=== PATIENT | female | born 1975 ===

== ENCOUNTER 2017-03-08 21:40 | Inpatient (IN) | payer MEDICARE, OTHER ==
[2017-03-08] MEDS ORDERED: PANTOPRAZOLE 40 MG/10 ML VIAL IVP STA (22:05)
[2017-03-08] MEDS ORDERED: SODIUM CHLORIDE 0.9% 500 ML IV STA (22:05)
[2017-03-08] MEDS ORDERED: RX INFO: IV CONTRAST WAS GIVEN 1 EACH MISC MISCELLANE PRN (22:05)
--- NOTE | 2017-03-08 22:14 | ED ---
GI Bleed HPI - General Chief complaint: Syncope Stated complaint: abn labs,syncope Time Seen by Provider: 03/08/17 21:51 Source: patient Mode of arrival: wheelchair Limitations: no limitations - History of Present Illness Initial comments: This patient is a 41-year-old woman who presents to the emergency department after she passed out. The patient does give history of having a coagulopathy requiring that she take Coumadin. She states this is managed through the clinic. She does note that about 4 days ago she started having dark or black appearing stools. Over the past 1-2 days she has been having diffuse abdominal cramping and she states profuse diarrhea that is dark. She also has been having vomiting over the past day, but denies seeing coffee-ground material there. She began feeling very weak today. She did pass out. The patient states that she usually goes to [facility] but she felt she would not be able to make it there so she presents here to be evaluated. She is feeling weak and dizzy, complains of orthostatic symptoms. She denies chest pain or diaphoresis. MD complaint: melena Onset/Timin -: days(s) Quality: cramping Consistency: colicky Improves with: none Worsens with: none Context: blood thinners Associated Symptoms: abdominal pain, vomiting, syncope - Related Data Home Medications Medication Instructions Recorded Confirmed Cholecalciferol (Vitamin D3) 5,000 unit PO DAILY 09/03/15 03/08/17 [Vitamin D3] Citalopram Hydrobromide 20 mg PO DAILY 09/03/15 03/08/17 [Citalopram HBr] LORazepam [Lorazepam] 1 mg PO BID PRN 09/03/15 03/08/17 Hydrocodone/Acetaminophen [Pope 1 tab PO Q8H PRN 03/08/17 03/08/17 5-325] Warfarin [Coumadin] 10 - 12.5 mg PO DIRECTED 03/08/17 03/08/17 Allergies Allergy/AdvReac Type Severity Reaction Status Date / Time bupropion HCl AdvReac Vomiting Verified 03/08/17 22:14 [From Wellbutrin] doxycycline AdvReac Vomiting Verified 03/08/17 22:14 Review of Systems ROS Statement: Those systems with pertinent positive or pertinent negative responses have been documented in the HPI. ROS Other: All systems not noted in ROS Statement are negative. Constitutional: Reports: weakness Eyes: Denies: vision change Respiratory: Denies: cough, dyspnea, hemoptysis Cardiovascular: Reports: syncope. Denies: chest pain, palpitations, orthopnea, edema Gastrointestinal: Reports: abdominal pain, nausea, vomiting, diarrhea, melena. Denies: constipation, hematemesis, hematochezia Genitourinary: Denies: dysuria, hematuria Musculoskeletal: Denies: back pain Skin: Denies: rash Neurological: Reports: weakness. Denies: headache, numbness Hematological/Lymphatic: Reports: other (Coumadin use) Past Medical History Past Medical History: Blood Disorder, CVA/TIA, Deep Vein Thrombosis (DVT), Fibromyalgia, GERD/Reflux, Pneumonia Additional Past Medical History / Comment(s): BLOOD CLOTTING DISORDER, UTI, ALLERGIES, TIA,MIGRAINES, LUZ MARIA RHEUMATOID ARTHRITIS/OSTEOPOROSIS, DAY BEFORE THANKSGIVING FELL OFF LADDER BROKE RT DISTAL RADIUS/STATED ALSO HAD CONCUSSION.. History of Any Multi-Drug Resistant Organisms: None Reported Past Surgical History: Adenoidectomy, Section, Hysterectomy, Tonsillectomy Additional Past Surgical History / Comment(s): SEVERAL SETS OF EUSTACIAN TUBES, TOTAL HYSTERECTOMY D/T ENLARGING CYSTS EVEN WHEN ON LUPRON, HYDROCEPHALUS/4TH DEGREE BRAIN BLEED, SPINA BIFIDA CORRECTIVE SX, WISDOM TEETH EXTRACTED,HAS A TULIP FIELD FILTER INSERTED FOR BLOOD CLOTS, MOLE REMOVED(BENIGN), FELECIA TIB/FIB( CONTORSION) SX. 09.03.15 ORIF RT DISTAL RADIUS. Past Anesthesia/Blood Transfusion Reactions: No Reported Reaction Past Psychological History: Anxiety, Depression Smoking Status: Never smoker Past Alcohol Use History: None Reported Past Drug Use History: None Reported - Past Family History Father Family Medical History: Myocardial Infarction (ND) Additional Family Medical History / Comment(s): BLOOD CLOTS Mother Family Medical History: Deep Vein Thrombosis (DVT) Additional Family Medical History / Comment(s): FROM BLOOD CLOT AT AGE 42. FAMILY HX OF CANCER ON MOMS SIDE. General Exam Limitations: no limitations General appearance: alert, in distress Head exam: Present: atraumatic, normocephalic Eye exam: Present: normal appearance, other (Conjunctival pallor). Absent: scleral icterus, conjunctival injection ENT exam: Present: mucous membranes dry, other (Mucosal pallor) Neck exam: Present: normal inspection, full ROM. Absent: meningismus Respiratory exam: Present: normal lung sounds bilaterally. Absent: respiratory distress, wheezes, rales, rhonchi, stridor Cardiovascular Exam: Present: normal rhythm, tachycardia, normal heart sounds. Absent: systolic murmur, diastolic murmur, rubs, gallop GI/Abdominal exam: Present: soft, tenderness (There is mild diffuse tenderness) , diminished bowel sounds. Absent: distended, guarding, rebound, rigid, mass, pulsatile mass, hernia Extremities exam: Present: normal inspection. Absent: pedal edema, calf tenderness Neurological exam: Present: alert Skin exam: Present: warm, dry, intact, pallor. Absent: rash Course Vital Signs 03/08/17 03/08/17 03/08/17 21:56 22:09 22:25 Temperature 97.8 F Pulse Rate 116 H Pulse Rate [ 119 H 112 H Advertising Coordinator ] Respiratory 28 H 22 Rate Blood Pressure 85/50 Blood Pressure 86/52 [Left Arm] O2 Sat by Pulse 100 100 Oximetry 03/08/17 03/08/17 03/08/17 23:03 23:12 23:15 Temperature 98.6 F 98.6 F 97.8 F Pulse Rate 108 H 109 H 98 Pulse Rate [ Advertising Coordinator ] Respiratory 16 20 20 Rate Blood Pressure 130/81 130/81 116/56 Blood Pressure [Left Arm] O2 Sat by Pulse 100 Oximetry 03/08/17 03/09/17 03/09/17 23:25 00:03 00:32 Temperature 97.8 F 98.0 F 98.2 F Pulse Rate 111 H 106 H Pulse Rate [ 96 Advertising Coordinator ] Respiratory 20 20 16 Rate Blood Pressure 118/57 118/57 Blood Pressure 96/52 [Left Arm] O2 Sat by Pulse 100 100 Oximetry 03/09/17 03/09/17 03/09/17 00:47 00:59 01:00 Temperature Pulse Rate 91 Pulse Rate [ 104 H Advertising Coordinator ] Respiratory 20 22 18 Rate Blood Pressure Blood Pressure 117/63 [Left Arm] O2 Sat by Pulse 100 100 Oximetry Medical Decision Making - Medical Decision Making This patient is a 41-year-old woman presenting with abdominal pain, get GI bleeding, anemia, elevated INR on Coumadin. Patient receiving packed red cells , order placed for FFP, vitamin K. I discussed the initial results with the patient and requested to no if she wants to go back to [facility] where she states she does receive some her care or stay here and the patient currently wants to be admitted here. I have discussed her case with her physician Dr. Dowling. Patient be admitted to the ICU. Discussed her case with Dr. Moscoso who is covering tonight. Treatment recommendations are incorporated. I have paged surgery on-call to let them know about the case. - Lab Data Result diagrams: 03/09/17 09:25 03/09/17 09:25 Lab Results 03/08/17 03/08/17 03/08/17 Range/Units 22:00 22:00 22:00 WBC 12.4 H (3.8-10.6) k/uL RBC 1.59 L (3.80-5.40) m/uL Hgb 4.8 L* (11.4-16.0) gm/dL Hct 14.0 L* (34.0-46.0) % MCV 88.0 (80.0-100.0) fL MCH 30.4 (25.0-35.0) pg MCHC 34.6 (31.0-37.0) g/dL RDW 15.5 (11.5-15.5) % Plt Count 351 (150-450) k/uL Neutrophils % 78 % Lymphocytes % 17 % Monocytes % 2 % Eosinophils % 0 % Basophils % 0 % Neutrophils # 9.7 H (1.3-7.7) k/uL Lymphocytes # 2.1 (1.0-4.8) k/uL Monocytes # 0.3 (0-1.0) k/uL Eosinophils # 0.0 (0-0.7) k/uL Basophils # 0.1 (0-0.2) k/uL PT (9.0-12.0) sec INR (<1.1) APTT (22.0-30.0) sec Sodium 139 (137-145) mmol/L Potassium 4.1 (3.5-5.1) mmol/L Chloride 105 (98-107) mmol/L Carbon Dioxide 20 L (22-30) mmol/L Anion Gap 14 mmol/L BUN 40 H (7-17) mg/dL Creatinine 0.90 (0.52-1.04) mg/dL Est GFR (MDRD) Af Amer >60 (>60 ml/min/1.73 sqM) Est GFR (MDRD) Non-Af >60 (>60 ml/min/1.73 sqM) Glucose 205 H (74-99) mg/dL Plasma Lactic Acid Daniel (0.7-2.0) mmol/L Calcium 8.7 (8.4-10.2) mg/dL Total Bilirubin 0.4 (0.2-1.3) mg/dL AST 20 (14-36) U/L ALT 14 (9-52) U/L Alkaline Phosphatase 52 (38-126) U/L Total Creatine Kinase 34 (30-135) U/L CK-MB (CK-2) 0.3 (0.0-2.4) ng/mL CK-MB (CK-2) Rel Index 0.9 Troponin I 0.037 H* (0.000-0.034) ng/mL Total Protein 5.5 L (6.3-8.2) g/dL Albumin 3.4 L (3.5-5.0) g/dL Blood Type Blood Type Recheck Antibody Screen Crossmatch Transfuse Plasma Spec Expiration Date 03/08/17 03/08/17 03/08/17 Range/Units 22:00 22:00 22:00 WBC (3.8-10.6) k/uL RBC (3.80-5.40) m/uL Hgb (11.4-16.0) gm/dL Hct (34.0-46.0) % MCV (80.0-100.0) fL MCH (25.0-35.0) pg MCHC (31.0-37.0) g/dL RDW (11.5-15.5) % Plt Count (150-450) k/uL Neutrophils % % Lymphocytes % % Monocytes % % Eosinophils % % Basophils % % Neutrophils # (1.3-7.7) k/uL Lymphocytes # (1.0-4.8) k/uL Monocytes # (0-1.0) k/uL Eosinophils # (0-0.7) k/uL Basophils # (0-0.2) k/uL PT >130.0 H (9.0-12.0) sec INR >10.0 H* (<1.1) APTT 45.9 H (22.0-30.0) sec Sodium (137-145) mmol/L Potassium (3.5-5.1) mmol/L Chloride (98-107) mmol/L Carbon Dioxide (22-30) mmol/L Anion Gap mmol/L BUN (7-17) mg/dL Creatinine (0.52-1.04) mg/dL Est GFR (MDRD) Af Amer (>60 ml/min/1.73 sqM) Est GFR (MDRD) Non-Af (>60 ml/min/1.73 sqM) Glucose (74-99) mg/dL Plasma Lactic Acid Daniel 5.7 H* (0.7-2.0) mmol/L Calcium (8.4-10.2) mg/dL Total Bilirubin (0.2-1.3) mg/dL AST (14-36) U/L ALT (9-52) U/L Alkaline Phosphatase (38-126) U/L Total Creatine Kinase (30-135) U/L CK-MB (CK-2) (0.0-2.4) ng/mL CK-MB (CK-2) Rel Index Troponin I (0.000-0.034) ng/mL Total Protein (6.3-8.2) g/dL Albumin (3.5-5.0) g/dL Blood Type O Positive Blood Type Recheck No Antibody Screen NEGATIVE Crossmatch See Detail Transfuse Plasma Spec Expiration Date 03/11/2017 - 229903/09/17 Range/Units 00:05 WBC (3.8-10.6) k/uL RBC (3.80-5.40) m/uL Hgb (11.4-16.0) gm/dL Hct (34.0-46.0) % MCV (80.0-100.0) fL MCH (25.0-35.0) pg MCHC (31.0-37.0) g/dL RDW (11.5-15.5) % Plt Count (150-450) k/uL Neutrophils % % Lymphocytes % % Monocytes % % Eosinophils % % Basophils % % Neutrophils # (1.3-7.7) k/uL Lymphocytes # (1.0-4.8) k/uL Monocytes # (0-1.0) k/uL Eosinophils # (0-0.7) k/uL Basophils # (0-0.2) k/uL PT (9.0-12.0) sec INR (<1.1) APTT (22.0-30.0) sec Sodium (137-145) mmol/L Potassium (3.5-5.1) mmol/L Chloride (98-107) mmol/L Carbon Dioxide (22-30) mmol/L Anion Gap mmol/L BUN (7-17) mg/dL Creatinine (0.52-1.04) mg/dL Est GFR (MDRD) Af Amer (>60 ml/min/1.73 sqM) Est GFR (MDRD) Non-Af (>60 ml/min/1.73 sqM) Glucose (74-99) mg/dL Plasma Lactic Acid Daniel (0.7-2.0) mmol/L Calcium (8.4-10.2) mg/dL Total Bilirubin (0.2-1.3) mg/dL AST (14-36) U/L ALT (9-52) U/L Alkaline Phosphatase (38-126) U/L Total Creatine Kinase (30-135) U/L CK-MB (CK-2) (0.0-2.4) ng/mL CK-MB (CK-2) Rel Index Troponin I (0.000-0.034) ng/mL Total Protein (6.3-8.2) g/dL Albumin (3.5-5.0) g/dL Blood Type Blood Type Recheck Antibody Screen Crossmatch Transfuse Plasma 03/09/2017 Spec Expiration Date - EKG Data -: EKG Interpreted by Wy EKG shows normal: sinus rhythm, axis (Normal), intervals (Normal), QRS complexes (Normal), ST-T waves (Normal) Rate: tachycardia (Rate approximately 118 bpm) Critical Care Time Critical Care Time: Yes (35 minutes) Disposition Clinical Impression: Vasovagal syncope, GI bleeding, Coumadin toxicity, Anemia, Hypotension, Tachycardia Disposition: ADMITTED IP TO THIS [facility] Condition: Critical
[2017-03-08 22:21] LABS: Basophils # (A) 0.1 k/uL (0-0.2); Basophils % (A) 0 %; CH 29.3; CHCM 33.5; Eosinophils % (A) 0 %; HDW 3.25; Luc # (Auto) 0.25; Luc % (Auto) 2; Lymphocytes # (A) 2.1 k/uL (1.0-4.8); Lymphocytes % (A) 17 %; MCH 30.4 pg (25.0-35.0); MCHC 34.6 g/dL (31.0-37.0); Mean Platelet Volume 8.6; Monocytes # (A) 0.3 k/uL (0-1.0); Monocytes % (A) 2 %; Neutrophils # (A) 9.7 k/uL (1.3-7.7); Neutrophils % (A) 78 %; RBC 1.59 m/uL (3.80-5.40); RDW 15.5 % (11.5-15.5); WBC 12.4 k/uL (3.8-10.6); WBC (Perox) 12.47
[2017-03-08 22:25] LABS: Chloride 105 mmol/L (98-107); Glucose 205 mg/dL (74-99); Total Protein 5.5 g/dL (6.3-8.2)
[2017-03-08 22:26] LABS: ALT 14 U/L (9-52); AST 20 U/L (14-36); Alkaline Phosphatase 52 U/L (38-126); Anion Gap 14 mmol/L; Blood Urea Nitrogen 40 mg/dL (7-17); Calcium 8.7 mg/dL (8.4-10.2); Carbon Dioxide 20 mmol/L (22-30); Non-African American GFR(MDRD) >60 (>60 ml/min/1.73 sqM); Potassium 4.1 mmol/L (3.5-5.1); Sodium 139 mmol/L (137-145); Total Bilirubin 0.4 mg/dL (0.2-1.3)
[2017-03-08 22:29] LABS: HGB 4.8 gm/dL (11.4-16.0)
[2017-03-08 22:36] LABS: Partial Thromboplastin Time 45.9 sec (22.0-30.0)
[2017-03-08] MEDS ORDERED: ONDANSETRON 4 MG/2 ML VIAL IVP STA (22:46)
[2017-03-08 22:47] LABS: Creatine Kinase MB 0.3 ng/mL (0.0-2.4)
[2017-03-08 22:53] LABS: Troponin I 0.037 ng/mL (0.000-0.034)
[2017-03-08 23:34] LABS: Prothrombin Time >130.0 sec (9.0-12.0)
[2017-03-08 23:37] LABS: INR >10.0 (<1.1)
--- NOTE | 2017-03-08 23:39 | CT ---
EXAM: CT Abdomen and Pelvis With Intravenous Contrast CLINICAL HISTORY: Reason: pain TECHNIQUE: Axial computed tomography images of the abdomen and pelvis with intravenous contrast. Coronal and sagittal reformats were obtained. CTDI is 12.70 MGy and DLP is 593 mGy-cm. This CT exam was performed using one or more of the following dose reduction techniques: automated exposure control, adjustment of the mA and/or kV according to patient size, and/or use of iterative reconstruction technique. COMPARISON: No relevant prior studies available. FINDINGS: Lower thorax: No acute findings. ABDOMEN: Liver: Hepatic steatosis. Gallbladder and bile ducts: Unremarkable. No calcified stones. No ductal dilation. Pancreas: Unremarkable. No mass. No ductal dilation. Spleen: Unremarkable. No splenomegaly. Adrenals: Unremarkable. No mass. Kidneys and ureters: Unremarkable. No solid mass. No hydronephrosis. Stomach and bowel: Apparent wall thickening of the transverse colon is likely secondary to underdistention. No evidence of bowel obstruction. Appendix: No findings to suggest acute appendicitis. PELVIS: Bladder: Unremarkable. Reproductive: Uterus is surgically absent. ABDOMEN and PELVIS: Intraperitoneal space: Unremarkable. No free air. No significant fluid collection. Bones/joints: No acute fracture. Vasculature: IVC filter is present with 4 metallic prongs extending beyond the caval wall, 2 of which project over the third portion of the duodenum. Lymph nodes: Unremarkable. No enlarged lymph nodes. IMPRESSION: 1. IVC filter is present with 4 metallic prongs extending beyond the caval wall, 2 of which overlie the duodenum. Recommend interventional radiology consultation. 2. Apparent wall thickening of the transverse colon is likely secondary to underdistention. Colitis is less likely.
[2017-03-08] MEDS ORDERED: PHYTONADIONE 2 MG in SODIUM CHLORIDE 0.9% 50 ML IVPB STA (23:49)
[2017-03-09] MEDS: SODIUM CHLORIDE 0.9% 1,000 ML IV STA ×2 (00:07→06:42)
[2017-03-09] MEDS ORDERED: ACETAMINOPHEN TAB 325 MG TAB PO PRN (00:15)
[2017-03-09] MEDS ORDERED: NALOXONE 0.4 MG/ML 1 ML VIAL IV PRN (00:15)
[2017-03-09] MEDS ORDERED: SODIUM CHLORIDE 0.9% 1,000 ML IV SCH (00:15)
[2017-03-09] MEDS ORDERED: LORazepam 1 MG TAB PO PRN (00:20)
[2017-03-09] MEDS ORDERED: HYDROcodone/APAP 5-325MG 1 EACH TAB PO PRN (00:20)
[2017-03-09 01:04] LABS: Glucose,Whole Blood 126 mg/dL (75-99)
[2017-03-09] MEDS ORDERED: SODIUM CHLORIDE 0.9% 2,000 ML IV ONE (01:58)
[2017-03-09] MEDS ORDERED: PHYTONADIONE IVPB STA (02:01)
[2017-03-09] MEDS ORDERED: SODIUM CHLORIDE 0.9% IVPB STA (02:01)
[2017-03-09] MEDS ORDERED: HYDROmorphone 1 MG/ML 1 ML SYRINGE IVP PRN (03:23)
--- NOTE | 2017-03-09 05:41 | US ---
EXAM: US Duplex Bilateral Lower Extremity Veins CLINICAL HISTORY: Reason: left leg pain; h/x of clots TECHNIQUE: Real-time ultrasound scan of the veins of the bilateral lower extremities with color Doppler flow, spectral waveform analysis and compression. COMPARISON: Left lower extremity duplex venous ultrasound 11/29/2014 FINDINGS: Right deep veins: Right lower extremity: Normal venous flow, augmentation and compressibility of the right common femoral vein, femoral vein and popliteal veins. Left deep veins: Left lower extremity: Mural echodensity along the wall of the left common femoral vein and proximal popliteal vein demonstrating normal venous flow and near complete compressibility suggesting chronic venous thrombosis. Normal venous flow, augmentation and compressibility in the left femoral vein. IMPRESSION: Right lower extremity: No evidence of deep venous thrombosis. Left lower extremity: Chronic appearing nonoccluding venous thrombus involving the left common femoral and popliteal veins. Critical Value Communications 03/09/17 06:11 Verify Receipt Verified receipt with Kailee in ICU on 03/09 06:10 (-04:00)
[2017-03-09 06:26] VITALS: BMI 28.0
[2017-03-09] MEDS ORDERED: PANTOPRAZOLE 40 MG/10 ML VIAL IV SCH (09:00)
[2017-03-09] MEDS ORDERED: CHOLECALCIFEROL 1,000 UNIT TAB PO SCH (09:00)
[2017-03-09] MEDS ORDERED: CITALOPRAM HYDROBROMIDE 20 MG TAB PO SCH (09:00)
--- NOTE | 2017-03-09 09:12 | P.CNPUL ---
History of Present Illness Consult date: 03/09/17 Chief complaint: Acute GI bleeding History of present illness: This is a 41-year-old female patient who is coming into the emergency department because of upper GI bleeding. The patient has been having frequent episodes of melanotic stool over the past 4 days and she progressively became weaker and dizzy and she passed out at home. By the time she arrived to the burst department and initially hemoglobin was at 4.8. The patient was toxic on Coumadin and INR of above 10. No hematochezia. She had few bouts of hematemesis in the emergency department and none since then. Initially the time of the admission, the patient was hypotensive and tachycardic. Her initial systolic blood pressure was in the mid 80s and she was tachycardic with a heart rate of 120. She was given 500 bolus in the emergency department. She was given an additional 2 L here in the intensive care unit. Following that there is a station was initiated. Since she rested ICU the patient has received a total of 3 units of packed RBCs, 2 units of fresh frozen plasma, 10 mg of vitamin K. Her hemodynamics improved and currently she is non- tachycardic and her blood pressure has also normalized and she is producing adequate amount of urine output. We have not with this any further episodes of bleeding here in the intensive care unit. She has some mild diffuse abdominal tenderness. A CAT scan of the abdomen and pelvis was completed and the patient was found to have an IVC filter with for metallic prongs extending beyond the caval wall and 2 of which overlie the duodenum. Based on this, an immediate vascular surgery and general surgery consultation was laced. I had a discussion about this case in the market consultant with Dr. Rosalba Cox. Interval history, the patient denies having any previous episodes of GI bleeding. She has a hypercoagulable state and she can't recall that she is positive for factor V Leyden. She has been worked up extensively locally here in [place] and in other hospitals including [facility], [facility] and the [facility]. The ultimate consensus was to put this patient on long-term medical condition with warfarin. She has a home INR monitor and her latest INR recorded from last week was 1.1 and based on that she was contacted by her physician and she was asked to increase her Coumadin dose. Subsequent follow- up was not done until her hospital admission which she came in with Coumadin toxicity. No evidence of hematoma, epistaxis or soft tissue bleed. The patient is complaining also of some pain in her left lower extremity and for that reason a Doppler of the leg was done and it showed a chronic nonoccluding venous thrombus involving the left , femoral and popliteal vein. The right lower extremity was free of any DVT. As mentioned, the patient has had multiple episodes of DVT is maintaining the left lower extremity. Review of Systems All systems: negative Constitutional: Denies chills, Denies fever Eyes: denies blurred vision, denies pain Ears, nose, mouth and throat: Denies headache, Denies sore throat Cardiovascular: Denies chest pain, Denies shortness of breath Respiratory: Denies cough Gastrointestinal: Reports melena, Denies abdominal pain, Denies diarrhea, Denies nausea, Denies vomiting Genitourinary: Denies dysuria, Denies hematuria Musculoskeletal: Denies myalgias Integumentary: Denies pruritus, Denies rash Neurological: Denies numbness, Denies weakness Psychiatric: Denies anxiety, Denies depression Endocrine: Denies fatigue, Denies weight change Past Medical History Past Medical History: Blood Disorder, CVA/TIA, Deep Vein Thrombosis (DVT), Fibromyalgia, GERD/Reflux, GI Bleed Additional Past Medical History / Comment(s): Hypercoagulable state 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, 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, history of IVC filter placement, given rheumatoid arthritis, osteoporosis, fibromyalgia , TIA, migraines, spina bifida, previous history of urine tract infections History of Any Multi-Drug Resistant Organisms: None Reported Past Surgical History: Adenoidectomy, Section, Hysterectomy, Tonsillectomy Additional Past Surgical History / Comment(s): IVC filter placement and apparently this was placed more than 8 years ago and she was contacted by the event coordinator marketing and sales that the filter itself was already called, ORIF of the right distal radius, bilateral/fib surgery, hydrocephalus with spina bifida requiring neurosurgical intervention, hysterectomy, ear surgery involving the eustachian tubes, adenoidectomy, tonsillectomy Past Anesthesia/Blood Transfusion Reactions: No Reported Reaction Past Psychological History: Anxiety, Depression Additional Psychological History / Comment(s): PT LIVES WITH HER DAUGHTER WHO HAS CEREBAL PALSEY Smoking Status: Never smoker Past Alcohol Use History: Rare Past Drug Use History: None Reported - Past Family History Father Family Medical History: Myocardial Infarction ([place]) Additional Family Medical History / Comment(s): Several family members including her mother has recurrent clotting disorder/DVTs and her mother of a young age due to blood clots. Mother Family Medical History: Deep Vein Thrombosis (DVT) Additional Family Medical History / Comment(s): FROM BLOOD CLOT AT AGE 42. FAMILY HX OF CANCER ON MOMS SIDE. Medications and Allergies Home Medications Medication Instructions Recorded Confirmed Type Cholecalciferol (Vitamin D3) 5,000 unit PO DAILY 09/03/15 03/08/17 History [Vitamin D3] Citalopram Hydrobromide 20 mg PO DAILY 09/03/15 03/08/17 History [Citalopram HBr] LORazepam [Lorazepam] 1 mg PO BID PRN 09/03/15 03/08/17 History Hydrocodone/Acetaminophen [[place] 1 tab PO Q8H PRN 03/08/17 03/08/17 History 5-325] Warfarin [Coumadin] 10 - 12.5 mg PO DIRECTED 03/08/17 03/08/17 History Allergies Allergy/AdvReac Type Severity Reaction Status Date / Time bupropion HCl AdvReac Vomiting Verified 03/08/17 22:14 [From Wellbutrin] doxycycline AdvReac Vomiting Verified 03/08/17 22:14 Physical Exam Vitals: Vital Signs Temp Pulse Pulse Resp BP BP Pulse Ox 03/09/17 08:00 98.3 F 95 16 102/62 100 03/09/17 07:00 86 14 98/52 100 03/09/17 06:50 95 16 96/52 100 03/09/17 06:46 98.1 F 92 15 96/52 100 03/09/17 06:40 92 15 96/52 100 03/09/17 06:30 91 13 96/52 100 03/09/17 06:20 94 18 96/52 100 03/09/17 06:16 98.1 F 96 15 96/52 100 03/09/17 06:10 95 15 101/52 100 03/09/17 06:06 98.2 F 98 16 101/52 100 03/09/17 06:00 96 15 101/52 100 03/09/17 05:56 98.2 F 100 16 101/52 100 03/09/17 05:50 97 12 94/55 100 03/09/17 05:40 99 16 94/55 100 03/09/17 05:30 97 13 104/60 100 03/09/17 05:20 100 15 104/60 100 03/09/17 05:18 98.2 F 100 15 104/60 100 03/09/17 05:10 94 16 91/50 100 03/09/17 05:00 95 14 91/50 100 03/09/17 04:50 101 H 18 101/60 100 03/09/17 04:48 98.2 F 94 14 95/65 100 03/09/17 04:40 94 14 101/60 100 03/09/17 04:38 98.1 F 92 14 101/60 03/09/17 04:30 97 14 106/67 100 03/09/17 04:20 96 13 106/67 100 03/09/17 04:10 96 19 112/65 100 03/09/17 04:00 108 H 17 112/65 100 03/09/17 03:50 93 16 116/62 100 03/09/17 03:44 98.3 F 91 15 116/62 100 03/09/17 03:40 90 15 116/62 100 03/09/17 03:30 93 18 123/65 100 03/09/17 03:20 87 15 123/65 100 03/09/17 03:10 90 15 126/58 100 03/09/17 03:02 98.0 F 91 16 126/58 100 03/09/17 03:00 98.0 F 88 14 126/58 100 03/09/17 02:50 90 16 138/86 100 03/09/17 02:40 109 H 26 H 138/86 100 03/09/17 02:32 98.0 F 93 14 126/58 03/09/17 02:30 90 15 130/72 100 03/09/17 02:22 98.6 F 90 15 130/72 100 03/09/17 02:20 88 13 130/72 100 03/09/17 02:12 98.6 F 90 16 130/72 100 03/09/17 02:10 92 14 130/72 100 03/09/17 02:00 92 13 122/75 100 03/09/17 01:50 93 20 122/75 100 03/09/17 01:40 107 H 19 122/75 100 03/09/17 01:30 93 14 121/63 100 03/09/17 01:20 94 17 121/63 100 03/09/17 01:10 90 18 121/63 100 03/09/17 01:00 91 18 100 03/09/17 00:59 22 100 03/09/17 00:47 104 H 20 117/63 03/09/17 00:32 98.2 F 96 16 96/52 100 03/09/17 00:03 98.0 F 106 H 20 118/57 100 03/08/17 23:25 97.8 F 111 H 20 118/57 03/08/17 23:15 97.8 F 98 20 116/56 03/08/17 23:12 98.6 F 109 H 20 130/81 03/08/17 23:03 98.6 F 108 H 16 130/81 100 03/08/17 22:25 112 H 22 86/52 100 03/08/17 22:09 119 H 03/08/17 21:56 97.8 F 116 H 28 H 85/50 100 Intake and Output 03/08/17 03/09/17 03/09/17 22:59 06:59 14:59 Intake Total 3196 75 Output Total 350 Balance 2846 75 Intake: IV 2300 75 Sodium Chloride 0.9% 1, 300 75 000 ml @ 75 mls/hr IV . [id number] [facility] Rx#:[id number] Sodium Chloride 0.9% 2, 2000 000 ml @ 999 mls/hr IV . Q2H1M ONE Rx#:[id number] Blood Product 896 Ffp 24 Cpd Unit 298 [id number] Ffp 24 Cpd Unit 288 [id number] Rc As-1 Unit 0 [id number] Rc Irr As1 Unit 310 [id number] Output: Urine 350 Other: Voiding Method Bedpan # Voids 0 Weight 63.503 kg 63 kg Head exam was generally normal. There was no scleral icterus or corneal arcus. Mucous membranes were moist.Neck was supple and without jugular venous distension, thyromegaly, or carotid bruits. Carotids were easily palpable bilaterally. There was no adenopathy.Lungs were clear to auscultation and percussion, and with normal diaphragmatic excursion. No wheezes or rales were noted. Cardiac exam revealed the PMI to be normally situated and sized. The rhythm was regular and no extrasystoles were noted during several minutes of auscultation. The first and second heart sounds were normal and physiologic splitting of the second heart sound was noted. There were no murmurs, rubs, clicks, or gallops. Abdomen shows some mild direct tenderness. No rebound tensile guarding. Extremities show some swelling left lower extremities compared to right. No calf tenderness. No open wounds or sores or ulcers. Neurologically the patient is intact and awake. Results - Laboratory Findings CBC and BMP: 03/08/17 22:00 03/08/17 22:00 PT/INR, D-dimer PT >130.0 sec (9.0-12.0) H 03/08/17 22:00 INR >10.0 (<1.1) H* 03/08/17 22:00 Abnormal lab findings: Abnormal Labs 03/08/17 03/08/17 03/08/17 22:00 22:00 22:00 WBC 12.4 H RBC 1.59 L Hgb 4.8 L* Hct 14.0 L* Neutrophils # 9.7 H PT INR APTT Carbon Dioxide 20 L BUN 40 H Glucose 205 H POC Glucose (mg/dL) Plasma Lactic Acid Daniel Troponin I 0.037 H* Total Protein 5.5 L Albumin 3.4 L Crossmatch 03/08/17 03/08/17 03/08/17 22:00 22:00 22:00 WBC RBC Hgb Hct Neutrophils # PT >130.0 H INR >10.0 H* APTT 45.9 H Carbon Dioxide BUN Glucose POC Glucose (mg/dL) Plasma Lactic Acid Daniel 5.7 H* Troponin I Total Protein Albumin Crossmatch See Detail 03/09/17 01:02 WBC RBC Hgb Hct Neutrophils # PT INR APTT Carbon Dioxide BUN Glucose POC Glucose (mg/dL) 126 H Plasma Lactic Acid Daniel Troponin I Total Protein Albumin Crossmatch Assessment and Plan Plan: Assessment 1 upper GI bleed with profound hypotension, hypovolemia, anemia in the setting of Coumadin toxicity and possible IVC filter metabolic problems extending beyond the IVC wall and invading the duodenum. Please refer to the CAT scan of the abdomen findings regarding the potential of IVC filter invasion. 2 hypotension, improved with fluids and RBC resuscitation 3 profound anemia with a hemoglobin of 4.8 status post transfusion 3 units of packed RBC 4 Coumadin toxicity status post treatment with vitamin K and fresh frozen plasma 5 hypercoagulable state with recurrent clotting of the left lower extremity maintained on lifelong and to coagulation with warfarin and the patient has an IVC filter in place that was placed more than 6-8 years ago. 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 Plan The patient has been resuscitated adequately. The coagulopathy was reversed and the follow-up PT/INR is pending for now. The patient was given packed RBC transfusion in follow-up hemoglobin is pending. She is on IV Protonix. She is on IV fluid with normal saline at rate of 75 mL an hour. Discussed the findings with a general surgeon. Discussed the findings with interventional radiology. There is a potential that the filter itself has invaded through the caval wall and it's extending into the duodenum. For that reason, the patient may need to be seen a tertiary care center with consultation placed for GI, general surgery and vascular surgery. I'm going to discuss this with the ICU team at [facility] for their advice. Meanwhile we will hold off all anticoagulants. We'll continue to follow we'll keep the patient in ICU. The plan is to transfer this patient to [facility] for the above-mentioned reason.
[2017-03-09 10:16] LABS: INR 1.3 (<1.1); Prothrombin Time 12.8 sec (9.0-12.0)
[2017-03-09 10:19] LABS: ALT 17 U/L (9-52); AST 18 U/L (14-36); Alkaline Phosphatase 44 U/L (38-126); Anion Gap 5 mmol/L; Blood Urea Nitrogen 24 mg/dL (7-17); Calcium 7.5 mg/dL (8.4-10.2); Carbon Dioxide 25 mmol/L (22-30); Chloride 113 mmol/L (98-107); Glucose 84 mg/dL (74-99); Magnesium 1.8 mg/dL (1.6-2.3); Non-African American GFR(MDRD) >60 (>60 ml/min/1.73 sqM); Potassium 3.9 mmol/L (3.5-5.1); Sodium 143 mmol/L (137-145); Total Bilirubin 0.9 mg/dL (0.2-1.3); Total Protein 4.8 g/dL (6.3-8.2)
[2017-03-09 10:20] LABS: Basophils % (A) 0 %; CH 29.9; CHCM 33.5; Eosinophils % (A) 0 %; HDW 2.95; Luc # (Auto) 0.13; Luc % (Auto) 2; Lymphocytes # (A) 2.3 k/uL (1.0-4.8); Lymphocytes % (A) 28 %; MCH 31.7 pg (25.0-35.0); MCHC 35.2 g/dL (31.0-37.0); Mean Platelet Volume 7.8; Monocytes # (A) 0.3 k/uL (0-1.0); Monocytes % (A) 4 %; Neutrophils # (A) 5.4 k/uL (1.3-7.7); Neutrophils % (A) 66 %; RBC 1.93 m/uL (3.80-5.40); RDW 14.6 % (11.5-15.5); WBC 8.2 k/uL (3.8-10.6); WBC (Perox) 8.66
[2017-03-09 10:26] LABS: HCT 17.4 % (34.0-46.0); HGB 6.1 gm/dL (11.4-16.0)
--- NOTE | 2017-03-09 10:33 | P.GSCN ---
History of Present Illness Consult date: 03/09/17 Reason for Consult: Surgical eval abdominal pain History of present illness: 41-year-old female presented on the day of admission to the emergency room after the patient stated that she passed out. Patient stated that she just had been not feeling well generalized weakness and decreased endurance over the last 4-5 days. Additionally patient stated that she noted her stools to be black in color with diffuse abdominal cramping. Patient stated that she did vomit on the day of admission but denied coffee-ground material. Patient stated that she had been feeling extremely weak. Patient stated that she passed out. Patient stated that she normally goes to [facility] for healthcare but she was too weak came into [facility] emergency room to be evaluated for the above-mentioned symptoms patient was seen in the emergency room was noted to be tachycardic and hypotensive hemoglobin 4.8 with an INR greater than 10. Patient does report that she has a home monitoring device for monitoring her INR she did state that her INR home monitoring device showed it to be 1.1 did take extra Coumadin Dr. Rey Dowling did review the CAT scan of the abdomen pelvis showing IVC filter with metallic prongs extending beyond the cavity overlying the duodenum who did recommend after reviewing the CAT scan with Dr. 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, history of IVC filter placement, given rheumatoid arthritis, osteoporosis, fibromyalgia , TIA, migraines, spina bifida, previous history of urine tract infections History of Any Multi-Drug Resistant Organisms: None Reported Past Surgical History: Adenoidectomy, Section, Hysterectomy, Tonsillectomy Additional Past Surgical History / Comment(s): IVC filter placement and apparently this was placed more than 8 years ago and she was contacted by the kitchen lead that the filter itself was already called, ORIF of the right distal radius, bilateral/fib surgery, hydrocephalus with spina bifida requiring neurosurgical intervention, hysterectomy, ear surgery involving the eustachian tubes, adenoidectomy, tonsillectomy Past Anesthesia/Blood Transfusion Reactions: No Reported Reaction Past Psychological History: Anxiety, Depression Additional Psychological History / Comment(s): PT LIVES WITH HER DAUGHTER WHO HAS CEREBAL PALSEY Smoking Status: Never smoker Past Alcohol Use History: Rare Past Drug Use History: None Reported - Past Family History Father Family Medical History: Myocardial Infarction ([place]) Additional Family Medical History / Comment(s): Several family members including her mother has recurrent clotting disorder/DVTs and her mother of a young age due to blood clots. Mother Family Medical History: Deep Vein Thrombosis (DVT) Additional Family Medical History / Comment(s): FROM BLOOD CLOT AT AGE 42. FAMILY HX OF CANCER ON MOMS SIDE. Medications and Allergies Home Medications Medication Instructions Recorded Confirmed Type Cholecalciferol (Vitamin D3) 5,000 unit PO DAILY 09/03/15 03/08/17 History [Vitamin D3] Citalopram Hydrobromide 20 mg PO DAILY 09/03/15 03/08/17 History [Citalopram HBr] LORazepam [Lorazepam] 1 mg PO BID PRN 09/03/15 03/08/17 History Hydrocodone/Acetaminophen [[place] 1 tab PO Q8H PRN 03/08/17 03/08/17 History 5-325] Warfarin [Coumadin] 10 - 12.5 mg PO DIRECTED 03/08/17 03/08/17 History Allergies Allergy/AdvReac Type Severity Reaction Status Date / Time bupropion HCl AdvReac Vomiting Verified 03/08/17 22:14 [From Wellbutrin] doxycycline AdvReac Vomiting Verified 03/08/17 22:14 Surgical - Exam Vital Signs Temp Pulse Resp BP Pulse Ox 97.8 F 116 H 28 H 85/50 100 03/08/17 21:56 03/08/17 21:56 03/08/17 21:56 03/08/17 21:56 03/08/17 21:56 GENERAL APPEARANCE: Very pleasant 41-year-old female patient is alert, oriented , in no acute distress sitting up in bed talkative. VITAL SIGNS: Reviewed HEENT: Head is normocephalic and atraumatic. Pupils are equal and reactive. The nares are patent. Oropharynx is clear without lesions. NECK: Supple without lymphadenopathy. Traches midline. HEART: S1, S2. Regular rate and rhythm. Sinus rhythm on the monitor no murmur noted LUNGS: No crackles or wheezes are heard. Adequate air movement bilaterally ABDOMEN: Soft, diffuse tenderness across the abdominal wall nondistended with good bowel sounds. No peritoneal signs. No palpable organomegaly or masses. EXTREMITIES: Slight swelling left lower extremity compared to right. No calf tenderness. . Radial pedal pulses are 2/4 bilaterally. Skin no skin rash noted no open sores NEUROLOGICAL: No focal deficits. Strength and sensation are grossly intact. Results - Labs 03/08/17 22:00 03/08/17 22:00 Abnormal Lab Results - Last 24 Hours (Table) 03/08/17 03/08/17 03/08/17 Range/Units 22:00 22:00 22:00 WBC 12.4 H (3.8-10.6) k/uL RBC 1.59 L (3.80-5.40) m/uL Hgb 4.8 L* (11.4-16.0) gm/dL Hct 14.0 L* (34.0-46.0) % Neutrophils # 9.7 H (1.3-7.7) k/uL PT (9.0-12.0) sec INR (<1.1) APTT (22.0-30.0) sec Carbon Dioxide 20 L (22-30) mmol/L BUN 40 H (7-17) mg/dL Glucose 205 H (74-99) mg/dL POC Glucose (mg/dL) (75-99) mg/dL Plasma Lactic Acid Daniel (0.7-2.0) mmol/L Troponin I 0.037 H* (0.000-0.034) ng/mL Total Protein 5.5 L (6.3-8.2) g/dL Albumin 3.4 L (3.5-5.0) g/dL Crossmatch 03/08/17 03/08/17 03/08/17 Range/Units 22:00 22:00 22:00 WBC (3.8-10.6) k/uL RBC (3.80-5.40) m/uL Hgb (11.4-16.0) gm/dL Hct (34.0-46.0) % Neutrophils # (1.3-7.7) k/uL PT >130.0 H (9.0-12.0) sec INR >10.0 H* (<1.1) APTT 45.9 H (22.0-30.0) sec Carbon Dioxide (22-30) mmol/L BUN (7-17) mg/dL Glucose (74-99) mg/dL POC Glucose (mg/dL) (75-99) mg/dL Plasma Lactic Acid Daniel 5.7 H* (0.7-2.0) mmol/L Troponin I (0.000-0.034) ng/mL Total Protein (6.3-8.2) g/dL Albumin (3.5-5.0) g/dL Crossmatch See Detail 03/09/17 Range/Units 01:02 WBC (3.8-10.6) k/uL RBC (3.80-5.40) m/uL Hgb (11.4-16.0) gm/dL Hct (34.0-46.0) % Neutrophils # (1.3-7.7) k/uL PT (9.0-12.0) sec INR (<1.1) APTT (22.0-30.0) sec Carbon Dioxide (22-30) mmol/L BUN (7-17) mg/dL Glucose (74-99) mg/dL POC Glucose (mg/dL) 126 H (75-99) mg/dL Plasma Lactic Acid Daniel (0.7-2.0) mmol/L Troponin I (0.000-0.034) ng/mL Total Protein (6.3-8.2) g/dL Albumin (3.5-5.0) g/dL Crossmatch Diabetes panel 03/08/17 Range/Units 22:00 Sodium 139 (137-145) mmol/L Potassium 4.1 (3.5-5.1) mmol/L Chloride 105 (98-107) mmol/L Carbon Dioxide 20 L (22-30) mmol/L BUN 40 H (7-17) mg/dL Creatinine 0.90 (0.52-1.04) mg/dL Glucose 205 H (74-99) mg/dL Calcium 8.7 (8.4-10.2) mg/dL AST 20 (14-36) U/L ALT 14 (9-52) U/L Alkaline Phosphatase 52 (38-126) U/L Total Protein 5.5 L (6.3-8.2) g/dL Albumin 3.4 L (3.5-5.0) g/dL Calcium panel 03/08/17 Range/Units 22:00 Calcium 8.7 (8.4-10.2) mg/dL Albumin 3.4 L (3.5-5.0) g/dL Pituitary panel 03/08/17 Range/Units 22:00 Sodium 139 (137-145) mmol/L Potassium 4.1 (3.5-5.1) mmol/L Chloride 105 (98-107) mmol/L Carbon Dioxide 20 L (22-30) mmol/L BUN 40 H (7-17) mg/dL Creatinine 0.90 (0.52-1.04) mg/dL Glucose 205 H (74-99) mg/dL Calcium 8.7 (8.4-10.2) mg/dL Adrenal panel 03/08/17 Range/Units 22:00 Sodium 139 (137-145) mmol/L Potassium 4.1 (3.5-5.1) mmol/L Chloride 105 (98-107) mmol/L Carbon Dioxide 20 L (22-30) mmol/L BUN 40 H (7-17) mg/dL Creatinine 0.90 (0.52-1.04) mg/dL Glucose 205 H (74-99) mg/dL Calcium 8.7 (8.4-10.2) mg/dL Total Bilirubin 0.4 (0.2-1.3) mg/dL AST 20 (14-36) U/L ALT 14 (9-52) U/L Alkaline Phosphatase 52 (38-126) U/L Total Protein 5.5 L (6.3-8.2) g/dL Albumin 3.4 L (3.5-5.0) g/dL Assessment and Plan Plan: Impression Present on admission symptomatic hypotensive hypovolemia tachycardic suspect due to acute blood loss anemia due to a GI bleed black tarry stools Profound anemia hemoglobin 4.8 status post 3 units of packed red blood cells given Present on admission Coumadin toxicity status post treatment vitamin K and fresh frozen plasma Hypercoagulable state with recurrent clotting left lower extremity maintained on lifelong anticoagulation warfarin an IVC filter placed greater than 68 years ago Major depressive disorder Possible IVC filter problems extending beyond the IVC filter wall invading the duodenum per CAT scan abdomen pelvis History of a blood clotting disorder Plan No surgical intervention at this facility agree with transferring patient to a higher level of care to address the IVC filter should per CAT scan of the abdomen pelvis possible IVC filter invading the duodenum Transferred to [facility] ICU management per the mechanical striper The above impression and plan of care have been discussed and directed by signing physician. Heike Bone nurse practitioner acting as scribe for signing physician.
[2017-03-09 11:09] LABS: Partial Thromboplastin Time 20.7 sec (22.0-30.0)
[2017-03-09 11:35] VITALS: BP 104/87; PULSE 88; RESP 18; TEMP 98
== END 2017-03-09 10:37 | disposition short-term general hospital (02) | DRG 378 ==
LOC: EC 21:40 → 6ICU 03-09 00:22
PROVIDERS: ADMIT Family Medicine; ATTEND Family Medicine
PROC: 30233N1 Transfusion of Nonautologous Red Blood Cells into Peripheral Vein, Percutaneous Approach (ICD-10-PCS; 2017-03-08)
PROC: 30233K1 Transfusion of Nonautologous Frozen Plasma into Peripheral Vein, Percutaneous Approach (ICD-10-PCS; principal; 2017-03-09)
DX: K92.2 Gastrointestinal hemorrhage, unspecified (principal); E87.2 Acidosis; I95.9 Hypotension, unspecified; D68.59 Other primary thrombophilia; T82.898A Other specified complication of vascular prosthetic devices, implants and grafts, initial encounter; I82.512 Chronic embolism and thrombosis of left femoral vein; D62 Acute posthemorrhagic anemia; I82.532 Chronic embolism and thrombosis of left popliteal vein; E86.1 Hypovolemia; K92.0 Hematemesis; T45.515A Adverse effect of anticoagulants, initial encounter; R10.9 Unspecified abdominal pain; R19.7 Diarrhea, unspecified; Q05.9 Spina bifida, unspecified; M79.605 Pain in left leg; R55 Syncope and collapse; M08.00 Unspecified juvenile rheumatoid arthritis of unspecified site; R53.1 Weakness; F32.9 Major depressive disorder, single episode, unspecified; M79.7 Fibromyalgia; M81.0 Age-related osteoporosis without current pathological fracture; F41.9 Anxiety disorder, unspecified; R00.0 Tachycardia, unspecified; G43.909 Migraine, unspecified, not intractable, without status migrainosus; K21.9 Gastro-esophageal reflux disease without esophagitis; Z86.79 Personal history of other diseases of the circulatory system; Z80.9 Family history of malignant neoplasm, unspecified; Z79.01 Long term (current) use of anticoagulants; Z86.73 Personal history of transient ischemic attack (TIA), and cerebral infarction without residual deficits; Z82.49 Family history of ischemic heart disease and other diseases of the circulatory system; Z88.1 Allergy status to other antibiotic agents; Z88.8 Allergy status to other drugs, medicaments and biological substances; Z87.01 Personal history of pneumonia (recurrent); Z87.440 Personal history of urinary (tract) infections; Z87.81 Personal history of (healed) traumatic fracture; Z87.19 Personal history of other diseases of the digestive system; Z87.42 Personal history of other diseases of the female genital tract; Z87.820 Personal history of traumatic brain injury; Z86.69 Personal history of other diseases of the nervous system and sense organs; Z79.891 Long term (current) use of opiate analgesic; Z79.899 Other long term (current) drug therapy; Z82.0 Family history of epilepsy and other diseases of the nervous system; Z90.710 Acquired absence of both cervix and uterus; Z91.19 Patient's noncompliance with other medical treatment and regimen
CPT/HCPCS: 36415; 36430; 74177; 80053; 82550; 82553; 83605; 83735; 84100; 84484; 85025; 85610; 85730; 86850; 86900; 86901; 86920; 93005; 93970; 96361; 96365; 96375; 99285

== ENCOUNTER → 2018-05-03 | Outpatient (CLI) | payer MEDICARE, OTHER ==
--- NOTE | 2018-05-04 09:52 | CT ---
EXAMINATION TYPE: CT abdomen pelvis w con DATE OF EXAM: 05/03/2018 COMPARISON: CT abdomen pelvis 03/08/2017 INDICATION: Left groin pain x 1 1/2 yrs. IVC filter placement and 2 unsuccessful attempts to remove a fter it broke. DLP: 674.2 mGycm, Automated exposure control for dose reduction was used. CONTRAST: 100 mL of Isovue 300. Study performed with Oral Contrast TECHNIQUE: Axial images were obtained from above the diaphragm to the pubic rami in the axial plane a t 5 mm thick sections. Reconstructed images are reviewed on the computer in the coronal plane. FINDINGS: Limited CT sections are obtained the lung bases. The lung bases are clear. There is a small hiatal hernia. CT ABDOMEN: Liver: Normal Spleen: Normal Pancreas: Normal Adrenal glands: The adrenal glands are normal. Gallbladder: Normal Kidneys: No masses are evident. No hydronephrosis is present. No cysts are present. Delayed images were obtained through the kidneys, which remain unremarkable. Aorta: Normal Inferior vena cava: Normal. CT PELVIS: Loops of bowel within the abdomen and pelvis are normal. There are loops of bowel which are incom pletely distended or lack oral contrast limiting their evaluation. Appendix: Normal as visualized. Urinary bladder: Normal. Genitourinary structures: Uterus is unremarkable. Adnexal regions are clear. Osseous structures: No suspicious lytic or sclerotic lesions. IMPRESSIONS: 1. Unremarkable CT abdomen and pelvis. 2. Previous inferior vena cava filter is not identified on the current examination
== END | disposition home or self-care (01) ==
LOC: RADCTMAIN 14:51
PROVIDERS: ATTEND Family Medicine
DX: R10.9 Unspecified abdominal pain (principal)
CPT/HCPCS: 74177; Q9967

== ENCOUNTER 2018-06-28 19:09 | Observation (INO) | payer OTHER, MEDICARE ==
--- NOTE | 2018-06-28 20:09 | ED ---
General Adult HPI - General Chief complaint: Recheck/Abnormal Lab/Rx Stated complaint: abn labs Time Seen by Provider: 06/28/18 19:25 Source: patient, RN notes reviewed Mode of arrival: ambulatory Limitations: no limitations - History of Present Illness Initial comments: Is a 43-year-old female presents emergency Department complaining of having a near syncopal episode. Patient states she was at home she felt lightheaded and thought she was given a passout. Patient states she sat down and eventually resolved. Patient states she felt just like this before when she had anemia. Patient states she has multiple clotting disorders sure she is on Xarelto. Patient states she has no other symptoms. Patient denies any chest pain difficult breathing shortness of breath. Patient denies any abdominal pain patient denies nausea vomiting diarrhea. Patient states she does have a history of a bleeding ulcer but she states no one 1 to do anything about it. Patient denies any black or bloody stools. Patient denies any recent fever chills or cough. - Related Data Home Medications Medication Instructions Recorded Confirmed LORazepam [Lorazepam] 1 mg PO BID PRN 09/03/15 06/28/18 Hydrocodone/Acetaminophen [[place] 1 tab PO TID PRN 03/08/17 06/28/18 5-325] Acetaminophen [Tylenol] 1,000 mg PO Q4-6H PRN 06/28/18 06/28/18 Cholecalciferol [Vitamin D3] 1,000 unit PO DAILY 06/28/18 06/28/18 Cyanocobalamin (Vitamin B-12) 1,000 mcg PO DAILY 06/28/18 06/28/18 [Vitamin B-12] Melatonin 2 mg PO HS PRN 06/28/18 06/28/18 Ondansetron [Zofran] 4 mg PO BID PRN 06/28/18 06/28/18 Pantoprazole Sodium 40 mg PO DAILY 06/28/18 06/28/18 Rivaroxaban [Xarelto] 20 mg PO DAILY 06/28/18 06/28/18 Sucralfate [Carafate] 1 gm PO QID 06/28/18 06/28/18 Allergies Allergy/AdvReac Type Severity Reaction Status Date / Time bupropion HCl AdvReac Nausea & Verified 06/28/18 20:29 [From Wellbutrin] Vomiting & Diarrhea doxycycline AdvReac Nausea Verified 06/28/18 20:29 Review of Systems ROS Statement: Those systems with pertinent positive or pertinent negative responses have been documented in the HPI. ROS Other: All systems not noted in ROS Statement are negative. Past Medical History Past Medical History: Blood Disorder, CVA/TIA, Deep Vein Thrombosis (DVT), Fibromyalgia, GERD/Reflux, Pneumonia Additional Past Medical History / Comment(s): BLOOD CLOTTING DISORDER, UTI, ALLERGIES, TIA,MIGRAINES, LUZ MARIA RHEUMATOID ARTHRITIS/OSTEOPOROSIS, DAY BEFORE THANKSGIVING FELL OFF LADDER BROKE RT DISTAL RADIUS/STATED ALSO HAD CONCUSSION.. History of Any Multi-Drug Resistant Organisms: None Reported Past Surgical History: Adenoidectomy, Section, Hysterectomy, Tonsillectomy Additional Past Surgical History / Comment(s): SEVERAL SETS OF EUSTACIAN TUBES, TOTAL HYSTERECTOMY D/T ENLARGING CYSTS EVEN WHEN ON LUPRON, HYDROCEPHALUS/4TH DEGREE BRAIN BLEED, SPINA BIFIDA CORRECTIVE SX, WISDOM TEETH EXTRACTED,HAS A TULIP FIELD FILTER INSERTED FOR BLOOD CLOTS, MOLE REMOVED(BENIGN), FELECIA TIB/FIB( CONTORSION) SX. 09.03.15 ORIF RT DISTAL RADIUS. tulip filter removed. Past Anesthesia/Blood Transfusion Reactions: No Reported Reaction Past Psychological History: Anxiety, Depression Smoking Status: Never smoker Past Alcohol Use History: None Reported Past Drug Use History: None Reported - Past Family History Father Family Medical History: Myocardial Infarction ([place]) Additional Family Medical History / Comment(s): BLOOD CLOTS Mother Family Medical History: Deep Vein Thrombosis (DVT) Additional Family Medical History / Comment(s): FROM BLOOD CLOT AT AGE 42. FAMILY HX OF CANCER ON MOMS SIDE. General Exam - General Exam Comments Initial Comments: GENERAL: Patient is well-developed and well-nourished. Patient is nontoxic and well- hydrated and is in no acute distress. ENT: Neck is soft and supple. No significant lymphadenopathy is noted. Oropharynx is clear. Moist mucous membranes. Neck has full range of motion without eliciting any pain. EYES: The sclera were anicteric and conjunctiva were pink and moist. Extraocular movements were intact and pupils were equal round and reactive to light. Eyelids were unremarkable. PULMONARY: Unlabored respirations. Good breath sounds bilaterally. No audible rales rhonchi or wheezing was noted. CARDIOVASCULAR: There is a regular rate and rhythm without any murmurs gallops or rubs. ABDOMEN: Soft and nontender with normal bowel sounds. No palpable organomegaly was noted. There is no palpable pulsatile mass. SKIN: Skin is clear with no lesions or rashes and otherwise unremarkable. NEUROLOGIC: Patient is alert and oriented x3. Cranial nerves II through XII are grossly intact. Motor and sensory are also intact. Normal speech, volume and content. Symmetrical smile. MUSCULOSKELETAL: Normal extremities with adequate strength and full range of motion. LYMPHATICS: No significant lymphadenopathy is noted PSYCHIATRIC: Normal psychiatric evaluation. Normal interpersonal interactions appears functionally intact in deals appropriately with others. No signs of depression. No signs of anxiety. Limitations: no limitations Course Vital Signs 06/28/18 06/28/18 06/28/18 19:23 20:24 21:25 Temperature 98.3 F Pulse Rate 98 86 71 Respiratory 16 18 16 Rate Blood Pressure 137/93 130/85 112/78 O2 Sat by Pulse 100 99 98 Oximetry Medical Decision Making - Medical Decision Making EKG shows normal sinus rhythm at 83 bpm NM interval is 150 QRS is 90 QT interval 360 QTC is 423. EKG shows no ST segment elevation or depression however there is T-wave inversions in leads V1 and V2 and V3. Chest x-ray showed no acute abnormality. Patient had near-syncopal episode because of all of her risk factors was determined that we will keep the patient in observation. I spoke with intermittent hospitalist and admitted the patient I wrote admitting orders. - Lab Data Result diagrams: 06/28/18 20:20 06/28/18 20:20 Lab Results 06/28/18 06/28/18 06/28/18 Range/Units 20:20 20:20 20:20 WBC 6.6 (3.8-10.6) k/uL RBC 3.93 (3.80-5.40) m/uL Hgb 11.6 (11.4-16.0) gm/dL Hct 34.8 (34.0-46.0) % MCV 88.5 (80.0-100.0) fL MCH 29.4 (25.0-35.0) pg MCHC 33.2 (31.0-37.0) g/dL RDW 13.7 (11.5-15.5) % Plt Count 313 (150-450) k/uL Neutrophils % 65 % Lymphocytes % 28 % Monocytes % 4 % Eosinophils % 1 % Basophils % 1 % Neutrophils # 4.3 (1.3-7.7) k/uL Lymphocytes # 1.9 (1.0-4.8) k/uL Monocytes # 0.3 (0-1.0) k/uL Eosinophils # 0.1 (0-0.7) k/uL Basophils # 0.0 (0-0.2) k/uL PT (9.0-12.0) sec INR (<1.2) APTT (22.0-30.0) sec Sodium 141 (137-145) mmol/L Potassium 4.3 (3.5-5.1) mmol/L Chloride 104 (98-107) mmol/L Carbon Dioxide 25 (22-30) mmol/L Anion Gap 12 mmol/L BUN 21 H (7-17) mg/dL Creatinine 0.81 (0.52-1.04) mg/dL Est GFR (CKD-EPI)AfAm >90 (>60 ml/min/1.73 sqM) Est GFR (CKD-EPI)NonAf >90 (>60 ml/min/1.73 sqM) Glucose 91 (74-99) mg/dL Calcium 10.5 H (8.4-10.2) mg/dL Magnesium 2.0 (1.6-2.3) mg/dL Total Bilirubin 0.4 (0.2-1.3) mg/dL AST 22 (14-36) U/L ALT 30 (9-52) U/L Alkaline Phosphatase 109 (38-126) U/L Total Creatine Kinase 73 (30-135) U/L CK-MB (CK-2) 0.7 (0.0-2.4) ng/mL CK-MB (CK-2) Rel Index 1.0 Troponin I <0.012 (0.000-0.034) ng/mL Total Protein 8.0 (6.3-8.2) g/dL Albumin 4.6 (3.5-5.0) g/dL 06/28/18 Range/Units 20:20 WBC (3.8-10.6) k/uL RBC (3.80-5.40) m/uL Hgb (11.4-16.0) gm/dL Hct (34.0-46.0) % MCV (80.0-100.0) fL MCH (25.0-35.0) pg MCHC (31.0-37.0) g/dL RDW (11.5-15.5) % Plt Count (150-450) k/uL Neutrophils % % Lymphocytes % % Monocytes % % Eosinophils % % Basophils % % Neutrophils # (1.3-7.7) k/uL Lymphocytes # (1.0-4.8) k/uL Monocytes # (0-1.0) k/uL Eosinophils # (0-0.7) k/uL Basophils # (0-0.2) k/uL PT 11.1 (9.0-12.0) sec INR 1.2 H (<1.2) APTT 26.4 (22.0-30.0) sec Sodium (137-145) mmol/L Potassium (3.5-5.1) mmol/L Chloride (98-107) mmol/L Carbon Dioxide (22-30) mmol/L Anion Gap mmol/L BUN (7-17) mg/dL Creatinine (0.52-1.04) mg/dL Est GFR (CKD-EPI)AfAm (>60 ml/min/1.73 sqM) Est GFR (CKD-EPI)NonAf (>60 ml/min/1.73 sqM) Glucose (74-99) mg/dL Calcium (8.4-10.2) mg/dL Magnesium (1.6-2.3) mg/dL Total Bilirubin (0.2-1.3) mg/dL AST (14-36) U/L ALT (9-52) U/L Alkaline Phosphatase (38-126) U/L Total Creatine Kinase (30-135) U/L CK-MB (CK-2) (0.0-2.4) ng/mL CK-MB (CK-2) Rel Index Troponin I (0.000-0.034) ng/mL Total Protein (6.3-8.2) g/dL Albumin (3.5-5.0) g/dL Disposition Clinical Impression: Near syncope Disposition: ADMITTED IP TO THIS HOSP Referrals: Dudley Dowling MD [Primary Care Provider] - 1-2 days Time of Disposition: 22:22
[2018-06-28 20:50] LABS: Basophils % (A) 1 %; Eosinophils # (A) 0.1 k/uL (0-0.7); Eosinophils % (A) 1 %; HCT 34.8 % (34.0-46.0); HGB 11.6 gm/dL (11.4-16.0); Lymphocytes # (A) 1.9 k/uL (1.0-4.8); Lymphocytes % (A) 28 %; MCH 29.4 pg (25.0-35.0); MCHC 33.2 g/dL (31.0-37.0); MCV 88.5 fL (80.0-100.0); Mean Platelet Volume 7.5; Monocytes # (A) 0.3 k/uL (0-1.0); Monocytes % (A) 4 %; Neutrophils # (A) 4.3 k/uL (1.3-7.7); Neutrophils % (A) 65 %; Platelet Count 313 k/uL (150-450); RBC 3.93 m/uL (3.80-5.40); RDW 13.7 % (11.5-15.5); WBC 6.6 k/uL (3.8-10.6)
[2018-06-28 21:02] LABS: INR 1.2 (<1.2); Partial Thromboplastin Time 26.4 sec (22.0-30.0); Prothrombin Time 11.1 sec (9.0-12.0)
--- NOTE | 2018-06-28 21:06 | XR ---
EXAMINATION TYPE: XR chest 2V DATE OF EXAM: 06/28/2018 COMPARISON: 09/21/2011 HISTORY: Chest pain TECHNIQUE: Frontal and lateral views of the chest are obtained. FINDINGS: Heart and mediastinum are normal. Lungs are clear. Diaphragm is normal. Bony thorax is int act. IMPRESSION: Normal chest. No change.
[2018-06-28 21:29] LABS: Creatine Kinase 73 U/L (30-135)
[2018-06-28 21:31] LABS: ALT 30 U/L (9-52); AST 22 U/L (14-36); Albumin 4.6 g/dL (3.5-5.0); Alkaline Phosphatase 109 U/L (38-126); Anion Gap 12 mmol/L; Blood Urea Nitrogen 21 mg/dL (7-17); Calcium 10.5 mg/dL (8.4-10.2); Carbon Dioxide 25 mmol/L (22-30); Chloride 104 mmol/L (98-107); Glucose 91 mg/dL (74-99); Potassium 4.3 mmol/L (3.5-5.1); Sodium 141 mmol/L (137-145); Total Bilirubin 0.4 mg/dL (0.2-1.3)
[2018-06-28 21:41] LABS: Creatine Kinase MB 0.7 ng/mL (0.0-2.4); Troponin I <0.012 ng/mL (0.000-0.034)
[2018-06-28] MEDS ORDERED: SODIUM CHLORIDE 0.9% 1,000 ML IV ONE (22:22)
[2018-06-28] MEDS ORDERED: HYDROcodone/APAP 5-325MG 1 EACH TAB PO STA (22:52)
[2018-06-29] MEDS ORDERED: ONDANSETRON 4 MG/2 ML VIAL IVP STA (02:34)
[2018-06-29 08:56] VITALS: RESP 18; TEMP 97.3
[2018-06-29 09:24] VITALS: BP 107/74; PULSE 77
--- NOTE | 2018-06-29 11:19 | P.CRDCN ---
History of Present Illness History of present illness: Mrs. 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 She denies history of coronary artery disease, hypertension or dyslipidemia and has never follow-up with nursing educator for any reason. We've asked to see her in consultation secondary to a presyncopal event. 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 She would frequently go and sit down and rest until her symptoms subsided and then continue doing housework. The symptoms persisted throughout the day yesterday. She denies chest pain, shortness of breath or palpitations. She also denies nausea, vomiting or diaphoresis. She has felt symptoms like this in the past and it was related to acute blood loss anemia. This alarmed her having these symptoms she came for further evaluation. She denies history of black or bloody stools in the recent past and has had no bleeding in the urine that she can see. EKG reveals sinus mechanism, left atrial enlargement, T wave inversions anteriorly. Chest x-ray negative for an acute cardiopulmonary process. Laboratory data reviewed, hemoglobin 11.6, platelets 313, sodium 141, potassium 4.3, creatinine 0.81, magnesium 2.0, cardiac enzymes negative 3. At the time of my exam: CONSTITUTIONAL: Denies fever. Denies chills. EYES: Denies blurred vision. Denies vision changes. Denies eye pain. EARS, NOSE, MOUTH & THROAT: Denies headache. Denies sore throat. Denies ear pain. CARDIOVASCULAR: Denies chest pain. Denies shortness of breath. Denies orthopnea. Denies PND. Denies palpitations. RESPIRATORY: Denies cough. GASTROINTESTINAL: Denies abdominal pain. Denies diarrhea. Denies constipation. Denies nausea. Denies vomiting. MUSCULOSKELETAL: Denies myalgias. INTEGUMENTARY: Denies pruitis. Denies rash. NEUROLOGIC: Denies numbness. Denies tingling. Denies weakness. PSYCHIATRIC: Denies anxiety. Denies depression. ENDOCRINE: Denies fatigue. Denies weight change. Denies polydipsia. Denies polyurina. GENITOURINARY: Denies burning, hematuria or urgency with micturation. HEMATOLOGIC: Denies history of anemia. Denies bleeding. Blood pressure 105/71 heart rate 87 afebrile maintaining oxygen saturation on room air GENERAL: This is a []-year-old [] in no apparent distress at the time of my examination. HEENT: Head is atraumatic, normocephalic. Pupils are equal, round. Sclerae anicteric. Conjunctivae are clear. Mucous membranes of the mouth are moist. Neck is supple. There is no jugular venous distention. No carotid bruit is heard. LUNGS: Clear to auscultation no wheezes, rales or rhonchi. No chest wall tenderness is noted on palpation or with deep breathing. HEART: Regular rate and rhythm without murmurs, rubs or gallops. S1 and S2 heard. ABDOMEN: Soft, nontender. Bowel sounds are heard. No organomegaly noted. EXTREMITIES: No evidence of peripheral edema and no calf tenderness noted. VASCULAR: Radial and dorsalis pedis pulses palpated, no evidence of clubbing. NEUROLOGIC: Patient is awake, alert and oriented x3. 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 On long-term anticoagulation. PLAN An acute coronary event has been ruled out. Check orthostatic vital signs. Obtain 2-D echocardiogram and Doppler study to assess cardiac structure and function. Ongoing medical management. Follow-up with Dr. Ramos in the office 2-3 weeks. Thank you kindly for this consultation. Nurse Practitioner note has been reviewed, I agree with a documented findings and plan of care. Patient was seen and examined. Past Medical History Past Medical History: Blood Disorder, CVA/TIA, Deep Vein Thrombosis (DVT), Fibromyalgia, GERD/Reflux, Pneumonia Additional Past Medical History / Comment(s): Recently been told she may have a thyroid disorder, spina bifida with corrective surgery, hydrocephalus with neurosurgery as , brain bleed as , bilateral tib/fib contorsion with surgery, multiple clotting factor disorders with extensive work ups at multiple facilities, anemia, multiple DVTs L leg, donna rheumatoid arthritis, osteoporosis, UTI, migraines, allergies History of Any Multi-Drug Resistant Organisms: None Reported Past Surgical History: Adenoidectomy, Section, Hysterectomy, Orthopedic Surgery, Tonsillectomy Additional Past Surgical History / Comment(s): EGD x2, spina bifida corrective surgery, hydrocephalus with neurosurgery, tulip field filter-since partially removed, bilateral tib/fib contorsion surgery, ORIF R distal radiuse with hardware since removed, several sets of eustachian tubes, wisdom teeth extractions. Past Anesthesia/Blood Transfusion Reactions: No Reported Reaction Additional Past Anesthesia/Blood Transfusion Reaction / Comment(s): Patient has received blood in past without reaction. Smoking Status: Never smoker - Past Family History Father Family Medical History: Myocardial Infarction ([place]) Additional Family Medical History / Comment(s): Father's [place] was d/t a blood clot. Mother Family Medical History: Deep Vein Thrombosis (DVT) Additional Family Medical History / Comment(s): FROM BLOOD CLOT AT AGE 42. FAMILY HX OF CANCER ON MOMS SIDE AND BLOOD CLOTTING DISORDERS. Medications and Allergies Home Medications Medication Instructions Recorded Confirmed Type LORazepam [Lorazepam] 1 mg PO BID PRN 09/03/15 06/28/18 History Hydrocodone/Acetaminophen [[place] 1 tab PO TID PRN 03/08/17 06/28/18 History 5-325] Acetaminophen [Tylenol] 1,000 mg PO Q4-6H PRN 06/28/18 06/28/18 History Cholecalciferol [Vitamin D3] 1,000 unit PO DAILY 06/28/18 06/28/18 History Cyanocobalamin (Vitamin B-12) 1,000 mcg PO DAILY 06/28/18 06/28/18 History [Vitamin B-12] Melatonin 2 mg PO HS PRN 06/28/18 06/28/18 History Ondansetron [Zofran] 4 mg PO BID PRN 06/28/18 06/28/18 History Pantoprazole Sodium 40 mg PO DAILY 06/28/18 06/28/18 History Rivaroxaban [Xarelto] 20 mg PO DAILY 06/28/18 06/28/18 History Sucralfate [Carafate] 1 gm PO QID 06/28/18 06/28/18 History Allergies Allergy/AdvReac Type Severity Reaction Status Date / Time bupropion HCl AdvReac Nausea & Verified 06/28/18 20:29 [From Wellbutrin] Vomiting & Diarrhea doxycycline AdvReac Nausea Verified 06/28/18 20:29 Physical Exam Vitals: Vital Signs Temp Pulse Pulse Pulse Pulse Pulse Resp 06/29/18 09:22 86 104 H 77 18 06/29/18 08:00 97.3 F L 87 18 06/29/18 07:28 87 16 06/29/18 07:22 97.8 F 06/29/18 06:00 94 16 06/29/18 05:30 83 14 06/29/18 05:00 84 06/29/18 04:28 16 06/29/18 02:30 77 15 06/29/18 02:25 16 06/29/18 02:00 83 15 06/29/18 01:30 87 19 06/29/18 01:20 87 16 06/29/18 00:44 88 16 06/28/18 22:52 79 16 06/28/18 21:25 71 16 06/28/18 20:24 86 18 06/28/18 19:23 98.3 F 98 16 BP BP BP BP BP Pulse Ox 06/29/18 09:22 111/80 125/82 107/74 100 06/29/18 08:00 105/71 99 06/29/18 07:28 123/69 98 06/29/18 07:22 06/29/18 06:00 115/69 06/29/18 05:30 115/69 06/29/18 05:00 06/29/18 04:28 06/29/18 02:30 105/66 06/29/18 02:25 06/29/18 02:00 105/66 06/29/18 01:30 105/66 98 06/29/18 01:20 105/66 96 06/29/18 00:44 105/66 98 06/28/18 22:52 106/60 98 06/28/18 21:25 112/78 98 06/28/18 20:24 130/85 99 18 19:23 137/93 100 Intake and Output 06/28/1818 06/29/18 22:59 06:59 14:59 Other: Weight 69.4 kg Results 06/28/18 20:20 06/28/18 20:20 Cardiac Enzymes 06/28/18 06/28/18 06/28/18 Range/Units 20:20 20:20 22:40 AST 22 (14-36) U/L CK-MB (CK-2) 0.7 (0.0-2.4) ng/mL Troponin I <0.012 <0.012 (0.000-0.034) ng/mL 06/29/18 Range/Units 04:21 AST (14-36) U/L CK-MB (CK-2) (0.0-2.4) ng/mL Troponin I <0.012 (0.000-0.034) ng/mL Coagulation 06/28/18 Range/Units 20:20 PT 11.1 (9.0-12.0) sec APTT 26.4 (22.0-30.0) sec CBC 06/28/18 Range/Units 20:20 WBC 6.6 (3.8-10.6) k/uL RBC 3.93 (3.80-5.40) m/uL Hgb 11.6 (11.4-16.0) gm/dL Hct 34.8 (34.0-46.0) % Plt Count 313 (150-450) k/uL Comprehensive Metabolic Panel 06/28/18 Range/Units 20:20 Sodium 141 (137-145) mmol/L Potassium 4.3 (3.5-5.1) mmol/L Chloride 104 (98-107) mmol/L Carbon Dioxide 25 (22-30) mmol/L BUN 21 H (7-17) mg/dL Creatinine 0.81 (0.52-1.04) mg/dL Glucose 91 (74-99) mg/dL Calcium 10.5 H (8.4-10.2) mg/dL AST 22 (14-36) U/L ALT 30 (9-52) U/L Alkaline Phosphatase 109 (38-126) U/L Total Protein 8.0 (6.3-8.2) g/dL Albumin 4.6 (3.5-5.0) g/dL Current Medications Generic Name Dose Route Start Last Admin Trade Name Freq PRN Reason Stop Dose Admin Sodium Chloride 1,000 mls @ 75 mls/hr 06/28/18 22:22 06/28/18 22:43 Saline 0.9% IV 06/29/18 11:41 75 mls/hr .[id number] ONE Administration Intake and Output 06/28/18 06/29/18 06/29/18 22:59 06:59 14:59 Other: Weight 69.4 kg 06/28/18 20:20 06/28/18 20:20
--- NOTE | 2018-06-29 12:41 | P.HPIM ---
History of Present Illness 43-year-old female presented the emergency room with complaints of increased fatigue and near-syncope. Patient has history of GI bleed. Also has history of DVTs blood chronic disorder. Review of Systems Constitutional: Reports fatigue Cardiovascular: Reports chest pain Past Medical History Past Medical History: Blood Disorder, CVA/TIA, Deep Vein Thrombosis (DVT), Fibromyalgia, GERD/Reflux, Pneumonia Additional Past Medical History / Comment(s): Recently been told she may have a thyroid disorder, spina bifida with corrective surgery, hydrocephalus with neurosurgery as , brain bleed as infant, bilateral tib/fib contorsion with surgery, multiple clotting factor disorders with extensive work ups at multiple facilities, anemia, multiple DVTs L leg, donna rheumatoid arthritis, osteoporosis, UTI, migraines, allergies History of Any Multi-Drug Resistant Organisms: None Reported Past Surgical History: Adenoidectomy, Section, Hysterectomy, Orthopedic Surgery, Tonsillectomy Additional Past Surgical History / Comment(s): EGD x2, spina bifida corrective surgery, hydrocephalus with neurosurgery, tulip field filter-since partially removed, bilateral tib/fib contorsion surgery, ORIF R distal radiuse with hardware since removed, several sets of eustachian tubes, wisdom teeth extractions. Past Anesthesia/Blood Transfusion Reactions: No Reported Reaction Additional Past Anesthesia/Blood Transfusion Reaction / Comment(s): Patient has received blood in past without reaction. Smoking Status: Never smoker - Past Family History Father Family Medical History: Myocardial Infarction ([place]) Additional Family Medical History / Comment(s): Father's [place] was d/t a blood clot. Mother Family Medical History: Deep Vein Thrombosis (DVT) Additional Family Medical History / Comment(s): FROM BLOOD CLOT AT AGE 42. FAMILY HX OF CANCER ON MOMS SIDE AND BLOOD CLOTTING DISORDERS. Medications and Allergies Home Medications Medication Instructions Recorded Confirmed Type LORazepam [Lorazepam] 1 mg PO BID PRN 09/03/15 06/28/18 History Hydrocodone/Acetaminophen [[place] 1 tab PO TID PRN 03/08/17 06/28/18 History 5-325] Acetaminophen [Tylenol] 1,000 mg PO Q4-6H PRN 06/28/18 06/28/18 History Cholecalciferol [Vitamin D3] 1,000 unit PO DAILY 06/28/18 06/28/18 History Cyanocobalamin (Vitamin B-12) 1,000 mcg PO DAILY 06/28/18 06/28/18 History [Vitamin B-12] Melatonin 2 mg PO HS PRN 06/28/18 06/28/18 History Ondansetron [Zofran] 4 mg PO BID PRN 06/28/18 06/28/18 History Pantoprazole Sodium 40 mg PO DAILY 06/28/18 06/28/18 History Rivaroxaban [Xarelto] 20 mg PO DAILY 06/28/18 06/28/18 History Sucralfate [Carafate] 1 gm PO QID 06/28/18 06/28/18 History Allergies Allergy/AdvReac Type Severity Reaction Status Date / Time bupropion HCl AdvReac Nausea & Verified 06/28/18 20:29 [From Wellbutrin] Vomiting & Diarrhea doxycycline AdvReac Nausea Verified 06/28/18 20:29 Physical Exam Vitals: Vital Signs Temp Pulse Pulse Pulse Pulse Pulse Resp 06/29/18 09:22 86 104 H 77 18 06/29/18 08:00 97.3 F L 87 18 06/29/18 07:28 87 16 06/29/18 07:22 97.8 F 06/29/18 06:00 94 16 06/29/18 05:30 83 14 06/29/18 05:00 84 06/29/18 04:28 16 06/29/18 02:30 77 15 06/29/18 02:25 16 06/29/18 02:00 83 15 06/29/18 01:30 87 19 06/29/18 01:20 87 16 06/29/18 00:44 88 16 06/28/18 22:52 79 16 06/28/18 21:25 71 16 06/28/18 20:24 86 18 06/28/18 19:23 98.3 F 98 16 BP BP BP BP BP Pulse Ox 06/29/18 09:22 111/80 125/82 107/74 100 06/29/18 08:00 105/71 99 06/29/18 07:28 123/69 98 06/29/18 07:22 06/29/18 06:00 115/69 06/29/18 05:30 115/69 06/29/18 05:00 06/29/18 04:28 06/29/18 02:30 105/66 06/29/18 02:25 06/29/18 02:00 105/66 06/29/18 01:30 105/66 98 06/29/18 01:20 105/66 96 06/29/18 00:44 105/66 98 06/28/18 22:52 106/60 98 06/28/18 21:25 112/78 98 06/28/18 20:24 130/85 99 06/28/18 19:23 137/93 100 Intake and Output 06/28/18 06/29/18 06/29/18 22:59 06:59 14:59 Other: Weight 69.4 kg - Constitutional General appearance: obese - EENT Eyes: PERRLA Ears: bilateral: normal - Neck Neck: normal ROM - Respiratory Respiratory: bilateral: CTA - Cardiovascular Rhythm: regular - Gastrointestinal General gastrointestinal: soft Localized gastrointestinal: tender: LUQ - Integumentary Integumentary: normal - Neurologic Neurologic: CNII-XII intact - Musculoskeletal Musculoskeletal: gait normal - Psychiatric Psychiatric: A&O x's 3, appropriate affect, intact judgment & insight Results CBC & Chem 7: 06/28/18 20:20 06/28/18 20:20 Labs: Abnormal Lab Results - Last 24 Hours (Table) 06/28/18 06/28/18 Range/Units 20:20 20:20 INR 1.2 H (<1.2) BUN 21 H (7-17) mg/dL Calcium 10.5 H (8.4-10.2) mg/dL Chest x-ray: report reviewed Thrombosis Risk Factor Assmnt - Choose All That Apply Any of the Below Risk Factors Present?: Yes Each Factor Represents 1 point: Age 41-60 years, Obesity (BMI >25) Other Risk Factors: Yes Each Risk Factor Represents 3 Points: Family history of DVT/PE, History of DVT/ PE Other congenital or acquired thrombophilia - If yes, enter type in comment: Yes Thrombosis Risk Factor Assessment Total Risk Factor Score: 8 Thrombosis Risk Factor Assessment Level: High Risk Assessment and Plan Plan: Assessment Near-syncope fatigue Chest pain troponin negative 3 cardiac event ruled out History of CVA/TIA History of DVTs Fibromyalgia GERD Anxiety/depression Blood clotting disorder Rheumatoid arthritis Plan Had cardiology evaluation and cleared for discharge from them
--- NOTE | 2018-06-29 14:04 | P.DS ---
Providers Date of admission: 06/28/18 22:22 Expected date of discharge: 06/29/18 Attending physician: Dudley Dowling Consults: 06/29/18 08:59 Consult Physician Routine Consulting Provider: Eric Ramos Consult Reason/Comments: chest pain Do you want consulting provider notified?: Already Contacted Primary care physician: Dudley Dowling [facility] Course: 43 year old female presented to ER with complaints of near syncope and fatgue.Concerned with low hemoglobin from past experience.Patient developed chest pain in ER.D dimer was negative HGB 11.6. Evaluated by cardiology and cleared for discharge. assessment near syncope chest pain negative troponin X3 Hx CVA TIA DVT fibromyalgia GERD anxiety/ depression blood clotting disorder RA plan discharge home follow up with DR Babatunde Dowling Plan - Discharge Summary Discharge Rx Participant: No New Discharge Prescriptions: Continue LORazepam [Lorazepam] 1 mg PO BID PRN PRN Reason: Anxiety Hydrocodone/Acetaminophen [Hamler 5-325] 1 tab PO TID PRN PRN Reason: Pain Ondansetron [Zofran] 4 mg PO BID PRN PRN Reason: Nausea And Vomiting Pantoprazole Sodium 40 mg PO DAILY Rivaroxaban [Xarelto] 20 mg PO DAILY Acetaminophen [Tylenol] 1,000 mg PO Q4-6H PRN PRN Reason: Pain Cholecalciferol [Vitamin D3] 1,000 unit PO DAILY Cyanocobalamin (Vitamin B-12) [Vitamin B-12] 1,000 mcg PO DAILY Melatonin 2 mg PO HS PRN PRN Reason: Insomnia Sucralfate [Carafate] 1 gm PO QID Discharge Medication List LORazepam [Lorazepam] 1 mg PO BID PRN 09/03/15 [History] Hydrocodone/Acetaminophen [Hamler 5-325] 1 tab PO TID PRN 03/08/17 [History] Acetaminophen [Tylenol] 1,000 mg PO Q4-6H PRN 06/28/18 [History] Cholecalciferol [Vitamin D3] 1,000 unit PO DAILY 06/28/18 [History] Cyanocobalamin (Vitamin B-12) [Vitamin B-12] 1,000 mcg PO DAILY 06/28/18 [ History] Melatonin 2 mg PO HS PRN 06/28/18 [History] Ondansetron [Zofran] 4 mg PO BID PRN 06/28/18 [History] Pantoprazole Sodium 40 mg PO DAILY 06/28/18 [History] Rivaroxaban [Xarelto] 20 mg PO DAILY 06/28/18 [History] Sucralfate [Carafate] 1 gm PO QID 06/28/18 [History] Follow up Appointment(s)/Referral(s): Dudley Dowling MD [Primary Care Provider] - 1-2 days
--- NOTE | 2018-06-29 17:47 | ECHOF ---
Referral Reason:dizzy MEASUREMENTS -------- HEIGHT: 149.9 cm WEIGHT: 69.4 kg BP: RVIDd: 2.8 cm (< 3.3) IVSd: 1.0 cm (0.6 - 1.1) LVIDd: 3.1 cm (3.9 - 5.3) LVPWd: 1.0 cm (0.6 - 1.1) IVSs: 1.4 cm LVIDs: 1.9 cm LVPWs: 1.4 cm LAESV Index (A-L): 12.83 ml/m Ao Diam: 2.5 cm (2.0 - 3.7) AV Cusp: 1.7 cm (1.5 - 2.6) LA Diam: 1.7 cm (2.7 - 3.8) EPSS: 0.1 cm MV E David: 0.72 m/s MV DecT: 250 ms MV A David: 0.62 m/s MV E/A Ratio: 1.15 RAP: 5.00 mmHg RVSP: 10.88 mmHg MV EF SLOPE: 88.12 mm/s (70 - 150) MV EXCURSION: 1.80 cm (> 18.000) FINDINGS -------- Sinus rhythm. This was a technically good study. The left ventricular size is normal. Left ventricular wall thickness is normal. Overall left vent ricular systolic function is normal with, an EF between 55 - 60 %. The right ventricle is normal in size and function. Normal LA size by volume 22+/-6 ml/m2. The right atrium is normal in size. The aortic valve is trileaflet, and appears structurally normal. No aortic stenosis or regurgitation. Mild mitral annular calcification present. There is trace mitral regurgitation. Trace tricuspid regurgitation present. Right ventricular systolic pressure is normal at < 35 mmHg. There is no evidence of pulmonary hypertension. Trace/mild (physiologic) pulmonic regurgitation. The aortic root size is normal. Normal inferior vena cava with normal inspiratory collapse consistent with estimated right atrial pre ssure of 5 mmHg. There is no pericardial effusion. CONCLUSIONS -------- 1. Sinus rhythm. 2. This was a technically good study. 3. The left ventricular size is normal. 4. Left ventricular wall thickness is normal. 5. Overall left ventricular systolic function is normal with, an EF between 55 - 60 %. 6. Normal LA size by volume 22+/-6 ml/m2. 7. The aortic valve is trileaflet, and appears structurally normal. No aortic stenosis or regurgitati on. 8. Mild mitral annular calcification present. 9. There is trace mitral regurgitation. 10. Trace tricuspid regurgitation present. 11. Right ventricular systolic pressure is normal at < 35 mmHg. 12. There is no evidence of pulmonary hypertension. 13. Trace/mild (physiologic) pulmonic regurgitation. 14. The aortic root size is normal. 15. There is no pericardial effusion. MATE FOURTH: Harley Bearden RDCS
== END 2018-06-29 14:13 | disposition home or self-care (01) ==
LOC: EC 19:09 → 1SOBS 22:22
PROVIDERS: ADMIT Family Medicine; ATTEND Family Medicine
DX: R55 Syncope and collapse (principal); R07.9 Chest pain, unspecified; D64.9 Anemia, unspecified; D68.51 Activated protein C resistance; Q05.9 Spina bifida, unspecified; M79.7 Fibromyalgia; K21.9 Gastro-esophageal reflux disease without esophagitis; M81.0 Age-related osteoporosis without current pathological fracture; G43.909 Migraine, unspecified, not intractable, without status migrainosus; M06.9 Rheumatoid arthritis, unspecified; F41.9 Anxiety disorder, unspecified; E66.9 Obesity, unspecified; Z68.30 Body mass index [BMI] 30.0-30.9, adult; F32.9 Major depressive disorder, single episode, unspecified; Z79.01 Long term (current) use of anticoagulants; Z79.899 Other long term (current) drug therapy; Z88.1 Allergy status to other antibiotic agents; Z88.8 Allergy status to other drugs, medicaments and biological substances; Z90.710 Acquired absence of both cervix and uterus; Z86.718 Personal history of other venous thrombosis and embolism; Z86.73 Personal history of transient ischemic attack (TIA), and cerebral infarction without residual deficits; Z87.01 Personal history of pneumonia (recurrent); Z87.19 Personal history of other diseases of the digestive system; Z87.440 Personal history of urinary (tract) infections; Z82.49 Family history of ischemic heart disease and other diseases of the circulatory system; Z80.9 Family history of malignant neoplasm, unspecified; Z83.2 Family history of diseases of the blood and blood-forming organs and certain disorders involving the immune mechanism
CPT/HCPCS: 96361 ×2; 96374; 99284; 36415; 93005; 93306; 85379; 80053; 82550; 82553; 83735; 84484 ×2; 85025; 85610; 85730; 71046; G0378 ×2; J2405

== ENCOUNTER → 2018-07-11 | Outpatient (CLI) | payer OTHER, MEDICARE ==
--- NOTE | 2018-07-11 10:13 | XR ---
EXAMINATION TYPE: XR lumbar spine 2 or 3V DATE OF EXAM: 07/11/2018 CLINICAL HISTORY: pain TECHNIQUE: Three views of the lumbar spine are submitted. COMPARISON: None. FINDINGS: There are 5 lumbar type vertebral bodies identified. The lumbar spine shows satisfactory alignment w ithout evidence of acute fracture or dislocation. Vertebral body heights are within normal limits. Mild degenerative disc space narrowing at all lumbar levels. The overlying soft tissue appears unrem arkable. IMPRESSION: No acute fracture or dislocation is seen in the lumbar spine. ICD 10 NO FRACTURE, INITIAL EVALUATION
== END ==
LOC: RADXRMAIN 09:45
PROVIDERS: ATTEND Physician Assistant
DX: Q05.4 Unspecified spina bifida with hydrocephalus (principal)
CPT/HCPCS: 72100

== ENCOUNTER → 2018-10-17 | Outpatient (CLI) | payer OTHER, MEDICARE ==
[2018-10-17 13:23] VITALS: BP 118/76; PULSE 81; RESP 18; TEMP 96.8; BMI 30.7
--- NOTE | 2018-10-17 16:39 | BD ---
EXAMINATION TYPE: Axial Bone Density DATE OF EXAM: 10/17/2018 COMPARISON: 06.09.2015 CLINICAL HISTORY: 43 YR OLD FEMALE...ICD10 CODE: M81.0 OSTEOPOROSIS Height: 59 Weight: 151 FRAX RISK QUESTIONS: History of Fracture in Adulthood: YES, BUT PATIENT IS ONLY 43 Secondary Osteoporosis: YES 3. 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 SPINE NOT SCANNED Bone mineral density about the R hip (g/cm2): 0.827 Bone mineral density about the L hip (g/cm2): 0.899 T Score values are as follows: -----R Neck: -1.8 -----L Neck: -1.6 -----R Total: -1.4 -----L Total: -0.9 Bone mineral density has: Increased 5.4% since study of: 06.09.2015 FRAX%s: THERE IS A 7.0% CHANCE FOR A MAJOR OSTEOPOROTIC FX AND A 1.3% FOR HIP.....PROBABILITY OF FX IN 10 YRS TIME Bone mineral density about the L Wrist (g/cm2): 0.606 T Score values are as follows: -----Dist. R+U: -1.5 -----Prox. R+U: -0.3 -----Radius total: -0.8 Bone mineral density FIRST WRIST BONE DENSITY IMPRESSION: Osteopenia (T Score between -2.5 and -1). There is slightly increased risk of fracture and the patient may be considered for treatment. Re-Screen 2-5 years. NOTE: T-SCORE=SD OF THE YOUNG ADULT MEAN.
--- NOTE | 2018-10-17 17:02 | P.HPOB ---
History of Present Illness H&P Date: 10/17/18 Chief Complaint: The patient is here for her routine gynecologic exam and mammogram. This is a 43-year-old with an LMP of 2012. She is status post TLH and BSO done for benign bleeding. The patient is here to establish with this office. She states that it's been about 3 years since her last pelvic exam. She has had hot flashes since her hysterectomy and oophorectomy 6 years ago. They are not very severe, but do not seem to be resolving. She has been experiencing left lower quadrant abdominal pains for 2 years. She believes this may be due to the surgery that was needed to remove a broken inferior vena cava filter 2016. She rates the pain at about 4 out of 10 and describes the pain similar to that of the throbbing of a "fat lip". Review of Systems She states her weight has been fairly stable over the last year. She denies respiratory or cardiac problems. GI: she has had issues with intermittent constipation. Past Medical History Past Medical History: Blood Disorder, CVA/TIA, Deep Vein Thrombosis (DVT), Fibromyalgia, GERD/Reflux, Pneumonia, Thyroid Disorder (Hypothyroid. Medication was discontinued when she had side effects.) Additional Past Medical History / Comment(s): spina bifida with corrective surgery, hydrocephalus with neurosurgery as infant, brain bleed as , bilateral tib/fib contorsion with surgery, multiple clotting factor including factor V Leiden mutation, anemia, multiple DVTs L leg, donna rheumatoid arthritis, osteoporosis, migraines, allergies, PUD. 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 Hysterectomy with BSO was done for abnormal bleeding. History of Any Multi-Drug Resistant Organisms: None Reported Past Surgical History: Adenoidectomy, Section, Hysterectomy (TLH BSO 2012), Orthopedic Surgery, Tonsillectomy Additional Past Surgical History / Comment(s): EGD x2, spina bifida corrective surgery, hydrocephalus with neurosurgery, tulip field filter-since partially removed, bilateral tib/fib contorsion surgery, ORIF R distal radiuse with hardware since removed, several sets of eustachian tubes, wisdom teeth extractions. Past Anesthesia/Blood Transfusion Reactions: No Reported Reaction Additional Past Anesthesia/Blood Transfusion Reaction / Comment(s): Patient has received blood in past without reaction. Past Psychological History: Anxiety, Depression Additional Psychological History / Comment(s): Pt resides with her spouse and their 12 yr old daughter who has cerebral palsey and blood disorder. Pt has a home INR monitor. She is independent. 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 Smoking Status: Never smoker Past Alcohol Use History: Occasional (0-2 per week) Past Drug Use History: None Reported Additional History: She has been since 2016 and this is her 2nd marriage. She does not work outside the home. She cares for her daughter who has cerebral palsy. - Past Family History Father Family Medical History: Myocardial Infarction ([place]) Additional Family Medical History / Comment(s): Father's [place] was d/t a blood clot. Mother Family Medical History: Deep Vein Thrombosis (DVT) Additional Family Medical History / Comment(s): FROM BLOOD CLOT AT AGE 42. FAMILY HX OF CANCER ON MOMS SIDE AND BLOOD CLOTTING DISORDERS. Maternal grandmother and great aunt had breast cancer. Great aunt also had ovarian cancer. Several maternal aunts and uncles as well as a 1st cousin have clotting disorder. Medications and Allergies Home Medications Medication Instructions Recorded Confirmed Type LORazepam [Lorazepam] 1 mg PO BID PRN 09/03/15 10/17/18 History Hydrocodone/Acetaminophen [[place] 1 tab PO TID PRN 03/08/17 10/17/18 History 5-325] Acetaminophen [Tylenol] 1,000 mg PO Q4-6H PRN 06/28/18 10/17/18 History Cholecalciferol [Vitamin D3] 1,000 unit PO DAILY 06/28/18 10/17/18 History Cyanocobalamin (Vitamin B-12) 1,000 mcg PO DAILY 06/28/18 10/17/18 History [Vitamin B-12] Ondansetron [Zofran] 4 mg PO BID PRN 06/28/18 10/17/18 History Pantoprazole Sodium 40 mg PO DAILY 06/28/18 10/17/18 History Rivaroxaban [Xarelto] 20 mg PO DAILY 06/28/18 10/17/18 History Sucralfate [Carafate] 1 gm PO QID 06/28/18 10/17/18 History Magnesium 200 mg PO DAILY 10/17/18 10/17/18 History Multivit with Calcium,Iron,Min PO DAILY 10/17/18 History [Women's Multivitamin] Allergies Allergy/AdvReac Type Severity Reaction Status Date / Time bupropion HCl AdvReac Nausea & Verified 10/17/18 13:05 [From Wellbutrin] Vomiting & Diarrhea doxycycline AdvReac Nausea Verified 10/17/18 13:05 Exam Vital Signs Temp Pulse Resp BP Pulse Ox 10/17/18 13:14 96.8 F L 81 18 118/76 96 Intake and Output 10/17/18 10/17/18 10/17/18 06:59 14:59 22:59 Other: Weight 68.946 kg Height 4'11", weight 152 pounds, BMI 30.7. This is a well-developed well-nourished white female who is alert and oriented times 3 in no acute distress. HEENT: Within normal limits. NECK: Supple without mass or thyromegaly. CHEST AND LUNGS: Clear to auscultation. HEART: Regular rate and rhythm. BREASTS: Are without mass or discharge. AXILLARY EXAM: Negative for adenopathy. BACK: Negative for CVA tenderness. ABDOMEN: Soft, without palpable masses. There is mild left lower quadrant tenderness without rebound tenderness. There are no palpable abdominal masses. The abdomen is nondistended. PELVIC EXAM: External genitalia appears normal. Vagina appears normal. There is no evidence of prolapse. Bimanual examination is negative for mass. There is mild left pelvic tenderness greatest with the abdominal hand during bimanual examination. RECTAL EXAM: Rectovaginal exam is negative for mass or tenderness and is negative for occult blood. EXTREMITIES: Nontender. IMPRESSION: 1. 43-year-old female status post DINORA BSO who is surgically menopausal with persistent vasomotor symptoms. 2. Left lower quadrant abdominal and left pelvic discomfort with tenderness upon examination. At this time I doubt that it is a gynecologic problem being that she has had a DINORA and BSO in the past. Differential diagnosis will include pain from abdominal and pelvic adhesions, pain related to the inferior vena cava filter that was partially removed, and less likely, ovarian remnant mass. 3. Strong family history of breast cancer including her maternal grandmother and multiple great aunts. 4. History of DVT's and history of hereditary clotting disorders including factor 5 Leiden mutation. The patient states she has at least 2 other clotting disorders, but is uncertain of the exact name of the at this time. 5. History of osteoporosis per the patient. PLAN: 1. Pap smears have been discontinued. 2. Self breast awareness was discussed with the patient. 3. Screening mammogram was done today. 4. Osteoporosis prevention/management was discussed. I have stressed the importance of adequate calcium, vitamin D and regular exercise. Recommended amounts of calcium and vitamin D were also discussed. Bone density testing will be done today. We will also try to obtain the report of her prior bone density test done at the [facility] of outpatient facility. 5. She is very concerned about her family history of breast cancer and is interested in BRCA testing. She will be referred to a cancer genetics program. She has requested to be referred to the one at [facility] in [place]. 6. I have recommended a pelvic ultrasound because of the left pelvic and left lower quadrant abdominal pain. The order slip was given to the patient for this. 7. We had a long discussion regarding her vasomotor symptoms and we have discussed various options for this. I have recommended that she avoid all hormonal therapies because of her history of her clotting disorder and family history of breast cancer. We have discussed other options such as Paxil and clonidine as options. She would like to go without medications at this time. A handout on menopause was given to the patient. 8. She will return in one year.
--- NOTE | 2018-10-19 09:57 | MM ---
Reason for exam: screening (asymptomatic). Last mammogram was performed 3 years and 4 months ago. History: Patient is postmenopausal. Family history of breast cancer in maternal grandmother. Physical Findings: A clinical breast exam by your physician is recommended on an annual basis and results should be correlated with mammographic findings. MG 3D Screening Mammo W/Cad Bilateral CC and MLO view(s) were taken. Prior study comparison: June 09, 2015, bilateral MG screening mammo w CAD. December 05, 2013, mammogram, performed at [facility]. The breast tissue is heterogeneously dense. This may lower the sensitivity of mammography. No significant changes when compared with prior studies. ASSESSMENT: Benign, BI-RAD 2 RECOMMENDATION: Routine screening mammogram of both breasts in 1 year.
== END ==
LOC: WWCWWP 12:55
PROVIDERS: ATTEND Obstetrics & Gynecology
DX: Z12.31 Encounter for screening mammogram for malignant neoplasm of breast (principal); M85.80 Other specified disorders of bone density and structure, unspecified site; Z78.0 Asymptomatic menopausal state
CPT/HCPCS: 77063; 77067; 77080

== ENCOUNTER 2018-11-10 10:05 | Emergency (ER) | payer OTHER, MEDICARE ==
[2018-11-10 10:13] VITALS: BP 128/88; PULSE 90; RESP 18; TEMP 98
[2018-11-10 10:59] LABS: Basophils # (A) 0.1 k/uL (0-0.2); Basophils % (A) 1 %; Eosinophils # (A) 0.1 k/uL (0-0.7); Eosinophils % (A) 2 %; HCT 34.3 % (34.0-46.0); HGB 11.2 gm/dL (11.4-16.0); Lymphocytes # (A) 2.6 k/uL (1.0-4.8); Lymphocytes % (A) 43 %; MCH 29.1 pg (25.0-35.0); MCHC 32.6 g/dL (31.0-37.0); MCV 89.2 fL (80.0-100.0); Mean Platelet Volume 7.5; Monocytes # (A) 0.4 k/uL (0-1.0); Monocytes % (A) 6 %; Neutrophils # (A) 2.8 k/uL (1.3-7.7); Neutrophils % (A) 46 %; Platelet Count 262 k/uL (150-450); RBC 3.85 m/uL (3.80-5.40); RDW 13.3 % (11.5-15.5); WBC 6.1 k/uL (3.8-10.6)
[2018-11-10 11:07] LABS: Albumin 3.8 g/dL (3.5-5.0); Potassium 4.3 mmol/L (3.5-5.1); Total Bilirubin 0.4 mg/dL (0.2-1.3); Total Protein 6.5 g/dL (6.3-8.2)
[2018-11-10 11:23] LABS: Partial Thromboplastin Time 25.8 sec (22.0-30.0); Prothrombin Time 10.5 sec (9.0-12.0)
--- NOTE | 2018-11-10 11:43 | US ---
EXAMINATION TYPE: US venous doppler duplex LE LT DATE OF EXAM: 11/10/2018 10:39 AM COMPARISON: US 03/09/2017 CLINICAL HISTORY: Pain. History of left leg DVT per patient, currently taking blood thinners. SIDE PERFORMED: Left TECHNIQUE: The lower extremity deep venous system is examined utilizing real time linear array sonog shayla with graded compression, doppler sonography and color-flow sonography. VESSELS IMAGED: External Iliac Vein (EIV) Common Femoral Vein Deep Femoral Vein Greater Saphenous Vein * Femoral Vein Popliteal Vein Small Saphenous Vein * Proximal Calf Veins (* superficial vessels) Left Leg: Non-occluding chronic thrombus visualized within the proximal portion of the left poplitea l vein. No acute DVT visualized on this exam. IMPRESSION: There is nonoccluding thrombus within the left popliteal vein. This is been noted by prev ious exam and is felt to be chronic. No definite acute DVT identified.
--- NOTE | 2018-11-10 11:47 | CT ---
EXAMINATION TYPE: CT brain wo con DATE OF EXAM: 11/10/2018 COMPARISON: 08/06/2015 INDICATION: severe headache for 1 month without relief. DLP: 940 mGycm, Automated exposure control for dose reduction was used. CONTRAST: None CT of the brain is performed utilizing 3 mm thick sections through the posterior fossa and 3 mm thick sections through the remaining calvarium. Study is performed within 24 hours of arrival to the hosp [facility]. No abnormal hyperdensity is present to suggest an acute intracranial hemorrhage. No mass lesion is evident. There is calcification along the anterior. No acute infarcts are evident. Ventricles and sulci are appropriate for the patient age. Paranasal sinuses and mastoid air cells within the [id number] are clear. IMPRESSIONS: 1. Normal CT Brain
--- NOTE | 2018-11-10 11:59 | XR ---
EXAMINATION TYPE: XR chest 2V DATE OF EXAM: 11/10/2018 COMPARISON: 06/28/2018 INDICATION: Pain, headache TECHNIQUE: Frontal and lateral views of the chest are obtained. FINDINGS: The heart size is normal. The pulmonary vasculature is normal. The lungs are clear. IMPRESSION: 1. No acute pulmonary process.
--- NOTE | 2018-11-10 12:05 | CT ---
EXAMINATION TYPE: CT angio head neck DATE OF EXAM: 11/10/2018 HISTORY: severe headache for 1 month without relief. COMPARISON: CT brain 11/10/2018 CT DLP: 341 mGycm. Automated Exposure Control for Dose Reduction was Utilized. TECHNIQUE: CTA scan of the neck is performed with IV Contrast, patient injected with 65 mL of Isovue 370, axial images are obtained, coronal and sagittal reformatted images are reviewed. Three-D recons tructed images are created on an independent workstation and reviewed. FINDINGS: Lung apices are clear. Aortic arch is patent. Origins of the great vessels appear to be pat ent. Visualized portions of the common carotid arteries are patent Visualized portions of the vertebral arteries are patent Carotid bifurcations are patent bilaterally There is no evidence of aneurysm or vascular malformation. Visualized portions of the intracranial st ructures enhance. IMPRESSION: 1. No significant stenosis or aneurysm. Correlate with MRI as clinically warranted if there is concer n for acute ischemia.
[2018-11-10] MEDS: MORPHINE SULFATE 2 MG/ML SYRINGE IVP STA (12:11)
--- NOTE | 2018-11-10 12:38 | ED ---
Headache HPI - General Chief Complaint: Headache Stated Complaint: Headache Time Seen by Provider: 11/10/18 10:15 Mode of arrival: ambulatory Limitations: no limitations - History of Present Illness Initial Comments: 43-year-old female with past medical history of multiple clotting disorders including factor V, history of DVTs on xarelto, with history of chronic migraines presenting today for cc of headache. Pt states she has had a headache on and off for the past month, she states is behind her eyes. She denies any visual changes. Patient doesn't nausea vomiting, head injury. Patient denies any speech or gait changes. Patient denies any dizziness. Patient states it begins at the base of her neck and goes upwards towards the back of her eyes. Patient is concerned because her clotting disorder that this could be related to a clot when symptoms persisted she presented for evaluation. Patient does admit to neck tension, she states that she has gotten deep tissue massage and has seen a chiropractor for this complaint. Minimal help. Patient states she also has left leg pain, she states it is most likely feel some pain from a previous blood clot but she was like this evaluated today as she has this clotting disorder and has often had no symptoms with blood clot present even with anticoagulation therapy. Remaining review of systems negative, patient denies any recent fever, chills, shortness of breath, neck stiffness, chest pain , back pain, abdominal pain, numbness or tingling/parathesias, dysuria or hematuria, constipation or diarrhea, headaches or visual changes, or any other complaints. - Related Data Home Medications Medication Instructions Recorded Confirmed Cholecalciferol [Vitamin D3] 1,000 unit PO DAILY 06/28/18 11/10/18 Ondansetron [Zofran] 4 mg PO BID PRN 06/28/18 11/10/18 Rivaroxaban [Xarelto] 20 mg PO DAILY 06/28/18 11/10/18 Magnesium 200 mg PO DAILY 10/17/18 11/10/18 Multivit with Calcium,Iron,Min 1 tab PO DAILY 10/17/18 11/10/18 [Women's Multivitamin] Gastramine 2 tab PO AC-TID 11/10/18 11/10/18 HYDROcodone/APAP 10-325MG [[place] 1 tab PO TID PRN 11/10/18 11/10/18 10-325] Ibuprofen [Motrin Ib] 800 mg PO ONCE PRN 11/10/18 11/10/18 Iron 18 mg PO DAILY 11/10/18 11/10/18 clonazePAM 1 mg PO BID 11/10/18 11/10/18 Allergies Allergy/AdvReac Type Severity Reaction Status Date / Time amitriptyline AdvReac Unknown Verified 11/10/18 10:47 bupropion HCl AdvReac Nausea & Verified 11/10/18 10:47 [From Wellbutrin] Vomiting & Diarrhea doxycycline AdvReac Nausea Verified 11/10/18 10:47 Review of Systems ROS Statement: Those systems with pertinent positive or pertinent negative responses have been documented in the HPI. ROS Other: All systems not noted in ROS Statement are negative. Past Medical History Past Medical History: Blood Disorder, CVA/TIA, Deep Vein Thrombosis (DVT), Fibromyalgia, GERD/Reflux, Pneumonia, Thyroid Disorder Additional Past Medical History / Comment(s): spina bifida with corrective surgery, hydrocephalus with neurosurgery as , brain bleed as , bilateral tib/fib contorsion with surgery, multiple clotting factor including factor V Leiden mutation, anemia, multiple DVTs L leg, donna rheumatoid arthritis, osteoporosis, migraines, allergies, PUD. 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 Hysterectomy with BSO was done for abnormal bleeding. History of Any Multi-Drug Resistant Organisms: None Reported Past Surgical History: Adenoidectomy, Section, Hysterectomy, Orthopedic Surgery, Tonsillectomy Additional Past Surgical History / Comment(s): EGD x2, spina bifida corrective surgery, hydrocephalus with neurosurgery, tulip field filter-since partially removed, bilateral tib/fib contorsion surgery, ORIF R distal radiuse with hardware since removed, several sets of eustachian tubes, wisdom teeth extractions. Past Anesthesia/Blood Transfusion Reactions: No Reported Reaction Additional Past Anesthesia/Blood Transfusion Reaction / Comment(s): Patient has received blood in past without reaction. Past Psychological History: Anxiety, Depression Smoking Status: Never smoker Past Alcohol Use History: Occasional Past Drug Use History: None Reported - Past Family History Father Family Medical History: Myocardial Infarction ([place]) Additional Family Medical History / Comment(s): Father's [place] was d/t a blood clot. Mother Family Medical History: Deep Vein Thrombosis (DVT) Additional Family Medical History / Comment(s): FROM BLOOD CLOT AT AGE 42. FAMILY HX OF CANCER ON MOMS SIDE AND BLOOD CLOTTING DISORDERS. Maternal grandmother and great aunt had breast cancer. Great aunt also had ovarian cancer. Several maternal aunts and uncles as well as a 1st cousin have clotting disorder. General Exam - General Exam Comments Initial Comments: General: The patient is awake and alert, in no distress, and does not appear acutely ill. Eye: +3 mm pupils are equal, round and reactive to light, extra-ocular movements are intact. No disconjugate gaze. No APD. No nystagmus. There is normal conjunctiva bilaterally. No signs of icterus. Ears, nose, mouth and throat: There are moist mucous membranes and no oral lesions. Neck: The neck is supple, there is no tenderness or JVD. Negative Brudzinski and negative Kernig. No nuchal rigidity. Cardiovascular: There is a regular rate and rhythm. No murmur, rub or gallop is appreciated. Respiratory: Lungs are clear to auscultation, respirations are non-labored, breath sounds are equal. No wheezes, stridor, rales, or rhonchi. Gastrointestinal: Soft, non-distended, non-tender abdomen without masses or organomegaly noted. There is no rebound or guarding present. No CVA tenderness. Bowel sounds are unremarkable. Musculoskeletal: Normal ROM, no tenderness. Strength 5/5. Sensation intact. Radial and DP pulses equal bilaterally 2+. No lower extremity edema, negative Homans bilaterally. Pain along the deep venous system. Neurological: A&O x 3. CN II-XII intact, memory intact to immediately, intermediate and exterminator recall. Able to follow simple verbal. Able to name a common object. High quality, labial (pa) and lingual (la) speech. Low quality posterior pharynx/larynx (ga) voice sounds. Able to express general knowledge ( days in a week). No hemineglect or inattention noted. Finger agnosia (-) and spatially oriented. Light touch and temperature sensation present over the face , chest, abdomen, back, UE bilaterally, and LE bilaterally. Able to localize point during point localization b/l and extinction. No visible bulk atrophy, hypertrophy, fasciculations, or myoclonus of the UE or LE b/l. Full PROM in UE and LE b/l. Bilateral muscle strength 5/5 for the following muscles: deltoid, biceps, triceps, brachioradialis, wrist extensors/flexor, hip flexor, hip abductors/adductors, hamstrings, quadriceps, feet dorsiflexors/plantar flexors. Finger to nose, finger to the examiners finger, and heel to jennings coordinated and accurate b/l. Coordinated and even demonstration of hand flip, finger to thumb, and toe tap b/l. Gait is coordinated and even in stride with tandem. Maintains balance with monopedal stance. (-) Romberg. (-) pronator drift. Skin: Skin is warm and dry and no rashes or lesions are noted. Psychiatric: Cooperative, appropriate mood & affect, normal judgment. Limitations: no limitations Course Vital Signs 11/10/18 10:06 Temperature 98 F Pulse Rate 90 Respiratory 18 Rate Blood Pressure 128/88 O2 Sat by Pulse 100 Oximetry Medical Decision Making - Medical Decision Making 43-year-old female presenting today for chief complaint of headache. Headache has been ongoing for the past month. CT brain wo contrast and CTA (-) for acute process. Pt states symptoms improved with morphine. US of left LE revealed chronic DVT, no acute findings. No focal focal neurological deficits, pt appears well. No meningismus, no leukocytosis At this time do feel patient is stable for discharge with outpatient follow-up. i discussed the case including patient PMH with my attending provider, he is agreeable with plan and recommended d/c. Pt is agreeable with discharge, stating she just wants to go home. Remaining ROS (-). Return parameters as well as importance of outpatient follow-up was discussed at length the patient who verbalized understanding. Patient denies questions at this time. Patient discharged appearing well - Lab Data Result diagrams: 11/10/18 10:42 11/10/18 10:42 Lab Results 11/10/18 11/10/18 11/10/18 Range/Units 10:42 10:42 10:42 WBC 6.1 (3.8-10.6) k/uL RBC 3.85 (3.80-5.40) m/uL Hgb 11.2 L (11.4-16.0) gm/dL Hct 34.3 (34.0-46.0) % MCV 89.2 (80.0-100.0) fL MCH 29.1 (25.0-35.0) pg MCHC 32.6 (31.0-37.0) g/dL RDW 13.3 (11.5-15.5) % Plt Count 262 (150-450) k/uL Neutrophils % 46 % Lymphocytes % 43 % Monocytes % 6 % Eosinophils % 2 % Basophils % 1 % Neutrophils # 2.8 (1.3-7.7) k/uL Lymphocytes # 2.6 (1.0-4.8) k/uL Monocytes # 0.4 (0-1.0) k/uL Eosinophils # 0.1 (0-0.7) k/uL Basophils # 0.1 (0-0.2) k/uL PT 10.5 (9.0-12.0) sec INR 1.0 (<1.2) APTT 25.8 (22.0-30.0) sec Sodium 141 (137-145) mmol/L Potassium 4.3 (3.5-5.1) mmol/L Chloride 103 (98-107) mmol/L Carbon Dioxide 32 H (22-30) mmol/L Anion Gap 6 mmol/L BUN 20 H (7-17) mg/dL Creatinine 0.92 (0.52-1.04) mg/dL Est GFR (CKD-EPI)AfAm 90 (>60 ml/min/1.73 sqM) Est GFR (CKD-EPI)NonAf 78 (>60 ml/min/1.73 sqM) Glucose 103 H (74-99) mg/dL Calcium 10.0 (8.4-10.2) mg/dL Total Bilirubin 0.4 (0.2-1.3) mg/dL AST 119 H (14-36) U/L ALT 109 H (9-52) U/L Alkaline Phosphatase 151 H (38-126) U/L Total Protein 6.5 (6.3-8.2) g/dL Albumin 3.8 (3.5-5.0) g/dL Disposition Clinical Impression: Headache, Chronic pain of left lower extremity, Elevated transaminase level Disposition: HOME SELF-CARE Condition: Good Instructions (If sedation given, give patient instructions): Acute Headache (ED ) Additional Instructions: Please use outpatient medication as discussed, I recommend discontinuing [place] due to elevated liver levels. Please follow-up with family doctor in the next 2 days, if symptoms persist I recommend neurology referral. Please return to emergency room if the symptoms increase or worsen or for any other concerns. Is patient prescribed a controlled substance at d/c from ED?: No Referrals: Dudley Dowling MD [Primary Care Provider] - 1-2 days Time of Disposition: 12:38
== END 2018-11-10 12:50 | disposition home or self-care (01) ==
LOC: EC 10:05
DX: R51 Headache (principal); M79.605 Pain in left leg; G89.29 Other chronic pain; R74.0 Nonspecific elevation of levels of transaminase and lactic acid dehydrogenase [LDH]; D64.9 Anemia, unspecified; M06.9 Rheumatoid arthritis, unspecified; Z86.73 Personal history of transient ischemic attack (TIA), and cerebral infarction without residual deficits; Z86.718 Personal history of other venous thrombosis and embolism; Z79.01 Long term (current) use of anticoagulants; Z79.899 Other long term (current) drug therapy; Z88.1 Allergy status to other antibiotic agents; Z88.8 Allergy status to other drugs, medicaments and biological substances
CPT/HCPCS: 36415; 80053; 85025; 85610; 85730; 71046; 93971; 70496; 70450; 70498; 99284; 96374; J2270; Q9967

== ENCOUNTER 2018-11-13 09:19 | Emergency (ER) | payer OTHER, MEDICARE ==
[2018-11-13 09:28] VITALS: RESP 18; TEMP 98
[2018-11-13] MEDS ORDERED: ONDANSETRON ODT 4 MG TAB PO STA (10:07)
[2018-11-13] MEDS ORDERED: KETOROLAC 60 MG/2 ML VIAL IM STA (10:07)
[2018-11-13] MEDS ORDERED: DIAZEPAM 5 MG/ML 2 ML INJ IM STA (10:07)
[2018-11-13] MEDS ORDERED: HYDROcodone/APAP 10-325MG 1 EACH TAB PO ONE (10:09)
--- NOTE | 2018-11-13 10:11 | ED ---
Neck Injury/Pain HPI - General Chief Complaint: Neck Pain/Injury Stated Complaint: Neck/headache Time Seen by Provider: 11/13/18 09:48 Source: patient, RN notes reviewed Mode of arrival: ambulatory Limitations: no limitations - History of Present Illness Initial Comments: 43-year-old female sent emergency Department with chief complaint of chronic neck and had issues. Patient's had several evaluations by PCP, ER. Patient had CT of brain and CT of the brain yesterday. Patient's pain starts the basilar skull rates up into her head. Patient has been referred to pain management and orthopedic. Patient is waiting to be seen. Patient states that she uses C injections her neck by her PCP. Patient is requesting these at this time. She denies any focal weakness denies any difficulty ambulate in. Patient has not taken anything today for the pain. Patient's pain is worse with movement better at rest. - Related Data Home Medications Medication Instructions Recorded Confirmed Cholecalciferol [Vitamin D3] 1,000 unit PO DAILY 06/28/18 11/10/18 Ondansetron [Zofran] 4 mg PO BID PRN 06/28/18 11/10/18 Rivaroxaban [Xarelto] 20 mg PO DAILY 06/28/18 11/10/18 Magnesium 200 mg PO DAILY 10/17/18 11/10/18 Multivit with Calcium,Iron,Min 1 tab PO DAILY 10/17/18 11/10/18 [Women's Multivitamin] Gastramine 2 tab PO AC-TID 11/10/18 11/10/18 HYDROcodone/APAP 10-325MG [[place] 1 tab PO TID PRN 11/10/18 11/10/18 10-325] Ibuprofen [Motrin Ib] 800 mg PO ONCE PRN 11/10/18 11/10/18 Iron 18 mg PO DAILY 11/10/18 11/10/18 clonazePAM 1 mg PO BID 11/10/18 11/10/18 Previous Rx's Medication Instructions Recorded Cyclobenzaprine [Flexeril] 10 mg PO TID PRN #15 tab 11/13/18 Ondansetron Odt [Zofran Odt] 4 mg PO Q8HR PRN #10 tab 11/13/18 Allergies Allergy/AdvReac Type Severity Reaction Status Date / Time amitriptyline AdvReac Unknown Verified 11/13/18 09:24 bupropion HCl AdvReac Nausea & Verified 11/13/18 09:24 [From Wellbutrin] Vomiting & Diarrhea doxycycline AdvReac Nausea Verified 11/13/18 09:24 Review of Systems ROS Statement: Those systems with pertinent positive or pertinent negative responses have been documented in the HPI. ROS Other: All systems not noted in ROS Statement are negative. Past Medical History Past Medical History: Blood Disorder, CVA/TIA, Deep Vein Thrombosis (DVT), Fibromyalgia, GERD/Reflux, Pneumonia, Thyroid Disorder Additional Past Medical History / Comment(s): spina bifida with corrective surgery, hydrocephalus with neurosurgery as , brain bleed as infant, bilateral tib/fib contorsion with surgery, multiple clotting factor including factor V Leiden mutation, anemia, multiple DVTs L leg, donna rheumatoid arthritis, osteoporosis, migraines, allergies, PUD. 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 Hysterectomy with BSO was done for abnormal bleeding. History of Any Multi-Drug Resistant Organisms: None Reported Past Surgical History: Adenoidectomy, Section, Hysterectomy, Orthopedic Surgery, Tonsillectomy Additional Past Surgical History / Comment(s): EGD x2, spina bifida corrective surgery, hydrocephalus with neurosurgery, tulip field filter-since partially removed, bilateral tib/fib contorsion surgery, ORIF R distal radiuse with hardware since removed, several sets of eustachian tubes, wisdom teeth extractions. Past Anesthesia/Blood Transfusion Reactions: No Reported Reaction Additional Past Anesthesia/Blood Transfusion Reaction / Comment(s): Patient has received blood in past without reaction. Past Psychological History: Anxiety, Depression Smoking Status: Never smoker Past Alcohol Use History: Occasional Past Drug Use History: None Reported - Past Family History Father Family Medical History: Myocardial Infarction ([place]) Additional Family Medical History / Comment(s): Father's [place] was d/t a blood clot. Mother Family Medical History: Deep Vein Thrombosis (DVT) Additional Family Medical History / Comment(s): FROM BLOOD CLOT AT AGE 42. FAMILY HX OF CANCER ON MOMS SIDE AND BLOOD CLOTTING DISORDERS. Maternal grandmother and great aunt had breast cancer. Great aunt also had ovarian cancer. Several maternal aunts and uncles as well as a 1st cousin have clotting disorder. General Exam Limitations: no limitations General appearance: alert, in no apparent distress Head exam: Present: atraumatic, normocephalic, normal inspection Eye exam: Present: normal appearance, PERRL, EOMI. Absent: scleral icterus, conjunctival injection, periorbital swelling ENT exam: Present: normal exam, normal oropharynx, mucous membranes moist Neck exam: Present: normal inspection, tenderness (Tenderness at the base of skull, mild cervical paraspinal muscle spasms), full ROM. Absent: meningismus, lymphadenopathy Respiratory exam: Present: normal lung sounds bilaterally. Absent: respiratory distress, wheezes, rales, rhonchi, stridor Cardiovascular Exam: Present: regular rate, normal rhythm, normal heart sounds. Absent: systolic murmur, diastolic murmur, rubs, gallop, clicks Extremities exam: Present: other (Upper extremity strength equal bilaterally) Neurological exam: Present: alert, oriented X3, CN II-XII intact, reflexes normal, other (Normal neuro exam, normal finger-nose). Absent: motor sensory deficit Skin exam: Present: warm, dry, intact, normal color. Absent: rash Course Vital Signs 11/13/18 09:24 Temperature 98 F Pulse Rate 58 L Respiratory 18 Rate Blood Pressure 108/72 O2 Sat by Pulse 98 Oximetry Medical Decision Making - Medical Decision Making I did review patient's past medical history and prior imaging, labs. There is no acute findings. Patient is advised to continue follow-up PCP and pain management. This is most likely related to muscle skeletal pain. Patient will be discharged Disposition Clinical Impression: Tension headache, Cervical paraspinal muscle spasm Disposition: HOME SELF-CARE Condition: Stable Instructions (If sedation given, give patient instructions): Tension Headache ( ED) Additional Instructions: Please return to the Emergency Department if symptoms worsen or any other concerns. Prescriptions: Cyclobenzaprine [Flexeril] 10 mg PO TID PRN #15 tab PRN Reason: Muscle Spasm Ondansetron Odt [Zofran Odt] 4 mg PO Q8HR PRN #10 tab PRN Reason: Nausea Is patient prescribed a controlled substance at d/c from ED?: No Referrals: Dudley Dowling MD [Primary Care Provider] - 1-2 days Time of Disposition: 10:11
[2018-11-13 10:56] VITALS: BP 114/67; PULSE 71
== END 2018-11-13 11:00 | disposition home or self-care (01) ==
LOC: EC 09:19
DX: M62.838 Other muscle spasm (principal); G44.209 Tension-type headache, unspecified, not intractable; M79.7 Fibromyalgia; D64.9 Anemia, unspecified; M81.0 Age-related osteoporosis without current pathological fracture; F41.9 Anxiety disorder, unspecified; Z86.69 Personal history of other diseases of the nervous system and sense organs; Z86.73 Personal history of transient ischemic attack (TIA), and cerebral infarction without residual deficits; Z86.718 Personal history of other venous thrombosis and embolism; Z79.01 Long term (current) use of anticoagulants; Z79.899 Other long term (current) drug therapy; Z88.8 Allergy status to other drugs, medicaments and biological substances; Z88.1 Allergy status to other antibiotic agents
CPT/HCPCS: 99283; 96372; J3360

== ENCOUNTER → 2018-11-21 | Outpatient (CLI) | payer OTHER, MEDICARE ==
--- NOTE | 2018-11-21 08:25 | US ---
EXAMINATION TYPE: US pelvic limited DATE OF EXAM: 11/21/2018 COMPARISON: CT 2018 CLINICAL HISTORY: LLQ Pain R10.2 Pelvic Pain. TECHNIQUE: Transabdominal (TA). Transabdominal sonographic images of the pelvis were acquired. Date of LMP: EXAM MEASUREMENTS: Uterus: total hysterectomy 2014 Endometrial Stripe: Surgically absent Right Ovary: Surgically absent Left Ovary: Surgically absent 1. Uterus: Surgically absent 2. Endometrium: Surgically absent 3. Right Ovary: Surgically absent 4. Left Ovary: Surgically absent 5. Bilateral Adnexa: Obscured by overlying bowel gas bowel loops seen in adnexa 6. Posterior cul-de-sac: wnl IMPRESSION: 1. Postoperative pelvis. No distinct abnormality appreciated. MTDD
--- NOTE | 2018-11-22 10:39 | P.PN ---
Progress Note - Text Progress Note Date: 11/22/18 OUTPATIENT FOLLOW-UP NOTE TEST(S)/RESULTS: pelvic ultrasound done on 11/21/2018 shows no distinct abnormality and is consistent with her previous hysterectomy and BSO. METHOD OF NOTIFICATION: the patient was notified by phone. PATIENT COMMENTS: the patient understands the results. She has an appointment for cancer genetic counseling in about 2 weeks. DIAGNOSIS: unremarkable pelvic ultrasound. DISCUSSION: we talked about possible causes for the pains that she has been having in the lower abdomen and pelvis. The differential diagnosis can include pelvic adhesions, G.I. etiologies such as diverticulosis as well as some type of pain related to her vena cava filter removal since she thinks the pain started around that time. PLAN: she will follow up with other doctors to look into other possible causes for her pains.
== END | disposition home or self-care (01) ==
LOC: RADUSWWP 06:54
PROVIDERS: ATTEND Obstetrics & Gynecology
DX: R10.2 Pelvic and perineal pain (principal); Z98.890 Other specified postprocedural states; R10.32 Left lower quadrant pain; R68.89 Other general symptoms and signs
CPT/HCPCS: 76856; 76857

== ENCOUNTER → 2019-01-02 | Outpatient (CLI) | payer OTHER, MEDICARE ==
--- NOTE | 2019-01-02 16:19 | US ---
EXAMINATION TYPE: US venous doppler duplex LE LT DATE OF EXAM: 01/02/2019 3:54 PM COMPARISON: 11/10/2018 CLINICAL HISTORY: 43-year-old female I82.409 Acute embolism and thrombosis. Deep venous thrombosis of lower extremity. Pain left leg/foot x 3 weeks. Pt on coumadin. Hx DVT left leg. Factor 5. SIDE PERFORMED: Left TECHNIQUE: The lower extremity deep venous system is examined utilizing real time linear array sonog shayla with graded compression, doppler sonography and color-flow sonography. FINDINGS: VESSELS IMAGED: External Iliac Vein (EIV) Common Femoral Vein Deep Femoral Vein Greater Saphenous Vein * Femoral Vein Popliteal Vein Small Saphenous Vein * Proximal Calf Veins (* superficial vessels) Newspaper Writer notes: Left Leg: Evidence of probable minimal chronic thrombus visualized in the proxima l popliteal vein as noted on previous ultrasound. IMPRESSION: Similar intraluminal echoes within the upper left popliteal vein as seen previously but with maintain ed color flow. Findings suggest some persistent chronic nonocclusive DVT here. No new DVT seen within the left lower extremity imaged from the groin to the upper calf.
== END | disposition home or self-care (01) ==
LOC: RADUSWWP 14:46
PROVIDERS: ATTEND Family Medicine
DX: I82.402 Acute embolism and thrombosis of unspecified deep veins of left lower extremity (principal)

== ENCOUNTER → 2019-01-23 | Outpatient (CLI) | payer OTHER, MEDICARE ==
[2019-01-22 15:45] VITALS: BMI 27.3
[2019-01-23 12:04] VITALS: BP 120/86; PULSE 101; RESP 18
--- NOTE | 2019-01-23 13:00 | P.PAINCN ---
History of Present Illness - Reason for Consult Consult date: 01/23/19 - History of Present Illness This is 43 years old female, with a chronic history of severe neck pain and headaches started more than 5 years ago, she denies any initiating event, and she reported that , she had occasional exacerbation of her neck pain and headache, without any clear reason, she denies any motor or sensory deficit, she reported that the neck pain is not radiating to the upper extremities ,she denies any change in the bowel movement or urination, and she had recent MRI of the brain which was negative for any abnormalities, she reported that she had continuous neck pain at the base of the skull with radiation to the top of the head, she is currently on Walden 10/325, and she had minimal benefit from it she denies any side effect of the medication, and she tried different medication in the past, without any benefit, patient had a clotting disorder, and she is currently on Coumadin. Past Medical History Past Medical History: Blood Disorder, Deep Vein Thrombosis (DVT), Fibromyalgia, GERD/Reflux, Pneumonia, Thyroid Disorder Additional Past Medical History / Comment(s): spina bifida with corrective surgery, hydrocephalus with neurosurgery, brain bleed as infant, multiple clotting factor including factor V Leiden mutation, anemia, multiple DVTs L leg, donna rheumatoid arthritis, osteopenia, migraines, allergies, PUD, occipital ne uralgia History of Any Multi-Drug Resistant Organisms: None Reported Past Surgical History: Adenoidectomy, Section, Hysterectomy, Orthopedic Surgery, Tonsillectomy Additional Past Surgical History / Comment(s): EGD x2, colonoscopy, spina bifida corrective surgery, hydrocephalus with neurosurgery as an infant, tulip field filter-since partially removed, bilateral tib/fib contorsion surgery, ORIF R distal radius with hardware since removed, several sets of eustachian tubes, wisdom teeth extractions. Past Anesthesia/Blood Transfusion Reactions: No Reported Reaction Additional Past Anesthesia/Blood Transfusion Reaction / Comm: Patient has received blood in past without reaction. Smoking Status: Never smoker - Past Family History Father Family Medical History: Myocardial Infarction ([place]) Additional Family Medical History / Comment(s): Father's [place] was d/t a blood clot. Mother Family Medical History: Deep Vein Thrombosis (DVT) Additional Family Medical History / Comment(s): FROM BLOOD CLOT AT AGE 42. FAMILY HX OF CANCER ON MOMS SIDE AND BLOOD CLOTTING DISORDERS. Maternal grandmother and great aunt had breast cancer. Great aunt also had ovarian cancer. Several maternal aunts and uncles as well as a 1st cousin have clotting disorder. Medications and Allergies Home Medications Medication Instructions Recorded Confirmed Type Cholecalciferol [Vitamin D3 (25 1,000 unit PO DAILY 06/28/18 01/23/19 History Mcg = 1000 Iu)] Magnesium 200 mg PO DAILY 10/17/18 01/23/19 History Multivit with Calcium,Iron,Min 1 tab PO DAILY 10/17/18 01/23/19 History [Women's Multivitamin] HYDROcodone/APAP 10-325MG [Walden 1 tab PO TID PRN 11/10/18 01/23/19 History 10-325] Ondansetron Odt [Zofran Odt] 4 mg PO Q8HR PRN #10 tab 11/13/18 01/23/19 Rx Enoxaparin [Lovenox] 70 mg SQ Q12H 01/22/19 01/23/19 History Pantoprazole Sodium [Protonix] 40 mg PO DAILY 01/22/19 01/23/19 History Sucralfate [Carafate] 1 gm PO BID PRN 01/22/19 01/23/19 History Warfarin [Coumadin] 7.5 mg PO SUTUTHSA 01/22/19 01/23/19 History Warfarin [Coumadin] 10 mg PO MOWEFR 01/22/19 01/23/19 History Allergies Allergy/AdvReac Type Severity Reaction Status Date / Time rivaroxaban [From Xarelto] Allergy caused Verified 01/23/19 11:42 excessive bleeding amitriptyline AdvReac Unknown Verified 01/23/19 11:42 bupropion HCl AdvReac Nausea & Verified 01/23/19 11:42 [From Wellbutrin] Vomiting & Diarrhea doxycycline AdvReac Nausea Verified 01/23/19 11:42 Physical Exam Vitals: Vital Signs Pulse Resp BP 01/23/19 11:45 101 H 18 120/86 Intake and Output 01/22/19 01/23/19 01/23/19 22:59 06:59 14:59 Other: Weight 63.503 kg Social history : not smoker , NO ETOH , NO Illegal drugs use . : Review of Systems : - Constitutional : no chills , no fever , no night sweats , - Ears : no ear discharge , no change in hearing -Nose, Mouth ,Throat ; no bleeding gums, no sore throat , no epistaxis , -Cardiovascular : Denies chest pain, , no orthopnea , no palpitation -Respiratory : Denies cough , no dyspnea , no hemoptysis -Gastrointestinal : no change in bowel habits , no coffee-ground emesis . -Genitourinary : No hematuria , no discharge , no incontinence, -Musculoskeletal : No gait dysfunction , report neck pain , - Neurological : no ataxia , no tremor , no sezure , complaining of headache -Psychatric : no suicidal ideation no hallucination - Endocrine : no cold intolerence , no polyuria , no polydypsia , -Hematologic : no easy bleeding , no easy brusing , -Allergic / immm : no angioedema , no wheezing ,no allergic rhinitis -Integumentary : no brttle nails , no change hair / nails , no foot/leg ulcers . Physical Examinations : -Constitutional : Cooperative , not in acute distress . -HEENT : nech ; supple , no Lymphadenopathy , no Thyromegaly , :eyes : no icterus, no photophobia . ENT : normal oropharynx , no Thrush - Respiratory : Chest clear to auscultations Bilaterally , no wheezing . - Cardiovascular : regular rate and rhythem , S1 , S2 , no S3 , no S4. - Gastrointestina l: abdomen soft no tenderness , no organomegally . - Genitourinary : Defferred . -Integumentary : No cellulitis , no ulcers , normal skin turgor , no cyanotic . - neurologic : Cranial nerve II to XII intact , no focal neurological deffecit -psychatric : alert , oriented X 3 , appropriate affect , intact judgment and insight . -Lymphatic : no Lymphadenopathy. - musculoskeltal: normal gait Cervical Spine motor stregnth in the deltoid and biceps, normal right side , normal Left side motor stregnth biceps and the wrist extensors normal right side ,normal left side . motor stregnth in the triceps muscle . normal Right side , normal Left side deep tendon reflexes normal at the biceps , normal at Brachioradialis , normal at triceps. Spurling test = negative Neck distraction test= negative Wagoner sign= negative bilaterally positive cervical facet loading test . Severe tenderness over the left occipital nerve on the left side, moderate tenderness over the right occipital nerve Lumber spine moter stegnth lower extremities ,thigh and legs 5/5 Right side , 5/5 Left side Results Comments: CT Scan of the brain negative for any abnormalities Assessment and Plan Plan: Assessment and plan=1-occipital neuralgia. 2-cervical spondylosis with cervical facet arthropathy Patient will be scheduled to have occipital nerve block bilaterally, patient does not have to hold the Coumadin before the procedure We will use a 25-gauge needle, she can continue to use Coumadin, if patient had no benefit after the occipital nerve block, then we have to order MRI of the cervical spine to confirm the diagnosis, and after that we will consider doing diagnostic medial branch blocks at C2, C3, C4 , treatment plan discussed with the patient and she agreed with proceeding Time with Patient: Greater than 30 PQRS Measure Charge Sheet Measure #130: Documentation of Current Meds in Medical Chart: Patient's medications documented in chart Measure #226: Tobacco Use: Screen & Cessation Intervention: Pt not a tobacco user Measure #111: Pneumonia Vaccination: Pneumococcal vaccine NOT administered or previously given Measure #47: Advance Care Plan: Advance care planning discussed & documented, pt chose/unable to give Measure #412: Opioid Treatment Agreement: No documentation of signed opioid treatment agreement Measure #408: Opioid Therapy Follow-up Evaluation: Patient had NO f/u eval minimum every 3 months during opioid therapy Measure #317: Preventitive Care & Scrn High Bld Press & F/U: Normal blood pre ssure, f/u not required Measure #128: Body Mass Index (BMI) Screening & Follow-up: BMI documented ABOVE normal parameters - f/u documented Measure #131: Pain Assessment & Follow-up: Pain positive & plan documented, Follow-up scheduled Measure #431: Unhealthy Alcohol Use Preventative Care & Scrn: Patient not identified as an unhealthy alcohol user PQRS Narrative: Smoking Status Never smoker Do You Want the Pneumonia No Vaccine AT THIS TIME? Blood Pressure 120/86 Pain Intensity [Generalized] 4 Pain Intensity [Left Neck] 7 Hx Alcohol Use (MH) No Home Medications: Ambulatory Orders Cholecalciferol [Vitamin D3 (25 Mcg = 1000 Iu)] 1,000 unit PO DAILY 06/28/18 Magnesium 200 mg PO DAILY 10/17/18 Multivit with Calcium,Iron,Min [Women's Multivitamin] 1 tab PO DAILY 10/17/18 HYDROcodone/APAP 10-325MG [Walden 10-325] 1 tab PO TID PRN 11/10/18 Ondansetron Odt [Zofran Odt] 4 mg PO Q8HR PRN #10 tab 11/13/18 Enoxaparin [Lovenox] 70 mg SQ Q12H 01/22/19 Pantoprazole Sodium [Protonix] 40 mg PO DAILY 01/22/19 Sucralfate [Carafate] 1 gm PO BID PRN 01/22/19 Warfarin [Coumadin] 7.5 mg PO SUTUTHSA 01/22/19 Warfarin [Coumadin] 10 mg PO MOWEFR 01/22/19
== END ==
LOC: PNWHC3 11:33
PROVIDERS: ATTEND Specialist
DX: G89.29 Other chronic pain (principal); M47.812 Spondylosis without myelopathy or radiculopathy, cervical region; M46.82 Other specified inflammatory spondylopathies, cervical region; M54.81 Occipital neuralgia; D68.9 Coagulation defect, unspecified; K21.9 Gastro-esophageal reflux disease without esophagitis; M79.7 Fibromyalgia; Z79.01 Long term (current) use of anticoagulants; Z86.718 Personal history of other venous thrombosis and embolism; Z98.890 Other specified postprocedural states; Z79.899 Other long term (current) drug therapy; Z79.891 Long term (current) use of opiate analgesic; Z88.1 Allergy status to other antibiotic agents; Z88.8 Allergy status to other drugs, medicaments and biological substances
CPT/HCPCS: 99211

== ENCOUNTER 2019-02-13 06:59 | Day surgery (SDC) | payer OTHER, MEDICARE ==
[2019-02-12 10:06] VITALS: BMI 29.2
[2019-02-13 07:19] VITALS: TEMP 97.3
[2019-02-13] MEDS ORDERED: LACTATED RINGERS 1,000 ML IV ONE (07:49)
--- NOTE | 2019-02-13 08:01 | P.PCN ---
Date of Procedure: 02/13/19 Description of Procedure: Pre-operative diagnosis: occipital neuralgea Post Operative Diagnosis: occipital neuralgea Procedure: Bilateral occipital nerve block Anesthesia: 2 mg of Versed- conscious sedation PROCEDURE INDICATION: The patient with neck pain and headache secondary to occipital neuralgea unresponsive to conservative treatments. PROCEDURE DESCRIPTION / TECHNIQUE: The patient was seen and identified in the preoperative area. Risks, benefits, complications, and alternatives were discussed with the patient, the patient agreed to proceed with the procedure and signed the consent. Vital signs remained stable throughout the procedure. Patient was taken to the OR and time out was completed. The patient was placed in the sitting position on the procedure table. The cervical area and bilateral occiptial area were prepped with alcohol swab. Critical pause was taken. Vital signs were closely monitored during the procedure. Conscious sedation was used during the procedure to decrease patients anxiety. The occipital protuberance was palpated and the occipital artery was palpated lateral to that. 25-gauge needle was inserted until contact with the skull was made, negative aspiration preceded injection of 2-1/2 ML's of 1% lidocaine +5 mg of dexamethasone on each side of the skull. Needle was withdrawn intact. Patient tolerated procedure well. No acute complications.
[2019-02-13 08:07] VITALS: RESP 18
[2019-02-13] MEDS ORDERED: IV FLUID CONTINUATION 1,000 ML IV ONE (08:09)
[2019-02-13 08:24] VITALS: BP 102/70; PULSE 69
== END 2019-02-13 08:38 | disposition home or self-care (01) ==
LOC: ORPAIN 06:59
PROVIDERS: ATTEND Hospitalist
DX: M54.81 Occipital neuralgia (principal); G89.29 Other chronic pain; M47.812 Spondylosis without myelopathy or radiculopathy, cervical region; M79.7 Fibromyalgia; K21.9 Gastro-esophageal reflux disease without esophagitis; E07.9 Disorder of thyroid, unspecified; G43.909 Migraine, unspecified, not intractable, without status migrainosus; D68.51 Activated protein C resistance; Z82.49 Family history of ischemic heart disease and other diseases of the circulatory system; Z86.718 Personal history of other venous thrombosis and embolism; Z79.01 Long term (current) use of anticoagulants; Z79.891 Long term (current) use of opiate analgesic; Z79.899 Other long term (current) drug therapy; Z88.8 Allergy status to other drugs, medicaments and biological substances; Z88.1 Allergy status to other antibiotic agents
CPT/HCPCS: 64405; J2250; J1100

== ENCOUNTER → 2019-03-20 | Outpatient (CLI) | payer OTHER, MEDICARE ==
--- NOTE | 2019-03-14 15:17 | WWPN ---
[facility] - PROGRESS NOTE The patient was referred to the [facility] for her strong family history of breast cancer and possible BRCA testing. The patient had made an appointment for 03/13/2019, but had canceled and had not rescheduled. I have called and left a message with the patient, asking her to call us if we can help her to reschedule the appointment and to let us know if she is still interested in having that type of testing done. MMSOFIA / FRANCO: [id number] /
[2019-03-20 12:01] VITALS: BP 113/81; PULSE 78; RESP 16
--- NOTE | 2019-03-20 20:30 | P.PAINPG ---
Subjective Progress Note Date: 03/20/19 At this is a follow-up visit for this 43 years old female, who had history of occipital neuralgia, status post bilateral occipital nerve block ,done few weeks ago, she reported that her headache improved more than 80%, she is very satisfied with the result of the treatment, she denies any visual or motor d eficit, She continued to use pain medication Allyn 10/325 when necessary, and she is getting prescription refills from her primary care she denies any side effect of the medication Physical Examinations : -Constitutiona : Cooperative , not in acute distress . -HEENT : nech : supple , no Lymphadenopathy , normal thyroid size . eyes : no ptosis , no icterus, no photophobia - neurologic : Cranial nerve II to XII intact , no focal neurological deffecit . -psychatric : alert , oriented X 3 , appropriate affect , intact judgment and insight . -Lymphatic : no Lymphadenopathy . - musculoskeltal : Lumber spine moter stegnth lower extremities ,thigh and legs 5/5 Right side , 5/5 Left side Objective - Vital Signs Vital signs: Vital Signs Temp Pulse 78 03/20/19 11:50 Resp 16 03/20/19 11:50 BP 113/81 03/20/19 11:50 Pulse Ox 98 03/20/19 11:50 Intake & Output 03/20/19 03/20/19 03/21/19 06:59 18:59 06:59 Weight 66.678 kg Assessment and Plan Plan: Assessment and plan= occipital neuralgia Headache improved after bilateral occipital nerve block done more than a month ago. She will follow up in the pain clinic when necessary Time with Patient: Less than 30 PQRS Measure Charge Sheet Measure #130: Documentation of Current Meds in Medical Chart: Patient's medications documented in chart Measure #226: Tobacco Use: Screen & Cessation Intervention: Pt not a tobacco user Measure #111: Pneumonia Vaccination: Pneumococcal vaccine NOT administered or previously given Measure #47: Advance Care Plan: Advance care planning discussed & documented, pt chose/unable to give Measure #412: Opioid Treatment Agreement: No documentation of signed opioid treatment agreement Measure #408: Opioid Therapy Follow-up Evaluation: Patient had NO f/u eval minimum every 3 months during opioid therapy Measure #317: Preventitive Care & Scrn High Bld Press & F/U: Normal blood pressure, f/u not required Measure #128: Body Mass Index (BMI) Screening & Follow-up: BMI documented ABOVE normal parameters - f/u documented Measure #131: Pain Assessment & Follow-up: Pain positive & plan documented, Follow-up PRN Measure #431: Unhealthy Alcohol Use Preventative Care & Scrn: Patient not identified as an unhealthy alcohol user PQRS Narrative: Smoking Status Never smoker Blood Pressure 113/81 Pain Intensity [Bilateral 3 Posterior Neck] Scale Used Numeric (1 - 10) Hx Alcohol Use (MH) No Home Medications: Ambulatory Orders Cholecalciferol [Vitamin D3 (25 Mcg = 1000 Iu)] 1,000 unit PO DAILY 06/28/18 Magnesium 200 mg PO DAILY 10/17/18 Multivit with Calcium,Iron,Min [Women's Multivitamin] 1 tab PO DAILY 10/17/18 HYDROcodone/APAP 10-325MG [Allyn 10-325] 1 tab PO QID PRN 11/10/18 Ondansetron Odt [Zofran Odt] 4 mg PO Q8HR PRN #10 tab 11/13/18 Sucralfate [Carafate] 1 gm PO BID PRN 01/22/19 Warfarin [Coumadin] 10 mg PO SUSA 01/22/19 Warfarin [Coumadin] 12.5 mg PO MOTUWETH 01/22/19 Warfarin Sodium [Coumadin] 15 mg PO FR 02/12/19 Levothyroxine Sodium [Synthroid] 1 tab PO DAILY 03/20/19 Controlled Substance Measures - Controlled Substance Measures Is patient prescribed a controlled substance at discharge?: No
== END | disposition home or self-care (01) ==
LOC: PNWHC3 11:41
PROVIDERS: ATTEND Specialist
DX: M54.81 Occipital neuralgia (principal); R51 Headache; Z79.899 Other long term (current) drug therapy; Z79.01 Long term (current) use of anticoagulants; Z79.891 Long term (current) use of opiate analgesic
CPT/HCPCS: 99211

== ENCOUNTER → 2019-04-19 | Outpatient (CLI) | payer OTHER, MEDICARE ==
--- NOTE | 2019-04-19 14:04 | CT ---
EXAMINATION TYPE: CT angio chest DATE OF EXAM: 04/19/2019 1:50 PM COMPARISON: 09/21/2011 HISTORY: Mid chest pain. CT DLP: 168 mGycm Automated exposure control for dose reduction was used. CONTRAST: CTA scan of the thorax is performed with IV Contrast, patient injected with 100 mL of Isovue 370, pul monary embolism protocol. . FINDINGS: LUNGS: The lungs are grossly clear, there is no concerning parenchymal mass or nodule identified. T here is no pleural effusion or pneumothorax seen. The tracheobronchial tree is patent. MEDIASTINUM: There is satisfactory enhancement of the pulmonary artery and its branches, there is no CT evidence for pulmonary embolism. There are no greater than 1 cm hilar or mediastinal lymph nodes. No pericardial effusion is seen. OTHER: No additional significant abnormality is seen. IMPRESSION: NO DIAGNOSTIC EVIDENCE OF PULMONARY EMBOLISM. NO FOCAL INFILTRATE.
== END | disposition home or self-care (01) ==
LOC: RADCTMAIN 12:56
PROVIDERS: ATTEND Family Medicine
DX: R07.89 Other chest pain (principal)
CPT/HCPCS: 71275; Q9967

== ENCOUNTER 2019-06-07 09:33 | Day surgery (SDC) | payer OTHER, MEDICARE ==
[2019-06-06 08:24] VITALS: BMI 30.9
[~2019-06-07 09:33] MED LIST: LACTATED RINGERS 1,000 ML IV SCH
[2019-06-07 09:46] VITALS: RESP 16; TEMP 98
[2019-06-07] MEDS ORDERED: LIDOCAINE 1% 20 ML VIAL (10MG/ML) FOR IV START INTRADERMA ONE (09:56)
[2019-06-07 10:10] LABS: INR 1.1 (<1.2); Prothrombin Time 11.6 sec (9.0-12.0)
--- NOTE | 2019-06-07 10:46 | P.PCN ---
Date of Procedure: 06/07/19 Procedure(s) Performed: Pre-operative diagnosis: 1- Bilateral occipital neuralgea Post Operative Diagnosis 1- Bilateral (occipital neuralgea Procedure: 1- Bilateral occipital nerve block ANESTHESIA: moderate sedation with 2 mg of midazolam EBL: Minimal PROCEDURE INDICATION: The patient with neck pain and headache secondary to occipital neuralgea unresponsive to conservative treatments. PROCEDURE DESCRIPTION / TECHNIQUE: The patient was seen and identified in the preoperative area. Risks, benefits, complications, and alternatives were discussed with the patient, the patient agreed to proceed with the procedure and signed the consent. IV was started. Vital signs remained stable throughout the procedure. Patient was taken to the OR and time out was completed. The patient was placed in the seated position on the procedure table. The cervical area and right occiptial area were prepped with alcohol swab. Vital signs were closely monitored during the procedure. The right occiptal ridge was palpated and was then accessed with a 25 G needle. Then after negative aspiration, 6 ml of the block solution containing 2.5 ml of 0.5% Ropivicaine and Dexamethasone 5 mg was injected. Needle was withdrawn intact. Then the same procedure was repeated on the left side and related the left occipital nerve block, after negative aspiration 4 mL of the block solution containing 2.5 mL ropivacaine 0.5% and Dexamethasone 5 mg injected after negative aspiration Patient tolerated procedure well. No acute complications. She was tearful at the end of the procedure.
[2019-06-07] MEDS ORDERED: IV FLUID CONTINUATION 1,000 ML IV ONE (10:50)
[2019-06-07 11:12] VITALS: BP 102/65; PULSE 75
== END 2019-06-07 11:24 | disposition home or self-care (01) ==
LOC: ORPAIN 09:33
PROVIDERS: ATTEND Student in an Organized Health Care Education/Training Program
DX: M54.81 Occipital neuralgia (principal)
CPT/HCPCS: 85610; 64405; J2250; J1100

== ENCOUNTER 2019-07-02 12:46 | Emergency (ER) | payer OTHER, MEDICARE ==
[2019-07-02 13:01] VITALS: TEMP 98.7
--- NOTE | 2019-07-02 14:29 | ED ---
General Adult HPI - General Chief complaint: Chest Pain Stated complaint: chest tightness/SOB Time Seen by Provider: 07/02/19 13:15 Source: patient, RN notes reviewed Mode of arrival: ambulatory Limitations: no limitations - History of Present Illness Initial comments: This is a 44-year-old female who presents to the emergency department with past medical history significant for acute DVTs. Patient states she feels pain in the back of her leg which is typical of her DVT so she's here to be evaluated. Patient states her INR is been 1.8 and 2.4 last few days and that slow for her they typically would like to keep her INR between 2.5 and 3.5. Patient also states she has chest pain but she's been having that on an ongoing basis and has already been seen by cardiology and they told her was not heart in they believe it to be esophageal spasms. Patient states the symptoms are still there today but they have not worsened in quite a while. Patient states occasionally she feels like she needs takes a deep breath but currently she is not short of breath. Patient denies any swelling to the legs but states that normally when she is cautioned does not have swelling. - Related Data Home Medications Medication Instructions Recorded Confirmed Cholecalciferol [Vitamin D3 (25 1,000 unit PO DAILY 06/28/18 07/02/19 Mcg = 1000 Iu)] Magnesium 200 mg PO DAILY 10/17/18 07/02/19 Multivit with Calcium,Iron,Min 1 tab PO DAILY 10/17/18 07/02/19 [Women's Multivitamin] HYDROcodone/APAP 10-325MG [[place] 1 tab PO QID PRN 11/10/18 07/02/19 10-325] Sucralfate [Carafate] 1 gm PO BID PRN 01/22/19 07/02/19 Warfarin [Coumadin] 10 mg PO SUMOTUWEFR 01/22/19 07/02/19 Levothyroxine Sodium [Synthroid] 50 mcg PO DAILY 03/20/19 07/02/19 Warfarin Sodium 12.5 mg PO THSA 07/02/19 07/02/19 Previous Rx's Medication Instructions Recorded Ondansetron Odt [Zofran Odt] 4 mg PO Q8HR PRN #10 tab 11/13/18 Allergies Allergy/AdvReac Type Severity Reaction Status Date / Time rivaroxaban [From Xarelto] Allergy caused Verified 07/02/19 13:59 excessive bleeding zolpidem [From Ambien] Allergy Unknown Verified 07/02/19 13:59 amitriptyline AdvReac Unknown Verified 07/02/19 13:59 bupropion HCl AdvReac Nausea & Verified 07/02/19 13:59 [From Wellbutrin] Vomiting & Diarrhea doxycycline AdvReac Nausea Verified 07/02/19 13:59 Review of Systems ROS Statement: Those systems with pertinent positive or pertinent negative responses have been documented in the HPI. ROS Other: All systems not noted in ROS Statement are negative. Past Medical History Past Medical History: Blood Disorder, CVA/TIA, Deep Vein Thrombosis (DVT), Fibromyalgia, GERD/Reflux, Pneumonia, Thyroid Disorder Additional Past Medical History / Comment(s): spina bifida with corrective surgery, hydrocephalus with neurosurgery as infant, brain bleed as infant, bilateral tib/fib contorsion with surgery, multiple clotting factor including factor V Leiden mutation, anemia, multiple DVTs L leg, donna rheumatoid arthritis, osteoporosis, migraines, allergies, PUD. 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 Hysterectomy with BSO was done for abnormal bleeding. History of Any Multi-Drug Resistant Organisms: None Reported Past Surgical History: Adenoidectomy, Section, Hysterectomy, Orthopedic Surgery, Tonsillectomy Additional Past Surgical History / Comment(s): EGD x2, spina bifida corrective surgery, hydrocephalus with neurosurgery, tulip field filter-since partially removed, bilateral tib/fib contorsion surgery, ORIF R distal radiuse with hardware since removed, several sets of eustachian tubes, wisdom teeth extr actions. Past Anesthesia/Blood Transfusion Reactions: No Reported Reaction Additional Past Anesthesia/Blood Transfusion Reaction / Comment(s): Patient has received blood in past without reaction. Past Psychological History: Anxiety, Depression Smoking Status: Never smoker - Past Family History Father Family Medical History: Myocardial Infarction (VT) Additional Family Medical History / Comment(s): Father's VT was d/t a blood clot. Mother Family Medical History: Deep Vein Thrombosis (DVT) Additional Family Medical History / Comment(s): FROM BLOOD CLOT AT AGE 42. FAMILY HX OF CANCER ON MOMS SIDE AND BLOOD CLOTTING DISORDERS. Maternal grandmother and great aunt had breast cancer. Great aunt also had ovarian cancer. Several maternal aunts and uncles as well as a 1st cousin have clotting disorder. General Exam - General Exam Comments Initial Comments: GENERAL: Patient is well-developed and well-nourished. Patient is nontoxic and well- hydrated and is in no acute distress. ENT: Neck is soft and supple. No significant lymphadenopathy is noted. Oropharynx is clear. Moist mucous membranes. Neck has full range of motion without eliciting any pain. EYES: The sclera were anicteric and conjunctiva were pink and moist. Extraocular movements were intact and pupils were equal round and reactive to light. Eyelids were unremarkable. PULMONARY: Unlabored respirations. Good breath sounds bilaterally. No audible rales rhonchi or wheezing was noted. CARDIOVASCULAR: There is a regular rate and rhythm without any murmurs gallops or rubs. ABDOMEN: Soft and nontender with normal bowel sounds. SKIN: Skin is clear with no lesions or rashes and otherwise unremarkable. NEUROLOGIC: Patient is alert and oriented x3. Cranial nerves II through XII are grossly intact. Motor and sensory are also intact. Normal speech, volume and content. Symmetrical smile. MUSCULOSKELETAL: Normal extremities with adequate strength and full range of motion. LYMPHATICS: No significant lymphadenopathy is noted PSYCHIATRIC: Normal psychiatric evaluation. Limitations: no limitations Course Vital Signs 07/02/19 07/02/19 07/02/19 12:59 14:38 16:01 Temperature 98.7 F Pulse Rate 75 64 88 Respiratory 16 18 18 Rate Blood Pressure 147/93 116/76 127/88 O2 Sat by Pulse 100 97 97 Oximetry Medical Decision Making - Medical Decision Making Ultrasound showed only a chronic clot in the left leg. Patient's INR was 2.4. I spoke with Dr. Dowling he wanted the patient to increase the Coumadin to 12.5 to ask her times this week. Patient is also to follow up with [facility] who tracks her INR. Patient has no further complaints at this time would like to be discharged. - Lab Data Result diagrams: 07/02/19 14:35 07/02/19 14:35 Lab Results 07/02/19 07/02/19 07/02/19 Range/Units 14:35 14:35 14:35 WBC 7.0 (3.8-10.6) k/uL RBC 3.92 (3.80-5.40) m/uL Hgb 11.7 (11.4-16.0) gm/dL Hct 34.9 (34.0-46.0) % MCV 89.0 (80.0-100.0) fL MCH 29.9 (25.0-35.0) pg MCHC 33.6 (31.0-37.0) g/dL RDW 13.2 (11.5-15.5) % Plt Count 365 (150-450) k/uL Neutrophils % 51 % Lymphocytes % 34 % Monocytes % 5 % Eosinophils % 6 % Basophils % 1 % Neutrophils # 3.6 (1.3-7.7) k/uL Lymphocytes # 2.4 (1.0-4.8) k/uL Monocytes # 0.4 (0-1.0) k/uL Eosinophils # 0.4 (0-0.7) k/uL Basophils # 0.1 (0-0.2) k/uL PT 23.2 H (9.0-12.0) sec INR 2.4 H (<1.2) APTT 29.7 (22.0-30.0) sec Sodium 141 (137-145) mmol/L Potassium 4.6 (3.5-5.1) mmol/L Chloride 108 H (98-107) mmol/L Carbon Dioxide 26 (22-30) mmol/L Anion Gap 7 mmol/L BUN 20 H (7-17) mg/dL Creatinine 0.95 (0.52-1.04) mg/dL Est GFR (CKD-EPI)AfAm 86 (>60 ml/min/1.73 sqM) Est GFR (CKD-EPI)NonAf 75 (>60 ml/min/1.73 sqM) Glucose 89 (74-99) mg/dL Calcium 10.0 (8.4-10.2) mg/dL Total Bilirubin 0.3 (0.2-1.3) mg/dL AST 32 (14-36) U/L ALT 37 (9-52) U/L Alkaline Phosphatase 141 H (38-126) U/L Total Protein 6.8 (6.3-8.2) g/dL Albumin 4.1 (3.5-5.0) g/dL Disposition Clinical Impression: Chronic deep vein thrombosis (DVT) Disposition: HOME SELF-CARE Condition: Good Additional Instructions: Patient should follow-up with [facility] as to how much to increase her Coumadin in the meantime take 2 extra doses of 12.5- instead of 10 mg Is patient prescribed a controlled substance at d/c from ED?: No Referrals: Dudley Dowling MD [Primary Care Provider] - 1-2 days Time of Disposition: 16:42
[2019-07-02 14:42] VITALS: RESP 18
[2019-07-02 14:58] LABS: Albumin 4.1 g/dL (3.5-5.0); Potassium 4.6 mmol/L (3.5-5.1); Total Bilirubin 0.3 mg/dL (0.2-1.3); Total Protein 6.8 g/dL (6.3-8.2)
[2019-07-02 15:01] LABS: Basophils # (A) 0.1 k/uL (0-0.2); Basophils % (A) 1 %; Eosinophils # (A) 0.4 k/uL (0-0.7); Eosinophils % (A) 6 %; HCT 34.9 % (34.0-46.0); HGB 11.7 gm/dL (11.4-16.0); Lymphocytes # (A) 2.4 k/uL (1.0-4.8); Lymphocytes % (A) 34 %; MCH 29.9 pg (25.0-35.0); MCHC 33.6 g/dL (31.0-37.0); Mean Platelet Volume 6.3; Monocytes # (A) 0.4 k/uL (0-1.0); Monocytes % (A) 5 %; Neutrophils # (A) 3.6 k/uL (1.3-7.7); Neutrophils % (A) 51 %; Platelet Count 365 k/uL (150-450); RBC 3.92 m/uL (3.80-5.40); RDW 13.2 % (11.5-15.5)
[2019-07-02 15:02] LABS: INR 2.4 (<1.2); Partial Thromboplastin Time 29.7 sec (22.0-30.0); Prothrombin Time 23.2 sec (9.0-12.0)
--- NOTE | 2019-07-02 15:28 | US ---
EXAMINATION TYPE: US venous doppler duplex LE LT DATE OF EXAM: 07/02/2019 3:17 PM COMPARISON: NONE CLINICAL HISTORY: Pain in posterior left leg . H/O multiple DVT's within left leg, left leg and groin pain, h/o tulip filter that broke and doctor was not able to get all of filter out, patient is neil rned filter pieces are in groin causing pain, Factor 5, on thinners SIDE PERFORMED: Left TECHNIQUE: The lower extremity deep venous system is examined utilizing real time linear array sonog shayla with graded compression, doppler sonography and color-flow sonography. VESSELS IMAGED: External Iliac Vein (EIV) Common Femoral Vein Deep Femoral Vein Greater Saphenous Vein * Femoral Vein Popliteal Vein Small Saphenous Vein * Proximal Calf Veins (* superficial vessels) Left Leg: Appearance of chronic dvt with small nikolski vessel with thready flow at times and collater al vein seen. Patient had pain at area of left EIV/CFV, ultrasound was unable to detect any foreign b goyo within soft tissue around these vessels. IMPRESSION: 1. Some echogenic material is within the left external iliac vein and common femoral vein suggestive for some chronic thrombosis. 2. No sonographic foreign body identified
[2019-07-02] MEDS ORDERED: KETOROLAC 60 MG/2 ML VIAL IVP STA (15:31)
[2019-07-02 16:02] VITALS: PULSE 88
[2019-07-02 16:53] VITALS: BP 116/76
== END 2019-07-02 16:53 | disposition home or self-care (01) ==
LOC: EC 12:46
DX: I82.522 Chronic embolism and thrombosis of left iliac vein (principal); I82.512 Chronic embolism and thrombosis of left femoral vein; D68.51 Activated protein C resistance; K21.9 Gastro-esophageal reflux disease without esophagitis; M06.9 Rheumatoid arthritis, unspecified; M79.7 Fibromyalgia; M81.0 Age-related osteoporosis without current pathological fracture; E07.9 Disorder of thyroid, unspecified; Z79.01 Long term (current) use of anticoagulants; Z79.899 Other long term (current) drug therapy; Z79.890 Hormone replacement therapy; Z88.8 Allergy status to other drugs, medicaments and biological substances; Z88.1 Allergy status to other antibiotic agents; Z86.73 Personal history of transient ischemic attack (TIA), and cerebral infarction without residual deficits; Z87.11 Personal history of peptic ulcer disease
CPT/HCPCS: 36415; 93005; 80053; 85025; 85610; 85730; 93971; 99285; 96374; J1885

== ENCOUNTER → 2019-08-01 | Outpatient (CLI) | payer OTHER, MEDICARE ==
--- NOTE | 2019-08-01 13:32 | CT ---
EXAMINATION TYPE: CT cervical spine wo con DATE OF EXAM: 08/01/2019 COMPARISON: CT cervical spine August 06, 2015 HISTORY: occipital neuralgia CT DLP: 417 mGycm. Automated Exposure Control for Dose Reduction was Utilized. TECHNIQUE: CT scan of the cervical spine is obtained without contrast, axial images are obtained, sa gittal and coronal reformatted images are also reviewed. FINDINGS: Cervical spine is visualized in its entirety from C1 through upper thoracic levels, redemon strates loss of normal cervical curvature without evidence of acute fracture or dislocation. Prevert ebral soft tissue appears within normal limits. The C1-C2 articulation is within normal limits on th e coronal images. Vertebral body heights and disc space heights are fairly well maintained. Spinal ca nal is grossly preserved. Mild anterior spurring C4-C5 and C5-C6 vertebral body levels is redemonstra margarito. Review of axial images shows no significant spinal canal stenosis or neural foraminal narrowing at an y cervical level. Thyroid gland is felt within normal limits. Visualized lung apices are clear. IMPRESSION: As above. No significant change from prior.
== END | disposition home or self-care (01) ==
LOC: RADCTMAIN 12:50
PROVIDERS: ATTEND Specialist
DX: M47.812 Spondylosis without myelopathy or radiculopathy, cervical region (principal); G89.29 Other chronic pain
CPT/HCPCS: 72125

== ENCOUNTER → 2019-08-23 | Outpatient (CLI) | payer OTHER, MEDICARE ==
--- NOTE | 2019-08-27 09:29 | P.PAINPG ---
Subjective Progress Note Date: 08/23/19 At this is a follow-up visit for this 43 years old female, who had history of occipital neuralgia, status post bilateral occipital nerve block , last done on 06/07/2019. She returns today for follow-up. she reports that following the first occipital nerve block, she got excellent relief which lasted several months. Following her second occipital nerve block she got little to no relief. She recently underwent a CT cervical spine, results below. today her primary complaint is occipital pain and neck pain, bilateral although worse on the left side, described as a tightness. of note, she does have several medical comorbidities, and is on Coumadin. She continued to use pain medication [place] 10/325 when necessary, up to 4 times a day, and she is getting prescription refills from her primary care she denies any side effect of the medication. She does have a daughter with special needs who she cares for. Review of systems is negative for chest pain, shortness of breath, new onset weakness, numbness/tingling, abdominal pain, malaise, fever, night sweats, chills, homicidal or suicidal ideation, or bowel or bladder incontinence. Objective Physical exam: Vitals: Reviewed in EMR GENERAL: Well appearing, in no acute distress PSYCH: Mood and affect is appropriate. Awake, alert, and oriented SKIN: Skin color, texture, turgor normal, no rashes or lesions HEENT: Normocephalic, atraumatic. EOM intact CV: No pedal edema RESP: Respirations are unlabored, no audible wheezing GI: Abdomen non-distended MUSCULOSKELETAL: Bilateral upper extremity strength is normal and symmetric. No atrophy or tone abnormalities are noted. Neck: tenderness to palpation over the cervical paraspinous muscles, with palpable trigger points in bilateral cervical paraspinals, RHOMBOIDS and trapezius muscles. Positive occipital Tinel's bilaterally. Spurling negative, Wagoner's sign negative. No pain with neck flexion, extension, or lateral flexion. No obvious deformity or signs of trauma. Extremities: Peripheral joint ROM is full and pain free without obvious instability or laxity in all four extremities. No edema or skin discolorations noted. Gait: Gait is normal NEUR: Bilateral upper extremity coordination and muscle stretch reflexes are physiologic and symmetric. No loss of sensation is noted. Imaging: CT cervical spine [facility] on 08/01/2019 shows Mild anterior spurring at C4-5 and C5-C6 vertebral body levels. Otherwise within normal limits. No significant change from prior. Assessment and Plan Plan: Assessment and plan= occipital neuralgia, cervical myofascial pain syndrome Headache improved after bilateral occipital nerve block in the past. Given excellent benefit from first occipital nerve block, which I would repeat this procedure, will add trigger point injections to bilateral cervical paraspinals, rhomboids and trapezius muscles. she can remain on Coumadin for this procedure. follow-up: For above-mentioned procedure Time with Patient: Less than 30 PQRS Measure Charge Sheet Measure #130: Documentation of Current Meds in Medical Chart: Patient's medications documented in chart Measure #226: Tobacco Use: Screen & Cessation Intervention: Pt not a tobacco user Measure #111: Pneumonia Vaccination: Pneumococcal vaccine NOT administered or previously given Measure #47: Advance Care Plan: Advance care planning discussed & documented, pt chose/unable to give Measure #412: Opioid Treatment Agreement: No documentation of signed opioid treatment agreement Measure #408: Opioid Therapy Follow-up Evaluation: Patient had NO f/u eval minimum every 3 months during opioid therapy Measure #317: Preventitive Care & Scrn High Bld Press & F/U: Normal blood pressure, f/u not required Measure #128: Body Mass Index (BMI) Screening & Follow-up: BMI documented ABOVE normal parameters - f/u documented Measure #131: Pain Assessment & Follow-up: Pain positive & plan documented, Follow-up scheduled Measure #431: Unhealthy Alcohol Use Preventative Care & Scrn: Patient not identified as an unhealthy alcohol user PQRS Measure Charge Sheet PQRS Narrative: Smoking Status Never smoker Pain Intensity [Left Neck] 9 Pain Intensity [Left Head] 7 Hx Alcohol Use (MH) No Home Medications: Ambulatory Orders Cholecalciferol [Vitamin D3 (25 Mcg = 1000 Iu)] 1,000 unit PO DAILY 06/28/18 HYDROcodone/APAP 10-325MG [[place] 10-325] 1 tab PO QID PRN 11/10/18 Ondansetron Odt [Zofran Odt] 4 mg PO Q8HR PRN #10 tab 11/13/18 Sucralfate [Carafate] 1 gm PO BID PRN 01/22/19 Warfarin [Coumadin] 10 mg PO DAILY 01/22/19 Acetaminophen [Tylenol] 325 mg PO Q8H PRN 12/10/19 busPIRone HCL 15 mg PO BID 08/21/19 Controlled Substance Measures - Controlled Substance Measures Is patient prescribed a controlled substance at discharge?: No
== END | disposition home or self-care (01) ==
LOC: PNWHC3 11:38
PROVIDERS: ATTEND Anesthesiology
DX: M54.81 Occipital neuralgia (principal); M79.18 Myalgia, other site; Z79.01 Long term (current) use of anticoagulants; Z79.891 Long term (current) use of opiate analgesic; Z79.899 Other long term (current) drug therapy
CPT/HCPCS: 99211

== ENCOUNTER → 2019-10-23 | Outpatient (CLI) | payer OTHER, MEDICARE ==
--- NOTE | 2019-10-23 16:06 | MR ---
EXAMINATION TYPE: MR lumbar spine wo/w con DATE OF EXAM: 10/23/2019 COMPARISON: CT 05/03/2018 HISTORY: Low back pain TECHNIQUE: Multiplanar, multisequence images of the lumbar spine were acquired utilizing 7.5 mL intravenous Gada vist gadolinium contrast. L1-L2: Normal disc appearance without desiccation. No herniation, protrusion or disc bulging. No ca nal stenosis is present. Foramina are patent bilaterally. L2-L3: Normal disc appearance without desiccation. No herniation, protrusion or disc bulging. No ca nal stenosis is present. Foramina are patent bilaterally. L3-L4: Normal disc appearance without desiccation. No herniation, protrusion or disc bulging. No ca nal stenosis is present. Foramina are patent bilaterally. L4-L5: Normal disc appearance without desiccation. No herniation, protrusion or disc bulging. No ca nal stenosis is present. Foramina are patent bilaterally. Facet arthropathy changes present with hyp ertrophy ligamentum flavum causing some minimal posterior lateral mass effect on the thecal sac. L5-S1: Normal disc appearance without desiccation. No herniation, protrusion or disc bulging. No ca nal stenosis is present. Foramina are patent bilaterally. Lumbar segments are intact. No paraspinal masses are identified. Conus medullaris has a normal appe arance. L5 thought to be transitional vertebral body. There is a spinal curvature. No significant spi nal stenosis. There is some loss of disc height signal at T12-L1 compatible disc desiccation and dege nerative disc disease. No abnormal enhancement following contrast administration. Small umbilical her maureen contains fat. Small hemangioma suspected the superior endplate of L3. Schmorl's node present at t he inferior endplate of T12. IMPRESSION: Spinal curvature, transitional vertebral body, facet arthropathy, mild degenerative disc disease as d escribed.
== END | disposition home or self-care (01) ==
LOC: RADMRIMAIN 15:08
PROVIDERS: ATTEND Physical Medicine & Rehabilitation
DX: M51.16 Intervertebral disc disorders with radiculopathy, lumbar region (principal); M46.96 Unspecified inflammatory spondylopathy, lumbar region; M43.8X6 Other specified deforming dorsopathies, lumbar region
CPT/HCPCS: 72158; A9585

== ENCOUNTER 2019-12-04 09:33 | Emergency (ER) | payer OTHER, MEDICARE ==
[2019-12-04 09:40] VITALS: TEMP 97.9
[2019-12-04] MEDS ORDERED: MORPHINE SULFATE 4 MG/ML SYRINGE IV STA (09:52)
[2019-12-04] MEDS ORDERED: ASPIRIN 81 MG PO STA (09:52)
--- NOTE | 2019-12-04 09:58 | ED ---
General Adult HPI - General Chief complaint: Chest Pain Stated complaint: Chest pain Time Seen by Provider: 12/04/19 09:42 Source: patient, RN notes reviewed Mode of arrival: ambulatory Limitations: no limitations - History of Present Illness Initial comments: Patient is a pleasant 44-year-old female presenting to the emergency Department with complaints of right-sided chest discomfort. Onset of symptoms was around 4 days ago. Discomfort is moderate rated 5 or 6/10. Symptoms are somewhat similar to previous pulmonary embolism. Patient is on Coumadin and her INR has been low lately between 1.2 and 1.3. Patient was prescribed to take Lovenox la st night and this morning, 70 mg each. Patient denies any dyspnea. Discomfort does increase with deep breaths. No significant cough however when she did cough discomfort did increase. Discomfort is described as sharp. Discomfort is right side of the chest above the breast. No leg pain or leg swelling. Patient does have history of previous pulmonary embolisms. Also history of previous DVT. - Related Data Home Medications Medication Instructions Recorded Confirmed Cholecalciferol [Vitamin D3 (25 1,000 unit PO DAILY 06/28/18 12/04/19 Mcg = 1000 Iu)] Warfarin [Coumadin] 10 mg PO DIRECTED 01/22/19 12/04/19 Acetaminophen [Tylenol Extra 500 mg PO Q6H PRN 12/04/19 12/04/19 Strength] Ascorbic Acid [Vitamin C] 1,000 mg PO DAILY 12/04/19 12/04/19 Enoxaparin [Lovenox] 70 mg SQ Q12H 12/04/19 12/04/19 Gabapentin [Neurontin] 800 mg PO BID 12/04/19 12/04/19 Levothyroxine Sodium [Synthroid] 50 mcg PO DAILY 12/04/19 12/04/19 Multivitamins, Thera [Multivitamin 1 tab PO DAILY 12/04/19 12/04/19 (formulary)] Ondansetron Odt [Zofran Odt] 8 mg PO Q8HR PRN 12/04/19 12/04/19 Warfarin [Coumadin] 7.5 mg PO DIRECTED 12/04/19 12/04/19 busPIRone HCL [Buspar] 30 mg PO BID 12/04/19 12/04/19 Allergies Allergy/AdvReac Type Severity Reaction Status Date / Time rivaroxaban [From Xarelto] Allergy caused Verified 12/04/19 10:47 excessive bleeding zolpidem [From Ambien] Allergy Unknown Verified 12/04/19 10:47 amitriptyline AdvReac Unknown Verified 12/04/19 10:47 bupropion HCl AdvReac Nausea & Verified 12/04/19 10:47 [From Wellbutrin] Vomiting & Diarrhea doxycycline AdvReac Nausea Verified 12/04/19 10:47 oral contrast solution AdvReac Rash/Hives Uncoded 12/04/19 10:47 Review of Systems ROS Statement: Those systems with pertinent positive or pertinent negative responses have been documented in the HPI. ROS Other: All systems not noted in ROS Statement are negative. Constitutional: Denies: fever Eyes: Denies: eye pain ENT: Denies: ear pain Respiratory: Denies: cough, dyspnea Cardiovascular: Reports: as per HPI Endocrine: Denies: fatigue Gastrointestinal: Denies: abdominal pain Genitourinary: Denies: dysuria Musculoskeletal: Denies: back pain Skin: Denies: rash Neurological: Denies: weakness Past Medical History Past Medical History: Blood Disorder, Deep Vein Thrombosis (DVT), Fibromyalgia, GERD/Reflux, Thyroid Disorder Additional Past Medical History / Comment(s): spina bifida w/ corrective surgery, hydrocephalus w/ neurosurgery as , brain bleed as infant, bilateral tib/fib contorsion with surgery, multiple clotting factor including factor V Leiden mutation, anemia, multiple DVTs L leg, donna rheumatoid arthritis, osteoporosis, migraines, allergies, PUD. Post thrombotic syndrome. History of Any Multi-Drug Resistant Organisms: None Reported Past Surgical History: Adenoidectomy, Section, Hysterectomy, Orthopedic Surgery, Tonsillectomy Additional Past Surgical History / Comment(s): EGD x2, spina bifida corrective surgery, hydrocephalus with neurosurgery, tulip field filter-since partially removed, bilateral tib/fib contorsion surgery, ORIF R distal radius with hardware since removed, several sets of eustachian tubes, wisdom teeth e xtractions. Pain procedure 06/10/19 Past Anesthesia/Blood Transfusion Reactions: No Reported Reaction Additional Past Anesthesia/Blood Transfusion Reaction / Comment(s): Patient has received blood in past without reaction. Past Psychological History: Anxiety, Depression Smoking Status: Never smoker Past Alcohol Use History: Occasional Past Drug Use History: None Reported - Past Family History Father Family Medical History: Myocardial Infarction ([place]) Additional Family Medical History / Comment(s): Father's [place] was d/t a blood clot. Mother Family Medical History: Deep Vein Thrombosis (DVT) Additional Family Medical History / Comment(s): FROM BLOOD CLOT AT AGE 42. FAMILY HX OF CANCER ON MOMS SIDE AND BLOOD CLOTTING DISORDERS. Maternal grandmother and great aunt had breast cancer. Great aunt also had ovarian cancer. Several maternal aunts and uncles as well as a 1st cousin have clotting disorder. General Exam Limitations: no limitations General appearance: alert, in no apparent distress Head exam: Present: normocephalic Eye exam: Present: normal appearance Neck exam: Present: normal inspection Respiratory exam: Present: normal lung sounds bilaterally. Absent: chest wall tenderness Cardiovascular Exam: Present: regular rate, normal rhythm Expanded Peripheral pulses: 2+: Radial (R), Radial (L), Dorsalis Pedis (R), Dorsalis Pedis (L) GI/Abdominal exam: Present: soft. Absent: tenderness Extremities exam: Present: normal inspection. Absent: pedal edema, calf tenderness Neurological exam: Present: alert Psychiatric exam: Present: normal affect, normal mood Skin exam: Present: normal color Course Vital Signs 12/04/19 12/04/19 09:36 10:33 Temperature 97.9 F Pulse Rate 73 78 Respiratory 18 163 H Rate Blood Pressure 135/90 128/94 O2 Sat by Pulse 98 100 Oximetry EKG Findings - EKG Comments: EKG Findings:: Normal sinus rhythm 73. W[place] 142. QRS 76. QT 368. QTC 405. Normal axis. Normal QRS. No acute ST change. Medical Decision Making - Medical Decision Making Patient reevaluated and resting comfortably in bed. Symptoms have improved. Patient updated on results. Patient is comfortable with discharge home. Case was discussed in detail with Dr. Dowling who agrees with discharge and will follow-up with this patient. He is aware of INR. Patient to continue Lovenox at this time. - Lab Data Result diagrams: 12/04/19 09:48 12/04/19 09:48 Lab Results 12/04/19 12/04/19 12/04/19 Range/Units 09:48 09:48 09:48 WBC 6.0 (3.8-10.6) k/uL RBC 4.30 (3.80-5.40) m/uL Hgb 12.6 (11.4-16.0) gm/dL Hct 37.7 (34.0-46.0) % MCV 87.7 (80.0-100.0) fL MCH 29.3 (25.0-35.0) pg MCHC 33.4 (31.0-37.0) g/dL RDW 12.9 (11.5-15.5) % Plt Count 330 (150-450) k/uL Neutrophils % 36 % Lymphocytes % 56 % Monocytes % 3 % Eosinophils % 2 % Basophils % 1 % Neutrophils # 2.2 (1.3-7.7) k/uL Lymphocytes # 3.3 (1.0-4.8) k/uL Monocytes # 0.2 (0-1.0) k/uL Eosinophils # 0.1 (0-0.7) k/uL Basophils # 0.1 (0-0.2) k/uL PT 14.6 H (9.0-12.0) sec INR 1.5 H (<1.2) APTT 33.9 H (22.0-30.0) sec Sodium 142 (137-145) mmol/L Potassium 3.9 (3.5-5.1) mmol/L Chloride 104 (98-107) mmol/L Carbon Dioxide 29 (22-30) mmol/L Anion Gap 9 mmol/L BUN 12 (7-17) mg/dL Creatinine 0.85 (0.52-1.04) mg/dL Est GFR (CKD-EPI)AfAm >90 (>60 ml/min/1.73 sqM) Est GFR (CKD-EPI)NonAf 85 (>60 ml/min/1.73 sqM) Glucose 88 (74-99) mg/dL Calcium 9.5 (8.4-10.2) mg/dL Magnesium 2.1 (1.6-2.3) mg/dL Total Bilirubin 0.5 (0.2-1.3) mg/dL AST 33 (14-36) U/L ALT 16 (4-34) U/L Alkaline Phosphatase 83 (38-126) U/L Creatine Kinase 41 (30-135) U/L Troponin I (0.000-0.034) ng/mL Total Protein 7.5 (6.3-8.2) g/dL Albumin 4.5 (3.5-5.0) g/dL 12/04/19 Range/Units 09:48 WBC (3.8-10.6) k/uL RBC (3.80-5.40) m/uL Hgb (11.4-16.0) gm/dL Hct (34.0-46.0) % MCV (80.0-100.0) fL MCH (25.0-35.0) pg MCHC (31.0-37.0) g/dL RDW (11.5-15.5) % Plt Count (150-450) k/uL Neutrophils % % Lymphocytes % % Monocytes % % Eosinophils % % Basophils % % Neutrophils # (1.3-7.7) k/uL Lymphocytes # (1.0-4.8) k/uL Monocytes # (0-1.0) k/uL Eosinophils # (0-0.7) k/uL Basophils # (0-0.2) k/uL PT (9.0-12.0) sec INR (<1.2) APTT (22.0-30.0) sec Sodium (137-145) mmol/L Potassium (3.5-5.1) mmol/L Chloride (98-107) mmol/L Carbon Dioxide (22-30) mmol/L Anion Gap mmol/L BUN (7-17) mg/dL Creatinine (0.52-1.04) mg/dL Est GFR (CKD-EPI)AfAm (>60 ml/min/1.73 sqM) Est GFR (CKD-EPI)NonAf (>60 ml/min/1.73 sqM) Glucose (74-99) mg/dL Calcium (8.4-10.2) mg/dL Magnesium (1.6-2.3) mg/dL Total Bilirubin (0.2-1.3) mg/dL AST (14-36) U/L ALT (4-34) U/L Alkaline Phosphatase (38-126) U/L Creatine Kinase (30-135) U/L Troponin I <0.012 (0.000-0.034) ng/mL Total Protein (6.3-8.2) g/dL Albumin (3.5-5.0) g/dL - Radiology Data Radiology results: report reviewed (Computed tomography scan of the chest shows no evidence of pulmonary embolism) Disposition Clinical Impression: Chest pain Disposition: HOME SELF-CARE Condition: Stable Instructions (If sedation given, give patient instructions): Chest Pain (ED) Additional Instructions: Please follow-up with Dr. Dowling in the next couple of days for recheck. Continue Lovenox. 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 Return for increased pain, difficulty breathing, discomfort and other areas, worsening symptoms or any other concerns. Is patient prescribed a controlled substance at d/c from ED?: No Referrals: Dudley Dowling MD [Primary Care Provider] - 1-2 days Time of Disposition: 11:16
[2019-12-04 10:23] LABS: ALT 16 U/L (4-34); AST 33 U/L (14-36); African American GFR (CKD) >90 (>60 ml/min/1.73 sqM); Albumin 4.5 g/dL (3.5-5.0); Alkaline Phosphatase 83 U/L (38-126); Anion Gap 9 mmol/L; Blood Urea Nitrogen 12 mg/dL (7-17); Calcium 9.5 mg/dL (8.4-10.2); Carbon Dioxide 29 mmol/L (22-30); Chloride 104 mmol/L (98-107); Creatine Kinase 41 U/L (30-135); Glucose 88 mg/dL (74-99); Magnesium 2.1 mg/dL (1.6-2.3); Non-African American GFR(CKD) 85 (>60 ml/min/1.73 sqM); Potassium 3.9 mmol/L (3.5-5.1); Sodium 142 mmol/L (137-145); Total Bilirubin 0.5 mg/dL (0.2-1.3); Total Protein 7.5 g/dL (6.3-8.2)
[2019-12-04] MEDS ORDERED: diphenhydrAMINE 50 MG/ML 1 ML VIAL IVP STA (10:25)
[2019-12-04] MEDS ORDERED: methylPREDNISolone SOD SUCCI 125 MG/2 ML VIAL IV STA (10:25)
[2019-12-04] MEDS ORDERED: FAMOTIDINE 20 MG/2 ML VIAL IV STA (10:25)
[2019-12-04 10:35] LABS: Basophils # (A) 0.1 k/uL (0-0.2); Basophils % (A) 1 %; Eosinophils # (A) 0.1 k/uL (0-0.7); Eosinophils % (A) 2 %; HCT 37.7 % (34.0-46.0); HGB 12.6 gm/dL (11.4-16.0); Lymphocytes # (A) 3.3 k/uL (1.0-4.8); Lymphocytes % (A) 56 %; MCH 29.3 pg (25.0-35.0); MCHC 33.4 g/dL (31.0-37.0); MCV 87.7 fL (80.0-100.0); Mean Platelet Volume 7.7; Monocytes # (A) 0.2 k/uL (0-1.0); Monocytes % (A) 3 %; Neutrophils # (A) 2.2 k/uL (1.3-7.7); Neutrophils % (A) 36 %; Platelet Count 330 k/uL (150-450); RDW 12.9 % (11.5-15.5)
[2019-12-04 10:36] LABS: INR 1.5 (<1.2); Partial Thromboplastin Time 33.9 sec (22.0-30.0); Prothrombin Time 14.6 sec (9.0-12.0)
--- NOTE | 2019-12-04 11:02 | CT ---
EXAMINATION TYPE: CT angio chest DATE OF EXAM: 12/04/2019 COMPARISON: CTA chest April 19, 2019. HISTORY: PE. Shortness of breath. CT DLP: 218.5 mGycm. Automated Exposure Control for Dose Reduction was Utilized. CONTRAST: CTA scan of the thorax is performed without and with IV Contrast, patient injected with 100 ml mL of Isovue 370, pulmonary embolism protocol. MIP Images are created on CT scanner and reviewed. FINDINGS: LUNGS: There is respiratory motion artifact degradation involving both lower lobes evaluation of this level suboptimal. Lungs however are grossly clear without suspicious consolidation or groundglass op acity. No pleural effusion or pneumothorax. No suspicious masses. Slightly suboptimal evaluation for subcentimeter nodules without obvious concerning nodule. MEDIASTINUM: There is satisfactory enhancement of the pulmonary artery and its branches, there is no CT evidence for pulmonary embolism. There are no greater than 1 cm hilar or mediastinal lymph nodes . No cardiomegaly or pericardial effusion is seen. OTHER: No additional significant abnormality is seen. IMPRESSION: No CT evidence for acute pulmonary embolism. No suspicious acute pulmonary process. No si gnificant change from prior CT.
[2019-12-04 11:29] VITALS: BP 126/84; PULSE 67; RESP 126
== END 2019-12-04 11:28 | disposition home or self-care (01) ==
LOC: EC 09:33
DX: R07.89 Other chest pain (principal); F41.9 Anxiety disorder, unspecified; D68.51 Activated protein C resistance; M81.0 Age-related osteoporosis without current pathological fracture; M79.7 Fibromyalgia; M06.9 Rheumatoid arthritis, unspecified; E07.9 Disorder of thyroid, unspecified; G43.909 Migraine, unspecified, not intractable, without status migrainosus; Z79.890 Hormone replacement therapy; Z79.01 Long term (current) use of anticoagulants; Z79.899 Other long term (current) drug therapy; Z88.8 Allergy status to other drugs, medicaments and biological substances; Z88.1 Allergy status to other antibiotic agents; Z91.041 Radiographic dye allergy status; Z86.711 Personal history of pulmonary embolism; Z86.718 Personal history of other venous thrombosis and embolism; Z87.11 Personal history of peptic ulcer disease; Z82.49 Family history of ischemic heart disease and other diseases of the circulatory system
CPT/HCPCS: 36415; 93005; 80053; 82550; 83735; 84484; 85025; 85610; 85730; 71275; 99285; 96374; 96375 ×3; J2270; J1200; J2930; Q9967

== ENCOUNTER 2019-12-05 11:22 | Emergency (ER) | payer OTHER, MEDICARE ==
[2019-12-05 11:28] VITALS: RESP 18; TEMP 98
--- NOTE | 2019-12-05 11:30 | ED ---
Recheck HPI - General Chief Complaint: Recheck/Abnormal Lab/Rx Stated Complaint: recheck - R/O PE Time Seen by Provider: 12/05/19 11:29 Source: patient Mode of arrival: ambulatory Limitations: no limitations - History of Present Illness Initial Comments: 44-year-old female with history of multiple clotting disorders including factor 5, Protein C and S protein abnormalities with history of pulmonary embolisms/DVTs with no current IVC filter as it broke in 2016 presenting to the ER for revisit of righ sided chest pain that increases with inhalation and exhalation. Patient states that she has pain when she takes a deep breath she states this is when pain is maximal she states that it is also painful and exhalation but less painful. She denies any chest pressure upper respiratory symptoms. She denies any jaw pain and arm pain or SOB. Patient denies any dyspnea on exertion. Patient states that she takes home readings of her INR which has been subtherapeutic. She states that for the past 2 days she has been on Lovenox 80 mg twice daily she states she is compliant. Patient states that this sensation is similar to when she's had a pulmonary embolism in the past. Patient states her last PE was 3 years ago. Patient states that she does follow hematology and has a hypercoagulation nurse that she has not been able to get a hold of. Patient states she is to monitor her oxygen saturation at home which has been 100%. Patient states feeling time that the pain seems to be better is approximately 30 minutes after administering the Lovenox. Patient denies any other specific alleviating and aggravating factors. Denies fevers, denies pain to palpation of the chest or movement of the arms. Patient was seen in the emergency department yesterday where she had a CT angiogram of the chest performed revealing no acute pulmonary embolism. Patient was found to have subtherapeutic INR again however she is on Lovenox. Otherwise, troponin (-), no leukocytosis. - Related Data Home Medications Medication Instructions Recorded Confirmed Cholecalciferol [Vitamin D3 (25 1,000 unit PO DAILY 06/28/18 12/04/19 Mcg = 1000 Iu)] Warfarin [Coumadin] 10 mg PO DIRECTED 01/22/19 12/04/19 Acetaminophen [Tylenol Extra 500 mg PO Q6H PRN 12/04/19 12/04/19 Strength] Ascorbic Acid [Vitamin C] 1,000 mg PO DAILY 12/04/19 12/04/19 Enoxaparin [Lovenox] 70 mg SQ Q12H 12/04/19 12/04/19 Gabapentin [Neurontin] 800 mg PO BID 12/04/19 12/04/19 Levothyroxine Sodium [Synthroid] 50 mcg PO DAILY 12/04/19 12/04/19 Multivitamins, Thera [Multivitamin 1 tab PO DAILY 12/04/19 12/04/19 (formulary)] Ondansetron Odt [Zofran Odt] 8 mg PO Q8HR PRN 12/04/19 12/04/19 Warfarin [Coumadin] 7.5 mg PO DIRECTED 12/04/19 12/04/19 busPIRone HCL [Buspar] 30 mg PO BID 12/04/19 12/04/19 Allergies Allergy/AdvReac Type Severity Reaction Status Date / Time rivaroxaban [From Xarelto] Allergy caused Verified 12/04/19 10:47 excessive bleeding zolpidem [From Ambien] Allergy Unknown Verified 12/04/19 10:47 amitriptyline AdvReac Unknown Verified 12/04/19 10:47 bupropion HCl AdvReac Nausea & Verified 12/04/19 10:47 [From Wellbutrin] Vomiting & Diarrhea doxycycline AdvReac Nausea Verified 12/04/19 10:47 oral contrast solution AdvReac Rash/Hives Uncoded 12/04/19 10:47 Review of Systems ROS Statement: Those systems with pertinent positive or pertinent negative responses have been documented in the HPI. ROS Other: All systems not noted in ROS Statement are negative. Past Medical History Past Medical History: Blood Disorder, Deep Vein Thrombosis (DVT), Fibromyalgia, GERD/Reflux, Thyroid Disorder Additional Past Medical History / Comment(s): spina bifida w/ corrective surgery, hydrocephalus w/ neurosurgery as , brain bleed as infant, bilateral tib/fib contorsion with surgery, multiple clotting factor including factor V Leiden mutation, anemia, multiple DVTs L leg, donna rheumatoid arthri tis, osteoporosis, migraines, allergies, PUD. Post thrombotic syndrome. History of Any Multi-Drug Resistant Organisms: None Reported Past Surgical History: Adenoidectomy, Section, Hysterectomy, Orthopedic Surgery, Tonsillectomy Additional Past Surgical History / Comment(s): EGD x2, spina bifida corrective surgery, hydrocephalus with neurosurgery, tulip field filter-since partially removed, bilateral tib/fib contorsion surgery, ORIF R distal radius with hardware since removed, several sets of eustachian tubes, wisdom teeth extractions. Pain procedure 06/10/19 Past Anesthesia/Blood Transfusion Reactions: No Reported Reaction Additional Past Anesthesia/Blood Transfusion Reaction / Comment(s): Patient has received blood in past without reaction. Past Psychological History: Anxiety, Depression Smoking Status: Never smoker Past Alcohol Use History: Occasional Past Drug Use History: None Reported - Past Family History Father Family Medical History: Myocardial Infarction ([place]) Additional Family Medical History / Comment(s): Father's [place] was d/t a blood clot. Mother Family Medical History: Deep Vein Thrombosis (DVT) Additional Family Medical History / Comment(s): FROM BLOOD CLOT AT AGE 44. FAMILY HX OF CANCER ON MOMS SIDE AND BLOOD CLOTTING DISORDERS. Maternal grandmother and great aunt had breast cancer. Great aunt also had ovarian cancer. Several maternal aunts and uncles as well as a 1st cousin have clotting disorder. General Exam - General Exam Comments Initial Comments: General: The patient is awake and alert, in no distress, and does not appear acutely ill. Eye: +3 mm pupils are equal, round and reactive to light, extra-ocular movements are intact. No nystagmus. There is normal conjunctiva bilaterally. No signs of icterus. Cardiovascular: There is a regular rate and rhythm. No murmur, rub or gallop is appreciated. Respiratory: Lungs are clear to auscultation, respirations are non-labored, breath sounds are equal. No wheezes, stridor, rales, or rhonchi. Gastrointestinal: Soft, non-distended, non-tender abdomen without masses or organomegaly noted. There is no rebound or guarding present. Musculoskeletal: Normal ROM, no tenderness. Strength 5/5. Sensation intact. Radial pulses equal bilaterally 2+. Neurological: A&O x 3. CN II-XII intact grossly, There are no obvious motor or sensory deficits. Coordination appears grossly intact. Speech is normal. Skin: Skin is warm and dry and no rashes or lesions are noted. No LE swelling, No calf pain. Psychiatric: Cooperative, appropriate mood & affect, normal judgment. Limitations: no limitations Course Vital Signs 12/05/19 12/05/19 11:23 12:29 Temperature 98.0 F Pulse Rate 87 75 Respiratory 18 18 Rate Blood Pressure 130/75 134/86 O2 Sat by Pulse 100 100 Oximetry Medical Decision Making - Medical Decision Making 44-year-old female presenting today for chief complaint of right-sided chest pain pleuritic. Patient presented yesterday for evaluation or CTA of the chest was negative. Patient has supratherapeutic INR she is taking both Coumadin as well as Lovenox. Patient is not hypoxic, tachycardia. Patient denies this being a pressure does not appear to be typical chest pain. Troponin negative yesterday strip or negative. Patient denies any increase in the pain she states that than persistent. Patient denies shortness of breath. No leg swelling calf pain. No peripheral signs concerning for DVT. Dimer (-). Given patient recent (- ) studies that her VS stable, dimer (-) and supratherapeutic on trevin radiation therapy I feel she is stable for discharge with primary care follow-up. Prior to discharge I did contact patient's primary care provider who is agreeable and feels discharge is appropriate at this time, I spoke with Dr. Washington. I discussed case with Dr. Delarosa who recommends discharge, return parameters were discussed at length including return for hypoxia (patient has pulse ox at home), worsening pain, elevated HR, leg swelling or any other concerns were discussed with patient who verbalized understanding. I did discuss importance of following up with her hypercoagulable nurse today with recommendations for INR. Patient agreeable to this plan as well as discharge. - Lab Data Result diagrams: 12/05/19 11:50 12/05/19 11:50 Lab Results 12/05/19 12/05/19 12/05/19 Range/Units 11:50 11:50 11:50 WBC 11.5 H (3.8-10.6) k/uL RBC 4.24 (3.80-5.40) m/uL Hgb 12.3 (11.4-16.0) gm/dL Hct 37.3 (34.0-46.0) % MCV 88.1 (80.0-100.0) fL MCH 29.0 (25.0-35.0) pg MCHC 32.9 (31.0-37.0) g/dL RDW 12.8 (11.5-15.5) % Plt Count 321 (150-450) k/uL Neutrophils % 70 % Lymphocytes % 22 % Monocytes % 6 % Eosinophils % 1 % Basophils % 0 % Neutrophils # 8.1 H (1.3-7.7) k/uL Lymphocytes # 2.5 (1.0-4.8) k/uL Monocytes # 0.7 (0-1.0) k/uL Eosinophils # 0.1 (0-0.7) k/uL Basophils # 0.0 (0-0.2) k/uL PT 42.9 H (9.0-12.0) sec INR 4.3 H (<1.2) APTT 37.5 H (22.0-30.0) sec D-Dimer 0.19 (<0.60) mg/L FEU Sodium 139 (137-145) mmol/L Potassium 3.6 (3.5-5.1) mmol/L Chloride 102 (98-107) mmol/L Carbon Dioxide 32 H (22-30) mmol/L Anion Gap 5 mmol/L BUN 15 (7-17) mg/dL Creatinine 0.78 (0.52-1.04) mg/dL Est GFR (CKD-EPI)AfAm >90 (>60 ml/min/1.73 sqM) Est GFR (CKD-EPI)NonAf >90 (>60 ml/min/1.73 sqM) Glucose 101 H (74-99) mg/dL Calcium 9.8 (8.4-10.2) mg/dL Magnesium 2.0 (1.6-2.3) mg/dL Total Bilirubin 0.3 (0.2-1.3) mg/dL AST 47 H (14-36) U/L ALT 31 (4-34) U/L Alkaline Phosphatase 86 (38-126) U/L Troponin I (0.000-0.034) ng/mL Total Protein 7.3 (6.3-8.2) g/dL Albumin 4.4 (3.5-5.0) g/dL /25/20 Range/Units 11:50 WBC (3.8-10.6) k/uL RBC (3.80-5.40) m/uL Hgb (11.4-16.0) gm/dL Hct (34.0-46.0) % MCV (80.0-100.0) fL MCH (25.0-35.0) pg MCHC (31.0-37.0) g/dL RDW (11.5-15.5) % Plt Count (150-450) k/uL Neutrophils % % Lymphocytes % % Monocytes % % Eosinophils % % Basophils % % Neutrophils # (1.3-7.7) k/uL Lymphocytes # (1.0-4.8) k/uL Monocytes # (0-1.0) k/uL Eosinophils # (0-0.7) k/uL Basophils # (0-0.2) k/uL PT (9.0-12.0) sec INR (<1.2) APTT (22.0-30.0) sec D-Dimer (<0.60) mg/L FEU Sodium (137-145) mmol/L Potassium (3.5-5.1) mmol/L Chloride (98-107) mmol/L Carbon Dioxide (22-30) mmol/L Anion Gap mmol/L BUN (7-17) mg/dL Creatinine (0.52-1.04) mg/dL Est GFR (CKD-EPI)AfAm (>60 ml/min/1.73 sqM) Est GFR (CKD-EPI)NonAf (>60 ml/min/1.73 sqM) Glucose (74-99) mg/dL Calcium (8.4-10.2) mg/dL Magnesium (1.6-2.3) mg/dL Total Bilirubin (0.2-1.3) mg/dL AST (14-36) U/L ALT (4-34) U/L Alkaline Phosphatase (38-126) U/L Troponin I <0.012 (0.000-0.034) ng/mL Total Protein (6.3-8.2) g/dL Albumin (3.5-5.0) g/dL - EKG Data EKG Comments: Ventricular rate 83 bpm, NH interval 140 ms, QRS duration 80 ms QT/QTc 354/4:15 milliseconds. This is normal sinus rhythm. There is no ST elevation or depression. EKG compared to that of 12/03 no acute changes. Disposition Clinical Impression: Atypical chest pain Disposition: HOME SELF-CARE Condition: Good Instructions (If sedation given, give patient instructions): Chest Pain (ED) Additional Instructions: Please use medication as discussed. Please follow-up with family doctor in the next 24-48 hours, please contact your coagulation nurse for recommendations with the INR as discussed (TODAY). Please return to emergency room if the symptoms increase or worsen or for any other concerns. Is patient prescribed a controlled substance at d/c from ED?: No Referrals: Dudley Dowling MD [Primary Care Provider] - 1-2 days Time of Disposition: 12:46
[2019-12-05 12:07] LABS: Basophils % (A) 0 %; Eosinophils # (A) 0.1 k/uL (0-0.7); Eosinophils % (A) 1 %; HCT 37.3 % (34.0-46.0); HGB 12.3 gm/dL (11.4-16.0); Lymphocytes # (A) 2.5 k/uL (1.0-4.8); Lymphocytes % (A) 22 %; MCHC 32.9 g/dL (31.0-37.0); MCV 88.1 fL (80.0-100.0); Mean Platelet Volume 7.9; Monocytes # (A) 0.7 k/uL (0-1.0); Monocytes % (A) 6 %; Neutrophils # (A) 8.1 k/uL (1.3-7.7); Neutrophils % (A) 70 %; Platelet Count 321 k/uL (150-450); RBC 4.24 m/uL (3.80-5.40); RDW 12.8 % (11.5-15.5); WBC 11.5 k/uL (3.8-10.6)
[2019-12-05 12:20] LABS: ALT 31 U/L (4-34); AST 47 U/L (14-36); African American GFR (CKD) >90 (>60 ml/min/1.73 sqM); Albumin 4.4 g/dL (3.5-5.0); Alkaline Phosphatase 86 U/L (38-126); Anion Gap 5 mmol/L; Blood Urea Nitrogen 15 mg/dL (7-17); Calcium 9.8 mg/dL (8.4-10.2); Carbon Dioxide 32 mmol/L (22-30); Chloride 102 mmol/L (98-107); Glucose 101 mg/dL (74-99); Non-African American GFR(CKD) >90 (>60 ml/min/1.73 sqM); Potassium 3.6 mmol/L (3.5-5.1); Sodium 139 mmol/L (137-145); Total Bilirubin 0.3 mg/dL (0.2-1.3); Total Protein 7.3 g/dL (6.3-8.2)
[2019-12-05 12:23] LABS: D-Dimer 0.19 mg/L FEU (<0.60); INR 4.3 (<1.2); Partial Thromboplastin Time 37.5 sec (22.0-30.0); Prothrombin Time 42.9 sec (9.0-12.0)
[2019-12-05 12:29] VITALS: BP 134/86; PULSE 75
== END 2019-12-05 12:52 | disposition home or self-care (01) ==
LOC: EC 11:22
DX: R07.89 Other chest pain (principal); D68.51 Activated protein C resistance; M79.7 Fibromyalgia; K21.9 Gastro-esophageal reflux disease without esophagitis; E07.9 Disorder of thyroid, unspecified; M06.9 Rheumatoid arthritis, unspecified; F32.9 Major depressive disorder, single episode, unspecified; F41.9 Anxiety disorder, unspecified; Z88.1 Allergy status to other antibiotic agents; Z88.8 Allergy status to other drugs, medicaments and biological substances; Z91.041 Radiographic dye allergy status; Z79.01 Long term (current) use of anticoagulants; Z79.890 Hormone replacement therapy; Z79.891 Long term (current) use of opiate analgesic; Z79.899 Other long term (current) drug therapy; Z86.711 Personal history of pulmonary embolism; Z86.718 Personal history of other venous thrombosis and embolism; Z87.728 Personal history of other specified (corrected) congenital malformations of nervous system and sense organs; Z86.69 Personal history of other diseases of the nervous system and sense organs; Z98.890 Other specified postprocedural states; Z82.49 Family history of ischemic heart disease and other diseases of the circulatory system
CPT/HCPCS: 36415; 80053; 83735; 84484; 85025; 85379; 85610; 85730; 93005; 99284

== ENCOUNTER 2020-03-25 07:33 | Emergency (ER) | payer OTHER, MEDICARE ==
[2020-03-25 07:37] VITALS: TEMP 98.3
--- NOTE | 2020-03-25 07:57 | ED ---
General Adult HPI - General Chief complaint: Extremity Problem,Nontraumatic Stated complaint: leg swelling Time Seen by Provider: 03/25/20 07:39 Source: patient, RN notes reviewed, old records reviewed Mode of arrival: wheelchair Limitations: no limitations - History of Present Illness Initial comments: 44-year-old female presented for evaluation of left leg pain patient's history of clotting disorder including factor V Leiden, she has a partial IVC filter with a previous attempt at retrieval. She is currently on Coumadin and therapeutic Lovenox. She is taking 70 mg of Lovenox twice daily which is her weight-based dose. She is also on Coumadin and this has been increased because her INR has been subtherapeutic. She states she has an INR machine and had her INR was 1.3 this morning. She has been compliant with her medications. She also follows with her primary for pain management but states this pain is different than her usual chronic pain. No fever. No vomiting. No cough or cold symptoms. - Related Data Home Medications Medication Instructions Recorded Confirmed Cholecalciferol [Vitamin D3 (25 5,000 unit PO DAILY 06/28/18 03/25/20 Mcg = 1000 Iu)] Acetaminophen [Tylenol Extra 500 - 1,000 mg PO Q6H PRN 12/04/19 03/25/20 Strength] Enoxaparin [Lovenox] 70 mg SQ Q12H 12/04/19 03/25/20 Gabapentin [Neurontin] 800 mg PO Q12H 12/04/19 03/25/20 Ondansetron Odt [Zofran Odt] 8 mg PO Q8HR PRN 12/04/19 03/25/20 Warfarin [Coumadin] 20 mg PO HS 12/04/19 03/25/20 busPIRone HCL [Buspar] 30 mg PO BID 12/04/19 03/25/20 Cetirizine HCl [Zyrtec] 10 mg PO DAILY PRN 03/25/20 03/25/20 HYDROcodone/APAP 10-325MG [[place] 1 tab PO Q4HR PRN 03/25/20 03/25/20 10-325] Allergies Allergy/AdvReac Type Severity Reaction Status Date / Time rivaroxaban [From Xarelto] Allergy caused Verified 03/25/20 08:23 excessive bleeding zolpidem [From Ambien] Allergy Unknown Verified 03/25/20 08:23 amitriptyline AdvReac Unknown Verified 03/25/20 08:23 bupropion HCl AdvReac Nausea & Verified 03/25/20 08:23 [From Wellbutrin] Vomiting & Diarrhea doxycycline AdvReac Nausea Verified 03/25/20 08:23 oral contrast solution AdvReac Rash/Hives Uncoded 12/04/19 10:47 Review of Systems ROS Statement: Those systems with pertinent positive or pertinent negative responses have been documented in the HPI. ROS Other: All systems not noted in ROS Statement are negative. Past Medical History Past Medical History: Blood Disorder, Deep Vein Thrombosis (DVT), Fibromyalgia, GERD/Reflux, Thyroid Disorder Additional Past Medical History / Comment(s): spina bifida w/ corrective surgery, hydrocephalus w/ neurosurgery as , brain bleed as , bilateral tib/fib contorsion with surgery, multiple clotting factor including factor V Leiden mutation, anemia, multiple DVTs L leg, donna rheumatoid art hritis, osteoporosis, migraines, allergies, PUD. Post thrombotic syndrome. History of Any Multi-Drug Resistant Organisms: None Reported Past Surgical History: Adenoidectomy, Section, Hysterectomy, Orthopedic Surgery, Tonsillectomy Additional Past Surgical History / Comment(s): EGD x2, spina bifida corrective surgery, hydrocephalus with neurosurgery, tulip field filter-since partially removed, bilateral tib/fib contorsion surgery, ORIF R distal radius with hardware since removed, several sets of eustachian tubes, wisdom teeth extractions. Pain procedure 06/10/19 Past Anesthesia/Blood Transfusion Reactions: No Reported Reaction Additional Past Anesthesia/Blood Transfusion Reaction / Comment(s): Patient has received blood in past without reaction. Past Psychological History: Anxiety, Depression Past Alcohol Use History: Occasional Past Drug Use History: None Reported - Past Family History Father Family Medical History: Myocardial Infarction (VT) Additional Family Medical History / Comment(s): Father's VT was d/t a blood clot. Mother Family Medical History: Deep Vein Thrombosis (DVT) Additional Family Medical History / Comment(s): FROM BLOOD CLOT AT AGE 42. FAMILY HX OF CANCER ON MOMS SIDE AND BLOOD CLOTTING DISORDERS. Maternal grandmother and great aunt had breast cancer. Great aunt also had ovarian cancer. Several maternal aunts and uncles as well as a 1st cousin have clotting disorder. General Exam Limitations: no limitations General appearance: alert, in no apparent distress Head exam: Present: atraumatic, normocephalic Eye exam: Present: normal appearance, PERRL Neck exam: Present: normal inspection. Absent: tenderness, meningismus Respiratory exam: Present: normal lung sounds bilaterally. Absent: respiratory distress, wheezes Cardiovascular Exam: Present: regular rate, normal rhythm GI/Abdominal exam: Present: soft. Absent: distended, tenderness, guarding Extremities exam: Present: normal inspection, normal capillary refill, other (Distal pulses intact). Absent: pedal edema, joint swelling Neurological exam: Present: alert, oriented X3, CN II-XII intact. Absent: motor sensory deficit Psychiatric exam: Present: normal affect, normal mood Skin exam: Present: warm, dry, intact, normal color. Absent: cyanosis, diaphoretic Course Vital Signs 03/25/20 07:35 Temperature 98.3 F Pulse Rate 95 Respiratory 16 Rate Blood Pressure 132/85 O2 Sat by Pulse 99 Oximetry Medical Decision Making - Medical Decision Making 44-year-old with left leg pain history DVT PE, hypercoagulable state currently on therapeutic doses of Lovenox and Coumadin. Ultrasound performed negative for DVT, normal flow. She has a normal arterial exam as well with distal pulses intact. Laboratory testing reveals mild anemia hemoglobin of 10, INR subtherapeutic at 1.2 which does correlate with the patient's machine. She requested to be tested for covert given the new pain symptoms. This test is pending. She has good outpatient follow-up with her primary care physician for pain management she will continue to follow with hematology. - Lab Data Result diagrams: 03/25/20 08:01 03/25/20 08:01 Lab Results 03/25/20 03/25/20 03/25/20 Range/Units 08:01 08:01 08:01 WBC 6.3 (3.8-10.6) k/uL RBC 3.49 L (3.80-5.40) m/uL Hgb 10.0 L (11.4-16.0) gm/dL Hct 32.1 L (34.0-46.0) % MCV 92.1 (80.0-100.0) fL MCH 28.8 (25.0-35.0) pg MCHC 31.3 (31.0-37.0) g/dL RDW 14.0 (11.5-15.5) % Plt Count 412 (150-450) k/uL Neutrophils % 39 % Lymphocytes % 52 % Monocytes % 4 % Eosinophils % 2 % Basophils % 1 % Neutrophils # 2.4 (1.3-7.7) k/uL Lymphocytes # 3.3 (1.0-4.8) k/uL Monocytes # 0.3 (0-1.0) k/uL Eosinophils # 0.2 (0-0.7) k/uL Basophils # 0.1 (0-0.2) k/uL Hypochromasia Marked PT 12.5 H (9.0-12.0) sec INR 1.2 H (<1.2) APTT 30.6 H (22.0-30.0) sec Sodium 139 (137-145) mmol/L Potassium 4.6 (3.5-5.1) mmol/L Chloride 104 (98-107) mmol/L Carbon Dioxide 29 (22-30) mmol/L Anion Gap 6 mmol/L BUN 12 (7-17) mg/dL Creatinine 0.97 (0.52-1.04) mg/dL Est GFR (CKD-EPI)AfAm 84 (>60 ml/min/1.73 sqM) Est GFR (CKD-EPI)NonAf 73 (>60 ml/min/1.73 sqM) Glucose 94 (74-99) mg/dL Calcium 9.6 (8.4-10.2) mg/dL Total Bilirubin 0.4 (0.2-1.3) mg/dL AST 110 H (14-36) U/L ALT 61 H (4-34) U/L Alkaline Phosphatase 159 H (38-126) U/L Total Protein 7.2 (6.3-8.2) g/dL Albumin 4.4 (3.5-5.0) g/dL Disposition Clinical Impression: Anemia, Chronic pain, H/O deep venous thrombosis Disposition: HOME SELF-CARE Condition: Good Instructions (If sedation given, give patient instructions): Anemia (ED), Chronic Pain (ED) Is patient prescribed a controlled substance at d/c from ED?: No Referrals: Dudley Dowling MD [Primary Care Provider] - 1-2 days Time of Disposition: 09:31
[2020-03-25 08:13] LABS: Basophils # (A) 0.1 k/uL (0-0.2); Basophils % (A) 1 %; Eosinophils # (A) 0.2 k/uL (0-0.7); Eosinophils % (A) 2 %; HCT 32.1 % (34.0-46.0); Hypochromasia Marked; Lymphocytes # (A) 3.3 k/uL (1.0-4.8); Lymphocytes % (A) 52 %; MCH 28.8 pg (25.0-35.0); MCHC 31.3 g/dL (31.0-37.0); MCV 92.1 fL (80.0-100.0); Mean Platelet Volume 9.3; Monocytes # (A) 0.3 k/uL (0-1.0); Monocytes % (A) 4 %; Neutrophils # (A) 2.4 k/uL (1.3-7.7); Neutrophils % (A) 39 %; Platelet Count 412 k/uL (150-450); RBC 3.49 m/uL (3.80-5.40); WBC 6.3 k/uL (3.8-10.6)
[2020-03-25 08:22] LABS: INR 1.2 (<1.2); Partial Thromboplastin Time 30.6 sec (22.0-30.0); Prothrombin Time 12.5 sec (9.0-12.0)
[2020-03-25 08:27] LABS: Albumin 4.4 g/dL (3.5-5.0); Calcium 9.6 mg/dL (8.4-10.2); Potassium 4.6 mmol/L (3.5-5.1); Total Bilirubin 0.4 mg/dL (0.2-1.3); Total Protein 7.2 g/dL (6.3-8.2)
--- NOTE | 2020-03-25 09:08 | US ---
EXAMINATION TYPE: US venous doppler duplex LE LT DATE OF EXAM: 03/25/2020 8:52 AM COMPARISON: NONE CLINICAL HISTORY: DVT. SIDE PERFORMED: Left TECHNIQUE: The lower extremity deep venous system is examined utilizing real time linear array sonog shayla with graded compression, doppler sonography and color-flow sonography. VESSELS IMAGED: External Iliac Vein (EIV) Common Femoral Vein Deep Femoral Vein Greater Saphenous Vein * Femoral Vein Popliteal Vein Small Saphenous Vein * Proximal Calf Veins (* superficial vessels) Left Leg: Flow appears widely patent throughout examination. IMPRESSION: Grayscale, color doppler, spectral doppler imaging performed of the deep veins of the lo wer extremities. There is normal flow, compressibility, vascular waveforms.
--- NOTE | 2020-03-25 10:37 | US ---
EXAMINATION TYPE: US gallbladder DATE OF EXAM: 03/25/2020 COMPARISON: NONE CLINICAL HISTORY: Transaminitis. abn labs, abd pain but patient is always in pain EXAM MEASUREMENTS: Liver Length: 12.3 cm Gallbladder Wall: 0.2 cm CBD: 0.5 cm Right Kidney: 8.5 x 4.4 x 4.0 cm Pancreas: wnl in its visualized portions Liver: intercostal imaging due to bowel gas and there is no evident mass Gallbladder: wnl Evidence for sonographic Mcpherson's sign: no CBD: wnl Right Kidney: small in size IMPRESSION: No acute abnormality. Limited right upper quadrant ultrasound.
[2020-03-25 10:57] VITALS: BP 104/72; PULSE 72; RESP 18
== END 2020-03-25 10:57 | disposition home or self-care (01) ==
LOC: EC 07:33
DX: M79.605 Pain in left leg (principal); D64.9 Anemia, unspecified; F41.9 Anxiety disorder, unspecified; K21.9 Gastro-esophageal reflux disease without esophagitis; M79.7 Fibromyalgia; G89.29 Other chronic pain; Z79.01 Long term (current) use of anticoagulants; Z79.899 Other long term (current) drug therapy; Z79.1 Long term (current) use of non-steroidal anti-inflammatories (NSAID); Z86.718 Personal history of other venous thrombosis and embolism; Z88.1 Allergy status to other antibiotic agents; Z88.8 Allergy status to other drugs, medicaments and biological substances; Z03.818 Encounter for observation for suspected exposure to other biological agents ruled out
CPT/HCPCS: 36415; 80053; 85025; 85610; 85730; 93971; 76705; 99284; U0003

== ENCOUNTER → 2020-10-27 | Outpatient (CLI) | payer OTHER, MEDICARE ==
[2020-10-27 13:52] VITALS: BP 121/87; PULSE 76; RESP 18; TEMP 98
--- NOTE | 2020-10-27 14:23 | P.PN ---
Subjective Progress Note Date: 10/27/20 This is a follow-up visit for this 45 years old female, with a chronic history of severe neck pain and headaches started more than 7 years ago, she is diagnosed with occipital neuralgia and previously we have done bilateral occipital nerve block and she had excellent pain relief, she denies any initiating event, and she reported that , she had occasional exacerbation of her neck pain and headache, without any clear reason, she denies any motor or sensory deficit, she reported that the neck pain is not radiating to the upper extremities ,she denies any change in the bowel movement or urination, and she had recent MRI of the brain which was negative for any abnormalities, she reported that she had continuous neck pain at the base of the skull with radiation to the top of the head, she is currently on [place] 10/325, and she had minimal benefit from it she denies any side effect of the medication, and she tried different medication in the past, without any benefit, patient had a clotting disorder, and she is currently on Coumadin because she had factor V Leiden deficiency Objective - Vital Signs Vital signs: Vital Signs Temp 98.0 F 10/27/20 13:46 Pulse 76 10/27/20 13:46 Resp 18 10/27/20 13:46 BP 121/87 10/27/20 13:46 Pulse Ox 97 10/27/20 13:46 - Exam Physical Examinations : -Constitutional : Cooperative , not in acute distress . -HEENT : nech ; supple , no Lymphadenopathy , no Thyromegaly , :eyes : no icterus, no photophobia . -Integumentary : No cellulitis , no ulcers , normal skin turgor , no cyanotic . - neurologic : Cranial nerve II to XII intact , no focal neurological deffecit -psychatric : alert , oriented X 3 , appropriate affect , intact judgment and insight . -Lymphatic : no Lymphadenopathy. - musculoskeltal: normal gait Cervical Spine motor stregnth in the deltoid and biceps, normal right side , normal Left side motor stregnth biceps and the wrist extensors normal right side ,normal left side . motor stregnth in the triceps muscle . normal Right side , normal Left side deep tendon reflexes normal at the biceps , normal at Brachioradialis , normal at triceps. Spurling test = negative Neck distraction test= negative Wagoner sign= negative bilaterally positive cervical facet loading test . Severe tenderness over the left occipital nerve on the left side, moderate tenderness over the right occipital nerve Lumber spine moter stegnth lower extremities ,thigh and legs 5/5 Right side , 5/5 Left side Assessment and Plan Plan: CT Scan of the brain negative for any abnormalities Assessment and plan= 1-occipital neuralgia. 2-cervical spondylosis with cervical facet arthropathy Patient will be scheduled to have occipital nerve block bilaterally, patient does not have to hold the Coumadin before the procedure We will use a 25-gauge needle, she can continue to use Coumadin PQRS Measure Charge Sheet Measure #130: Documentation of Current Meds in Medical Chart: Patient's medications documented in chart Measure #226: Tobacco Use: Screen & Cessation Intervention: Pt not a tobacco user Measure #111: Pneumonia Vaccination: Pneumococcal vaccine NOT administered or previously given Measure #47: Advance Care Plan: Advance care planning discussed & documented, pt chose/unable to give Measure #412: Opioid Treatment Agreement: No documentation of signed opioid treatment agreement Measure #408: Opioid Therapy Follow-up Evaluation: Patient had NO f/u eval minimum every 3 months during opioid therapy Measure #317: Preventitive Care & Scrn High Bld Press & F/U: Normal blood pressure, f/u not required Measure #128: Body Mass Index (BMI) Screening & Follow-up: BMI documented ABOVE normal parameters - f/u documented Measure #131: Pain Assessment & Follow-up: Pain positive & plan documented, Follow-up scheduled Measure #431: Unhealthy Alcohol Use Preventative Care & Scrn: Patient not identified as an unhealthy alcohol user Time with Patient: Less than 30
== END | disposition home or self-care (01) ==
LOC: PNWHC3 13:28
PROVIDERS: ATTEND Specialist
DX: M47.812 Spondylosis without myelopathy or radiculopathy, cervical region (principal); M54.81 Occipital neuralgia; Z79.891 Long term (current) use of opiate analgesic
CPT/HCPCS: 99211

== ENCOUNTER → 2020-11-25 | Outpatient (CLI) | payer OTHER, MEDICARE ==
--- NOTE | 2020-11-26 11:18 | MM ---
Reason for exam: screening (asymptomatic). Last mammogram was performed 2 years and 1 month ago. History: Patient is postmenopausal. Family history of breast cancer in maternal grandmother. Physical Findings: A clinical breast exam by your physician is recommended on an annual basis and results should be correlated with mammographic findings. MG 3D Screening Mammo W/Cad Bilateral CC and MLO view(s) were taken. Prior study comparison: October 17, 2018, bilateral MG 3d screening mammo w/cad. June 09, 2015, bilateral MG screening mammo w CAD. No significant changes when compared with prior studies. ASSESSMENT: Benign, BI-RAD 2 RECOMMENDATION: Routine screening mammogram of both breasts in 1 year.
== END | disposition home or self-care (01) ==
LOC: RADMAMWWP 10:05
PROVIDERS: ATTEND Family Medicine
DX: Z12.31 Encounter for screening mammogram for malignant neoplasm of breast (principal)
CPT/HCPCS: 77063; 77067

== ENCOUNTER 2020-12-30 12:16 | Day surgery (SDC) | payer OTHER, MEDICARE ==
[2020-12-26 09:14] VITALS: BMI 30.2
[2020-12-30] MEDS ORDERED: ROPIVACAINE 5MG/ML 20ML VIAL ONE (13:02)
[2020-12-30] MEDS ORDERED: methylPREDNISolone ACETATE 40 MG/ML 1 ML VIAL ONE (13:02)
[2020-12-30] MEDS ORDERED: fentaNYL (PF) 50 MCG/ML 2 ML AMP ONE (13:02)
[2020-12-30] MEDS ORDERED: MIDAZOLAM 2 MG/2 ML VIAL ONE (13:02)
[2020-12-30 13:07] VITALS: TEMP 97.7
--- NOTE | 2020-12-30 13:13 | P.PCN ---
Date of Procedure: 12/30/20 Procedure(s) Performed: Preoperative diagnoses= 1- Greater occipital neuralgia. 2-cervical spondylosis with cervical facet arthropathy Postoperative diagnoses= same as preoperative diagnosis. Procedure= Bilateral Greater occipital nerve block Anesthesia= moderate sedation with Versed 2 mg and fentanyl 50 micrograms and local infiltration with lidocaine 1% 4 ml Estimated blood loss=minimal. Procedure indication= the patient had a history of severe chronic neck pain ,and headache, diagnosed with occipital neuralgia exam was positive for severe tenderness over the occipital nerve bilaterally, she will be a good candidate occipital nerve block, patient failed conservative management Procedure description= the patient was seen and identified in the preoperative holding area, risks and benefits and alternative of the procedure and possible complications discussed with the patient, and he agreed with the preceding, patient signed the consent, an IV was started, and vital signs were monitored and were stable throughout the procedure, patient was placed in the sitting position or table and the neck area was prepped and draped with a sterile fashion, vital signs were closely monitored during the procedure, 25-gauge needle advanced 1 inch lateral to the occipital protuberance on the right side, at the location of the right occipital nerve , then after negative aspiration for heme and CSF and there was no paresthesia during the injection, 7 ml of Robivacaine 0.5% and 40 mg of Depo-Medrol injected after negative aspiration, the needle removed, and the entire same procedure was repeated for the left Greater occipital nerve. Patient tolerated the procedure well without any complication, The patient returned to supine position after the back was cleaned and a Band- Aid applied, the patient transported to recovery room in stable condition and he was monitored for 30 minutes before he was discharged home and then patient was reexamined before going home and patient was discharged in stable condition and patient will follow up with the pain clinic in a few weeks.
[2020-12-30] MEDS ORDERED: LACTATED RINGERS 1,000 ML IV ONE (13:16)
[2020-12-30 13:36] VITALS: BP 105/75; PULSE 75; RESP 16
== END 2020-12-30 13:58 | disposition home or self-care (01) ==
LOC: ORPAIN 12:16
PROVIDERS: ATTEND Specialist
DX: G89.29 Other chronic pain (principal); M47.812 Spondylosis without myelopathy or radiculopathy, cervical region; M54.81 Occipital neuralgia; Z88.1 Allergy status to other antibiotic agents; Z88.8 Allergy status to other drugs, medicaments and biological substances
CPT/HCPCS: 64405; J2250; J1030; J3010; J2795

== ENCOUNTER 2021-04-23 09:01 | Day surgery (SDC) | payer OTHER, MEDICARE ==
[2021-04-22 11:35] VITALS: BMI 30.4
[2021-04-23] MEDS ORDERED: LACTATED RINGERS 1,000 ML IV ONE (09:19)
[2021-04-23] MEDS ORDERED: ROPIVACAINE 5MG/ML 20ML VIAL ONE (10:02)
[2021-04-23] MEDS ORDERED: fentaNYL (PF) 50 MCG/ML 2 ML AMP ONE (10:02)
[2021-04-23] MEDS ORDERED: methylPREDNISolone ACETATE 40 MG/ML 1 ML VIAL ONE (10:02)
[2021-04-23] MEDS ORDERED: MIDAZOLAM 2 MG/2 ML VIAL ONE (10:02)
[2021-04-23] MEDS ORDERED: NALOXONE 0.4 MG/ML 1 ML VIAL ONE (10:02)
--- NOTE | 2021-04-23 10:18 | P.PCN ---
Date of Procedure: 04/23/21 Procedure(s) Performed: Preoperative diagnoses= 1- Greater occipital neuralgia. 2-cervical spondylosis with cervical facet arthropathy Postoperative diagnoses= same as preoperative diagnosis. Procedure= Bilateral Greater occipital nerve block Anesthesia= moderate sedation with Versed 2 mg and fentanyl 100 micrograms and local infiltration with lidocaine 1% 4 ml Estimated blood loss=minimal. Procedure indication= the patient had a history of severe chronic neck pain ,and headache, diagnosed with occipital neuralgia exam was positive for severe tenderness over the occipital nerve bilaterally, she will be a good candidate occipital nerve block, patient failed conservative management Procedure description= the patient was seen and identified in the preoperative holding area, risks and benefits and alternative of the procedure and possible complications discussed with the patient, and he agreed with the preceding, patient signed the consent, an IV was started, and vital signs were monitored and were stable throughout the procedure, patient was placed in the sitting position or table and the neck area was prepped and draped with a sterile fashion, vital signs were closely monitored during the procedure, 25-gauge needle advanced 1 inch lateral to the occipital protuberance on the right side, at the location of the right occipital nerve , then after negative aspiration for heme and CSF and there was no paresthesia during the injection, 5 ml of Robivacaine 0.5% and 40 mg of Depo-Medrol injected after negative aspiration, the needle removed, and the entire same procedure was repeated for the left Greater occipital nerve. Patient tolerated the procedure well without any complication, The patient returned to supine position after the back was cleaned and a Band- Aid applied, the patient transported to recovery room in stable condition and he was monitored for 30 minutes before he was discharged home and then patient was reexamined before going home and patient was discharged in stable condition and patient will follow up with the pain clinic in a few weeks.
[2021-04-23] MEDS ORDERED: IV FLUID CONTINUATION 700 ML IV ONE (10:27)
[2021-04-23 10:50] VITALS: RESP 16
[2021-04-23 10:53] VITALS: BP 120/84; PULSE 71
== END 2021-04-23 10:57 | disposition home or self-care (01) ==
LOC: ORPAIN 09:01
PROVIDERS: ATTEND Specialist
DX: M54.81 Occipital neuralgia (principal); M47.812 Spondylosis without myelopathy or radiculopathy, cervical region
CPT/HCPCS: 64405; J2250; J1030; J2310; J3010; J2795

== ENCOUNTER 2022-11-25 11:13 | Day surgery (SDC) | payer OTHER, MEDICARE ==
[2022-11-19 13:56] VITALS: BMI 26.2
[~2022-11-25 11:13] MED LIST changes: +LIDOCAINE 1% (10MG/ML) FOR IV START INTRADERMA PRN
[2022-11-25 11:58] VITALS: RESP 16; TEMP 96.9
[2022-11-25] MEDS ORDERED: fentaNYL (PF) 50 MCG/ML 2 ML AMP ONE (12:10)
[2022-11-25] MEDS ORDERED: ROPIVACAINE 5 MG/ML 20 ML AMPULE ONE (12:10)
[2022-11-25] MEDS ORDERED: methylPREDNISolone ACETATE 80 MG/ML 1 ML VIAL ONE (12:10)
[2022-11-25] MEDS ORDERED: MIDAZOLAM 2 MG/2 ML VIAL ONE (12:10)
--- NOTE | 2022-11-25 12:22 | P.PCN ---
Date of Procedure: 11/25/22 Procedure(s) Performed: Preoperative diagnoses= 1- Greater occipital neuralgia. 2-cervical spondylosis with cervical facet arthropathy Postoperative diagnoses= same as preoperative diagnosis. Procedure= Bilateral Greater occipital nerve block Anesthesia= moderate sedation with Versed 2 mg ,and fentanyl 100 micrograms . Sedation started at started at 1213 ended at 1219 Estimated blood loss=minimal. Procedure indication= the patient had a history of severe chronic neck pain ,and headache, diagnosed with occipital neuralgia exam was positive for severe tenderness over the occipital nerve bilaterally, she will be a good candidate occipital nerve block, patient failed conservative management Procedure description= the patient was seen and identified in the preoperative holding area, risks and benefits and alternative of the procedure and possible complications discussed with the patient, and he agreed with the preceding, patient signed the consent, an IV was started, and vital signs were monitored and were stable throughout the procedure, patient was placed in the sitting position or table and the neck area was prepped and draped with a sterile fashion, vital signs were closely monitored during the procedure, 25-gauge needle advanced 1 inch lateral to the occipital protuberance on the right side, at the location of the right occipital nerve , then after negative aspiration for heme and CSF and there was no paresthesia during the injection, 5 ml of Robivacaine 0.5% and 40 mg of Depo-Medrol injected after negative aspiration, the needle removed, and the entire same procedure was repeated for the left Greater occipital nerve. Patient tolerated the procedure well without any complication, The patient returned to supine position after the back was cleaned and a Band- Aid applied, the patient transported to recovery room in stable condition and he was monitored for 30 minutes before he was discharged home and then patient was reexamined before going home and patient was discharged in stable condition and patient will follow up with the pain clinic in a few weeks.
[2022-11-25] MEDS ORDERED: IV FLUID CONTINUATION 1,000 ML IV ONE (12:24)
[2022-11-25 12:41] VITALS: BP 109/69; PULSE 83
== END 2022-11-25 13:03 | disposition home or self-care (01) ==
LOC: ORPAIN 11:13
PROVIDERS: ATTEND Specialist
DX: M54.81 Occipital neuralgia (principal); M47.812 Spondylosis without myelopathy or radiculopathy, cervical region; Z88.8 Allergy status to other drugs, medicaments and biological substances; Z79.01 Long term (current) use of anticoagulants
CPT/HCPCS: 64405; J2250; J1040; J3010; J2795

== ENCOUNTER → 2022-12-13 | Outpatient (CLI) | payer OTHER, MEDICARE ==
[2022-12-13 13:20] VITALS: BP 116/75; PULSE 79; RESP 18; TEMP 98.3
--- NOTE | 2022-12-13 13:23 | P.PN ---
Subjective Progress Note Date: 12/13/22 A 47 yr old female with a history of severe and chronic neck pain secondary to cervicogenic CHAPMAN and occipital neuralgia presents today for evaluation s/p BL JACQUIE injections in November 2022. Pt states she experienced 100% pain relief , s/p procedure. Interventional pain procedures completed include BL JACQUIE injection Patient is currently on I[place], Tyl Patient denies any side effects of the medication(s), denies excessive drowsiness or sleepiness, denies suicidal ideation and reports that the current pain medication is helping to control the pain and improve activities of daily living. Patient denies any motor or sensory deficits. Patient denies any fever or night sweats, denies any change in the bowel movements or urination. Physical Examination: -Constitutional: Cooperative. Not in acute distress . - Neurologic: Cranial nerve II to XII intact. No focal neurological deficits. - Psychatric: Alert & oriented x 3. Matching mood & appropriate affect. Judgment and insight intact. 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, and occipital neuralgia Pain and headache improved after bilateral occipital nerve block (she had 100% relief of her symptoms after the occipital nerve block ) Patient will follow up in the pain clinic when necessary PQRS Narrative: Smoking Status Never smoker Hx Alcohol Use (MH) No Home Medications: Ambulatory Orders Acetaminophen [Tylenol Extra Strength] 500 - 1,000 mg PO Q6H PRN 12/04/19 Ondansetron Odt [Zofran Odt] 8 mg PO Q8HR PRN 12/04/19 busPIRone HCL [Buspar] 15 mg PO HS 12/04/19 HYDROcodone/APAP 10-325MG [[place] 10-325] 1 tab PO Q4HR PRN 03/25/20 Cetirizine HCl 10 mg PO DAILY 08/01/20 Cholecalciferol [Vitamin D3 (25 Mcg = 1000 Iu)] 5,000 unit PO DAILY 08/01/20 risperiDONE [RisperDAL] 2 mg PO HS 12/26/20 traZODone HCL 150 mg PO HS 12/26/20 Calcium Carbonate [Calcium] 1 tablet PO DAILY 12/30/20 Multivitamin [Multivitamins Adult Gummies] 1 tablet DAILY 12/30/20 Gabapentin 600 mg PO BID 10/19/21 Sucralfate 1 gm PO QID PRN 10/26/21 Apixaban [Eliquis] 5 mg PO BID 10/27/22 - Controlled Substance Measures Is patient prescribed a controlled substance at discharge?: No Objective - Vital Signs Vital signs: Vital Signs Temp 98.3 F 12/13/22 13:09 Pulse 79 12/13/22 13:09 Resp 18 12/13/22 13:09 BP 116/75 12/13/22 13:09 Pulse Ox 96 12/13/22 13:09 FiO2 Intake & Output 12/12/22 12/13/22 12/13/22 18:59 06:59 18:59 Weight 59.874 kg
== END ==
LOC: PNWHC3 12:45
PROVIDERS: ATTEND Specialist
DX: G44.86 Cervicogenic headache (principal); M54.81 Occipital neuralgia; G89.29 Other chronic pain; Z79.01 Long term (current) use of anticoagulants; Z88.8 Allergy status to other drugs, medicaments and biological substances; Z88.1 Allergy status to other antibiotic agents
CPT/HCPCS: 99211

== ENCOUNTER → 2023-02-11 | Outpatient (CLI) | payer OTHER, MEDICARE ==
--- NOTE | 2023-02-11 11:53 | NM ---
EXAMINATION TYPE: NM hepatobiliary w EF DATE OF EXAM: 02/11/2023 COMPARISON: NONE CLINICAL INDICATION: Female, 47 years old with history of R10.11 RUQ pain; TECHNIQUE: After the intravenous administration of 4.7 mCi Tc 99m Mebrofenin hepatobiliary scintigrap hy is performed. Immediate images post injection. FINDINGS: There is satisfactory initial accumulation of tracer by the liver. The gallbladder is visualized wit hin 6 minutes. The small bowel activity is noted within 20 minutes. At one hour 8 ounces of oral en sure plus is given to mimic CCK and gallbladder ejection fraction is calculated at 76 %, in the reggie l range. Therefore there is no scintigraphic evidence of cystic or common bile duct obstruction to s uggest acute cholecystitis or gallbladder dyskinesia. IMPRESSION: Exam is within normal limits.
== END | disposition home or self-care (01) ==
LOC: RADNMMAIN 06:41
PROVIDERS: ATTEND Family Medicine
DX: R10.11 Right upper quadrant pain (principal)
CPT/HCPCS: 78226; A9537

== ENCOUNTER → 2023-02-24 | Outpatient (CLI) | payer OTHER, MEDICARE ==
[2023-02-24 16:23] LABS: Basophils # (A) 0.04 X 10*3/uL (0.00-0.10); Basophils % (A) 0.8 %; Eosinophils # (A) 0.04 X 10*3/uL (0.04-0.35); Eosinophils % (A) 0.8 %; HGB 11.7 d/dL (12.0-15.0); Lymphocytes # (A) 1.94 X 10*3/uL (0.90-5.00); Lymphocytes % (A) 36.7 %; MCH 28.3 pg (27.0-32.0); MCHC 30.8 d/dL (32.0-37.0); MCV 91.8 FL (80.0-97.0); Mean Platelet Volume 9.7 FL (9.5-12.2); Monocytes # (A) 0.31 X 10*3/uL (0.20-1.00); Monocytes % (A) 5.9 %; NRBC Per 100 WBC 0 X 10*3/uL (0.00-0.01); Neutrophils # (A) 2.95 X 10*3/uL (1.80-7.70); Neutrophils % (A) 55.6 %; Platelet Count 276 X 10*3/uL (140-440); RBC 4.14 X 10*6/uL (4.10-5.20); RDW 13.2 % (11.5-14.5); WBC 5.29 X 10*3/uL (4.50-10.00)
[2023-02-24 16:37] LABS: ALT 15 U/L (8-44); AST 15 U/L (13-35); Albumin 4.6 d/dL (3.8-4.9); Alkaline Phosphatase 99 U/L (41-126); Blood Urea Nitrogen 12.1 mg/dL (9.0-27.0); C Reactive Protein <0.30 mg/dL (0.00-0.80); Calcium 10.3 mg/dL (8.7-10.3); Carbon Dioxide 29.2 mmol/L (21.6-31.8); Chloride 105 mmol/L (96-109); Glucose 119 mg/dL (70-110); Sodium 143 mmol/L (135-145); Total Bilirubin 0.4 mg/dL (0.3-1.2); Total Protein 6.6 d/dL (6.2-8.2)
[2023-02-24 18:41] LABS: Gliadin AB IgA, Deaminated Negative (Negative); Gliadin AB IgA, Unit <0.5 U/mL
[2023-02-24 21:16] LABS: Gliadin AB IgG, Deaminated Negative (Negative); Gliadin AB IgG, Unit <0.4 U/mL
[2023-02-25 04:52] LABS: Erythrocyte Sedimentation Rate 6 mm/Hr (0-20)
== END | disposition home or self-care (01) ==
LOC: LABWHC1 10:25
PROVIDERS: ATTEND Nurse Practitioner Family
DX: K25.9 Gastric ulcer, unspecified as acute or chronic, without hemorrhage or perforation (principal); R10.9 Unspecified abdominal pain
CPT/HCPCS: 36415; 80053; 83516; 85025; 85652; 86140

== ENCOUNTER 2023-02-25 16:23 | Emergency (ER) | payer OTHER, MEDICARE ==
[2023-02-25 16:59] VITALS: RESP 20
--- NOTE | 2023-02-25 17:06 | ED ---
General Adult HPI - General Source: patient Mode of arrival: wheelchair Limitations: no limitations <Sandra Montoya - Last Filed: 02/25/23 17:08> <Tim León - Last Filed: 02/25/23 21:14> - General Chief complaint: Syncope Stated complaint: abd pain - History of Present Illness Initial comments: 47-year-old presents to the emergency department with chief complain of abdominal pain worsening in the last 4 days. Patient reports vomiting, diarrhea. She states that she has been having diarrhea for the past 4 days. she states she was seen at Dr. Mckeon's office yesterday. She reports PMH of thyroid disorder and factor V leiden. (Sandra Montoya) - Related Data Home Medications Medication Instructions Recorded Confirmed Ondansetron Odt [Zofran Odt] 8 mg PO Q8HR PRN 12/04/19 12/13/22 Cetirizine HCl 10 mg PO DAILY 08/01/20 12/13/22 Cholecalciferol [Vitamin D3 (25 5,000 unit PO DAILY 08/01/20 12/13/22 Mcg = 1000 Iu)] traZODone HCL 150 mg PO HS 12/26/20 12/13/22 Calcium Carbonate [Calcium] 1 tablet PO DAILY 12/30/20 12/13/22 Multivitamin [Multivitamins Adult 1 tablet DAILY 12/30/20 12/13/22 Gummies] Apixaban [Eliquis] 5 mg PO BID 10/27/22 12/13/22 Levothyroxine Sodium [Synthroid] 50 mcg PO DAILY 11/19/22 12/13/22 Acetaminophen Tab [Tylenol] 1,000 mg PO DAILY PRN 11/25/22 12/13/22 Ibuprofen [Motrin] 600 mg PO Q8HR PRN 11/25/22 12/13/22 Allergies Allergy/AdvReac Type Severity Reaction Status Date / Time zolpidem [From Ambien] Allergy Unknown Verified 02/25/23 16:59 amitriptyline AdvReac Unknown Verified 02/25/23 16:59 bupropion HCl AdvReac Nausea & Verified 02/25/23 16:59 [From Wellbutrin] Vomiting & Diarrhea doxycycline AdvReac Nausea Verified 02/25/23 16:59 Review of Systems ROS Other: All systems not noted in ROS Statement are negative. <Sandra Montoya - Last Filed: 02/25/23 17:08> ROS Other: All systems not noted in ROS Statement are negative. <Tim León - Last Filed: 02/25/23 21:14> ROS Statement: Those systems with pertinent positive or pertinent negative responses have been documented in the HPI. Past Medical History Past Medical History: Blood Disorder, Deep Vein Thrombosis (DVT), Fibromyalgia, GERD/Reflux, Rheumatoid Arthritis (RA), Thyroid Disorder Additional Past Medical History / Comment(s): Leiden factor 5, occipital neuralgia, BLEEDING ULCER History of Any Multi-Drug Resistant Organisms: None Reported Past Surgical History: Adenoidectomy, Section, Hysterectomy, Orthopedic Surgery, Tonsillectomy Additional Past Surgical History / Comment(s): x 1, ORIF right wrist, EGD Past Anesthesia/Blood Transfusion Reactions: No Reported Reaction Additional Past Anesthesia/Blood Transfusion Reaction / Comment(s): Patient has received blood in past without reaction. Past Psychological History: Anxiety, Depression Smoking Status: Never smoker Past Alcohol Use History: Occasional Past Drug Use History: None Reported - Past Family History Mother Family Medical History: Deep Vein Thrombosis (DVT) Additional Family Medical History / Comment(s): of clotting disorder Father Family Medical History: Myocardial Infarction (GA) <Sandra Montoya - Last Filed: 02/25/23 17:08> General Exam Limitations: no limitations <Sandra Montoya - Last Filed: 02/25/23 17:08> General appearance: alert, in no apparent distress Head exam: Present: atraumatic, normocephalic Eye exam: Present: normal appearance, PERRL ENT exam: Present: mucous membranes dry Respiratory exam: Present: normal lung sounds bilaterally. Absent: respiratory distress Cardiovascular Exam: Present: regular rate, normal rhythm GI/Abdominal exam: Present: tenderness ( focal tenderness in the left lower quadrant). Absent: distended Extremities exam: Present: full ROM Neurological exam: Present: alert, oriented X3, CN II-XII intact. Absent: motor sensory deficit Skin exam: Present: warm, dry, intact. Absent: cyanosis, diaphoretic <Tim León - Last Filed: 02/25/23 21:14> - General Exam Comments Initial Comments: Visual Physical Exam Vital signs reviewed General: Well-appearing, nontoxic, no acute distress. Head: Normocephalic, atraumatic Eyes: PERRLA, EOMI ENT: Airway patent Chest: Nonlabored breathing Skin: No visual rash, normal skin tone Neuro: Alert and oriented 3 Musculoskeletal: No gross abnormalities (Sandra Montoya) Course <Tim León - Last Filed: 02/25/23 21:14> Vital Signs 02/25/23 16:53 Temperature 98.3 F Pulse Rate 75 Respiratory 20 Rate Blood Pressure 104/71 O2 Sat by Pulse 100 Oximetry - Reevaluation(s) Reevaluation #1: 02/25/23 21:08 Patient reevaluated, resting comfortable, pain improved. Patient was able to tolerate soup and buttered bread in the emergency Department no vomiting. (Tim Lóen) Medical Decision Making - Lab Data Result diagrams: 02/25/23 19:00 02/25/23 19:00 <Tim León - Last Filed: 02/25/23 21:14> - Medical Decision Making Was pt. sent in by a medical professional or institution (, PA, [employer], urgent care, hospital, or detention...) When possible be specific @ -No Did you speak to anyone other than the patient for history (EMS, parent, family, police, friend...)? What history was obtained from this source @ -No Did you review nursing and triage notes (agree or disagree)? Why? @ -I reviewed and agree with nursing and triage notes Were old charts reviewed (outside hosp., previous admission, EMS record, old EKG, old radiological studies, urgent care reports/EKG's, detention records)? Report findings @ -No old charts were reviewed Differential Diagnosis (chest pain, altered mental status, abdominal pain women, abdominal pain men, vaginal bleeding, weakness, fever, dyspnea, syncope, headache, dizziness, GI bleed, back pain, seizure, CVA, palpatations, mental health, musculoskeletal)? @ Differential Abdominal Pain Women: Appendicitis, Cholecystitis, diverticulosis, ischemic bowel, pancreatitis, hepatitis, UTI, gastroenteritis, AAA, incarcerated hernia, bowel obstruction, constipation, inflammatory bowel, hepatitis, peptic ulcer disease, splenic infarction, perforated viscus, this is not meant to be an all-inclusive list EKG interpreted by me (3pts min.). @ -Sinus rhythm rate of 60, DE interval 146, QRS duration 87, QTC [address] segment elevation T-wave inversion in lead 3 X-rays interpreted by me (1pt min.). @ -None done CT interpreted by me (1pt min.). @ -CT abdomen pelvis with contrast showing colitis, and mildly dilated bile ducts U/S interpreted by me (1pt. min.). @ -None done What testing was considered but not performed or refused? (CT, X-rays, U/S, labs)? Why? @ -None What meds were considered but not given or refused? Why? @ -None Did you discuss the management of the patient with other professionals (professionals i.e. , PA, [employer], lab, RT, psych nurse, social group worker, title vehicle service attendant, teacher, agricultural extension officer, patient case manager)? Give summary @ -No Was smoking cessation discussed for >3mins.? @ -No Was critical care preformed (if so, how long)? @ -No Were there social determinants of health that impacted care today? How? (Homelessness, low income, unemployed, alcoholism, drug addiction, transportation, low edu. Level, literacy, decrease access to med. care, [place] [facility], rehab)? @ -No Was there de-escalation of care discussed even if they declined (Discuss DNR or withdrawal of care, Hospice)? DNR status @ -No What co-morbidities impacted this encounter? (DM, HTN, Smoking, COPD, CAD, Cancer, CVA, ARF, Chemo, Hep., AIDS, mental health diagnosis, sleep apnea, morbid obesity)? @ -None Was patient admitted / discharged? Hospital course, mention meds given and route, prescriptions, significant lab abnormalities, going to OR and other perti nent info. @ -47-year-old female with diarrhea, abdominal pain. Pain is predominantly left lower quadrant. Patient is afebrile with stable vitals. Workup is initiated increased CBC, CMP, urinalysis and stool studies per patient is unable to give stool while in the emergency Department no further diarrhea. No further vomiting. She is able to tolerate food and drink in the emergency department. CT shows colitis and a mildly dilated bile duct without signs of acute cholecy stitis. Her bilirubin and liver enzymes are normal she has no leukocytosis. She is feeling better and stable for discharge at this time. She has an appointment for colonoscopy in 4 days with gastroenterology. She should maintain this appointment. She should return to the emergency department with worsening or changing symptoms. Undiagnosed new problem with uncertain prognosis? @ -No Drug Therapy requiring intensive monitoring for toxicity (Heparin, Nitro, Insulin, Cardizem)? @ -No Were any procedures done? @ -No Diagnosis/symptom? @ -Diarrhea, abdominal pain Acute, or Chronic, or Acute on Chronic? @ -[Acute Uncomplicated (without systemic symptoms) or Complicated (systemic symptoms)? @ -default Side effects of treatment? @ -No Exacerbation, Progression, or Severe Exacerbation? @ -No Poses a threat to life or bodily function? How? (Chest pain, USA, GA, pneumonia, PE, COPD, DKA, ARF, appy, cholecystitis, CVA, Diverticulitis, Homicidal, Suicidal, threat to staff... and all critical care pts) @ -[Low risk (Tim León) - Lab Data Lab Results 02/25/23 02/25/23 02/25/23 Range/Units 19:00 19:00 19:00 WBC 4.7 (3.8-10.6) k/uL RBC 3.96 (3.80-5.40) m/uL Hgb 12.0 (11.4-16.0) gm/dL Hct 36.2 (34.0-46.0) % MCV 91.2 (80.0-100.0) fL MCH 30.3 (25.0-35.0) pg MCHC 33.2 (31.0-37.0) g/dL RDW 12.9 (11.5-15.5) % Plt Count 240 (150-450) k/uL MPV 7.7 Neutrophils % 50 % Lymphocytes % 41 % Monocytes % 5 % Eosinophils % 1 % Basophils % 1 % Neutrophils # 2.4 (1.3-7.7) k/uL Lymphocytes # 2.0 (1.0-4.8) k/uL Monocytes # 0.2 (0-1.0) k/uL Eosinophils # 0.1 (0-0.7) k/uL Basophils # 0.0 (0-0.2) k/uL PT (9.0-12.0) sec INR (<1.2) APTT (22.0-30.0) sec Sodium 139 (137-145) mmol/L Potassium 3.9 (3.5-5.1) mmol/L Chloride 104 (98-107) mmol/L Carbon Dioxide 28 (22-30) mmol/L Anion Gap 7 mmol/L BUN 15 (7-17) mg/dL Creatinine 1.09 H (0.52-1.04) mg/dL Est GFR (CKD-EPI)AfAm 71 (>60 ml/min/1.73 sqM) Est GFR (CKD-EPI)NonAf 62 (>60 ml/min/1.73 sqM) Glucose 79 (74-99) mg/dL Plasma Lactic Acid Daniel 0.6 L (0.7-2.0) mmol/L Calcium 9.1 (8.4-10.2) mg/dL Total Bilirubin 0.5 (0.2-1.3) mg/dL AST 21 (14-36) U/L ALT 17 (4-34) U/L Alkaline Phosphatase 85 (38-126) U/L Troponin I (0.000-0.034) ng/mL Total Protein 6.7 (6.3-8.2) g/dL Albumin 4.1 (3.5-5.0) g/dL Amylase <30 L (30-110) U/L Lipase 70 (23-300) U/L 02/25/23 02/25/23 Range/Units 19:00 19:00 WBC (3.8-10.6) k/uL RBC (3.80-5.40) m/uL Hgb (11.4-16.0) gm/dL Hct (34.0-46.0) % MCV (80.0-100.0) fL MCH (25.0-35.0) pg MCHC (31.0-37.0) g/dL RDW (11.5-15.5) % Plt Count (150-450) k/uL MPV Neutrophils % % Lymphocytes % % Monocytes % % Eosinophils % % Basophils % % Neutrophils # (1.3-7.7) k/uL Lymphocytes # (1.0-4.8) k/uL Monocytes # (0-1.0) k/uL Eosinophils # (0-0.7) k/uL Basophils # (0-0.2) k/uL PT 10.8 (9.0-12.0) sec INR 1.0 (<1.2) APTT 25.2 (22.0-30.0) sec Sodium (137-145) mmol/L Potassium (3.5-5.1) mmol/L Chloride (98-107) mmol/L Carbon Dioxide (22-30) mmol/L Anion Gap mmol/L BUN (7-17) mg/dL Creatinine (0.52-1.04) mg/dL Est GFR (CKD-EPI)AfAm (>60 ml/min/1.73 sqM) Est GFR (CKD-EPI)NonAf (>60 ml/min/1.73 sqM) Glucose (74-99) mg/dL Plasma Lactic Acid Daniel (0.7-2.0) mmol/L Calcium (8.4-10.2) mg/dL Total Bilirubin (0.2-1.3) mg/dL AST (14-36) U/L ALT (4-34) U/L Alkaline Phosphatase (38-126) U/L Troponin I <0.012 (0.000-0.034) ng/mL Total Protein (6.3-8.2) g/dL Albumin (3.5-5.0) g/dL Amylase (30-110) U/L Lipase (23-300) U/L Disposition <Sandra Montoya - Last Filed: 02/25/23 17:08> Is patient prescribed a controlled substance at d/c from ED?: No Time of Disposition: 21:14 <Tim León - Last Filed: 02/25/23 21:14> Clinical Impression: Diarrhea, Colitis, Abdominal pain Disposition: HOME SELF-CARE Condition: Good Instructions (If sedation given, give patient instructions): Abdominal Pain (ED), Colitis (ED), Acute Diarrhea (ED) Referrals: Tamiko Bonner DO [Primary Care Provider] - 1-2 days
[2023-02-25] MEDS ORDERED: ONDANSETRON 4 MG/2 ML VIAL IVP STA (18:24)
[2023-02-25] MEDS ORDERED: SODIUM CHLORIDE 0.9% 1,000 ML IV ONE (18:24)
[2023-02-25] MEDS ORDERED: HYDROmorphone 0.5 MG/0.5 ML SYRINGE IVP STA (18:24)
[2023-02-25] MEDS ORDERED: PANTOPRAZOLE 40 MG/10 ML VIAL IVP STA (18:25)
[2023-02-25 19:23] LABS: Basophils % (A) 1 %; Eosinophils # (A) 0.1 k/uL (0-0.7); Eosinophils % (A) 1 %; HCT 36.2 % (34.0-46.0); Lymphocytes % (A) 41 %; MCH 30.3 pg (25.0-35.0); MCHC 33.2 g/dL (31.0-37.0); MCV 91.2 fL (80.0-100.0); Mean Platelet Volume 7.7; Monocytes # (A) 0.2 k/uL (0-1.0); Monocytes % (A) 5 %; Neutrophils # (A) 2.4 k/uL (1.3-7.7); Neutrophils % (A) 50 %; Platelet Count 240 k/uL (150-450); RBC 3.96 m/uL (3.80-5.40); RDW 12.9 % (11.5-15.5); WBC 4.7 k/uL (3.8-10.6)
[2023-02-25 19:34] LABS: Partial Thromboplastin Time 25.2 sec (22.0-30.0); Prothrombin Time 10.8 sec (9.0-12.0)
[2023-02-25 19:38] LABS: ALT 17 U/L (4-34); AST 21 U/L (14-36); African American GFR (CKD) 71 (>60 ml/min/1.73 sqM); Albumin 4.1 g/dL (3.5-5.0); Alkaline Phosphatase 85 U/L (38-126); Amylase <30 U/L (30-110); Anion Gap 7 mmol/L; Blood Urea Nitrogen 15 mg/dL (7-17); Calcium 9.1 mg/dL (8.4-10.2); Carbon Dioxide 28 mmol/L (22-30); Chloride 104 mmol/L (98-107); Glucose 79 mg/dL (74-99); Lipase 70 U/L (23-300); Non-African American GFR(CKD) 62 (>60 ml/min/1.73 sqM); Potassium 3.9 mmol/L (3.5-5.1); Sodium 139 mmol/L (137-145); Total Bilirubin 0.5 mg/dL (0.2-1.3); Total Protein 6.7 g/dL (6.3-8.2)
--- NOTE | 2023-02-25 20:53 | CT ---
EXAMINATION TYPE: CT abdomen pelvis w con CT DLP: 650.2 mGycm, Automated exposure control for dose reduction was used. DATE OF EXAM: 02/25/2023 8:39 PM COMPARISON: CT abdomen pelvis most recent from 05/03/2018 CLINICAL INDICATION:Female, 47 years old with history of ab pain; anemia- lower abdominal pain TECHNIQUE: Axial CT of the abdomen and pelvis. Sagittal and coronal reformats were created on a [employer] workstation. Contrast used:80 cc mL of Isovue 300 with IV Contrast, Oral contrast used: without Oral Contrast FINDINGS: LOWER CHEST: Unremarkable ABDOMEN LIVER: Unremarkable GALLBLADDER AND BILE DUCTS: Mild intrahepatic biliary dilation. The common bile duct measures up tor 6 mm. PANCREAS: Unremarkable. SPLEEN: Unremarkable. ADRENAL GLANDS: Unremarkable. KIDNEYS AND URETERS: No evidence of hydronephrosis or renal calculus. The ureters are unremarkable. PELVIS BLADDER: Unremarkable REPRODUCTIVE: Unremarkable. ABDOMEN & PELVIS STOMACH AND BOWEL: No evidence of bowel obstruction. Descending colon circumferential wall thickening measuring up to 5 mm. PERITONEUM/RETROPERITONEUM: No evidence of pneumoperitoneum or free fluid. VASCULATURE: No evidence of aortic aneurysm. MUSCULOSKELETAL: No acute osseous abnormalities, multilevel degeneration with Schmorl's nodes worse a t L2 superior endplate and T12 and T11 superior endplates No evidence for significant spinal canal or neural foraminal stenosis. LYMPH NODES: No gross evidence for lymphadenopathy. SOFT TISSUE/ABDOMINAL WALL: Tiny fat-containing inguinal hernia. IMPRESSION: 1. No evidence for hematoma. 2. Mild wall thickening of the descending colon correlate for colitis. 3. New from 2018 and mild anterior hepatic biliary dilation. Correlate with serum markers. No obviou s obstructing calculus.
[2023-02-25 21:53] VITALS: BP 116/75; PULSE 87; TEMP 98.6
== END 2023-02-25 21:50 | disposition home or self-care (01) ==
LOC: EC 16:23
DX: D64.9 Anemia, unspecified (principal); K52.9 Noninfective gastroenteritis and colitis, unspecified; E07.9 Disorder of thyroid, unspecified; F32.A Depression, unspecified; F41.9 Anxiety disorder, unspecified; Z79.01 Long term (current) use of anticoagulants; Z79.890 Hormone replacement therapy; Z79.899 Other long term (current) drug therapy; Z88.1 Allergy status to other antibiotic agents; Z88.8 Allergy status to other drugs, medicaments and biological substances
CPT/HCPCS: 36415; 93005; 80053; 82150; 83605; 83690; 84484; 85025; 85610; 85730; 74177; 99284; 96374; 96375 ×2; 96361; J2405; C9113; J1170; Q9967

== ENCOUNTER 2023-03-08 11:37 | Observation (INO) | payer OTHER, MEDICARE ==
[2023-03-08] MEDS ORDERED: SODIUM CHLORIDE 0.9% 500 ML 500 ML IV STA (12:28)
[2023-03-08] MEDS ORDERED: HYDROmorphone 0.5 MG/0.5 ML SYRINGE IVP STA ×2 (12:29→16:21)
--- NOTE | 2023-03-08 12:33 | ED ---
General Adult HPI - General Chief complaint: Abdominal Pain Stated complaint: Abd Pain Time Seen by Provider: 03/08/23 11:40 Source: patient, RN notes reviewed, old records reviewed Mode of arrival: wheelchair Limitations: no limitations - History of Present Illness Initial comments: This is a 47-year-old female presents emergency Department which had a past medical history significant for DVT and has had a hysterectomy. Patient states she started having abdominal pains in August and since then she's had CAT scans ultrasounds HIDA scans to endoscopies and colonoscopies. Patient states they have indicated to her they think it might be her gallbladder. Patient states far she knows all her testing however has been normal. Patient states she had a colonoscopy and endoscopy today and they could not get her pain or to controls was sent to the ER. Patient states her cramping pain is an 8 out of 10 - Related Data Home Medications Medication Instructions Recorded Confirmed Ondansetron Odt [Zofran Odt] 8 mg PO Q6HR PRN 12/04/19 03/08/23 Cetirizine HCl 10 mg PO DAILY 08/01/20 03/08/23 traZODone HCL 150 mg PO HS 12/26/20 03/08/23 Acetaminophen Tab [Tylenol] 1,000 mg PO DIRECTED PRN 11/25/22 03/08/23 Apixaban [Eliquis] 10 mg PO BID 03/03/23 03/08/23 Benadryl (Unknown Dose) 1 dose PO DIRECTED PRN 03/03/23 Calcium Carbonate [Calcium] 1,200 mg PO DAILY 03/03/23 03/08/23 Cerebra Brain Supplement 1 dose PO DAILY 03/03/23 Cetirizine HCl/Pseudoephedrine 1 tab PO DAILY PRN 03/03/23 03/08/23 [Zyrtec-D ER 5 mg-120 mg Tablet] Cyanocobalamin (Vitamin B-12) 1,000 mcg PO DAILY 03/03/23 03/08/23 [Vitamin B-12] Dicyclomine [Bentyl] 20 mg PO DIRECTED 03/03/23 03/08/23 Digestive Enz. Pre&Probiotic 1 dose PO DAILY 03/03/23 Diphenoxylate HCl/Atropine 1 each PO DIRECTED PRN 03/03/23 03/08/23 [Lomotil 2.5-0.025 mg Tablet] Folic Acid 0.4 mg PO DAILY 03/03/23 03/08/23 Levothyroxine Sodium [Tirosint-Jacquie] 37.5 mcg PO DAILY 03/03/23 03/08/23 Lidocaine 5% Patch [Lidoderm] 1 patch TOPICAL DAILY PRN 03/03/23 03/08/23 Magnesium Gluconate [Magonate] 650 mg PO DIRECTED PRN 03/03/23 03/08/23 Multivit-Min/Iron/Folic/Lutein 1 each PO DAILY 03/03/23 03/08/23 [Centrum Silver Women Tablet] Oxbile 1,000 mg PO DIRECTED 03/03/23 Pantoprazole Sodium [Protonix] 40 mg PO AC-BID 03/03/23 03/08/23 Questran (Unknown Dose) 1 dose PO DIRECTED 03/03/23 Sucralfate [Carafate] 1 gm PO ACHS 03/03/23 03/08/23 Tart Hu 1 dose PO DAILY 03/03/23 Turmeric Root Extract [Turmeric] 2,000 mg PO DAILY 03/03/23 03/08/23 Vitamin D3/Vitamin K2 (Mk4) 1 each PO DAILY 03/03/23 03/08/23 [Vitamin K2 Plus D3 Tablet] Zinc With Copper 1 dose PO DAILY 03/03/23 hydrOXYzine HCL [Atarax] 25 - 75 mg PO DIRECTED PRN 03/03/23 03/08/23 Allergies Allergy/AdvReac Type Severity Reaction Status Date / Time ferumoxytol [From Feraheme] Allergy Severe immediate Verified 03/08/23 08:49 pain, sob , anxiety, swelling lower ext. zolpidem [From Ambien] Allergy Unknown Verified 03/08/23 08:49 amitriptyline AdvReac Unknown Verified 03/08/23 08:49 bupropion HCl AdvReac Nausea & Verified 03/08/23 08:49 [From Wellbutrin] Vomiting & Diarrhea doxycycline AdvReac Nausea Verified 03/08/23 08:49 Review of Systems ROS Statement: Those systems with pertinent positive or pertinent negative responses have been documented in the HPI. ROS Other: All systems not noted in ROS Statement are negative. Past Medical History Past Medical History: Blood Disorder, Deep Vein Thrombosis (DVT), Fibromyalgia, GERD/Reflux, Rheumatoid Arthritis (RA), Thyroid Disorder Additional Past Medical History / Comment(s): Leiden factor 5, occipital neuralgia, hx of hydrocephalus 4th degree, seizures as infant until age 4, hx of resusitation needed as ., juvenille RA, spina bifida, esophageal spasms, anemia, early menopause, arthritis in hip, spine and pelvis, scoliosis, gall bladder issues, , hx heart palpitations, multiple dvts left leg, environmental allergies, chronic diarrhea with vomiting., chronic nausea, osteoporosis., hx of gi bleed with ulcers., states unable to take hormones., states hypotensive when she is in distress and injectable benadryl & tylenol are helpful History of Any Multi-Drug Resistant Organisms: None Reported Past Surgical History: Adenoidectomy, Section, Hysterectomy, Orthopedic Surgery, Tonsillectomy Additional Past Surgical History / Comment(s): ovaries with hystectomy , C- Section x 1, ORIF right wrist, EGD, filter for blood clots left groin and surgery to remove it -states broke in pieces and could not remove it all, wisdom teeth, multiple egd's, colonoscopies. Past Anesthesia/Blood Transfusion Reactions: No Reported Reaction Additional Past Anesthesia/Blood Transfusion Reaction / Comment(s): Patient has received blood in past without reaction. Past Psychological History: No Psychological Hx Reported Smoking Status: Never smoker Past Alcohol Use History: Occasional Past Drug Use History: None Reported - Past Family History Mother Family Medical History: Deep Vein Thrombosis (DVT) Additional Family Medical History / Comment(s): of clotting disorder Father Family Medical History: Myocardial Infarction ([place]) General Exam - General Exam Comments Initial Comments: GENERAL: Patient is well-developed and well-nourished. Patient is nontoxic and well- hydrated and is in no acute distress. ENT: Neck is soft and supple. No significant lymphadenopathy is noted. Oropharynx is clear. Moist mucous membranes. Neck has full range of motion without eliciting any pain. EYES: The sclera were anicteric and conjunctiva were pink and moist. Extraocular movements were intact and pupils were equal round and reactive to light. Eyelids were unremarkable. PULMONARY: Unlabored respirations. Good breath sounds bilaterally. No audible rales rhonchi or wheezing was noted. CARDIOVASCULAR: There is a regular rate and rhythm without any murmurs gallops or rubs. ABDOMEN: No point tenderness no rebound but diffuse minimal tenderness. SKIN: Skin is clear with no lesions or rashes and otherwise unremarkable. NEUROLOGIC: Patient is alert and oriented x3. Cranial nerves II through XII are grossly intact. Motor and sensory are also intact. Normal speech, volume and content. Symmetrical smile. MUSCULOSKELETAL: Normal extremities with adequate strength and full range of motion. No lower extremity swelling or edema. No calf tenderness. LYMPHATICS: No significant lymphadenopathy is noted PSYCHIATRIC: Normal psychiatric evaluation. Limitations: no limitations Course Vital Signs 03/08/23 03/08/23 11:39 13:14 Temperature 98.1 F Pulse Rate 77 82 Respiratory 18 20 Rate Blood Pressure 108/79 95/55 O2 Sat by Pulse 100 97 Oximetry Medical Decision Making - Medical Decision Making Was pt. sent in by a medical professional or institution (, PA, ORCHESTRA DIRECTOR, urgent care, hospital, or usp...) When possible be specific @ -Dr. Mckeon sent the patient to the emergency department. Did you speak to anyone other than the patient for history (EMS, parent, family, police, friend...)? What history was obtained from this source @ -Dr. Mckeon gave the past medical history and what occurred today while she was doing the endoscopy and colonoscopy. Did you review nursing and triage notes (agree or disagree)? Why? @ -I reviewed and agree with nursing and triage notes Were old charts reviewed (outside hosp., previous admission, EMS record, old EKG, old radiological studies, urgent care reports/EKG's, usp records)? Report findings @ -I reviewed prior radiological studies prior HIDA scans and prior lab work on this patient Differential Diagnosis (chest pain, altered mental status, abdominal pain women, abdominal pain men, vaginal bleeding, weakness, fever, dyspnea, syncope, headache, dizziness, GI bleed, back pain, seizure, CVA, palpatations, mental health, musculoskeletal)? @ -Differential Abdominal Pain Women: Appendicitis, Cholecystitis, diverticulosis, ischemic bowel, pancreatitis, hepatitis, UTI, gastroenteritis, AAA, incarcerated hernia, bowel obstruction, constipation, inflammatory bowel, hepatitis, peptic ulcer disease, splenic infarction, perforated viscus, vulvitis, ovarian torsion, PID, kidney stone, placenta abruption, this is not meant to be an all-inclusive list EKG interpreted by me (3pts min.). @ -As above X-rays interpreted by me (1pt min.). @ -None done CT interpreted by me (1pt min.). @ -None done U/S interpreted by me (1pt. min.). @ -None done What testing was considered but not performed or refused? (CT, X-rays, U/S, l abs)? Why? @ -None What meds were considered but not given or refused? Why? @ -None Did you discuss the management of the patient with other professionals (professionals i.e. DrSherri, PA, ORCHESTRA DIRECTOR, lab, RT, psych nurse, director of social services, finish repairer, teacher, upscale security officer, manager case)? Give summary @ -I spoke with the [facility] hospitalist and they agreed to admit the patient. I spoke with Dr. Mike Mckeon states she'll be on consult and will put Dr. Mtz consult as well. Was smoking cessation discussed for >3mins.? @ -No Was critical care preformed (if so, how long)? @ -No Were there social determinants of health that impacted care today? How? (Homelessness, low income, unemployed, alcoholism, drug addiction, transportation, low edu. Level, literacy, decrease access to med. care, residential, rehab)? @ -No Was there de-escalation of care discussed even if they declined (Discuss DNR or withdrawal of care, Hospice)? DNR status @ -No What co-morbidities impacted this encounter? (DM, HTN, Smoking, COPD, CAD, Cancer, CVA, ARF, Chemo, Hep., AIDS, mental health diagnosis, sleep apnea, morbid obesity)? @ -None Was patient admitted / discharged? Hospital course, mention meds given and route , prescriptions, significant lab abnormalities, going to OR and other pertinent info. @ -Patient was very focused on having her gallbladder removed even though she states no test indicated it was her gallbladder. I spoke with Dr. Mike Mckeon was not under the impression that it was her gallbladder causing her the pain. Dr. Mckeon wanted the patient admitted to the hospitalist which I did. I spoke with the patient was given hospice and they did agree to admit her. I did consult Dr. Mckeon as well as Dr. Mtz Undiagnosed new problem with uncertain prognosis? @ -No Drug Therapy requiring intensive monitoring for toxicity (Heparin, Nitro, Insulin, Cardizem)? @ -No Were any procedures done? @ -No Diagnosis/symptom? @ -Chronic abdominal pain Acute, or Chronic, or Acute on Chronic? @ -Chronic Uncomplicated (without systemic symptoms) or Complicated (systemic symptoms)? @ -Complicated Side effects of treatment? @ -No Exacerbation, Progression, or Severe Exacerbation? @ -No Poses a threat to life or bodily function? How? (Chest pain, [place], [place], pneumonia, PE, COPD, DKA, ARF, appy, cholecystitis, CVA, Diverticulitis, Homicidal, Suicidal, threat to staff... and all critical care pts) @ -No - Lab Data Result diagrams: 03/08/23 12:44 Lab Results 03/08/23 Range/Units 12:44 WBC 4.4 (3.8-10.6) k/uL RBC 3.98 (3.80-5.40) m/uL Hgb 12.0 (11.4-16.0) gm/dL Hct 36.8 (34.0-46.0) % MCV 92.3 (80.0-100.0) fL MCH 30.2 (25.0-35.0) pg MCHC 32.7 (31.0-37.0) g/dL RDW 13.1 (11.5-15.5) % Plt Count 136 L (150-450) k/uL MPV 7.9 Neutrophils % 60 % Lymphocytes % 33 % Monocytes % 4 % Eosinophils % 2 % Basophils % 1 % Neutrophils # 2.6 (1.3-7.7) k/uL Lymphocytes # 1.5 (1.0-4.8) k/uL Monocytes # 0.2 (0-1.0) k/uL Eosinophils # 0.1 (0-0.7) k/uL Basophils # 0.0 (0-0.2) k/uL Disposition Clinical Impression: Chronic abdominal pain Disposition: ADMITTED IP TO THIS HOSP Referrals: Tamiko Bonner DO [Primary Care Provider] - 1-2 days Time of Disposition: 13:24
[2023-03-08 13:00] LABS: Basophils % (A) 1 %; Eosinophils # (A) 0.1 k/uL (0-0.7); Eosinophils % (A) 2 %; HCT 36.8 % (34.0-46.0); Lymphocytes # (A) 1.5 k/uL (1.0-4.8); Lymphocytes % (A) 33 %; MCH 30.2 pg (25.0-35.0); MCHC 32.7 g/dL (31.0-37.0); MCV 92.3 fL (80.0-100.0); Mean Platelet Volume 7.9; Monocytes # (A) 0.2 k/uL (0-1.0); Monocytes % (A) 4 %; Neutrophils # (A) 2.6 k/uL (1.3-7.7); Neutrophils % (A) 60 %; Platelet Count 136 k/uL (150-450); RBC 3.98 m/uL (3.80-5.40); RDW 13.1 % (11.5-15.5); WBC 4.4 k/uL (3.8-10.6)
[2023-03-08 13:20] LABS: ALT 33 U/L (4-34); AST 30 U/L (14-36); African American GFR (CKD) 82 (>60 ml/min/1.73 sqM); Alkaline Phosphatase 83 U/L (38-126); Amylase <30 U/L (30-110); Anion Gap 7 mmol/L; Blood Urea Nitrogen 13 mg/dL (7-17); Carbon Dioxide 24 mmol/L (22-30); Chloride 108 mmol/L (98-107); Glucose 84 mg/dL (74-99); Lipase 76 U/L (23-300); Non-African American GFR(CKD) 71 (>60 ml/min/1.73 sqM); Potassium 3.9 mmol/L (3.5-5.1); Sodium 139 mmol/L (137-145); Total Bilirubin 0.6 mg/dL (0.2-1.3); Total Protein 6.4 g/dL (6.3-8.2)
[2023-03-08] MEDS ORDERED: SODIUM CHLORIDE 0.9% 1,000 ML IV ONE (13:25)
[2023-03-08] MEDS ORDERED: ACETAMINOPHEN TAB 500 MG TAB PO PRN (15:19)
[2023-03-08] MEDS ORDERED: DICYCLOMINE 20 MG TAB PO PRN (15:19)
[2023-03-08] MEDS ORDERED: HEPARIN SODIUM 1,000 UN/ML (10ML VL) IV ONE (15:56)
[2023-03-08] MEDS ORDERED: HEPARIN SODIUM 1,000 UN/ML (10ML VL) IV PRN (15:56)
[2023-03-08] MEDS: ONDANSETRON ODT 4 MG TAB PO PRN (16:01)
[2023-03-08] MEDS: Acetaminophen-Codeine 300-30mg TAB PO PRN ×2 (16:02→22:13)
[2023-03-08 16:35] LABS: Partial Thromboplastin Time 23.9 sec (22.0-30.0); Prothrombin Time 10.9 sec (9.0-12.0)
[2023-03-08 16:37] LABS: Basophils % (A) 1 %; Eosinophils # (A) 0.1 k/uL (0-0.7); Eosinophils % (A) 1 %; HCT 34.6 % (34.0-46.0); HGB 11.1 gm/dL (11.4-16.0); Lymphocytes # (A) 1.6 k/uL (1.0-4.8); Lymphocytes % (A) 29 %; MCHC 32.1 g/dL (31.0-37.0); MCV 93.6 fL (80.0-100.0); Mean Platelet Volume 7.5; Monocytes # (A) 0.2 k/uL (0-1.0); Monocytes % (A) 4 %; Neutrophils # (A) 3.7 k/uL (1.3-7.7); Neutrophils % (A) 65 %; RDW 13.1 % (11.5-15.5); WBC 5.7 k/uL (3.8-10.6)
[2023-03-08] MEDS: HEPARIN SOD,PORK IN 0.45% NACL 25,000 UNIT in 0.45% NACL 1 250ML.BAG IV SCH (16:52)
[2023-03-08 17:06] LABS: Platelet Count 278 k/uL (150-450)
[2023-03-08] MEDS: SUCRALFATE 1 GM TAB PO SCH ×2 (17:51→20:50)
[2023-03-08] MEDS: PANTOPRAZOLE 40 MG TABLET PO SCH (17:51)
[2023-03-08] MEDS: diphenhydrAMINE 50 MG/ML 1 ML VIAL IVP PRN (18:29)
--- NOTE | 2023-03-08 20:27 | P.HPIM ---
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 Patient states that she came from colonoscopy outpatient surgery complaining from abdominal pain. She could not finish her colonoscopy with Dr. Mckeon because of her abdominal pain and patient was referred to emergency room. Her pain is mainly in the left abdomen, more to the lower site, radiating to the front felt like a knife and statin, she rated as 8/10 in severity also complaining of from another pain across the upper abdomen also rated as 8/10 in severity but states is different feeling. Patient states that both pain started last August. She states that only pain medication helps her pain is not precipitated factors Patient herself she denies any chest pain, dyspnea coughing. No urinary symptoms like dysuria urgency. No headache dizziness weakness or numbness. Smoking alcohol or illicit drugs. She is also complaining from his August she says she vomits daily. Her bowel movement is a clear, watery about 6-7 times per day. Complaining of from headache and pain in her left leg for many years, she status post IVC filter and she was taking blood to. Patient was so insistent on obtaining Dilaudid 0.5 mg IV injection I explained for the patient this is chronic pain and prefer to treated with oral medication also I explained for her the risks of narcotic medication including the risk of respiratory depression and addiction and dependence she still insisted, however she agrees to take Tylenol No. 3 and if that does not help one-time dose of Dilaudid and continue Tylenol No. 3 at bed side nurse Tubbs were present during the entire encounter including physical examination. Answers questions for the patient and to their satisfaction Review of Systems Review of systems CONSTITUTIONAL: No fever, no malaise, no fatigue. HEENT: No recent visual problems or hearing problems. Denied any sore throat. CARDIOVASCULAR: No orthopnea, PND, no palpitations, no syncope. PULMONARY: No shortness of breath, no cough, no hemoptysis. GASTROINTESTINAL: No constipation. Normoactive bowel sounds. NEUROLOGICAL: No headaches, no weakness, no numbness. HEMATOLOGICAL: Denies any bleeding or petechiae. GENITOURINARY: Denies any burning micturition, frequency, or urgency. MUSCULOSKELETAL/RHEUMATOLOGICAL: Denies any joint pain, swelling, or any muscle pain. ENDOCRINE: Denies any polyuria or polydipsia. Past Medical History Past Medical History: Blood Disorder, Deep Vein Thrombosis (DVT), Fibromyalgia, GERD/Reflux, Rheumatoid Arthritis (RA), Thyroid Disorder Additional Past Medical History / Comment(s): Leiden factor 5, occipital neuralgia, hx of hydrocephalus 4th degree, seizures as infant until age 4, hx of resusitation needed as ., juvenille RA, spina bifida, esophageal spasms, anemia, early menopause, arthritis in hip, spine and pelvis, scoliosis, gall bladder issues, , hx heart palpitations, multiple dvts left leg, environmental allergies, chronic diarrhea with vomiting., chronic nausea, osteoporosis., hx of gi bleed with ulcers., states unable to take hormones., states hypotensive when she is in distress and injectable benadryl & tylenol are helpful History of Any Multi-Drug Resistant Organisms: None Reported Past Surgical History: Adenoidectomy, Section, Hysterectomy, Orthopedic Surgery, Tonsillectomy Additional Past Surgical History / Comment(s): ovaries with hystectomy , C- Section x 1, ORIF right wrist, EGD, filter for blood clots left groin and surgery to remove it -states broke in pieces and could not remove it all, wisdom teeth, multiple egd's, colonoscopies. Past Anesthesia/Blood Transfusion Reactions: No Reported Reaction Additional Past Anesthesia/Blood Transfusion Reaction / Comment(s): Patient has received blood in past without reaction. Past Psychological History: No Psychological Hx Reported Additional Psychological History / Comment(s): . Smoking Status: Never smoker Past Alcohol Use History: Occasional Past Drug Use History: None Reported - Past Family History Mother Family Medical History: Deep Vein Thrombosis (DVT) Additional Family Medical History / Comment(s): of clotting disorder Father Family Medical History: Myocardial Infarction ([place]) Medications and Allergies Home Medications Medication Instructions Recorded Confirmed Type Cetirizine HCl 10 mg PO DAILY 08/01/20 03/08/23 History Acetaminophen Tab [Tylenol] 1,000 mg PO Q6H PRN 03/16/23 06/27/23 History Apixaban [Eliquis] 5 mg PO BID 03/03/23 03/08/23 History Calcium Carbonate [Calcium] 1,200 mg PO DAILY 03/03/23 03/08/23 History Cerebra Brain Supplement 1 dose PO DAILY 03/03/23 03/08/23 History Cetirizine HCl/Pseudoephedrine 1 tab PO DAILY PRN 03/03/23 03/08/23 History [Zyrtec-D ER 5 mg-120 mg Tablet] Cyanocobalamin (Vitamin B-12) 1,000 mcg PO DAILY 03/03/23 03/08/23 History [Vitamin B-12] Dicyclomine [Bentyl] 20 mg PO Q8H PRN 03/03/23 03/08/23 History Digestive Enz. Pre&Probiotic 1 dose PO DAILY 03/03/23 03/08/23 History Diphenoxylate HCl/Atropine 1 tab PO Q4H PRN 03/03/23 03/08/23 History [Lomotil 2.5-0.025 mg Tablet] Folic Acid 0.4 mg PO DAILY 03/03/23 03/08/23 History Magnesium Gluconate [Magonate] 500 mg PO TID PRN 03/03/23 03/08/23 History Multivit-Min/Iron/Folic/Lutein 1 tab PO DAILY 03/03/23 03/08/23 History [Centrum Silver Women Tablet] Pantoprazole Sodium [Protonix] 40 mg PO AC-BID 03/03/23 03/08/23 History Sucralfate [Carafate] 1 gm PO ACHS 03/03/23 03/08/23 History Tart Hu 1 dose PO DAILY 03/03/23 03/08/23 History Turmeric Root Extract [Turmeric] 2,000 mg PO DAILY 03/03/23 03/08/23 History Vitamin D3/Vitamin K2 (Mk4) 1 tab PO DAILY 03/03/23 03/08/23 History [Vitamin K2 Plus D3 Tablet] Zinc With Copper 1 dose PO DAILY 03/03/23 03/08/23 History hydrOXYzine HCL [Atarax] 25 - 50 mg PO Q4H PRN 03/03/23 03/08/23 History Cholestyramine (with Sugar) 4 gram PO DAILY 03/08/23 03/08/23 History [Cholestyramine Powder] Hyoscyamine Sulfate [Levsin] 0.125 mg PO QID PRN 03/08/23 03/08/23 History Levothyroxine Sodium [Synthroid] 50 mcg PO DAILY 03/08/23 03/08/23 History Lidocaine 4% Patch 1 patch TOPICAL DAILY PRN 03/08/23 03/08/23 History Ondansetron Odt [Zofran Odt] 8 mg PO Q8H PRN 03/08/23 03/08/23 History Ox Bile 1 tab PO DAILY 03/08/23 03/08/23 History Tretinoin [Tretinoin 0.025%] 1 applic TOPICAL HS 03/08/23 03/08/23 History diphenhydrAMINE HCL [Benadryl] 25 mg PO Q4H PRN 03/08/23 03/08/23 History traZODone HCL [Desyrel] 50 - 180 mg PO HS 03/08/23 03/08/23 History Allergies Allergy/AdvReac Type Severity Reaction Status Date / Time amitriptyline Allergy Unknown Verified 03/08/23 14:20 zolpidem [From Ambien] Allergy Unknown Verified 03/08/23 14:20 ferumoxytol [From Feraheme] AdvReac Severe immediate Verified 03/08/23 14:20 pain, sob , anxiety, swelling lower ext. bupropion HCl AdvReac Nausea & Verified 03/08/23 14:20 [From Wellbutrin] Vomiting & Diarrhea doxycycline AdvReac Nausea Verified 03/08/23 14:20 Physical Exam Vitals: Vital Signs Temp Pulse Pulse Resp BP BP Pulse Ox 03/08/23 15:00 99.2 F 76 16 106/69 100 03/08/23 13:14 82 20 95/55 97 03/08/23 11:39 98.1 F 77 18 108/79 100 Intake and Output 03/08/23 03/08/23 03/08/23 06:59 14:59 22:59 Other: Weight 57.153 kg 57.153 kg GENERAL: The patient is alert and oriented x3, not in any acute distress. Well developed, well nourished. HEENT: Pupils are round and equally reacting to light. EOMI. No scleral icterus. No conjunctival pallor. Normocephalic, atraumatic. No pharyngeal erythema. No thyromegaly. CARDIOVASCULAR: S1 and S2 present. No murmurs, rubs, or gallops. PULMONARY: Chest is clear to auscultation, no wheezing , no crackles. -ABDOMEN: Soft, left lower abdominal tenderness, to a lower degree in her right abdomen, no rebound tenderness, no guarding but patient remains on palpation, nondistended, normoactive bowel sounds. No palpable organomegaly. MUSCULOSKELETAL: No joint swelling or deformity. EXTREMITIES: No cyanosis, clubbing, or pedal edema. NEUROLOGICAL: Gross neurological examination did not reveal any focal deficits. SKIN: No rashes. no petechiae. Results CBC & Chem 7: 03/08/23 16:12 03/08/23 12:44 Labs: Abnormal Lab Results - Last 24 Hours (Table) 03/08/23 03/08/23 Range/Units 12:44 12:44 Plt Count 136 L (150-450) k/uL Chloride 108 H (98-107) mmol/L Amylase <30 L (30-110) U/L Thrombosis Risk Factor Assmnt - Choose All That Apply Any of the Below Risk Factors Present?: Yes Each Factor Represents 1 point: Obesity (BMI >25) Each Risk Factor Represents 3 Points: Positive Factor V Leiden, History of DVT/PE Thrombosis Risk Factor Assessment Total Risk Factor Score: 7 Thrombosis Risk Factor Assessment Level: High Risk Assessment and Plan Assessment: Chronic abdominal pain History of multiple deep venous thrombosis hypothyroidism fibromyalgia History of GERD History of rheumatoid arthritis 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 Plan: pain management. Check C. diff check stool wbc and lactoferrin Continue gentle hydration Hold Eliquis in case patient needs procedure or intervention and start the patient on heparin drip stated, patient informed and she agrees. GI consult with Dr. Mckeon General surgery consult with Dr. Mendez Labs and medication were reviewed.. Continue same treatment. Continue with symptomatic treatment. Resume home medication. Monitor labs and vitals. DVT and GI prophylaxis. Further recommendations as per clinical course of the patient DVT prophylaxis: heparin GI Prophylaxis: Pepcid PT/OT: Pending Prognosis is guarded
[2023-03-08] MEDS: SODIUM CHLORIDE 0.9% 1,000 ML IV SCH (20:50)
[2023-03-08] MEDS ORDERED: traZODone HCL 50 MG TAB PO SCH (21:00)
[2023-03-08] MEDS ORDERED: APIXABAN 5 MG TAB PO SCH (21:00)
[2023-03-09] MEDS: ONDANSETRON ODT 4 MG TAB PO PRN ×3 (00:33→17:28)
[2023-03-09] MEDS: diphenhydrAMINE 50 MG/ML 1 ML VIAL IVP PRN ×4 (00:33→18:28)
[2023-03-09] MEDS: Acetaminophen-Codeine 300-30mg TAB PO PRN (04:23)
[2023-03-09] MEDS: LEVOTHYROXINE 50 MCG TAB PO SCH (06:32)
[2023-03-09] MEDS: SUCRALFATE 1 GM TAB PO SCH ×4 (06:32→21:01)
[2023-03-09] MEDS: PANTOPRAZOLE 40 MG TABLET PO SCH ×2 (06:33→17:16)
[2023-03-09 06:44] LABS: INR 1.1 (<1.2); Prothrombin Time 11.6 sec (9.0-12.0)
[2023-03-09] MEDS: SODIUM CHLORIDE 0.9% 1,000 ML IV SCH (08:02)
[2023-03-09] MEDS: HYDROcodone/APAP 5-325MG 1 EACH TAB PO PRN ×3 (08:26→21:00)
[2023-03-09 08:48] LABS: Basophils # (A) 0.03 X 10*3/uL (0.00-0.10); Basophils % (A) 0.6 %; Eosinophils # (A) 0.04 X 10*3/uL (0.04-0.35); Eosinophils % (A) 0.9 %; HCT 30.3 % (37.2-46.3); HGB 9.6 d/dL (12.0-15.0); Lymphocytes % (A) 44.7 %; MCH 29.6 pg (27.0-32.0); MCHC 31.7 d/dL (32.0-37.0); MCV 93.5 FL (80.0-97.0); Mean Platelet Volume 9.5 FL (9.5-12.2); Monocytes # (A) 0.31 X 10*3/uL (0.20-1.00); Monocytes % (A) 6.6 %; NRBC Per 100 WBC 0 X 10*3/uL (0.00-0.01); Neutrophils % (A) 46.8 %; Platelet Count 225 X 10*3/uL (140-440); RBC 3.24 X 10*6/uL (4.10-5.20); RDW 13.1 % (11.5-14.5)
[2023-03-09] MEDS ORDERED: [UNRECOGNIZED DRUG - OTHER] PO SCH (09:00)
[2023-03-09] MEDS ORDERED: PROBIOTIC PO SCH (09:00)
--- NOTE | 2023-03-09 14:49 | P.CONS ---
History of Present Illness - Reason for Consult Consult date: 03/09/23 Abdominal pain Requesting physician: Gokul Roca - Chief Complaint Abdominal pain - History of Present Illness This is a 47-year-old female with chronic abdominal pain since last August with chronic diarrhea nausea and vomiting that had an elective EGD and colonosco py yesterday with Dr. Mckeon. She has a past medical history including factor V leiden, DVT, fibromyalgia, GERD, thyroid disorder and common rheumatoid arthritis. EGD with findings of antral erosive gastritis but no evidence of gastric ulcer area colonoscopy within normal limits no evidence of colitis or colorectal neoplasia. Multiple biopsies obtained and are currently pending. After the procedure the patient was complaining of diffuse severe abdominal pain. She was asking for narcotics and epidurals to be placed. She was discharged from recovery and sent to the emergency department. Apparently patient was admitted to the hospital under medicine was consulted gastroenterology for abdominal pain. Patient states her abdominal pain is currently under control. She denies any nausea or vomiting, and no diarrhea today. Patient states she may call anywhere from 8-15 loose bowel movements daily. She also recently endoscopies done at [facility] reports not available at this time. She's states she is supposed to follow-up with Dr. Mtz. Labs WBC 4.7 hemoglobin 9.6 hematocrit 30 platelet count 225,000 sodium 139 potassium 3.9 BUN 13 creatinine 0.9 total bilirubin 0.6 AST 30 ALT 33 alkaline phosphatase 83 lipase 76. Review of Systems REVIEW OF SYSTEMS: CARDIOPULMONARY: No chest pain or shortness of breath. Gastrointestinal: Diffuse abdominal pain. Nausea and vomiting. No hematemesis, coffee-ground emesis. Chronic diarrhea. No rectal bleeding, or melena. GENITOURINARY: No dysuria or hematuria. MUSCULOSKELETAL: Reports normal range of motion., Joint pain. SKIN: No rashes. No jaundice. ENDOCRINE: No chills, fevers. No excessive weight gain or loss. No polydipsia or polyuria. PSYCHIATRIC: Unremarkable. NEUROLOGY: No change in mental status. Denies dizziness, headache. ENT: Vision unremarkable. CONSTITUTIONAL: No recent weight loss. No fever, chills, night sweats. Past Medical History Past Medical History: Blood Disorder, Deep Vein Thrombosis (DVT), Fibromyalgia, GERD/Reflux, Rheumatoid Arthritis (RA), Thyroid Disorder Additional Past Medical History / Comment(s): Leiden factor 5, occipital neuralgia, hx of hydrocephalus 4th degree, seizures as infant until age 4, hx of resusitation needed as ., juvenille RA, spina bifida, esophageal sp asms, anemia, early menopause, arthritis in hip, spine and pelvis, scoliosis, gall bladder issues, , hx heart palpitations, multiple dvts left leg, environmental allergies, chronic diarrhea with vomiting., chronic nausea, osteoporosis., hx of gi bleed with ulcers., states unable to take hormones., s tates hypotensive when she is in distress and injectable benadryl & tylenol are helpful History of Any Multi-Drug Resistant Organisms: None Reported Past Surgical History: Adenoidectomy, Section, Hysterectomy, Orthopedic Surgery, Tonsillectomy Additional Past Surgical History / Comment(s): ovaries with hystectomy , C- Section x 1, ORIF right wrist, EGD, filter for blood clots left groin and surgery to remove it -states broke in pieces and could not remove it all, wisdom teeth, multiple egd's, colonoscopies. Past Anesthesia/Blood Transfusion Reactions: No Reported Reaction Additional Past Anesthesia/Blood Transfusion Reaction / Comm: Patient has received blood in past without reaction. Past Psychological History: No Psychological Hx Reported Additional Psychological History / Comment(s): . Smoking Status: Never smoker Past Alcohol Use History: Occasional Past Drug Use History: None Reported - Past Family History Mother Family Medical History: Deep Vein Thrombosis (DVT) Additional Family Medical History / Comment(s): of clotting disorder Father Family Medical History: Myocardial Infarction ([place]) Medications and Allergies Home Medications Medication Instructions Recorded Confirmed Type Cetirizine HCl 10 mg PO DAILY 08/01/20 03/08/23 History Acetaminophen Tab [Tylenol] 1,000 mg PO Q6H PRN 11/25/22 03/08/23 History Apixaban [Eliquis] 5 mg PO BID 03/03/23 03/08/23 History Calcium Carbonate [Calcium] 1,200 mg PO DAILY 03/03/23 03/08/23 History Cerebra Brain Supplement 1 dose PO DAILY 03/03/23 03/08/23 History Cetirizine HCl/Pseudoephedrine 1 tab PO DAILY PRN 03/03/23 03/08/23 History [Zyrtec-D ER 5 mg-120 mg Tablet] Cyanocobalamin (Vitamin B-12) 1,000 mcg PO DAILY 03/03/23 03/08/23 History [Vitamin B-12] Dicyclomine [Bentyl] 20 mg PO Q8H PRN 03/03/23 03/08/23 History Digestive Enz. Pre&Probiotic 1 dose PO DAILY 03/03/23 03/08/23 History Diphenoxylate HCl/Atropine 1 tab PO Q4H PRN 03/03/23 03/08/23 History [Lomotil 2.5-0.025 mg Tablet] Folic Acid 0.4 mg PO DAILY 03/03/23 03/08/23 History Magnesium Gluconate [Magonate] 500 mg PO TID PRN 03/03/23 03/08/23 History Multivit-Min/Iron/Folic/Lutein 1 tab PO DAILY 03/03/23 03/08/23 History [Centrum Silver Women Tablet] Pantoprazole Sodium [Protonix] 40 mg PO AC-BID 03/03/23 03/08/23 History Sucralfate [Carafate] 1 gm PO ACHS 03/03/23 03/08/23 History Tart Hu 1 dose PO DAILY 03/03/23 03/08/23 History Turmeric Root Extract [Turmeric] 2,000 mg PO DAILY 03/03/23 03/08/23 History Vitamin D3/Vitamin K2 (Mk4) 1 tab PO DAILY 03/03/23 03/08/23 History [Vitamin K2 Plus D3 Tablet] Zinc With Copper 1 dose PO DAILY 03/03/23 03/08/23 History hydrOXYzine HCL [Atarax] 25 - 50 mg PO Q4H PRN 03/03/23 03/08/23 History Cholestyramine (with Sugar) 4 gram PO DAILY 03/08/23 03/08/23 History [Cholestyramine Powder] Hyoscyamine Sulfate [Levsin] 0.125 mg PO QID PRN 03/08/23 03/08/23 History Levothyroxine Sodium [Synthroid] 50 mcg PO DAILY 03/08/23 03/08/23 History Lidocaine 4% Patch 1 patch TOPICAL DAILY PRN 03/08/23 03/08/23 History Ondansetron Odt [Zofran Odt] 8 mg PO Q8H PRN 03/08/23 03/08/23 History Ox Bile 1 tab PO DAILY 03/08/23 03/08/23 History Tretinoin [Tretinoin 0.025%] 1 applic TOPICAL HS 03/08/23 03/08/23 History diphenhydrAMINE HCL [Benadryl] 25 mg PO Q4H PRN 03/08/23 03/08/23 History traZODone HCL [Desyrel] 50 - 180 mg PO HS 03/08/23 03/08/23 History Allergies Allergy/AdvReac Type Severity Reaction Status Date / Time amitriptyline Allergy Unknown Verified 03/08/23 14:20 zolpidem [From Ambien] Allergy Unknown Verified 03/08/23 14:20 ferumoxytol [From Feraheme] AdvReac Severe immediate Verified 03/08/23 14:20 pain, sob , anxiety, swelling lower ext. bupropion HCl AdvReac Nausea & Verified 03/08/23 14:20 [From Wellbutrin] Vomiting & Diarrhea doxycycline AdvReac Nausea Verified 03/08/23 14:20 Physical Exam Vitals: Vital Signs Temp Pulse Pulse Resp BP BP Pulse Ox 03/09/23 08:26 16 03/09/23 07:20 98.3 F 57 L 16 97/65 96 03/09/23 00:58 98.2 F 70 16 91/61 98 03/08/23 20:00 98.2 F 73 14 97/64 100 03/08/23 15:00 99.2 F 76 16 106/69 100 03/08/23 13:14 82 20 95/55 97 03/08/23 11:39 98.1 F 77 18 108/79 100 Intake and Output 03/08/23 03/09/23 03/09/23 22:59 06:59 14:59 Intake Total 45.491 Balance 45.491 Intake: Intake, IV Titration 45.491 Amount Heparin Sod,Pork in 0.45% 45.491 NaCl 25,000 unit In 0.45 % NaCl 1 250ml.bag @ 12 UNITS/KG/HR 6.858 mls/hr IV .Q24H [facility] Rx#: [id number] Other: Voiding Method Toilet Toilet # Voids 1 Weight 57.153 kg General appearance: The patient is alert, oriented, appears in no acute distress. HET: Head is normocephalic and atraumatic. Conjunctiva pink. Sclera anicteric. Neck: Supple without lymphadenopathy. Trachea midline. Heart: S1 S2. Regular rate and rhythm. Lungs: Clear to auscultation. Abdomen: Soft, diffuse tenderness, nondistended with bowel sounds. No guarding or rigidity. Skin: No rashes. No jaundice. Extremities: Normal skin color and turgor. No pedal edema. Neurological: No focal deficits. Alert and oriented x3. Results CBC & Chem 7: 03/09/23 05:45 03/08/23 12:44 Labs: Abnormal Lab Results - Last 24 Hours (Table) 03/08/23 03/08/23 03/08/23 Range/Units 12:44 12:44 16:12 RBC 3.70 L (3.80-5.40) m/uL Hgb 11.1 L (11.4-16.0) gm/dL Hct (37.2-46.3) % MCHC (32.0-37.0) d/dL Plt Count 136 L (150-450) k/uL APTT (22.0-30.0) sec Chloride 108 H (98-107) mmol/L Amylase <30 L (30-110) U/L 03/08/23 03/09/23 03/09/23 Range/Units 22:00 05:45 05:45 RBC 3.24 L (3.80-5.40) m/uL Hgb 9.6 L (11.4-16.0) gm/dL Hct 30.3 L (37.2-46.3) % MCHC 31.7 L (32.0-37.0) d/dL Plt Count (150-450) k/uL APTT 65.0 H 55.9 H (22.0-30.0) sec Chloride (98-107) mmol/L Amylase (30-110) U/L Assessment and Plan (1) Chronic abdominal pain Narrative/Plan: 47-year-old female with complaints of chronic diarrhea and abdominal pain associated with nausea and vomiting for at least 6 months. Patient has had multiple endoscopies, abdominal CTs and a recent HIDA scan. She has been fo llowing in the office with Dr. Tumma and was scheduled for elective outpatient EGD and colonoscopy which was done yesterday with upper endoscopy revealing gastritis and colonoscopy normal with no evidence of colitis. Multiple biopsies obtained. Stool samples have been completed the stool cultures are negative, patient did have positive lactoferrin but no other significant findings. Likely patient symptoms related to irritable bowel syndrome, however I feel it is reasonable for general surgery to evaluate patient. Current Visit: Yes Status: Acute Code(s): R10.9 - UNSPECIFIED ABDOMINAL PAIN; G89.29 - OTHER CHRONIC PAIN SNOMED Code(s): 738291129 (2) Chronic diarrhea Current Visit: Yes Status: Acute Code(s): K52.9 - NONINFECTIVE GASTROENTERITIS AND COLITIS, UNSPECIFIED SNOMED Code(s): 856462681 Plan: 1. Continue symptomatic and supportive care 2. Diet as tolerated 3. Continue Protonix 4. Antiemetics as needed. 5. No further workup indicated per gastroenterology. Patient can follow-up in the office in 1-2 weeks for biopsy results. Thank you for this consultation, we will sign off at this time. Dr. Glenna Mckeon I agree with the dictator's note, documented as a scribe by Yris Garcia.
--- NOTE | 2023-03-09 14:55 | P.GSCN ---
History of Present Illness Consult date: 03/09/23 History of present illness: CHIEF COMPLAINT: Abdominal pain HISTORY OF PRESENT ILLNESS: This is a 47-year-old female with a known history of abdominal pain since August. She underwent EGD and colonoscopy yesterday with Dr. Mckeon results shown erosive gastritis and a normal colonoscopy. Patient reported abdominal pain and Dr. Mckeon did refer patient to the ER. Patient reports that her pain is her usual pain located in the right upper quadrant and left middle. She has had nausea vomiting and diarrhea for about 6 months. She had recently had endoscopy at [place] the had shown esophagitis with esophageal ulcer and small gastric ulcer. Due to her persistent symptoms and EGD and colonoscopy were completed yesterday. Patient reports that she's had issues wit h her gallbladder. She had a HIDA scan completed on 02/11/23 that was within normal limits with an EF of 76% and computed tomography scan done on 02/25/2023 that showed a new mild hepatic biliary dilation. No evidence for hematoma. Mild wall thickening of the descending colon correlate for colitis. Patient has been afebrile. No evidence of leukocytosis and lactic acid normal at 0.8 PAST MEDICAL HISTORY: Blood Disorder, Deep Vein Thrombosis (DVT), Fibromyalgia, GERD/Reflux, Rheumatoid Arthritis (RA), Thyroid Disorder,Leiden factor 5, occipital neuralgia, hx of hydrocephalus 4th degree, seizures as until age 4, hx of resusitation needed as ., juvenille RA, spina bifida, esophageal spasms, anemia, early menopause, arthritis in hip, spine and pelvis, scoliosis, gall bladder issues, , hx heart palpitations, multiple dvts left leg, environmental allergies, chronic diarrhea with vomiting., chronic nausea, osteoporosis., hx of gi bleed with ulcers., states unable to take hormones., states hypotensive when she is in distress and injectable benadryl & tylenol are helpful PAST SURGICAL HISTORY: Adenoidectomy, Section, Hysterectomy, Orthopedic Surgery, Tonsillectomy MEDICATIONS: See below ALLERGIES: See below SOCIAL HISTORY: No illicit drug use. REVIEW OF SYSTEMS: CONSTITUTIONAL: Denies fever or chills. HEENT: Denies blurred vision, vision changes, or eye pain. Denies hemoptysis CARDIOVASCULAR: Denies chest pain or pressure. RESPIRATORY: No shortness of breath. GASTROINTESTINAL: See HPI for pertinent findings HEMATOLOGIC: Denies bleeding disorders. GENITOURINARY: Denies any blood in urine or increased urinary frequency. SKIN: Denies pruitis. Denies rash. PHYSICAL EXAM: VITAL SIGNS: Reviewed GENERAL: Well-developed in no acute distress. HEENT: No sclera icterus. Extraocular movements grossly intact. Moist buccal mucosa. Head is atraumatic, normocephalic. No nasal drainage. ABDOMEN: Soft. Nondistended. Tenderness to palpation right upper quadrant and left mid abdomen NEUROLOGIC: Alert and oriented. Cranial nerves II through XII grossly intact. LABORATORY DATA: WBC 4.70 Hgb is down from 11.1-9.6 platelets 225 INR 1.1 Sodium 139 potassium 3.9 creatinine 0.97 Lactic acid 0.8 LFTs normal lipase 76 IMAGING: No new imaging ASSESSMENT: 1. Hyperkinetic gallbladder with EF of 76% noted on HIDA scan 2. Abdominal pain 3. Status post EGD and colonoscopy with normal colonoscopy and EGD revealing erosive gastritis PLAN: -Patient scheduled for laparoscopic cholecystectomy tomorrow with Dr. downing -Nothing by mouth after midnight -Continue supportive care -Continue IV fluids -Eliquis on hold. Patient on IV heparin. Hold IV heparin at 5 AM tomorrow morning for surgery -Continue PPI -Discussed case with medicine service. Patient has been cleared by medicine service to proceed with surgery. Thank you for this consultation Physician Furnace Filler note has been reviewed by physician. Signing provider agrees with the documented findings, assessment, and plan of care. Past Medical History Past Medical History: Blood Disorder, Deep Vein Thrombosis (DVT), Fibromyalgia, GERD/Reflux, Rheumatoid Arthritis (RA), Thyroid Disorder Additional Past Medical History / Comment(s): Leiden factor 5, occipital neuralgia, hx of hydrocephalus 4th degree, seizures as infant until age 4, hx of resusitation needed as ., juvenille RA, spina bifida, esophageal spasms, anemia, early menopause, arthritis in hip, spine and pelvis, scoliosis, gall bladder issues, , hx heart palpitations, multiple dvts left leg, environmental allergies, chronic diarrhea with vomiting., chronic nausea, osteoporosis., hx of gi bleed with ulcers., states unable to take hormones., states hypotensive when she is in distress and injectable benadryl & tylenol are helpful History of Any Multi-Drug Resistant Organisms: None Reported Past Surgical History: Adenoidectomy, Section, Hysterectomy, Orthopedic Surgery, Tonsillectomy Additional Past Surgical History / Comment(s): ovaries with hystectomy , C- Section x 1, ORIF right wrist, EGD, filter for blood clots left groin and surgery to remove it -states broke in pieces and could not remove it all, wisdom teeth, multiple egd's, colonoscopies. Past Anesthesia/Blood Transfusion Reactions: No Reported Reaction Additional Past Anesthesia/Blood Transfusion Reaction / Comm: Patient has recei susana blood in past without reaction. Past Psychological History: No Psychological Hx Reported Additional Psychological History / Comment(s): . Smoking Status: Never smoker Past Alcohol Use History: Occasional Past Drug Use History: None Reported - Past Family History Mother Family Medical History: Deep Vein Thrombosis (DVT) Additional Family Medical History / Comment(s): of clotting disorder Father Family Medical History: Myocardial Infarction ([place]) Medications and Allergies Home Medications Medication Instructions Recorded Confirmed Type Cetirizine HCl 10 mg PO DAILY 08/01/20 03/08/23 History Acetaminophen Tab [Tylenol] 1,000 mg PO Q6H PRN 11/25/22 03/08/23 History Apixaban [Eliquis] 5 mg PO BID 03/03/23 03/08/23 History Calcium Carbonate [Calcium] 1,200 mg PO DAILY 03/03/23 03/08/23 History Cerebra Brain Supplement 1 dose PO DAILY 03/03/23 03/08/23 History Cetirizine HCl/Pseudoephedrine 1 tab PO DAILY PRN 03/03/23 03/08/23 History [Zyrtec-D ER 5 mg-120 mg Tablet] Cyanocobalamin (Vitamin B-12) 1,000 mcg PO DAILY 03/03/23 03/08/23 History [Vitamin B-12] Dicyclomine [Bentyl] 20 mg PO Q8H PRN 03/03/23 03/08/23 History Digestive Enz. Pre&Probiotic 1 dose PO DAILY 03/03/23 03/08/23 History Diphenoxylate HCl/Atropine 1 tab PO Q4H PRN 03/03/23 03/08/23 History [Lomotil 2.5-0.025 mg Tablet] Folic Acid 0.4 mg PO DAILY 03/03/23 03/08/23 History Magnesium Gluconate [Magonate] 500 mg PO TID PRN 03/03/23 03/08/23 History Multivit-Min/Iron/Folic/Lutein 1 tab PO DAILY 03/03/23 03/08/23 History [Centrum Silver Women Tablet] Pantoprazole Sodium [Protonix] 40 mg PO AC-BID 03/03/23 03/08/23 History Sucralfate [Carafate] 1 gm PO ACHS 03/03/23 03/08/23 History Tart Hu 1 dose PO DAILY 03/03/23 03/08/23 History Turmeric Root Extract [Turmeric] 2,000 mg PO DAILY 03/03/23 03/08/23 History Vitamin D3/Vitamin K2 (Mk4) 1 tab PO DAILY 03/03/23 03/08/23 History [Vitamin K2 Plus D3 Tablet] Zinc With Copper 1 dose PO DAILY 03/03/23 03/08/23 History hydrOXYzine HCL [Atarax] 25 - 50 mg PO Q4H PRN 03/03/23 03/08/23 History Cholestyramine (with Sugar) 4 gram PO DAILY 03/08/23 03/08/23 History [Cholestyramine Powder] Hyoscyamine Sulfate [Levsin] 0.125 mg PO QID PRN 03/08/23 03/08/23 History Levothyroxine Sodium [Synthroid] 50 mcg PO DAILY 03/08/23 03/08/23 History Lidocaine 4% Patch 1 patch TOPICAL DAILY PRN 03/08/23 03/08/23 History Ondansetron Odt [Zofran Odt] 8 mg PO Q8H PRN 03/08/23 03/08/23 History Ox Bile 1 tab PO DAILY 03/08/23 03/08/23 History Tretinoin [Tretinoin 0.025%] 1 applic TOPICAL HS 03/08/23 03/08/23 History diphenhydrAMINE HCL [Benadryl] 25 mg PO Q4H PRN 03/08/23 03/08/23 History traZODone HCL [Desyrel] 50 - 180 mg PO HS 03/08/23 03/08/23 History Allergies Allergy/AdvReac Type Severity Reaction Status Date / Time amitriptyline Allergy Unknown Verified 03/08/23 14:20 zolpidem [From Ambien] Allergy Unknown Verified 03/08/23 14:20 ferumoxytol [From Feraheme] AdvReac Severe immediate Verified 03/08/23 14:20 pain, sob , anxiety, swelling lower ext. bupropion HCl AdvReac Nausea & Verified 03/08/23 14:20 [From Wellbutrin] Vomiting & Diarrhea doxycycline AdvReac Nausea Verified 03/08/23 14:20 Surgical - Exam Vital Signs Temp Pulse Resp BP Pulse Ox 98.1 F 77 18 108/79 100 03/08/23 11:39 03/08/23 11:39 03/08/23 11:39 03/08/23 11:39 03/08/23 11:39 Results - Labs 03/09/23 05:45 03/08/23 12:44 Abnormal Lab Results - Last 24 Hours (Table) 03/08/23 03/08/23 03/08/23 Range/Units 12:44 12:44 16:12 RBC 3.70 L (3.80-5.40) m/uL Hgb 11.1 L (11.4-16.0) gm/dL Hct (37.2-46.3) % MCHC (32.0-37.0) d/dL Plt Count 136 L (150-450) k/uL APTT (22.0-30.0) sec Chloride 108 H (98-107) mmol/L Amylase <30 L (30-110) U/L 03/08/23 03/09/23 03/09/23 Range/Units 22:00 05:45 05:45 RBC 3.24 L (3.80-5.40) m/uL Hgb 9.6 L (11.4-16.0) gm/dL Hct 30.3 L (37.2-46.3) % MCHC 31.7 L (32.0-37.0) d/dL Plt Count (150-450) k/uL APTT 65.0 H 55.9 H (22.0-30.0) sec Chloride (98-107) mmol/L Amylase (30-110) U/L Diabetes panel 03/08/23 Range/Units 12:44 Sodium 139 (137-145) mmol/L Potassium 3.9 (3.5-5.1) mmol/L Chloride 108 H (98-107) mmol/L Carbon Dioxide 24 (22-30) mmol/L BUN 13 (7-17) mg/dL Creatinine 0.97 (0.52-1.04) mg/dL Glucose 84 (74-99) mg/dL Calcium 9.0 (8.4-10.2) mg/dL AST 30 (14-36) U/L ALT 33 (4-34) U/L Alkaline Phosphatase 83 (38-126) U/L Total Protein 6.4 (6.3-8.2) g/dL Albumin 4.0 (3.5-5.0) g/dL Calcium panel 03/08/23 Range/Units 12:44 Calcium 9.0 (8.4-10.2) mg/dL Albumin 4.0 (3.5-5.0) g/dL Pituitary panel 03/08/23 Range/Units 12:44 Sodium 139 (137-145) mmol/L Potassium 3.9 (3.5-5.1) mmol/L Chloride 108 H (98-107) mmol/L Carbon Dioxide 24 (22-30) mmol/L BUN 13 (7-17) mg/dL Creatinine 0.97 (0.52-1.04) mg/dL Glucose 84 (74-99) mg/dL Calcium 9.0 (8.4-10.2) mg/dL Adrenal panel 03/08/23 Range/Units 12:44 Sodium 139 (137-145) mmol/L Potassium 3.9 (3.5-5.1) mmol/L Chloride 108 H (98-107) mmol/L Carbon Dioxide 24 (22-30) mmol/L BUN 13 (7-17) mg/dL Creatinine 0.97 (0.52-1.04) mg/dL Glucose 84 (74-99) mg/dL Calcium 9.0 (8.4-10.2) mg/dL Total Bilirubin 0.6 (0.2-1.3) mg/dL AST 30 (14-36) U/L ALT 33 (4-34) U/L Alkaline Phosphatase 83 (38-126) U/L Total Protein 6.4 (6.3-8.2) g/dL Albumin 4.0 (3.5-5.0) g/dL
[2023-03-09 15:16] VITALS: BMI 25.4
--- NOTE | 2023-03-09 15:41 | P.PN ---
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 Patient states that she came from colonoscopy outpatient surgery complaining from abdominal pain. She could not finish her colonoscopy with Dr. Mckeon because of her abdominal pain and patient was referred to emergency room. Her pain is mainly in the left abdomen, more to the lower site, radiating to the front felt like a knife and statin, she rated as 8/10 in severity also complaining of from another pain across the upper abdomen also rated as 8/10 in severity but states is different feeling. Patient states that both pain started last August. She states that only pain medication helps her pain is not precipitated factors Patient herself she denies any chest pain, dyspnea coughing. No urinary symptoms like dysuria urgency. No headache dizziness weakness or numbness. Smoking alcohol or illicit drugs. She is also complaining from his August she says she vomits daily. Her bowel movement is a clear, watery about 6-7 times per day. Complaining of from headache and pain in her left leg for many years, she status post IVC filter and she was taking blood to. Patient was so insistent on obtaining Dilaudid 0.5 mg IV injection I explained for the patient this is chronic pain and prefer to treated with oral medication also I explained for her the risks of narcotic medication including the risk of respiratory depression and addiction and dependence she still insisted, however she agrees to take Tylenol No. 3 and if that does not help one-time dose of Dilaudid and continue Tylenol No. 3 at bed side nurse Suly were present during the entire encounter including physical examination. Answers questions for the patient and to their satisfaction 03/09/2040 Patient is still complaining from abdominal pain, it has mainly been a chronic pain with patient suspect his recent exacerbation, she had EGD/colonoscopy done yesterday with GI team which showing ascites and normal:, No further workup by GI and follow up as an outpatient I discussed the case with surgery team for the planned for laparoscopic cholecystectomy tomorrow as there is some risk from the procedure however there is no contraindication of from the medical review No more nausea vomiting, diarrhea stopped today. No other new finding I discussed pain management with the patient in details with low treatment risk and benefits and verbalized understanding and acceptance. Patient understands the recommendation to try to avoid narcotics for opioids or shortening the duration the decrease chances of side effects and she verbalized understanding a nd acceptance Objective - Vital Signs Vital signs: Vital Signs Temp 98.3 F 03/09/23 07:20 Pulse 57 L 03/09/23 07:20 Resp 16 03/09/23 08:26 BP 97/65 03/09/23 07:20 Pulse Ox 96 03/09/23 07:20 FiO2 Intake & Output 03/08/23 03/09/23 03/09/23 18:59 06:59 18:59 Intake Total 45.491 Balance 45.491 Weight 57.153 kg Intake: Intake, IV Titration 45.491 Amount Heparin Sod,Pork in 0.45% 45.491 NaCl 25,000 unit In 0.45 % NaCl 1 250ml.bag @ 12 UNITS/KG/HR 6.858 mls/hr IV .Q24H [facility] Rx#: [id number] Other: Voiding Method Toilet Toilet Toilet # Voids 1 - Exam GENERAL: The patient is alert and oriented x3, not in any acute distress. Well developed, well nourished. HEENT: Pupils are round and equally reacting to light. EOMI. No scleral icterus. No conjunctival pallor. Normocephalic, atraumatic. No pharyngeal erythema. No thyromegaly. CARDIOVASCULAR: S1 and S2 present. No murmurs, rubs, or gallops. PULMONARY: Chest is clear to auscultation, no wheezing , no crackles. -ABDOMEN: Soft, abdominal tenderness in the right upper quadrant , nondistended, normoactive bowel sounds. No palpable organomegaly. MUSCULOSKELETAL: No joint swelling or deformity. EXTREMITIES: No cyanosis, clubbing, or pedal edema. NEUROLOGICAL: Gross neurological examination did not reveal any focal deficits. SKIN: No rashes. no petechiae. - Labs CBC & Chem 7: 03/09/23 05:45 03/08/23 12:44 Labs: Abnormal Lab Results - Last 24 Hours (Table) 03/08/23 03/08/23 03/08/23 Range/Units 12:44 16:12 22:00 RBC 3.70 L (3.80-5.40) m/uL Hgb 11.1 L (11.4-16.0) gm/dL Hct (37.2-46.3) % MCHC (32.0-37.0) d/dL APTT 65.0 H (22.0-30.0) sec Chloride 108 H (98-107) mmol/L Amylase <30 L (30-110) U/L 03/09/23 03/09/23 Range/Units 05:45 05:45 RBC 3.24 L (3.80-5.40) m/uL Hgb 9.6 L (11.4-16.0) gm/dL Hct 30.3 L (37.2-46.3) % MCHC 31.7 L (32.0-37.0) d/dL APTT 55.9 H (22.0-30.0) sec Chloride (98-107) mmol/L Amylase (30-110) U/L Assessment and Plan Assessment: Right upper quadrant abdominal pain and tenderness, rule out acute cholecystitis Chronic abdominal pain Normochromic normocytic anemia History of multiple deep venous thrombosis hypothyroidism fibromyalgia History of GERD History of rheumatoid arthritis 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 Plan: Discussed the case with surgery. Plan for laparoscopic cholecystectomy. Patient is cleared from medical review to proceed with this plan of surgery as moderate risk. pain management. Check C. diff (patient states that her diarrhea. Today check stool wbc and lactoferrin Continue gentle hydration Hold Eliquis in case patient needs procedure or intervention and start the patient on heparin drip stated, patient informed and she agrees. GI consult with Dr. Mckeon General surgery consult with Dr. Mendez Labs and medication were reviewed.. Continue same treatment. Continue with sy mptomatic treatment. Resume home medication. Monitor labs and vitals. DVT and GI prophylaxis. Further recommendations as per clinical course of the patient DVT prophylaxis: heparin GI Prophylaxis: Pepcid PT/OT: Pending Prognosis is guarded
[2023-03-09] MEDS: traZODone HCL 50 MG TAB PO SCH (21:00)
[2023-03-10] MEDS: HEPARIN SOD,PORK IN 0.45% NACL 25,000 UNIT in 0.45% NACL 1 250ML.BAG IV SCH (01:00)
[2023-03-10] MEDS: diphenhydrAMINE 50 MG/ML 1 ML VIAL IVP PRN ×3 (01:00→20:29)
[2023-03-10] MEDS ORDERED: SODIUM CHLORIDE 0.9% 1,000 ML IV ONE ×2 (03:01→04:19)
[2023-03-10] MEDS: HYDROcodone/APAP 5-325MG 1 EACH TAB PO PRN (03:06)
[2023-03-10] MEDS: PANTOPRAZOLE 40 MG TABLET PO SCH ×2 (06:15→17:15)
[2023-03-10] MEDS: LEVOTHYROXINE 50 MCG TAB PO SCH (06:15)
[2023-03-10] MEDS: SUCRALFATE 1 GM TAB PO SCH ×4 (06:16→20:28)
[2023-03-10] MEDS ORDERED: SODIUM CHLORIDE 0.9% 500 ML 500 ML IV ONE (06:23)
--- NOTE | 2023-03-10 06:31 | P.PN ---
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 Patient states that she came from colonoscopy outpatient surgery complaining from abdominal pain. She could not finish her colonoscopy with Dr. Mckeon because of her abdominal pain and patient was referred to emergency room. Her pain is mainly in the left abdomen, more to the lower site, radiating to the front felt like a knife and statin, she rated as 8/10 in severity also complaining of from another pain across the upper abdomen also rated as 8/10 in severity but states is different feeling. Patient states that both pain started last August. She states that only pain medication helps her pain is not precipitated factors Patient herself she denies any chest pain, dyspnea coughing. No urinary symptoms like dysuria urgency. No headache dizziness weakness or numbness. Smoking alcohol or illicit drugs. She is also complaining from his August she says she vomits daily. Her bowel movement is a clear, watery about 6-7 times per day. Complaining of from headache and pain in her left leg for many years, she status post IVC filter and she was taking blood to. Patient was so insistent on obtaining Dilaudid 0.5 mg IV injection I explained for the patient this is chronic pain and prefer to treated with oral medication also I explained for her the risks of narcotic medication including the risk of respiratory depression and addiction and dependence she still insisted, however she agrees to take Tylenol No. 3 and if that does not help one-time dose of Dilaudid and continue Tylenol No. 3 at bed side nurse Suly were present during the entire encounter including physical examination. Answers questions for the patient and to their satisfaction 03/09/2023 Patient is still complaining from abdominal pain, it has mainly been a chronic pain with patient suspect his recent exacerbation, she had EGD/colonoscopy done yesterday with GI team which showing ascites and normal:, No further workup by GI and follow up as an outpatient I discussed the case with surgery team for the planned for laparoscopic cholecystectomy tomorrow as there is some risk from the procedure however there is no contraindication of from the medical review No more nausea vomiting, diarrhea stopped today. No other new finding I discussed pain management with the patient in details with low treatment risk and benefits and verbalized understanding and acceptance. Patient understands the recommendation to try to avoid narcotics for opioids or shortening the duration the decrease chances of side effects and she verbalized understanding a nd acceptance 03/10/2023 Patient is seen and evaluated at bedside, she is fully awake oriented, sitting in bed 3 large stones in distress states that her pain in the abdomen is manageable, she did not request more pain medication this morning however her abdomen is still photographer and she is planned to go for procedure of laparoscopic cholecystectomy already this morning. Of note patient blood pressure was on the soft side and she received more fluids, when I saw her this morning her systolic blood pressure was in the 90s, no dizziness chest pain or dyspnea. Therefore I'm going to give her another bolus of normal saline 500 mL and decrease the rate of, slant 1 50 mL/h Also patient believes that she has a fever, she states that usually her temperature is 90.6 but over the last 2 days this was running about 98-99 and that is high for her It seems that although the patient does not have kasandra fever but she is getting there and in view of low normal blood pressure and abdominal findings I think we need to start the patient with antibiotic, so we are going to start patient on Zosyn, patient says that she has no ALLERGIES to antibiotics before other than doxycycline causing nausea vomiting and that she has been taking penicillin before Check pro-calcitonin Active Medications Generic Name Dose Route Start Last Admin Trade Name Fredericq PRN Reason Stop Dose Admin Acetaminophen 1,000 mg 03/08/23 15:19 03/08/23 20:49 Acetaminophen Tab 500 Mg Tab PO 1,000 mg Q6H PRN Administration Mild Pain (Scale 1 to 3) Hydrocodone Bitart/Acetaminophen 1 each 03/09/23 08:15 03/10/23 03:06 Hydrocodone/Apap 5-325mg 1 Each Tab PO 1 each Q6HR PRN Administration Moderate to Severe Pain (4-10) Dicyclomine HCl 20 mg 03/08/23 15:19 03/08/23 22:13 Dicyclomine 20 Mg Tab PO 20 mg Q8H PRN Administration cramps Diphenhydramine HCl 25 mg 03/08/23 16:59 03/10/23 01:00 Diphenhydramine 50 Mg/Ml 1 Ml Vial IVP 25 mg Q6HR PRN Administration HYPERINSOMNIA Heparin Sodium (Porcine) 0 unit 03/08/23 15:56 Heparin Sodium 1,000 Un/Ml (10ml Vl) IV PER PROTOCOL PRN Low PTT Protocol Heparin Sodium/Sodium Chloride 250 mls @ 6.858 mls/hr 03/08/23 16:00 03/10/23 05:11 25,000 unit/ Sodium Chloride IV 0 units/kg/hr .Q24H LIANA 0 mls/hr Titration Protocol 12 UNITS/KG/HR Sodium Chloride 1,000 mls @ 150 mls/hr 03/08/23 20:30 03/09/23 08:02 Saline 0.9% IV 50 mls/hr .Q6H40M LIANA Administration Sodium Chloride 500 mls @ 999 mls/hr 03/10/23 06:23 03/10/23 06:26 Saline 0.9% IV 03/10/23 06:53 999 mls/hr .Q31M ONE Administration Piperacillin Sod/Tazobactam 100 mls @ 25 mls/hr 03/10/23 08:00 Sod 3.375 gm/ Sodium Chloride IVPB Q8HR LIANA Protocol Levothyroxine Sodium 50 mcg 03/09/23 06:30 03/10/23 06:15 Levothyroxine 50 Mcg Tab PO 50 mcg DAILY@0630 LIANA Administration Ondansetron HCl 8 mg 03/08/23 15:19 03/09/23 17:28 Ondansetron Odt 4 Mg Tab PO 8 mg Q8H PRN Administration Nausea Pantoprazole Sodium 40 mg 03/08/23 17:30 03/10/23 06:15 Pantoprazole 40 Mg Tablet PO 40 mg AC-BID LIANA Administration Sucralfate 1 gm 03/08/23 17:30 03/10/23 06:16 Sucralfate 1 Gm Tab PO 1 gm ACHS LIANA Administration Trazodone HCl 150 mg 03/09/23 21:00 03/09/23 21:00 Trazodone Hcl 50 Mg Tab PO 150 mg HS LIANA Administration Objective - Vital Signs Vital signs: Vital Signs Temp 97.9 F 03/10/23 01:05 Pulse 67 06/29/23 04:11 Resp 16 03/10/23 01:05 BP 93/64 03/10/23 05:20 Pulse Ox 97 03/10/23 01:05 FiO2 Intake & Output 03/09/23 03/09/23 03/10/23 06:59 18:59 06:59 Intake Total 45.491 120 203.568 Balance 45.491 120 203.568 Weight 57.153 kg Intake: Intake, IV Titration 45.491 203.568 Amount Heparin Sod,Pork in 0.45% 45.491 203.568 NaCl 25,000 unit In 0.45 % NaCl 1 250ml.bag @ 12 UNITS/KG/HR 6.858 mls/hr IV .Q24H [facility] Rx#: [id number] Oral 120 Other: Voiding Method Toilet Toilet Toilet # Voids 1 1 1 - Exam GENERAL: The patient is alert and oriented x3, not in any acute distress. Well developed, well nourished. HEENT: Pupils are round and equally reacting to light. EOMI. No scleral icterus. No conjunctival pallor. Normocephalic, atraumatic. No pharyngeal erythema. No thyromegaly. CARDIOVASCULAR: S1 and S2 present. No murmurs, rubs, or gallops. PULMONARY: Chest is clear to auscultation, no wheezing , no crackles. -ABDOMEN: Soft, abdominal tenderness in the right upper quadrant , nondistended, normoactive bowel sounds. No palpable organomegaly. MUSCULOSKELETAL: No joint swelling or deformity. EXTREMITIES: No cyanosis, clubbing, or pedal edema. NEUROLOGICAL: Gross neurological examination did not reveal any focal deficits. SKIN: No rashes. no petechiae. - Labs CBC & Chem 7: 03/09/23 05:45 03/08/23 12:44 Labs: Abnormal Lab Results - Last 24 Hours (Table) 03/09/23 03/09/23 03/10/23 Range/Units 05:45 05:45 05:04 RBC 3.24 L (4.10-5.20) X 10*6/uL Hgb 9.6 L (12.0-15.0) d/dL Hct 30.3 L (37.2-46.3) % MCHC 31.7 L (32.0-37.0) d/dL APTT 55.9 H 47.2 H (22.0-30.0) sec Assessment and Plan Assessment: Right upper quadrant abdominal pain and tenderness, suspicious for acute cholecystitis Low-normal blood pressure (mild hypotension) with mild temperature suspicious for intra-abdominal sepsis Chronic abdominal pain Normochromic normocytic anemia History of multiple deep venous thrombosis hypothyroidism fibromyalgia History of GERD History of rheumatoid arthritis 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 Plan: Discussed the case with surgery. Plan for laparoscopic cholecystectomy. [place] ha is cleared from medical review to proceed with this plan of surgery as moderate risk. pain management. Start the patient on Zosyn Check pro-calcitonin. Increase intravenous fluids Check C. diff (patient states that her diarrhea. Today check stool wbc and lactoferrin Continue gentle hydration Hold Eliquis in case patient needs procedure or intervention and start the patient on heparin drip stated, patient informed and she agrees. GI consult with Dr. Mckeon General surgery consult with Dr. Ferguson Labs and medication were reviewed.. Continue same treatment. Continue with symptomatic treatment. Resume home medication. Monitor labs and vitals. DVT and GI prophylaxis. Further recommendations as per clinical course of the patient DVT prophylaxis: heparin GI Prophylaxis: Pepcid PT/OT: Pending Prognosis is guarded
[2023-03-10 06:33] LABS: ALT 49 U/L (4-34); AST 66 U/L (14-36); African American GFR (CKD) >90 (>60 ml/min/1.73 sqM); Albumin 2.6 g/dL (3.5-5.0); Albumin/Globulin Ratio 1.3; Alkaline Phosphatase 63 U/L (38-126); Anion Gap 2 mmol/L; Blood Urea Nitrogen 4 mg/dL (7-17); Calcium 7.4 mg/dL (8.4-10.2); Carbon Dioxide 25 mmol/L (22-30); Chloride 113 mmol/L (98-107); Glucose 82 mg/dL (74-99); Non-African American GFR(CKD) 87 (>60 ml/min/1.73 sqM); Sodium 140 mmol/L (137-145); Total Bilirubin 0.3 mg/dL (0.2-1.3); Total Protein 4.6 g/dL (6.3-8.2)
[2023-03-10 06:47] LABS: HCT 29.2 % (34.0-46.0); HGB 9.4 gm/dL (11.4-16.0); Hypochromasia Slight; MCH 30.3 pg (25.0-35.0); MCHC 32.3 g/dL (31.0-37.0); MCV 93.8 fL (80.0-100.0); Mean Platelet Volume 8.6; Platelet Count 163 k/uL (150-450); RBC 3.11 m/uL (3.80-5.40); RDW 13.1 % (11.5-15.5); WBC 2.7 k/uL (3.8-10.6)
[2023-03-10] MEDS ORDERED: ONDANSETRON 4 MG/2 ML VIAL ONE (07:01)
[2023-03-10] MEDS ORDERED: ONDANSETRON 4 MG/2 ML VIAL IVP ONE (07:02)
[2023-03-10] MEDS ORDERED: DEXAMETHASONE SOD PHOSPHATE 4 MG/ML 1 ML VIAL IVP ONE (07:02)
[2023-03-10] MEDS ORDERED: IV FLUID CONTINUATION 1,000 ML IV ONE (07:02)
[2023-03-10] MEDS ORDERED: diphenhydrAMINE 50 MG/ML 1 ML VIAL IVP ONE (07:14)
[2023-03-10] MEDS ORDERED: GLYCOPYRROLATE 0.2 MG/ML 2 ML VIAL ONE (07:21)
[2023-03-10] MEDS ORDERED: LIDOCAINE 2% INJ 20 MG/ML (2 ML VIAL) ONE (07:21)
[2023-03-10] MEDS ORDERED: SUCCINYLCHOLINE CHLORIDE 200 MG/10 ML VIAL IV ONE (07:21)
[2023-03-10] MEDS ORDERED: ROCURONIUM 10 MG/ML (5 ML VIAL) IV ONE (07:21)
[2023-03-10] MEDS ORDERED: PROPOFOL 10 MG/ML 20 ML VIAL IV ONE (07:21)
[2023-03-10] MEDS ORDERED: MIDAZOLAM 2 MG/2 ML VIAL ONE (07:21)
[2023-03-10] MEDS ORDERED: fentaNYL (PF) 50 MCG/ML 2 ML AMP ONE (07:21)
[2023-03-10] MEDS ORDERED: KETOROLAC 30 MG/ML 1 ML VIAL ONE (07:21)
[2023-03-10] MEDS ORDERED: NEOSTIGMINE 1 MG/ML 10 ML VIAL ONE (07:21)
[2023-03-10] MEDS ORDERED: ceFAZolin 1,000 MG VIAL ONE (07:30)
[2023-03-10] MEDS ORDERED: SODIUM CHLORIDE 0.9% 100 ML BAG ONE (07:30)
--- NOTE | 2023-03-10 08:28 | P.OP ---
Date of Procedure: 03/10/23 Preoperative Diagnosis: quadrant pain Chronic cholecystitis Postoperative Diagnosis: right upper quadrant pain cholecystitischronic cholecystitis Procedure(s) Performed: laparoscopic cholecystectomy Anesthesia: FAWAD Surgeon: Karlo Fuller Estimated Blood Loss (ml): 5 Pathology: other (gallbladder) Condition: stable Disposition: PACU Description of Procedure: The patient was placed on the operating table. The patient received a general endotracheal tube anesthesia. The patients abdomen was prepped and draped in the usual sterile fashion. Through an infraumbilical stab incision, the fascia of the anterior abdominal wall was grasped with a pair of Kochers and then the Veress needle was placed in the peritoneal cavity. Position of the Veress needle was confirmed with positive drop test. The abdomen was then insufflated. After adequate insufflation, the 10 mm trocar was placed in the peritoneal cavity. Following this the laparoscope was placed in the peritoneal cavity. The patient was placed in the head-up, right side up position and then a 5 mm trocar was placed in the right lateral and right subcostal position under direct visualization. A 8 mm trocar was placed in the epigastric position. The gallbladder was grasped in the fundus and infundibulum. Traction on the gallbladder was placed in the lateral and the cephalad positions. The triangle of Calot was visualized.. The cystic duct was bluntly dissected until the union of the cystic duct and common bile duct was seen. A critical view of safety was achieved. The cystic duct was then divided and sealed with the Harmonic scissors. A PDS Endoloop was then placed throughout the cystic duct stump. The cystic artery divided and sealed with the Harmonic scissors. The gallbladder was then removed from the liver bed using Harmonic scissors. The gallbladder was then extracted through the epigastric port site. Operative field was checked for any bleeding spots and Harmonic scissors was used to coagulate the liver bed. The abdomen was irrigated. The trocars were removed. The skin was closed using interrupted 3-0 Vicryl suture. Dermabond dressing were applied. The patient tolerated the procedure well.
[2023-03-10] MEDS ORDERED: HYDROmorphone 0.5 MG/0.5 ML SYRINGE IVP ONE ×2 (08:43→09:08)
[2023-03-10] MEDS ORDERED: SIMETHICONE 80 MG CHEWABLE PO ONE (09:09)
[2023-03-10 09:55] VITALS: RESP 16
[2023-03-10] MEDS: PIPERACILLIN-TAZOBACTAM 3.375 GM in SODIUM CHLORIDE 0.9% 100 ML IVPB SCH ×3 (10:32→23:29)
[2023-03-10] MEDS: SODIUM CHLORIDE 0.9% 1,000 ML IV SCH ×4 (10:32→23:30)
[2023-03-10] MEDS ORDERED: HYDROmorphone 0.5 MG/0.5 ML SYRINGE IVP STA ×2 (10:49→11:09)
[2023-03-10] MEDS: HYDROmorphone 1 MG/ML 1 ML SYRINGE IVP PRN ×5 (10:53→23:30)
[2023-03-10] MEDS: SIMETHICONE 40 MG/0.6 ML DROPS 2,000 MG/30 ML BOTTLE PO SCH ×3 (14:09→20:35)
[2023-03-10] MEDS: ONDANSETRON ODT 4 MG TAB PO PRN (17:19)
[2023-03-10] MEDS: traZODone HCL 50 MG TAB PO SCH (20:28)
[2023-03-10] MEDS: APIXABAN 5 MG TAB PO SCH (20:29)
[2023-03-11] MEDS: diphenhydrAMINE 50 MG/ML 1 ML VIAL IVP PRN ×2 (05:16→11:18)
[2023-03-11] MEDS: HYDROmorphone 1 MG/ML 1 ML SYRINGE IVP PRN ×3 (05:16→11:26)
[2023-03-11] MEDS: LEVOTHYROXINE 50 MCG TAB PO SCH (05:59)
[2023-03-11] MEDS: PANTOPRAZOLE 40 MG TABLET PO SCH (05:59)
[2023-03-11] MEDS: SUCRALFATE 1 GM TAB PO SCH ×2 (06:00→12:28)
[2023-03-11 08:13] VITALS: BP 80/52; PULSE 80; TEMP 98.1
[2023-03-11] MEDS: PIPERACILLIN-TAZOBACTAM 3.375 GM in SODIUM CHLORIDE 0.9% 100 ML IVPB SCH (08:14)
[2023-03-11] MEDS: SIMETHICONE 40 MG/0.6 ML DROPS 2,000 MG/30 ML BOTTLE PO SCH (08:17)
[2023-03-11] MEDS: APIXABAN 5 MG TAB PO SCH (08:17)
[2023-03-11 08:54] LABS: Blood Urea Nitrogen 5.6 mg/dL (9.0-27.0); Calcium 8.9 mg/dL (8.7-10.3); Carbon Dioxide 27.6 mmol/L (21.6-31.8); Chloride 105 mmol/L (96-109); Glucose 117 mg/dL (70-110); Sodium 141 mmol/L (135-145)
[2023-03-11 09:03] LABS: Basophils # (A) 0.03 X 10*3/uL (0.00-0.10); Basophils % (A) 0.5 %; Eosinophils # (A) 0.03 X 10*3/uL (0.04-0.35); Eosinophils % (A) 0.5 %; HCT 28.3 % (37.2-46.3); HGB 8.9 d/dL (12.0-15.0); Lymphocytes # (A) 1.48 X 10*3/uL (0.90-5.00); Lymphocytes % (A) 24.8 %; MCH 29.8 pg (27.0-32.0); MCHC 31.4 d/dL (32.0-37.0); MCV 94.6 FL (80.0-97.0); Mean Platelet Volume 10.3 FL (9.5-12.2); Monocytes # (A) 0.41 X 10*3/uL (0.20-1.00); Monocytes % (A) 6.9 %; NRBC Per 100 WBC 0 X 10*3/uL (0.00-0.01); Neutrophils # (A) 3.99 X 10*3/uL (1.80-7.70); Platelet Count 213 X 10*3/uL (140-440); RBC 2.99 X 10*6/uL (4.10-5.20); RDW 13.1 % (11.5-14.5); WBC 5.96 X 10*3/uL (4.50-10.00)
--- NOTE | 2023-03-11 09:10 | P.PN ---
Subjective Progress Note Date: 03/11/23 CHIEF COMPLAINT: Chronic cholecystitis HISTORY OF PRESENT ILLNESS: Patient postop day #1 status post laparoscopic cholecystectomy. Patient sitting up in bed. Tolerating diet. Pain control. Denies any nausea vomiting. Afebrile. WBC 5. 96 HgB 8.9 platelets 213 Patient seen and examined with Dr. Fuller PHYSICAL EXAM: VITAL SIGNS: Reviewed. GENERAL: Well-developed in no acute distress. HEENT: No sclera icterus. Extraocular movements grossly intact. Moist buccal mucosa. Head is atraumatic, normocephalic. ABDOMEN: Soft. Nondistended. NEUROLOGIC: Alert and oriented. Cranial nerves II through XII grossly intact. ASSESSMENT: 1. Chronic cholecystitis status post laparoscopic cholecystectomy PLAN: -Patient is stable for discharge from surgical standpoint with outpatient follow-up -Okay to resume Eliquis -Continue pain management Physician Electrical Construction Project Manager note has been reviewed by physician. Signing provider agrees with the documented findings, assessment, and plan of care. Objective - Vital Signs Vital signs: Vital Signs Temp 98.1 F 03/11/23 07:15 Pulse 80 03/11/23 07:15 Resp 16 03/11/23 07:15 BP 80/52 03/11/23 07:15 Pulse Ox 94 L 03/11/23 07:15 FiO2 Intake & Output 03/10/23 03/11/23 03/11/23 18:59 06:59 18:59 Intake Total 750 Output Total 25 Balance 725 Intake: IV 750 Output: Estimated Blood Loss 25 Other: Voiding Method Toilet # Voids 1 1 - Labs CBC & Chem 7: 03/11/23 05:43 03/11/23 05:43 Labs: Abnormal Lab Results - Last 24 Hours (Table) 03/11/23 03/11/23 Range/Units 05:43 05:43 RBC 2.99 L (4.10-5.20) X 10*6/uL Hgb 8.9 L (12.0-15.0) d/dL Hct 28.3 L (37.2-46.3) % MCHC 31.4 L (32.0-37.0) d/dL Eosinophils # 0.03 L (0.04-0.35) X 10*3/uL BUN 5.6 L (9.0-27.0) mg/dL BUN/Creatinine Ratio 5.60 L (12.00-20.00) Ratio Glucose 117 H (70-110) mg/dL
[2023-03-11] MEDS ORDERED: AMOXIC-POT CLAV 500-125 MG 1 EACH TAB PO SCH (10:00)
[2023-03-11] MEDS: SODIUM CHLORIDE 0.9% 1,000 ML IV SCH (12:28)
--- NOTE | 2023-03-12 00:22 | P.DS ---
Providers Date of admission: 03/08/23 13:27 Attending physician: Lila Toney Consults: 03/09/23 09:38 Consult Physician Routine Consulting Provider: Karlo Fuller Consult Reason/Comments: abdominal pain Do you want consulting provider notified?: Yes Primary care physician: Tamiko Bonner Hospital Course: Diagnoses: Right upper quadrant abdominal pain and tenderness, suspicious for acute cholecystitis Low-normal blood pressure (mild hypotension) with mild temperature suspicious for intra-abdominal sepsis Chronic abdominal pain Normochromic normocytic anemia History of multiple deep venous thrombosis hypothyroidism fibromyalgia History of GERD History of rheumatoid arthritis 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 Patient states that she came from colonoscopy outpatient surgery complaining from abdominal pain. She could not finish her colonoscopy with Dr. Mckeon because of her abdominal pain and patient was referred to emergency room. She has 2 main areas of pain and tenderness in the left lower quadrant and an upper abdomen. Patient was evaluated by general surgery team and she underwent laparoscopic cholecystectomy today. Postprocedure her symptoms improved, today morning she denies any abdominal pain stating to me both of them have relieved. She denies any other symptoms and she agrees to be discharged home today. Patient takes liquids for her history of DVT left leg, Eliquis was resumed prior to discharge. Patient denies any other new symptoms Patient was cleared for discharge by surgery team and GI team Problems and management plan were discussed with the patient and he verbalized understanding and acceptance Patient was found stable and can be discharged home in guarded prognosis however he needs follow-up as an outpatient. Patient was instructed to follow up with PCP Dr. Callaway within one week and patient agrees Patient was instructed to follow up with Dr. Ferguson in 1 week after discharge to follow up results of the biopsy, she agrees Physical exam Gen: patient is a AAOx3, no distress CVS: S1-S2, RRR, no murmur Lungs: B/L CTA, no wheezing -Abdomen: soft, no distention, no tenderness, positive bowel sounds. Laparoscopic wounds are closed and healing Extremity: no leg edema or induration Time spent more than 35 minutes Plan - Discharge Summary New Discharge Prescriptions: New oxyCODONE HCL [OxyIR] 5 mg PO Q6H PRN 3 Days #10 tab PRN Reason: Pain Acetaminophen Tab [Tylenol] 1,000 mg PO Q6HR PRN #30 tablet PRN Reason: Pain Amoxic-Pot Clav 500-125 mg [Augmentin 500-125 mg] 1 each PO BID 5 Days #10 tab Continue Cetirizine HCl 10 mg PO DAILY Acetaminophen Tab [Tylenol] 1,000 mg PO Q6H PRN PRN Reason: Pain Calcium Carbonate [Calcium] 1,200 mg PO DAILY Zinc With Copper 1 dose PO DAILY Magnesium Gluconate [Magonate] 500 mg PO TID PRN PRN Reason: pain/cramps Vitamin D3/Vitamin K2 (Mk4) [Vitamin K2 Plus D3 Tablet] 1 tab PO DAILY hydrOXYzine HCL [Atarax] 25 - 50 mg PO Q4H PRN PRN Reason: Insomnia & anxiety Pantoprazole Sodium [Protonix] 40 mg PO AC-BID Folic Acid 0.4 mg PO DAILY Digestive Enz. Pre&Probiotic 1 dose PO DAILY Cerebra Brain Supplement 1 dose PO DAILY Tart Hu 1 dose PO DAILY diphenhydrAMINE HCL [Benadryl] 25 mg PO Q4H PRN PRN Reason: Allergy Symptoms/GI Upset Lidocaine 4% Patch 1 patch TOPICAL DAILY PRN PRN Reason: Pain Ondansetron Odt [Zofran ODT] 8 mg PO Q8H PRN PRN Reason: Nausea traZODone HCL [Desyrel] 50 - 180 mg PO HS Levothyroxine Sodium [Synthroid] 50 mcg PO DAILY Tretinoin [Tretinoin 0.025%] 1 applic TOPICAL HS Apixaban [Eliquis] 5 mg PO BID Multivit-Min/Iron/Folic/Lutein [Centrum Silver Women Tablet] 1 tab PO DAILY Turmeric Root Extract [Turmeric] 2,000 mg PO DAILY Cyanocobalamin (Vitamin B-12) [Vitamin B-12] 1,000 mcg PO DAILY Dicyclomine [Bentyl] 20 mg PO Q8H PRN PRN Reason: cramps Diphenoxylate HCl/Atropine [Lomotil 2.5-0.025 mg Tablet] 1 tab PO Q4H PRN PRN Reason: Diarrhea Cetirizine HCl/Pseudoephedrine [Zyrtec-D ER 5 mg-120 mg Tablet] 1 tab PO DAILY PRN PRN Reason: Allergy Symptoms Sucralfate [Carafate] 1 gm PO ACHS Cholestyramine (with Sugar) [Cholestyramine Powder] 4 gram PO DAILY Ox Bile 1 tab PO DAILY Hyoscyamine Sulfate [Levsin] 0.125 mg PO QID PRN PRN Reason: cramps Discharge Medication List Cetirizine HCl 10 mg PO DAILY 08/01/20 [History] Acetaminophen Tab [Tylenol] 1,000 mg PO Q6H PRN 11/25/22 [History] Apixaban [Eliquis] 5 mg PO BID 03/03/23 [History] Calcium Carbonate [Calcium] 1,200 mg PO DAILY 03/03/23 [History] Cerebra Brain Supplement 1 dose PO DAILY 03/03/23 [History] Cetirizine HCl/Pseudoephedrine [Zyrtec-D ER 5 mg-120 mg Tablet] 1 tab PO DAILY PRN 03/03/23 [History] Cyanocobalamin (Vitamin B-12) [Vitamin B-12] 1,000 mcg PO DAILY 03/03/23 [History] Dicyclomine [Bentyl] 20 mg PO Q8H PRN 03/03/23 [History] Digestive Enz. Pre&Probiotic 1 dose PO DAILY 03/03/23 [History] Diphenoxylate HCl/Atropine [Lomotil 2.5-0.025 mg Tablet] 1 tab PO Q4H PRN 03/03/23 [History] Folic Acid 0.4 mg PO DAILY 03/03/23 [History] Magnesium Gluconate [Magonate] 500 mg PO TID PRN 03/03/23 [History] Multivit-Min/Iron/Folic/Lutein [Centrum Silver Women Tablet] 1 tab PO DAILY 03/03/23 [History] Pantoprazole Sodium [Protonix] 40 mg PO AC-BID 03/03/23 [History] Sucralfate [Carafate] 1 gm PO ACHS 03/03/23 [History] Tart Hu 1 dose PO DAILY 03/03/23 [History] Turmeric Root Extract [Turmeric] 2,000 mg PO DAILY 03/03/23 [History] Vitamin D3/Vitamin K2 (Mk4) [Vitamin K2 Plus D3 Tablet] 1 tab PO DAILY 03/03/23 [History] Zinc With Copper 1 dose PO DAILY 03/03/23 [History] hydrOXYzine HCL [Atarax] 25 - 50 mg PO Q4H PRN 03/03/23 [History] Cholestyramine (with Sugar) [Cholestyramine Powder] 4 gram PO DAILY 03/08/23 [History] Hyoscyamine Sulfate [Levsin] 0.125 mg PO QID PRN 03/08/23 [History] Levothyroxine Sodium [Synthroid] 50 mcg PO DAILY 03/08/23 [History] Lidocaine 4% Patch 1 patch TOPICAL DAILY PRN 03/08/23 [History] Ondansetron Odt [Zofran ODT] 8 mg PO Q8H PRN 03/08/23 [History] Ox Bile 1 tab PO DAILY 03/08/23 [History] Tretinoin [Tretinoin 0.025%] 1 applic TOPICAL HS 03/08/23 [History] diphenhydrAMINE HCL [Benadryl] 25 mg PO Q4H PRN 03/08/23 [History] traZODone HCL [Desyrel] 50 - 180 mg PO HS 03/08/23 [History] Acetaminophen Tab [Tylenol] 1,000 mg PO Q6HR PRN #30 tablet 03/11/23 [Rx] Amoxic-Pot Clav 500-125 mg [Augmentin 500-125 mg] 1 each PO BID 5 Days #10 tab 03/11/23 [Rx] oxyCODONE HCL [OxyIR] 5 mg PO Q6H PRN 3 Days #10 tab 03/11/23 [Rx] Follow up Appointment(s)/Referral(s): Rebecca Mckeon MD [STAFF PHYSICIAN] - 1 Week Tamiko Bonner DO [Primary Care Provider] - 1-2 days Karlo Fuller MD [STAFF PHYSICIAN] - 03/22/23 3:45 pm Activity/Diet/Wound Care/Special Instructions: No driving while taking oxyIR No lifting over 10 pounds You may shower. No soaking or tub baths for 2 weeks Very light activity until you are reevaluated at your follow up appointment with your surgeon Discharge Disposition: HOME SELF-CARE
[2023-03-14 11:32] LABS: ALT 175 U/L (8-44); AST 137 U/L (13-35); Albumin 3.5 d/dL (3.8-4.9); Albumin/Globulin Ratio 2.33 Ratio (1.60-3.17); Alkaline Phosphatase 77 U/L (41-126); Bilirubin, Conjugated <0.20 mg/dL (0.20-0.40); Bilirubin,Unconjugated >0.30 mg/dL (0.20-1.00); Globulin 1.5 d/dL (1.6-3.3); Total Bilirubin 0.5 mg/dL (0.3-1.2)
== END 2023-03-11 14:02 | disposition home or self-care (01) ==
LOC: EC 11:37 → 6NMEDSUR 13:27 → OBSVTOIN 13:27 → INTOOBSV 13:27 → 6NMEDSUR 14:09 → UNDODISIN 03-11 14:02
PROVIDERS: ADMIT Hospitalist; ATTEND Hospitalist
PROC: 0FT44ZZ Resection of Gallbladder, Percutaneous Endoscopic Approach (ICD-10-PCS; principal; 2023-03-10 07:30)
DX: K81.1 Chronic cholecystitis (principal); D68.51 Activated protein C resistance; M54.81 Occipital neuralgia; I95.9 Hypotension, unspecified; G89.29 Other chronic pain; M08.00 Unspecified juvenile rheumatoid arthritis of unspecified site; K25.9 Gastric ulcer, unspecified as acute or chronic, without hemorrhage or perforation; M79.7 Fibromyalgia; K21.9 Gastro-esophageal reflux disease without esophagitis; M81.0 Age-related osteoporosis without current pathological fracture; M41.9 Scoliosis, unspecified; M47.819 Spondylosis without myelopathy or radiculopathy, site unspecified; M16.9 Osteoarthritis of hip, unspecified; M19.09 Primary osteoarthritis, other specified site; E03.9 Hypothyroidism, unspecified; D64.9 Anemia, unspecified; Q05.4 Unspecified spina bifida with hydrocephalus; M06.9 Rheumatoid arthritis, unspecified; E66.9 Obesity, unspecified; Z68.25 Body mass index [BMI] 25.0-25.9, adult; Z79.01 Long term (current) use of anticoagulants; Z79.890 Hormone replacement therapy; Z79.899 Other long term (current) drug therapy; Z88.1 Allergy status to other antibiotic agents; Z88.8 Allergy status to other drugs, medicaments and biological substances; Z91.048 Other nonmedicinal substance allergy status; Z86.718 Personal history of other venous thrombosis and embolism; Z87.19 Personal history of other diseases of the digestive system; Z87.11 Personal history of peptic ulcer disease; Z95.828 Presence of other vascular implants and grafts; Z90.79 Acquired absence of other genital organ(s); Z90.710 Acquired absence of both cervix and uterus; Z98.891 History of uterine scar from previous surgery; Z90.722 Acquired absence of ovaries, bilateral; Z98.890 Other specified postprocedural states; Z83.2 Family history of diseases of the blood and blood-forming organs and certain disorders involving the immune mechanism; Z82.49 Family history of ischemic heart disease and other diseases of the circulatory system
CPT/HCPCS: 47562; 96376 ×3; 96365; 96366 ×3; 96375 ×2; 96361; 99285; 36415; 88304; 80053 ×2; 80048; 80076; 82150; 83605; 83690; 85025 ×3; 85027; 85610 ×2; 85730 ×3; 84145; G0378 ×4; J2543 ×2; J2250; J0330; J1200 ×4; J1100; J2710; J2405; J0690; J3010; J1885; J1644 ×3; J1170 ×4; J2704; J2001; 96374

== ENCOUNTER → 2023-03-08 | Day surgery (SDC) | payer OTHER, MEDICARE ==
[2023-03-03 17:21] VITALS: BMI 25.4
[~2023-03-08] MED LIST changes: +KETOROLAC 15 MG/ML 1 ML VIAL ONE; -LACTATED RINGERS 1,000 ML IV SCH; +LIDOCAINE 2% INJ 20 MG/ML (2 ML VIAL) ONE; +ONDANSETRON 4 MG/2 ML VIAL ONE; +PROPOFOL 10 MG/ML 20 ML VIAL IV ONE
[2023-03-08] MEDS: LACTATED RINGERS 1,000 ML IV SCH ×2 (08:41→09:19)
[2023-03-08 08:49] VITALS: TEMP 97.8
--- NOTE | 2023-03-08 10:00 | P.PCN ---
Date of Procedure: 03/08/23 Procedure(s) Performed: Brief history: Patient is a pleasant 47-year-old white female scheduled for an elective upper endoscopy as well as colonoscopy as a part of evaluation of abdominal pain, nausea vomiting, heartburn and intermittent diarrhea for the last 6 months duration. He had multiple hospitalizations recently for anemia and had an upper endoscopy at [facility] in January 2023 revealed esophagitis, esophageal ulcer and small gastric ulcer. Patient since then has been on pantoprazole 40 mg daily. Because of the persistent symptoms she is scheduled for an upper endoscopy as well as colonoscopy today. Procedure performed: Esophagogastroduodenoscopy with biopsy Colonoscopy with biopsy Preoperative diagnosis: Abdominal pain, nausea vomiting Chronic diarrhea since August 2022 Anesthesia: MAC Procedure: After informed consent was obtained from the patient was brought into the endoscopy unit and IV sedation was administered by anesthesia under continuous monitoring. Initially upper endoscopy was done. The Olympus GF 160 video endoscope was inserted inserted into the mouth and esophagus intubated without any difficulty and was gradually advanced into the stomach and duodenum and carefully examined. The bulb and second part of the duodenum appeared normal. Biopsies were done from the duodenum to evaluate for celiac disease. The scope was then withdrawn into the stomach adequately insufflated with air and upon careful examination the antrum had some erosions and erythema consistent with gastritis and biopsies were done from this area. No ulcerations noted. Mucosa of the body, cardia and fundus appeared normal. The scope was then withdrawn into the esophagus. The GE junction was located at 40 cm to the incisors. It appeared regular with no erythema erosions or ulcerations. Rest of the esophagus appeared normal. Patient tolerated the procedure well. At this time the patient continued to remain sedation. Initial digital rectal examination was normal. Olympus CF 160 video colonoscope was then inserted into the rectum and gradually advanced to the cecum without any difficulty. Careful examination was performed as the scope was gradually being withdrawn. The prep was excellent. The mid ileum was intubated and 20 cm visualized appeared norm al. Biopsies were done from this area. The cecum, ascending colon, transverse colon, descending colon, sigmoid colon and rectum appeared normal. Random biopsies were done from ascending and descending colon to rule out microscopic/collagenous colitis. Retroflexion was performed in the rectum and no lesions were noted. Patient tolerated the procedure well. Impression: 1. Upper endoscopy revealed antral erosive gastritis but no emesis of gastric ulcers. 2. Colonoscopy was within normal limits with no evidence of colitis or colorectal neoplasia Recommendations: Findings of this examination were discussed with the patient as well as her family. She was advised to follow with the biopsy results. She'll be seen in office in 2-3 weeks.
[2023-03-08 10:26] VITALS: RESP 16
[2023-03-08 11:22] VITALS: BP 115/63; PULSE 75
== END ==
LOC: ORWHC2ENDO 08:28
PROVIDERS: ATTEND Internal Medicine Gastroenterology
DX: K52.839 Microscopic colitis, unspecified (principal); K29.50 Unspecified chronic gastritis without bleeding; K22.10 Ulcer of esophagus without bleeding; K25.9 Gastric ulcer, unspecified as acute or chronic, without hemorrhage or perforation; D64.9 Anemia, unspecified; Z79.899 Other long term (current) drug therapy
CPT/HCPCS: 88305; 45380; 43239; J1885; J2704; J2001

== ENCOUNTER → 2023-11-07 | Outpatient (CLI) | payer OTHER, MEDICARE ==
[2023-11-07 12:09] VITALS: BP 113/80; PULSE 83; RESP 16; TEMP 98.2
--- NOTE | 2023-11-07 14:08 | P.PAINPG ---
PQRS Measure Charge Sheet Comment: A 48 yr old female with a history of severe and chronic neck pain secondary to cervicogenic CHAPMAN and occipital neuralgia presents today for evaluation . Pt states pain is provoked at 7/10 in intensity, constant, localized in the cervical spine, predominantly axial, sharp in character w shooting towards the scalp. Pain is provoked by hyperextension. Pain is alleviated with massage therapy for 1 1/2 yrs, chiropractic treatments 1 1/2 yrs last year, medications, topicals, repositioning and rest. Cervical disability score of 24. Interventional pain procedures completed include BL JACQUIE injection x2 Patient is currently on Ibu, Tyl Patient denies any side effects of the medication(s), denies excessive drows iness or sleepiness, denies suicidal ideation and reports that the current pain medication is helping to control the pain and improve activities of daily living. Patient denies any motor or sensory deficits. Patient denies any fever or night sweats, denies any change in the bowel movements or urination. Physical Examination: -Constitutional: Cooperative. Not in acute distress . - Neurologic: Cranial nerve II to XII intact. No focal neurological deficits. - Psychatric: Alert & oriented x 3. Matching mood & appropriate affect. Judgment and insight intact. - Musculoskeletal: Cervical spine: +BL JACQUIE TTP Muscle bulk/ tone/ strength in the bilateral upper extremities normal Vertebral body tenderness to palpation over Spurling test positive Distraction test positive Facet loading test positive Thoracic spine Muscle bulk / tone/ strength in the bilateral paraspinal muscles normal Vertebral body tender to palpation over Facet loading test positive Lumbar spine: Motor bulk/ tone/ strength lower extremities , thigh and legs : 5/5 Deep tendon reflexes : Normal Knee Jerk. Normal Ankle Jerk . 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 May need a series of injections for optimal pain relief. Risks, benefits of procedure discussed and pt verbalized understanding. Admits to anticoagulant use or medical history of diabetes. Protocol for discontinuation, continuation of medications den procedure discussed. All patient questions answered I have spent less than 30 minutes on patient care today. Dr Flores was available by phone for the evaluation of this patient. The time was used to review the medical records including relevant urine studies and Prescription history (MAPs), review of the available imaging, evaluation and examination of the patient, coordination of care with the medical staff and if applicable referring physicians, as well as creation of the medical record PQRS Narrative: Smoking Status Never smoker Hx Alcohol Use (MH) No Home Medications: Ambulatory Orders Cetirizine HCl 10 mg PO DAILY 08/01/20 Apixaban [Eliquis] 5 mg PO BID 03/03/23 Calcium Carbonate [Calcium] 1,200 mg PO DAILY 03/03/23 Cerebra Brain Supplement 1 dose PO DAILY 03/03/23 Cetirizine HCl/Pseudoephedrine [Zyrtec-D ER 5 mg-120 mg Tablet] 1 tab PO DAILY PRN 03/03/23 Cyanocobalamin (Vitamin B-12) [Vitamin B-12] 1,000 mcg PO DAILY 03/03/23 Dicyclomine [Bentyl] 20 mg PO ACHS 03/03/23 Digestive Enz. Pre&Probiotic 1 dose PO DAILY 03/03/23 Diphenoxylate HCl/Atropine [Lomotil 2.5-0.025 mg Tablet] 2 tab PO QID PRN 03/03/23 Folic Acid 0.4 mg PO DAILY 03/03/23 Magnesium Gluconate [Magonate] 500 mg PO TID PRN 03/03/23 Multivit-Min/Iron/Folic/Lutein [Centrum Silver Women Tablet] 1 tab PO DAILY 03/03/23 Pantoprazole Sodium [Protonix] 40 mg PO AC-BID 03/03/23 Tart Hu 1 dose PO DAILY 03/03/23 Turmeric Root Extract [Turmeric] 2,000 mg PO DAILY 03/03/23 Vitamin D3/Vitamin K2 (Mk4) [Vitamin K2 Plus D3 Tablet] 1 tab PO DAILY 03/03/23 Zinc With Copper 1 dose PO DAILY 03/03/23 hydrOXYzine HCL [Atarax] 25 mg PO QID PRN 03/03/23 Hyoscyamine Sulfate [Levsin] 0.125 mg SL QID PRN 03/08/23 Lidocaine 4% Patch 1 patch TOPICAL DAILY PRN 03/08/23 Ondansetron Odt [Zofran ODT] 8 mg PO Q8H PRN 03/08/23 Ox Bile 1 tab PO DAILY 03/08/23 Tretinoin [Tretinoin 0.025%] 1 applic TOPICAL HS 03/08/23 diphenhydrAMINE HCL [Benadryl] 25 mg PO Q4H PRN 03/08/23 Acetaminophen Tab [Tylenol] 1,000 mg PO Q6HR PRN #30 tablet 03/11/23 ARIPiprazole [Abilify] 10 mg PO HS 06/23/23 Budesonide [Entocort EC] 3 mg PO BID 06/23/23 Levothyroxine Sodium [Synthroid] 37.5 mcg PO DAILY 06/23/23 Melatonin 5 mg PO HS 06/23/23 OXcarbazepine 300 mg PO BID 06/23/23 diazePAM [Valium] 2 mg PO HS PRN 06/23/23 haloperidoL [Haldol] 2 mg PO HS 06/23/23 traZODone HCL [Desyrel] 200 mg PO HS 06/23/23 Cephalexin [Keflex] 500 mg PO Q12HR 7 Days #14 cap 06/24/23 Controlled Substance Measures - Controlled Substance Measures Is patient prescribed a controlled substance at discharge?: No
== END ==
LOC: PNWHC3 10:55
PROVIDERS: ATTEND Specialist
DX: M54.2 Cervicalgia (principal); G44.86 Cervicogenic headache; M54.81 Occipital neuralgia; Z88.1 Allergy status to other antibiotic agents; Z88.5 Allergy status to narcotic agent; Z88.8 Allergy status to other drugs, medicaments and biological substances
CPT/HCPCS: 99211

== ENCOUNTER 2023-11-24 10:47 | Day surgery (SDC) | payer OTHER, MEDICARE ==
[2023-11-21 11:11] VITALS: BMI 23.2
[~2023-11-24 10:47] MED LIST changes: -KETOROLAC 15 MG/ML 1 ML VIAL ONE; +LACTATED RINGERS 1,000 ML IV SCH; -LIDOCAINE 1% (10MG/ML) FOR IV START INTRADERMA PRN; -LIDOCAINE 2% INJ 20 MG/ML (2 ML VIAL) ONE; -ONDANSETRON 4 MG/2 ML VIAL ONE; -PROPOFOL 10 MG/ML 20 ML VIAL IV ONE
[2023-11-24] MEDS ORDERED: methylPREDNISolone ACETATE 80 MG/ML 1 ML VIAL ONE (11:38)
[2023-11-24] MEDS ORDERED: ROPIVACAINE 5MG/ML 20ML VIAL ONE (11:38)
[2023-11-24 11:43] VITALS: TEMP 97.2
--- NOTE | 2023-11-24 11:47 | P.PCN ---
Date of Procedure: 11/24/23 Procedure(s) Performed: Preoperative diagnoses= 1- Greater occipital neuralgia. 2-cervical spondylosis with cervical facet arthropathy Postoperative diagnoses= same as preoperative diagnosis. Procedure= Bilateral Greater occipital nerve block Anesthesia= none Estimated blood loss=minimal. Procedure indication= the patient had a history of severe chronic neck pain ,and headache, diagnosed with occipital neuralgia exam was positive for severe tenderness over the occipital nerve bilaterally, she will be a good candidate occipital nerve block, patient failed conservative management Procedure description= the patient was seen and identified in the preoperative holding area, risks and benefits and alternative of the procedure and possible complications discussed with the patient, and he agreed with the preceding, patient signed the consent, and vital signs were monitored and were stable throughout the procedure, patient was placed in the sitting position or table and the neck area was prepped and draped with a sterile fashion, vital signs were closely monitored during the procedure, 25-gauge needle advanced 1 inch lateral to the occipital protuberance on the right side, at the location of the right occipital nerve , then after negative aspiration for heme and CSF and ther e was no paresthesia during the injection, 5 ml of Robivacaine 0.5% and 40 mg of Depo-Medrol injected after negative aspiration, the needle removed, and the entire same procedure was repeated for the left Greater occipital nerve. Patient tolerated the procedure well without any complication, The patient returned to supine position after the back was cleaned and a Band- Aid applied, the patient transported to recovery room in stable condition and he was monitored for 30 minutes before he was discharged home and then patient was reexamined before going home and patient was discharged in stable condition and patient will follow up with the pain clinic in a few weeks.
[2023-11-24 12:19] VITALS: BP 112/76; PULSE 70; RESP 20
== END 2023-11-24 12:15 | disposition home or self-care (01) ==
LOC: ORPAIN 10:47
PROVIDERS: ATTEND Specialist
DX: M54.81 Occipital neuralgia (principal); M47.812 Spondylosis without myelopathy or radiculopathy, cervical region; I10 Essential (primary) hypertension; Z86.718 Personal history of other venous thrombosis and embolism; Z79.01 Long term (current) use of anticoagulants; Z88.8 Allergy status to other drugs, medicaments and biological substances; Z88.1 Allergy status to other antibiotic agents; Z88.3 Allergy status to other anti-infective agents
CPT/HCPCS: 64405; J1040; J2795

== ENCOUNTER → 2023-12-19 | Outpatient (CLI) | payer OTHER, MEDICARE ==
--- NOTE | 2023-12-19 09:21 | P.PAINPG ---
Subjective Progress Note Date: 12/19/23 Principal diagnosis: occipital headaches Ms. Payan is a 48 -year-old pleasant [facility]alecame [facility]ipital [facility] . Patient has ongoing pain since age 21-year-old. Patient describes pain is aching, throbbing, constant type of pain. sometimes her pain is radiating towards lateral parietal lobe, and temporal area from the neck. Patient rated pain levels [id number] of 10 in severity. With the help of medications pain levels are 4- 8out of 10 in severity. Activities making pain worse. she tried multiple bilateral occipital nerve block which was helpful in the beginning but lately the efficacy of bilateral occipital nerve is not lasting long enough as per the patient.Medications, resting, therapy helping in relieving patient's pain. Patient pain some days better than others. Overall activities decreased secondary to pain. Because of the pain sometimes patient is feeling lack of sleep, interest, and energy. Denied any side effects with the medications. Denied any bowel or bladder problems at this time. Patient denies any suicidal or homicidal ideations intent or plan. Patient denies any auditory or visual hallucinations. Patient denied any red flag symptoms related to pain. Objective - Vital Signs Vital signs: Vital Signs Temp 98.6 F 12/19/23 09:07 Pulse 88 12/19/23 09:07 Resp 15 12/19/23 09:07 BP 147/82 12/19/23 09:07 Pulse Ox 99 12/19/23 09:07 FiO2 Intake & Output 12/18/23 12/19/23 12/19/23 18:59 06:59 18:59 Weight 58.06 kg - Exam General: Well-developed, well-nourished, no acute distress HEENT: Normocephalic, and atraumatic Neck: Supple, no neck swelling Psychiatric: Appropriate mood, and affect PARLIAMENTARY LIBRARIAN: No focal neurological deficits Musculoskeletal: Upper extremity: Normal strength, and range of motion. Sensation grossly intact Lower extremity: Normal strength, and decreased range of motion secondary to p ain cervical facet load test positive. Tenderness over the bilateral occipital nerve area positive. - Constitutional Constitutional Comment(s): 13 point review of symptoms reviewed except as mentioned in the history of present illness. Assessment and Plan Assessment: bilateral occipital neuralgia Cervicalgia, and occipital headaches Plan: #1 Diagnoses, prognosis, and multiple treatment options including but not limited to physical therapy, interventional therapy, adjunct medication therapy, narcotic medication, and surgical options were discussed with the patient. And all questions were answered to the patient's satisfaction. #2 treatment plan agreement : Patient was thoroughly discussed regarding the treatment options, alternatives, and importance of exercises as tolerated. Patient clearly understood. #3 Patient was counseled on importance of regular exercise. Including jennifer chi, aerobic exercises as tolerated. Which helps for chronic pain, and overall well- being. #4 investigations: MAPS- reviewed , urine drug test-not been #5 diagnostic tests: none at this time #6 consultation : she completed 6 weeks of physical therapy recommended to continue home exercise program # 7 interventional procedures:bilateral greater, and lesser occipital nerve block under sedation if insurance approved . Procedure, complications, alternatives discussed with the patient. if the procedure not lost enough in controlling her pain, then plan to do cervical C2-C3, C3-C4, and third occipital nerve block in future. #8 medications Tylenol, and Motrin as needed [id number]. Medication side effects, complications, long-term consequences discussed with the patient. Patient recommended to contact the pain clinic if noticed any issues with given medications. #9 morphine milligrams equivalents dose ( MME) per day: 0 from the pain clinic. # 10 TENS unit's, and percussion massage device #11 disposition: scheduled to follow up with pain clinic in 8 weeks duration. Time with Patient: Less than 30 PQRS Measure Charge Sheet Measure #130: Documentation of Current Meds in Medical Chart: Patient's medications documented in chart Measure #226: Tobacco Use: Screen & Cessation Intervention: Pt not a tobacco user Measure #111: Pneumonia Vaccination: Pneumococcal vaccine NOT administered or previously given Measure #47: Advance Care Plan: Advance care planning discussed & documented, pt chose/unable to give Measure #412: Opioid Treatment Agreement: No documentation of signed opioid treatment agreement Measure #408: Opioid Therapy Follow-up Evaluation: Patient had NO f/u eval minimum every 3 months during opioid therapy Measure #317: Preventitive Care & Scrn High Bld Press & F/U: Normal blood pressure, f/u not required Measure #128: Body Mass Index (BMI) Screening & Follow-up: BMI documented within normal parameters Measure #131: Pain Assessment & Follow-up: Pain positive & plan documented Measure #431: Unhealthy Alcohol Use Preventative Care & Scrn: Patient not identified as an unhealthy alcohol user Mode of Arrival: Ambulatory - Pain Location Bilateral Neck Non-Pharmacological Interventions: Heat, Ice, Inactivity, Position/Reposition Pharmacological Interventions: Epidural, Prophylactic Medication PQRS Narrative: Smoking Status Never smoker Blood Pressure 147/82 Pain Intensity [Bilateral Neck 7 ] Scale Used Numeric (1 - 10) Hx Alcohol Use (MH) No Home Medications: Ambulatory Orders Cetirizine HCl 10 mg PO DAILY 08/01/20 Apixaban [Eliquis] 5 mg PO BID 03/03/23 Calcium Carbonate [Calcium] 1,200 mg PO DAILY 03/03/23 Cerebra Brain Supplement 1 dose PO DAILY 03/03/23 Cetirizine HCl/Pseudoephedrine [Zyrtec-D ER 5 mg-120 mg Tablet] 1 tab PO DAILY PRN 03/03/23 Cyanocobalamin (Vitamin B-12) [Vitamin B-12] 1,000 mcg PO DAILY 03/03/23 Dicyclomine [Bentyl] 20 mg PO ACHS 03/03/23 Digestive Enz. Pre&Probiotic 1 dose PO DAILY 03/03/23 Diphenoxylate HCl/Atropine [Lomotil 2.5-0.025 mg Tablet] 2 tab PO QID PRN 03/03/23 Folic Acid 0.4 mg PO DAILY 03/03/23 Magnesium Gluconate [Magonate] 500 mg PO TID PRN 03/03/23 Multivit-Min/Iron/Folic/Lutein [Centrum Silver Women Tablet] 1 tab PO DAILY 03/03/23 Pantoprazole Sodium [Protonix] 40 mg PO AC-BID 03/03/23 Tart Hu 1 dose PO DAILY 03/03/23 Turmeric Root Extract [Turmeric] 2,000 mg PO DAILY 03/03/23 Vitamin D3/Vitamin K2 (Mk4) [Vitamin K2 Plus D3 Tablet] 1 tab PO DAILY 03/03/23 Zinc With Copper 1 dose PO DAILY 03/03/23 hydrOXYzine HCL [Atarax] 25 mg PO QID PRN 03/03/23 Hyoscyamine Sulfate [Levsin] 0.125 mg SL QID PRN 03/08/23 Lidocaine 4% Patch 1 patch TOPICAL DAILY PRN 03/08/23 Ondansetron Odt [Zofran ODT] 8 mg PO Q8H PRN 03/08/23 Ox Bile 1 tab PO DAILY 03/08/23 Tretinoin [Tretinoin 0.025%] 1 applic TOPICAL HS 03/08/23 Acetaminophen Tab [Tylenol] 1,000 mg PO Q6HR PRN #30 tablet 03/11/23 ARIPiprazole [Abilify] 10 mg PO HS 06/23/23 Budesonide [Entocort EC] 3 mg PO BID 06/23/23 Levothyroxine Sodium [Synthroid] 37.5 mcg PO DAILY 06/23/23 Melatonin 5 mg PO HS 06/23/23 OXcarbazepine 300 mg PO BID 06/23/23 diazePAM [Valium] 2 mg PO HS PRN 06/23/23 haloperidoL [Haldol] 2 mg PO HS 06/23/23 traZODone HCL [Desyrel] 200 mg PO HS 06/23/23 Controlled Substance Measures - Controlled Substance Measures Is patient prescribed a controlled substance at discharge?: No
[2023-12-19 09:26] VITALS: BP 147/82; PULSE 88; RESP 15; TEMP 98.6
== END ==
LOC: PNWHC3 08:59
PROVIDERS: ATTEND Anesthesiology
DX: M54.81 Occipital neuralgia (principal); M54.2 Cervicalgia; Z88.8 Allergy status to other drugs, medicaments and biological substances
CPT/HCPCS: 99211

== ENCOUNTER 2024-01-05 12:39 | Day surgery (SDC) | payer OTHER, MEDICARE ==
[2024-01-05] MEDS: LACTATED RINGERS 1,000 ML IV SCH (13:50)
[2024-01-05 13:58] VITALS: TEMP 97.3
[2024-01-05] MEDS ORDERED: MIDAZOLAM 2 MG/2 ML VIAL ONE (14:26)
[2024-01-05] MEDS ORDERED: ROPIVACAINE 5MG/ML 20ML VIAL ONE (14:26)
[2024-01-05] MEDS ORDERED: fentaNYL (PF) 50 MCG/ML 2 ML AMP ONE (14:26)
[2024-01-05] MEDS ORDERED: methylPREDNISolone ACETATE 80 MG/ML 1 ML VIAL ONE (14:26)
--- NOTE | 2024-01-05 14:31 | P.PCN ---
Date of Procedure: 01/05/24 Procedure(s) Performed: Preoperative diagnoses= 1- Greater occipital neuralgia. 2-cervical spondylosis with cervical facet arthropathy Postoperative diagnoses= same as preoperative diagnosis. Procedure= Bilateral Greater occipital nerve block Anesthesia= moderate sedation with Versed 2 mg ,and fentanyl 50 micrograms . Sedation started at started at 14:26, ended at 14:28 Estimated blood loss=minimal. Procedure indication= the patient had a history of severe chronic neck pain ,and headache, diagnosed with occipital neuralgia exam was positive for severe tenderness over the occipital nerve bilaterally, she will be a good candidate occipital nerve block, patient failed conservative management Procedure description= the patient was seen and identified in the preoperative holding area, risks and benefits and alternative of the procedure and possible complications discussed with the patient, and he agreed with the preceding, patient signed the consent, an IV was started, and vital signs were monitored and were stable throughout the procedure, patient was placed in the sitting position or table and the neck area was prepped and draped with a sterile fashion, vital signs were closely monitored during the procedure, 25-gauge needle advanced 1 inch lateral to the occipital protuberance on the right side, at the location of the right occipital nerve , then after negative aspiration for heme and CSF and there was no paresthesia during the injection, 5 ml of Robivacaine 0.5% and 40 mg of Depo-Medrol injected after negative aspiration, the needle removed, and the entire same procedure was repeated for the left Greater occipital nerve. Patient tolerated the procedure well without any complication, The patient returned to supine position after the back was cleaned and a Band- Aid applied, the patient transported to recovery room in stable condition and he was monitored for 30 minutes before he was discharged home and then patient was reexamined before going home and patient was discharged in stable condition and patient will follow up with the pain clinic in a few weeks. note= she had history of posttraumatic stress disorder, she has severe anxiety, for this reason patient required to have sedation with her procedure
[2024-01-05] MEDS: IV FLUID CONTINUATION 900 ML IV ONE (14:38)
[2024-01-05 15:29] VITALS: BP 98/64; RESP 20
[2024-01-05 16:12] VITALS: PULSE 58
== END 2024-01-05 15:28 | disposition home or self-care (01) ==
LOC: ORPAIN 12:39
PROVIDERS: ATTEND Specialist
DX: M54.81 Occipital neuralgia (principal); M47.812 Spondylosis without myelopathy or radiculopathy, cervical region; Z88.1 Allergy status to other antibiotic agents; Z88.8 Allergy status to other drugs, medicaments and biological substances; Z79.01 Long term (current) use of anticoagulants
CPT/HCPCS: 64405; J2250; J3010; J2795; J1010

== ENCOUNTER → 2024-01-26 | Outpatient (CLI) | payer OTHER, MEDICARE ==
[2024-01-26 12:10] VITALS: BP 128/72; PULSE 95; RESP 15; TEMP 98.5
--- NOTE | 2024-01-26 14:34 | P.PAINPG ---
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 Pt states she experienced 50 % pain relief x 1 wks s/p procedure. Pt states pain is provoked at 7/10 in intensity, constant, localized in the cervical spine, predominantly axial, sharp in character w shooting towards the scalp, L> R. Pain is provoked by hyperextension. Pain is alleviated with PT 6 wks in 2022, physician guided home exercise regimen daily since May 2023, manual massage, chiropractic treatments 1 1/2 yrs which ended in 2022, medications, topicals, repositioning and rest. Cervical disability score of 24. Interventional pain procedures completed include BL JACQUIE injection x4 Patient is currently on Ibu, Tyl Patient denies any side effects of the medication(s), denies excessive drowsiness or sleepiness, denies suicidal ideation and reports that the current pain medication is helping to control the pain and improve activities of daily living. Patient denies any motor or sensory deficits. Patient denies any fever or night sweats, denies any change in the bowel movements or urination. Physical Examination: -Constitutional: Cooperative. Not in acute distress . - Neurologic: Cranial nerve II to XII intact. No focal neurological deficits. - Psychatric: Alert & oriented x 3. Matching mood & appropriate affect. Judgment and insight intact. - Musculoskeletal: Cervical spine: Muscle bulk/ tone/ strength in the bilateral upper extremities normal Vertebral body tenderness to palpation over Spurling test positive Distraction test positive Facet loading test positive BL C2-C3, C3-C4 Thoracic spine Muscle bulk / tone/ strength in the bilateral paraspinal muscles normal Vertebral body tender to palpation over Facet loading test positive Lumbar spine: Motor bulk/ tone/ strength lower extremities , thigh and legs : 5/5 Deep tendon reflexes : Normal Knee Jerk. Normal Ankle Jerk . 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 May need a series of injections, up until RFA, for optimal pain relief. Risks, benefits of procedure discussed and pt verbalized understanding. Admits to anticoagulant use or medical history of diabetes. Protocol for discontinuation, continuation of medications den procedure discussed. Minimal anesthesia including Fentanyl and Versed if clinically indicated. All patient questions answered I have spent less than 30 minutes on patient care today. Dr Flores was available by phone for the evaluation of this patient. The time was used to review the medical records including relevant urine studies and Prescription history (MAPs), review of the available imaging, evaluation and examination of the patient, coordination of care with the medical staff and if applicable referring physicians, as well as creation of the medical record PQRS Narrative: Smoking Status Never smoker Hx Alcohol Use (MH) No Home Medications: Ambulatory Orders Cetirizine HCl 10 mg PO DAILY 08/01/20 Apixaban [Eliquis] 5 mg PO BID 03/03/23 Calcium Carbonate [Calcium] 1,200 mg PO DAILY 03/03/23 Cerebra Brain Supplement 1 dose PO DAILY 03/03/23 Cetirizine HCl/Pseudoephedrine [Zyrtec-D ER 5 mg-120 mg Tablet] 1 tab PO DAILY PRN 03/03/23 Cyanocobalamin (Vitamin B-12) [Vitamin B-12] 1,000 mcg PO DAILY 03/03/23 Dicyclomine [Bentyl] 20 mg PO ACHS 03/03/23 Digestive Enz. Pre&Probiotic 1 dose PO DAILY 03/03/23 Diphenoxylate HCl/Atropine [Lomotil 2.5-0.025 mg Tablet] 2 tab PO QID PRN 03/03/23 Folic Acid 0.4 mg PO DAILY 03/03/23 Magnesium Gluconate [Magonate] 500 mg PO TID PRN 03/03/23 Multivit-Min/Iron/Folic/Lutein [Centrum Silver Women Tablet] 1 tab PO DAILY 03/03/23 Pantoprazole Sodium [Protonix] 40 mg PO AC-BID 03/03/23 Tart Hu 1 dose PO DAILY 03/03/23 Turmeric Root Extract [Turmeric] 2,000 mg PO DAILY 03/03/23 Zinc With Copper 1 dose PO DAILY 03/03/23 hydrOXYzine HCL [Atarax] 25 mg PO QID PRN 03/03/23 Hyoscyamine Sulfate [Levsin] 0.125 mg SL QID PRN 03/08/23 Lidocaine 4% Patch 1 patch TOPICAL DAILY PRN #0 03/08/23 Ondansetron Odt [Zofran ODT] 8 mg PO Q8H PRN 03/08/23 Ox Bile 1 tab PO DAILY 03/08/23 Tretinoin [Tretinoin 0.025%] 1 applic TOPICAL HS 03/08/23 Acetaminophen Tab [Tylenol] 1,000 mg PO Q6HR PRN #30 tablet 03/11/23 ARIPiprazole [Abilify] 10 mg PO HS 06/23/23 Budesonide [Entocort EC] 3 mg PO BID 06/23/23 Levothyroxine Sodium [Synthroid] 37.5 mcg PO DAILY 06/23/23 Melatonin 5 mg PO HS 06/23/23 OXcarbazepine 300 mg PO BID 06/23/23 diazePAM [Valium] 2 mg PO HS PRN 06/23/23 traZODone HCL [Desyrel] 300 mg PO HS 06/23/23 Vitamin D2/Vitamin K1 [Vit D2-K1 20-120 Mcg/0.1ML Drops] 1 tab PO DAILY 01/04/24 Controlled Substance Measures - Controlled Substance Measures Is patient prescribed a controlled substance at discharge?: No
== END | disposition home or self-care (01) ==
LOC: PNWHC3 10:49
PROVIDERS: ATTEND Specialist
DX: M54.81 Occipital neuralgia (principal); M54.2 Cervicalgia; G44.86 Cervicogenic headache; Z88.1 Allergy status to other antibiotic agents; Z91.048 Other nonmedicinal substance allergy status; Z88.8 Allergy status to other drugs, medicaments and biological substances
CPT/HCPCS: 99211

== ENCOUNTER 2024-02-09 11:29 | Day surgery (SDC) | payer OTHER, MEDICARE ==
[2024-02-09] MEDS: IV FLUID CONTINUATION 1,000 ML IV ONE (12:10)
[2024-02-09] MEDS: LACTATED RINGERS 1,000 ML IV SCH (12:10)
[2024-02-09 12:19] VITALS: TEMP 97.9
[2024-02-09] MEDS ORDERED: ROPIVACAINE 5MG/ML 20ML VIAL ONE (12:57)
[2024-02-09] MEDS ORDERED: MIDAZOLAM 2 MG/2 ML VIAL ONE (12:57)
--- NOTE | 2024-02-09 13:07 | P.PCN ---
Date of Procedure: 02/09/24 Description of Procedure: Procedure: Cervical Medial Branch Block at bilateral C2-C3, C3-C4 #1 Indications: Neck Pain Diagnosis: Cervical spondylosis without myelopathy Imaging: Fluoroscopy was used, images where saved to the medical record ANESTHESIA: Patient re-evaluated immediately prior to sedation Medication Administered by: Nurse Sedation Type: Moderate sedation Sedation Supervision start time: 1257 Sedation Supervision end time: 1307 EBL: Minimal Description of procedure: The patient was seen and examined in the PO. Procedure risks and benefits were fully reviewed with patient. The patient understands this is a diagnostic as well as a therapeutic procedure and that the goal of the procedure is to inject medication on to the medial branch or small nerves that go into the facet joints. In this way, we can hopefully identify which of these joints, if any, may be contributing to their pain. Informed consent for the procedure was obtained. The patient was taken into the office fluoroscopy procedure room and placed supine on the table. Vital signs were closely monitored during the procedure. The skin over the area was prepped with chlorhexidine and draped in usual sterile manner. Sterile technique was observed throughout procedure. Under fluoroscopic guidance, the target injection areas of the the above noted level's medial branches were visualized in lateral views. Using biplanar fluoroscopy, a 25 gauge 1.5 inch needle was inserted into proper position where the tip of the needle was located at the midpoint of the quadrangle at each level. After negative aspiration for blood and CSF, 0.5cc of 0.5 % Ropivacaine was injected into each of the targeted areas. The needles were withdrawn intact. No complications were noted during the procedure. The patient tolerated procedure well. The patient was placed in supine position and transferred to the recovery area for observation and remained stable until discharged home. Home discharge instructions given to the patient by the staff. The patient was reexamined prior to discharge. Follow up/plan: The patient will schedule a follow up in the clinic to discuss results and potential RFA.
[2024-02-09] MEDS: IV FLUID CONTINUATION 800 ML IV ONE (13:10)
[2024-02-09 14:00] VITALS: BP 109/76; PULSE 65; RESP 16
--- NOTE | 2024-02-09 14:20 | FL ---
EXAMINATION TYPE: FL guided pain mgmt statistic DATE OF EXAM: 02/09/2024 HISTORY: Fluoroscopy time Total dose area product (DAP) in uGy*m?, mGy*cm? (or similar): 0.30459 IMPRESSION: 1. Fluoroscopy time.
== END 2024-02-09 13:41 | disposition home or self-care (01) ==
LOC: ORPAIN 11:29
PROVIDERS: ATTEND Hospitalist
DX: M47.812 Spondylosis without myelopathy or radiculopathy, cervical region (principal); E11.9 Type 2 diabetes mellitus without complications; Z79.01 Long term (current) use of anticoagulants; Z88.1 Allergy status to other antibiotic agents; Z88.8 Allergy status to other drugs, medicaments and biological substances; Z79.899 Other long term (current) drug therapy; Z79.890 Hormone replacement therapy
CPT/HCPCS: 64491 ×2; 64490; J2250; J2795; 99152

== ENCOUNTER → 2024-03-07 | Outpatient (CLI) | payer OTHER, MEDICARE ==
[2024-03-07 14:09] VITALS: BP 104/72; PULSE 65; RESP 16
--- NOTE | 2024-03-07 14:54 | P.PAINPG ---
PQRS Measure Charge Sheet Comment: A 48 yr old female with a history of severe and chronic neck pain secondary to cervicogenic CHAPMNA and occipital neuralgia presents today for evaluation s/p BL MBB C2-C4 #1. Pt states she experienced 85 % pain relief x 1 wk s/p procedure. Pt states pain is provoked at 7/10 in intensity, constant, localized in the cervical spine, predominantly axial, sharp in character w shooting towards the scalp, L> R. Pain is provoked by hyperextension. Pain is alleviated with PT 6 wks in 2022, physician guided home exercise regimen daily since May 2023, manual massage, chiropractic treatments 1 1/2 yrs which ended in 2022, medications, topicals, repositioning and rest. Cervical disability score of 24. Interventional pain procedures completed include BL JACQUIE injection x4, BL MBB C2- C4 x1 Patient is currently on Ibu, Tyl Patient denies any side effects of the medication(s), denies excessive drowsiness or sleepiness, denies suicidal ideation and reports that the current pain medication is helping to control the pain and improve activities of daily living. Patient denies any motor or sensory deficits. Patient denies any fever or night sweats, denies any change in the bowel movements or urination. Physical Examination: -Constitutional: Cooperative. Not in acute distress . - Neurologic: Cranial nerve II to XII intact. No focal neurological deficits. - Psychatric: Alert & oriented x 3. Matching mood & appropriate affect. Judgment and insight intact. - Musculoskeletal: Cervical spine: Muscle bulk/ tone/ strength in the bilateral upper extremities normal Vertebral body tenderness to palpation over Spurling test positive Distraction test positive Facet loading test positive BL C2-C3, C3-C4 Thoracic spine Muscle bulk / tone/ strength in the bilateral paraspinal muscles normal Vertebral body tender to palpation over Facet loading test positive Lumbar spine: Motor bulk/ tone/ strength lower extremities , thigh and legs : 5/5 Deep tendon reflexes : Normal Knee Jerk. Normal Ankle Jerk . Vertebral body tenderness to palpation over Lumbar Facet Loading Test positive Straight Leg Raise: positive at 30 degrees right side/ left side Gaenslen's Test positive Sacral spine : Severe tenderness over the Sacroiliac joint: right side / left side Range of motion: Flexion of the lumbar spine <60 degrees Range of motion: Extension of the lumbar spine <20 degrees Gaenslen's Test positive Tatianna test: positive right side / left side Thigh Thrust Test Sacral Thrust Test 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 and occipital neuralgia Recommendation of BL MBB C2-C4 #2. May need a series of injections, up until RFA, for optimal pain relief. Risks, benefits of procedure discussed and pt verbalized understanding. Admits to anticoagulant use or medical history of diabetes. Protocol for discontinuation, continuation of medications den procedure discussed. Minimal anesthesia including Fentanyl and Versed if clinically indicated. All patient questions answered I have spent less than 30 minutes on patient care today. Dr Flores was available by phone for the evaluation of this patient. The time was used to review the medical records including relevant urine studies and Prescription history (MAPs), review of the available imaging, evaluation and examination of the patient, coordination of care with the medical staff and if applicable referring physicians, as well as creation of the medical record PQRS Narrative: Smoking Status Never smoker Hx Alcohol Use (MH) No Home Medications: Ambulatory Orders Cetirizine HCl 10 mg PO DAILY 08/01/20 Apixaban [Eliquis] 5 mg PO BID 03/03/23 Calcium Carbonate [Calcium] 1,200 mg PO DAILY 03/03/23 Cerebra Brain Supplement 1 dose PO DAILY 03/03/23 Cetirizine HCl/Pseudoephedrine [Zyrtec-D ER 5 mg-120 mg Tablet] 1 tab PO DAILY PRN 03/03/23 Cyanocobalamin (Vitamin B-12) [Vitamin B-12] 1,000 mcg PO DAILY 03/03/23 Dicyclomine [Bentyl] 20 mg PO ACHS 03/03/23 Digestive Enz. Pre&Probiotic 1 dose PO DAILY 03/03/23 Diphenoxylate HCl/Atropine [Lomotil 2.5-0.025 mg Tablet] 2 tab PO QID PRN 03/03/23 Folic Acid 0.4 mg PO DAILY 03/03/23 Magnesium Gluconate [Magonate] 500 mg PO TID PRN 03/03/23 Multivit-Min/Iron/Folic/Lutein [Centrum Silver Women Tablet] 1 tab PO DAILY 03/03/23 Pantoprazole Sodium [Protonix] 40 mg PO AC-BID 03/03/23 Tart Hu 1 dose PO DAILY 03/03/23 Turmeric Root Extract [Turmeric] 2,000 mg PO DAILY 03/03/23 Zinc With Copper 1 dose PO DAILY 03/03/23 hydrOXYzine HCL [Atarax] 25 mg PO QID PRN 03/03/23 Hyoscyamine Sulfate [Levsin] 0.125 mg SL QID PRN 03/08/23 Lidocaine 4% Patch 1 patch TOPICAL DAILY PRN #0 03/08/23 Ondansetron Odt [Zofran ODT] 8 mg PO Q8H PRN 03/08/23 Ox Bile 1 tab PO DAILY 03/08/23 Tretinoin [Tretinoin 0.025%] 1 applic TOPICAL HS 03/08/23 Acetaminophen Tab [Tylenol] 1,000 mg PO Q6HR PRN #30 tablet 03/11/23 ARIPiprazole [Abilify] 10 mg PO HS 06/23/23 Budesonide [Entocort EC] 3 mg PO BID 06/23/23 Levothyroxine Sodium [Synthroid] 37.5 mcg PO DAILY 06/23/23 Melatonin 5 mg PO HS 06/23/23 OXcarbazepine 300 mg PO BID 06/23/23 diazePAM [Valium] 2 mg PO HS PRN 06/23/23 traZODone HCL [Desyrel] 300 mg PO HS 06/23/23 Vitamin D2/Vitamin K1 [Vit D2-K1 20-120 Mcg/0.1ML Drops] 1 tab PO DAILY 01/04/24 Controlled Substance Measures - Controlled Substance Measures Is patient prescribed a controlled substance at discharge?: No
== END ==
LOC: PNWHC3 13:03
PROVIDERS: ATTEND Specialist
DX: M54.81 Occipital neuralgia (principal); G44.86 Cervicogenic headache; G89.29 Other chronic pain; Z88.8 Allergy status to other drugs, medicaments and biological substances; Z88.1 Allergy status to other antibiotic agents
CPT/HCPCS: 99211

== ENCOUNTER 2024-03-30 11:47 | Day surgery (SDC) | payer OTHER, MEDICARE ==
[2024-03-30 12:18] VITALS: TEMP 97.3
[2024-03-30] MEDS: LACTATED RINGERS 1,000 ML IV SCH (12:35)
[2024-03-30] MEDS: IV FLUID CONTINUATION 1,000 ML IV ONE ×2 (12:35→13:42)
[2024-03-30] MEDS ORDERED: MIDAZOLAM 2 MG/2 ML VIAL ONE (13:17)
[2024-03-30] MEDS ORDERED: ROPIVACAINE 5MG/ML 20ML VIAL ONE (13:17)
--- NOTE | 2024-03-30 13:45 | P.PCN ---
Date of Procedure: 03/30/24 Description of Procedure: PREOPERATIVE DIAGNOSIS: Cervical spondylosis without myelopathy, and occipital neuralgia POSTOPERATIVE DIAGNOSIS: Cervical spondylosis without myelopathy, and occipital neuralgia PROCEDURE : Bilateral cervical C2 -C3, and C3-C4 medial branch block under fluoroscopic guidance#2. SURGEON: Keyanna Ribeiro ADVERTISING SOLICITOR: None ANESTHESIA: Local anesthesia , and IV sedation : Versed 2 mg, +2 mg Patient was examined before the procedure. Sedation supervision start time: 1317 Sedation supervision end time: 1333 EBL: None Image: Fluoroscopic image saved to electronic medical records PROCEDURE INDICATION: The patient with neck pain returns here for diagnostic medial branch block, failed with the conservative therapy. PROCEDURE DESCRIPTION: The patient was seen and identified in the preoperative area. Risks, benefits, complications, and alternatives were discussed with the patient; the patient agreed to proceed with the procedure and signed the consent. Vital signs were stable. Standard ASA monitoring applied. Patient was taken to the OR and time out was completed. The patient was placed in the prone position on the procedure table and cervical area was prepped and draped in the usual sterile fashion. Critical pause was taken. Vital signs were closely monitored during the procedure. Using anteroposterior fluoroscopic with 15 cephalad tilt Waists of C2, C3, and C4 identified and marked with the sterile marker. Skin and subcutaneous tissue injected with a total of 2 mL of lidocaine 1% using a 27-gauge 1-1/2 inch needle. Using a 25-gauge 3-1/2 inch spinal needles 3. Each spinal needle entered to the corresponding waists. Using cross-table lateral fluoroscopy, the centroid of the trapezoid of C2, C3, and C4, . [place] were guided by fluoroscopy to the centroid of the trapezoid of C2, C3, and C4. After negative aspiration for blood and CSF, 0.5 mL of block solution injected at each level. The block solution containing 3 ml of 0.5% ropivacaine preservative free . [place] were removed intact. Entire procedure repeated on the left side . [place] were withdrawn intact. Skin was cleansed and bandages were applied. COMPLICATIONS: None. preprocedure VAS: 7-8 out of 10 in severity Postprocedure VAS: 8-9 out of 10 in severity COMMENTS: DISPOSITION/PLAN: The patient was placed in a supine position and transferred to the recovery area in a stable condition for observation and was discharged from the recovery room after meeting discharge criteria. Home discharge instructions given to the patient by the staff. The patient was reexamined prior to discharge. The patient will schedule a repeat procedure in 2-4 weeks.
[2024-03-30 14:00] VITALS: BP 135/83; PULSE 62; RESP 16
--- NOTE | 2024-03-30 15:52 | FL ---
EXAMINATION TYPE: FL guided pain mgmt statistic Intraoperative/procedural fluoroscopic services were provided. Total fluoroscopy time is 23 seconds with a total of 6 submitted images to PACS. Please see the operative/procedural note for further details. DAP: [id number] mGym2
== END 2024-03-30 14:12 | disposition home or self-care (01) ==
LOC: ORPAIN 11:47
PROVIDERS: ATTEND Anesthesiology
DX: M47.812 Spondylosis without myelopathy or radiculopathy, cervical region (principal); M54.81 Occipital neuralgia; Z88.1 Allergy status to other antibiotic agents; Z88.8 Allergy status to other drugs, medicaments and biological substances; D68.51 Activated protein C resistance; K21.9 Gastro-esophageal reflux disease without esophagitis; E03.9 Hypothyroidism, unspecified; G40.909 Epilepsy, unspecified, not intractable, without status epilepticus; M79.7 Fibromyalgia; F32.A Depression, unspecified; M06.9 Rheumatoid arthritis, unspecified; Z86.718 Personal history of other venous thrombosis and embolism; Z79.01 Long term (current) use of anticoagulants; Z79.899 Other long term (current) drug therapy; Z79.890 Hormone replacement therapy
CPT/HCPCS: 64490; 64491; J2250; J2795

== ENCOUNTER → 2024-04-16 | Outpatient (CLI) | payer OTHER, MEDICARE | LOC: PNWHC3 11:15 | PROVIDERS: ATTEND Specialist | DX: M47.812 Spondylosis without myelopathy or radiculopathy, cervical region | CPT/HCPCS: 99211 ==

== ENCOUNTER 2024-05-03 09:21 | Day surgery (SDC) | payer OTHER, MEDICARE ==
[2024-05-03] MEDS ORDERED: MIDAZOLAM 2 MG/2 ML VIAL ONE (11:48)
[2024-05-03] MEDS ORDERED: ROPIVACAINE 5MG/ML 20ML VIAL ONE (11:48)
[2024-05-03] MEDS ORDERED: fentaNYL (PF) 50 MCG/ML 2 ML AMP ONE (11:48)
--- NOTE | 2024-06-12 18:20 | FL ---
EXAMINATION TYPE: FL guided pain mgmt statistic COMPARISON: Pre Operative Images if available both CT/MRI or plain film CLINICAL INDICATION: Female, 49 years old with history of LEFT CERVICAL RFA; TECHNIQUE: FL guided pain mgmt statistic, multiple fluoroscopic images provided for procedure. Total fluoroscopy time: 14 seconds Total submitted images to PACS: 2 DAP: [id number] mGym2 Gycm2 uGym2 cGycm2 FINDINGS: Fluoroscopic images during injection for pain management demonstrate multilevel degeneration changes throughout the spine. No evidence for fracture. No acute process identified. IMPRESSION: 1. No evidence for intraoperative complication. 2. Please see the operative/procedural note for further details. [facility], , 06/12/2024 6:17 PM
== END 2024-05-03 13:02 ==
LOC: ORPAIN 09:21
PROVIDERS: ATTEND Pain Medicine Interventional Pain Medicine
DX: M47.812 Spondylosis without myelopathy or radiculopathy, cervical region (principal); Z79.01 Long term (current) use of anticoagulants; Z79.1 Long term (current) use of non-steroidal anti-inflammatories (NSAID); Z88.8 Allergy status to other drugs, medicaments and biological substances; Z88.1 Allergy status to other antibiotic agents; Z88.0 Allergy status to penicillin
CPT/HCPCS: 99152; 99153

== ENCOUNTER → 2024-05-17 | Outpatient (CLI) | payer OTHER, MEDICARE ==
--- NOTE | 2024-05-17 14:31 | P.PAINPG ---
PQRS Measure Charge Sheet Comment: A 49 yr old female with a history of severe and chronic neck pain secondary to cervicogenic CHAPMAN and occipital neuralgia presents today for evaluation s/p L RFA C2-C3/ C3-C4. Pt states she experienced 70 % pain relief s/p procedure. Pt states pain is provoked at 7 /10 in intensity, constant, localized in the R upper cervical spine, predominantly axial, sharp in character w shooting towards the scalp, L <R. Pain is provoked by hyperextension. Pain is alleviated with PT 6 wks in 2022, physician guided home exercise regimen daily since May 2023, manual massage, chiropractic treatments 1 1/2 yrs which ended in 2022, medications, topicals, repositioning and rest. Interventional pain procedures completed include BL JACQUIE injection x4, BL RFA C2- C4 (Apr 2024) Patient is currently on Ibu, Tyl, Lidoderm Patient denies any side effects of the medication(s), denies excessive drowsiness or sleepiness, denies suicidal ideation and reports that the current pain medication is helping to control the pain and improve activities of daily living. Patient denies any motor or sensory deficits. Patient denies any fever or night sweats, denies any change in the bowel movements or urination. Physical Examination: -Constitutional: Cooperative. Not in acute distress . - Neurologic: Cranial nerve II to XII intact. No focal neurological deficits. - Psychatric: Alert & oriented x 3. Matching mood & appropriate affect. Judgment and insight intact. - Musculoskeletal: Cervical spine: Muscle bulk/ tone/ strength in the bilateral upper extremities normal Vertebral body tenderness to palpation over Spurling test positive Distraction test positive Facet loading test positive R C2-C3, C3-C4 Thoracic spine Muscle bulk / tone/ strength in the bilateral paraspinal muscles normal Vertebral body tender to palpation over Facet loading test positive Lumbar spine: Motor bulk/ tone/ strength lower extremities , thigh and legs : 5/5 Deep tendon reflexes : Normal Knee Jerk. Normal Ankle Jerk . 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 Would benefit from L TPIs of C2-C6 and/or Zanaflex 2mg #120 prn spasms. Script e-scribed. Risks, benefits of procedure discussed and pt verbalized understanding. Admits to anticoagulant use or medical history of diabetes. Protocol for discontinuation, continuation of medications den procedure discussed. Minimal anesthesia including Fentanyl and Versed if clinically indicated. All patient questions answered I have spent less than 30 minutes on patient care today. Dr Flores was available by phone for the evaluation of this patient. The time was used to review the medical records including relevant urine studies and Prescription history (MAPs), review of the available imaging, evaluation and examination of the patient, coordination of care with the medical staff and if applicable referring physicians, as well as creation of the medical record PQRS Narrative: Smoking Status Never smoker Hx Alcohol Use (MH) No Home Medications: Ambulatory Orders Cetirizine HCl 10 mg PO DAILY PRN 08/01/20 Apixaban [Eliquis] 5 mg PO BID 03/03/23 Calcium Carbonate [Calcium] 1,200 mg PO DAILY 03/03/23 Cetirizine HCl/Pseudoephedrine [Zyrtec-D ER 5 mg-120 mg Tablet] 1 tab PO DAILY PRN 03/03/23 Dicyclomine [Bentyl] 20 mg PO ACHS 03/03/23 Diphenoxylate HCl/Atropine [Lomotil 2.5-0.025 mg Tablet] 2 tab PO QID PRN 03/03/23 Multivit-Min/Iron/Folic/Lutein [Centrum Silver Women Tablet] 1 tab PO DAILY 03/03/23 Pantoprazole Sodium [Protonix] 40 mg PO AC-BID 03/03/23 hydrOXYzine HCL [Atarax] 25 mg PO QID PRN 03/03/23 Lidocaine 4% Patch 1 patch TOPICAL DAILY PRN #0 03/08/23 Ondansetron Odt [Zofran ODT] 8 mg PO Q8H PRN 03/08/23 Tretinoin [Tretinoin 0.025%] 1 applic TOPICAL HS 03/08/23 Acetaminophen Tab [Tylenol] 1,000 mg PO Q6HR PRN #30 tablet 03/11/23 ARIPiprazole [Abilify] 10 mg PO HS 06/23/23 Budesonide [Entocort EC] 3 mg PO DAILY 06/23/23 Levothyroxine Sodium [Synthroid] 37.5 mcg PO DAILY 06/23/23 OXcarbazepine 300 mg PO BID 06/23/23 diazePAM [Valium] 2 mg PO BID 06/23/23 traZODone HCL [Desyrel] 300 mg PO HS 06/23/23 Divalproex [Depakote] 250 mg PO BID 03/28/24 tiZANidine [Zanaflex] 2 mg PO Q6HR PRN 30 Days #120 tab 05/17/24 Controlled Substance Measures - Controlled Substance Measures Is patient prescribed a controlled substance at discharge?: No
[2024-05-17 14:41] VITALS: BP 95/65; PULSE 70; RESP 16; TEMP 98.3
== END ==
LOC: PNWHC3 13:38
PROVIDERS: ATTEND Specialist
DX: M47.812 Spondylosis without myelopathy or radiculopathy, cervical region
CPT/HCPCS: 99211

== ENCOUNTER 2024-07-13 09:11 | Day surgery (SDC) | payer OTHER, MEDICARE ==
[2024-07-11 13:34] VITALS: BMI 25.0
[2024-07-13] MEDS: IV FLUID CONTINUATION 1,000 ML IV ONE ×2 (09:37→10:54)
[2024-07-13 09:55] VITALS: RESP 16; TEMP 97.4
[2024-07-13] MEDS: LACTATED RINGERS 1,000 ML IV SCH (10:03)
[2024-07-13] MEDS ORDERED: methylPREDNISolone ACETATE 80 MG/ML 1 ML VIAL ONE (10:19)
[2024-07-13] MEDS ORDERED: fentaNYL (PF) 50 MCG/ML 2 ML AMP ONE (10:19)
[2024-07-13] MEDS ORDERED: MIDAZOLAM 2 MG/2 ML VIAL ONE (10:19)
[2024-07-13] MEDS ORDERED: ROPIVACAINE 5MG/ML 20ML VIAL ONE (10:19)
--- NOTE | 2024-07-13 10:51 | P.PCN ---
Date of Procedure: 07/13/24 Procedure(s) Performed: PREOPERATIVE DIAGNOSIS:1- Cervical spondylosis with Facet Arthropathy without myelopathy. 2-cervicogenic headache. 3-occipital neuralgia. 4-myofascial pain syndrome cervical paraspinal muscles POSTOPERATIVE DIAGNOSIS: Same as preop diagnosis. PROCEDURES:1- Radiofrequency thermocoagulation Right C2 ,C3, C4 medial branch with Fluroscopy [place](fluoroscopy was available in Rad department ) (to denervate the facet joint at Right C2-3 ,C3- 4 ). 2-trigger point injection left side cervical paraspinal muscles total of 5 trigger point injected. From C2-C7 ANESTHESIA: moderate sedation with fentanyl 100 micrograms and Versed 2 mg (sedation started 10:19, ended at 10:41 ) EBL: Minimal PROCEDURE INDICATION: The patient with neck pain secondary to cervical arthropathy who had more than 50% relief of her pain with previous diagnostic cervical medial branch block. PROCEDURE DESCRIPTION / TECHNIQUE: The patient was seen and identified in the preoperative area. Risks, benefits, complications, and alternatives were discussed with the patient, the patient agreed to proceed with the procedure and signed the consent. IV was started. Vital signs remained stable throughout the procedure. Patient was taken to the OR and time out was completed. The patient was placed in the prone position on the procedure table. A pillow was placed under the patients chest to increase the cervical interlaminar space. The cervical area was prepped and draped in the usual sterile fashion. Critical pause was taken. Vital signs were closely monitored during the procedure. Conscious sedation was used during the procedure to decrease patients anxiety. Using cross-table lateral fluoroscopy, the centroid of the trapezoid of Right C2 ,C3, C4, were identified, marked, and localized with 1% lidocaine. Subsequently, a 20 [id number] radiofrequency cannula with a 10-mm active tip was advanced guided by fluoroscopy to the centroid of the trapezoid of Right C2 ,C3, C4 . Needle tip position was confirmed at the centroid of the trapezoids of Right C2 ,C3, C4, with anteroposterior fluoroscopy. Each site then underwent sensory testing at 50 Hz and 0 to 1 volt and motor testing at 2 Hz and 0 to 3 volt with local stimulation, but no radicular symptoms down the arm. Thereafter each sites underwent radiofrequency thermocoagulation at 80 degrees celsius for 90 seconds after injecting 0.5 ml of PF Ropivacaine 0.5 %. After thermocoagulation, 1 ml of the block solution containing Depo-Medrol 40 mg and 3 mL of preservative-free normal saline was injected at the Right C2 ,C3, C4, levels after negative aspiration of CSF and blood and with no paresthesias. Cannulas were retracted while injecting lidocaine 1% until the needle is out. Then after that point injection done in a sterile technique, each of the trigger point that was identified in the preop holding area on the left side cervical paraspinal muscles, one of them injected with a mixture of ropivacaine 0.5% 10 mL mixed with 40 mg of Depo-Medrol each of the trigger point injected with 2 mL of the mixture using 25-gauge needle, injection done after negative aspiration and there was no paresthesia during the injection, total of 5 trigger point identified in the left side cervical paraspinal muscles from C2 to C7 on the left side, patient tolerated the procedure well without any complications COMPLICATIONS: No acute complications. DISPOSITION / PLANS: The patient was placed in a supine position and transferred to the recovery area in a stable condition for observation and was discharged from the recovery room after meeting discharge criteria. Home discharge instructions given to the patient by the staff. The patient was reexamined prior to discharge. The patient will schedule a follow up in the clinic in 2-4 weeks.
[2024-07-13 11:11] VITALS: BP 101/69; PULSE 73
--- NOTE | 2024-07-13 11:35 | FL ---
EXAMINATION TYPE: FL guided pain mgmt statistic DATE OF EXAM: 07/13/2024 FLUOROSCOPY Rt Cerv Rad Freq 19sec fluoro time .[id number] Blackburn 4 images are submitted [facility], , 07/13/2024 11:33 AM
== END 2024-07-13 11:21 | disposition home or self-care (01) ==
LOC: ORPAIN 09:11
PROVIDERS: ATTEND Specialist
DX: M47.812 Spondylosis without myelopathy or radiculopathy, cervical region (principal); G44.86 Cervicogenic headache; M54.81 Occipital neuralgia; M79.18 Myalgia, other site; Z79.01 Long term (current) use of anticoagulants; Z79.1 Long term (current) use of non-steroidal anti-inflammatories (NSAID); Z88.8 Allergy status to other drugs, medicaments and biological substances; Z88.1 Allergy status to other antibiotic agents
CPT/HCPCS: 20553; 64633; 64634; 99152; 99153; J2250; J3010; J2795; J1010

== ENCOUNTER → 2024-08-01 | Outpatient (CLI) | payer OTHER, MEDICARE ==
[2024-08-01 14:27] VITALS: BP 99/76; PULSE 71; RESP 16
--- NOTE | 2024-08-06 08:15 | P.PAINPG ---
PQRS Measure Charge Sheet Comment: A 49 yr old female with a history of severe and chronic neck pain secondary to cervicogenic CHAPMAN, occipital neuralgia presents today for evaluation s/p R RFA C2- C3/ C3-C4. Pt states she experienced 85 % pain relief s/p procedure. Pt states pain is provoked at 4-6 /10 in intensity, constant, localized in the R upper cervical spine, predominantly axial, sharp in character without shooting pain. Pain is provoked by hyperextension. Pain is alleviated with PT 6 wks in 2022, physician guided home exercise regimen daily since May 2023, manual massage, chiropractic treatments 1 1/2 yrs which ended in 2022, medications, topicals, repositioning and rest. Interventional pain procedures completed include BL JACQUIE injection x4, L RFA C2- C4 (Apr 2024), R C2-C4 (07/13/24) Patient is currently on Ibu, Tyl, Lidoderm Patient denies any side effects of the medication(s), denies excessive drowsiness or sleepiness, denies suicidal ideation and reports that the current pain medication is helping to control the pain and improve activities of daily living. Patient denies any motor or sensory deficits. Patient denies any fever or night sweats, denies any change in the bowel movements or urination. Physical Examination: -Constitutional: Cooperative. Not in acute distress . - Neurologic: Cranial nerve II to XII intact. No focal neurological deficits. - Psychatric: Alert & oriented x 3. Matching mood & appropriate affect. Judgment and insight intact. - Musculoskeletal: Cervical spine: Muscle bulk/ tone/ strength in the bilateral upper extremities normal Vertebral body tenderness to palpation over Spurling test positive Distraction test positive Facet loading test positive R C2-C3, C3-C4 Thoracic spine Muscle bulk / tone/ strength in the bilateral paraspinal muscles normal Vertebral body tender to palpation over Facet loading test positive Lumbar spine: Motor bulk/ tone/ strength lower extremities , thigh and legs : 5/5 Deep tendon reflexes : Normal Knee Jerk. Normal Ankle Jerk . Vertebral body tenderness to palpation over Lumbar Facet Loading Test positive Straight Leg Raise: positive at 30 degrees right side/ left side Gaenslen's Test positive Sacral spine : Severe tenderness over the Sacroiliac joint: right side / left side Range of motion: Flexion of the lumbar spine <60 degrees Range of motion: Extension of the lumbar spine <20 degrees Gaenslen's Test positive Tatianna test: positive right side / left side Thigh Thrust Test Sacral Thrust Test 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 and occipital neuralgia Recommendation of medication refill . Would benefit from L TPIs of C2-C6 at a later time. Zanaflex 2mg #120 prn spasms. Script e-scribed. Risks, benefits of procedure discussed and pt verbalized understanding. Admits to anticoagulant use or medical history of diabetes. Protocol for discontinuation, continuation of medications den procedure discussed. All patient questions answered I have spent less than 30 minutes on patient care today. Dr Flores was available by phone for the evaluation of this patient. The time was used to review the medical records including relevant urine studies and Prescription history (MAPs), review of the available imaging, evaluation and examination of the patient, coordination of care with the medical staff and if applicable referring physicians, as well as creation of the medical record PQRS Narrative: Smoking Status Never smoker Hx Alcohol Use (MH) No Home Medications: Ambulatory Orders Cetirizine HCl 10 mg PO DAILY PRN 08/01/20 Apixaban [Eliquis] 5 mg PO BID 03/03/23 Calcium Carbonate [Calcium] 1,200 mg PO DAILY 03/03/23 Dicyclomine [Bentyl] 20 mg PO ACHS 03/03/23 Diphenoxylate HCl/Atropine [Lomotil 2.5-0.025 mg Tablet] 2 tab PO QID PRN 03/03/23 Multivit-Min/Iron/Folic/Lutein [Centrum Silver Women Tablet] 1 tab PO DAILY 03/03/23 hydrOXYzine HCL [Atarax] 25 mg PO QID PRN 03/03/23 Lidocaine 4% Patch 1 patch TOPICAL DAILY PRN #0 03/08/23 Ondansetron Odt [Zofran ODT] 8 mg PO Q8H PRN 03/08/23 Tretinoin [Tretinoin 0.025%] 1 applic TOPICAL HS 03/08/23 Acetaminophen Tab [Tylenol] 1,000 mg PO Q6HR PRN #30 tablet 03/11/23 ARIPiprazole [Abilify] 10 mg PO HS 06/23/23 Levothyroxine Sodium [Synthroid] 37.5 mcg PO DAILY 06/23/23 OXcarbazepine 300 mg PO BID 06/23/23 diazePAM [Valium] 2 mg PO BID PRN 06/23/23 traZODone HCL [Desyrel] 300 mg PO HS 06/23/23 Divalproex [Depakote] 250 mg PO BID 03/28/24 tiZANidine [Zanaflex] 2 mg PO Q6HR PRN 30 Days #120 tab 08/01/24 Controlled Substance Measures - Controlled Substance Measures Is patient prescribed a controlled substance at discharge?: No
== END ==
LOC: PNWHC3 14:10
PROVIDERS: ATTEND Specialist
DX: M54.81 Occipital neuralgia (principal); M47.812 Spondylosis without myelopathy or radiculopathy, cervical region; G44.86 Cervicogenic headache; Z88.8 Allergy status to other drugs, medicaments and biological substances; Z88.1 Allergy status to other antibiotic agents
CPT/HCPCS: 99211

== ENCOUNTER → 2024-12-24 | Outpatient (CLI) | payer MEDICARE, OTHER ==
[2024-12-24 13:59] VITALS: BP 112/79; PULSE 60; RESP 16
--- NOTE | 2024-12-24 15:26 | P.PAINPG ---
Objective - Vital Signs Vital signs: Vital Signs Temp Pulse 60 12/24/24 13:57 Resp 16 12/24/24 13:57 BP 112/79 12/24/24 13:57 Pulse Ox 99 12/24/24 13:57 FiO2 PQRS Measure Charge Sheet Mode of Arrival: Ambulatory Comment: A 49 yr old female with a history of severe and chronic neck pain secondary to cervicogenic CHAPMAN, occipital neuralgia presents today for evaluation s/p R RFA C2- C3/ C3-C4. Pt states she experienced 85 % pain relief s/p procedure. Pt states pain is provoked at 4-6 /10 in intensity, constant, localized in the R upper cervical spine, predominantly axial, sharp in character without shooting pain. Pain is provoked by hyperextension. Pain is alleviated with PT 6 wks in 2022, physician guided home exercise regimen daily since May 2023, manual massage, chiropractic treatments 1 1/2 yrs which ended in 2022, medications, topicals, repositioning and rest. Interventional pain procedures completed include BL JACQUIE injection x4, L RFA C2- C4 (Apr 2024), R C2-C4 (07/13/24) Patient is currently on Ibu, Tyl, Lidoderm Patient denies any side effects of the medication(s), denies excessive drowsiness or sleepiness, denies suicidal ideation and reports that the current pain medication is helping to control the pain and improve activities of daily living. Patient denies any motor or sensory deficits. Patient denies any fever or night sweats, denies any change in the bowel movements or urination. Physical Examination: -Constitutional: Cooperative. Not in acute distress . - Neurologic: Cranial nerve II to XII intact. No focal neurological deficits. - Psychatric: Alert & oriented x 3. Matching mood & appropriate affect. Judgment and insight intact. - Musculoskeletal: Cervical spine: Muscle bulk/ tone/ strength in the bilateral upper extremities normal Vertebral body tenderness to palpation over Spurling test positive Distraction test positive Facet loading test positive R C2-C3, C3-C4 Thoracic spine Muscle bulk / tone/ strength in the bilateral paraspinal muscles normal Vertebral body tender to palpation over Facet loading test positive Lumbar spine: Motor bulk/ tone/ strength lower extremities , thigh and legs : 5/5 Deep tendon reflexes : Normal Knee Jerk. Normal Ankle Jerk . Vertebral body tenderness to palpation over Lumbar Facet Loading Test positive Straight Leg Raise: positive at 30 degrees right side/ left side Gaenslen's Test positive Sacral spine : Severe tenderness over the Sacroiliac joint: right side / left side Range of motion: Flexion of the lumbar spine <60 degrees Range of motion: Extension of the lumbar spine <20 degrees Gaenslen's Test positive Tatianna test: positive right side / left side Thigh Thrust Test Sacral Thrust Test 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 and occipital neuralgia Recommendation of medication refill . Would benefit from L TPIs of C2-C6 at a later time. Zanaflex 2mg #120 prn spasms. Script e-scribed. Risks, benefits of procedure discussed and pt verbalized understanding. Admits to anticoagulant use or medical history of diabetes. Protocol for discontinuation, continuation of medications den procedure discussed. All patient questions answered I have spent less than 30 minutes on patient care today. Dr Flores was available by phone for the evaluation of this patient. The time was used to review the medical records including relevant urine studies and Prescription history (MAPs), review of the available imaging, evaluation and examination of the patient, coordination of care with the medical staff and if applicable referring physicians, as well as creation of the medical record PQRS Narrative: Smoking Status Never smoker Blood Pressure 112/79 Pain Intensity [Bilateral 0 Upper Neck] Scale Used Numeric (1 - 10) Hx Alcohol Use (MH) No Home Medications: Ambulatory Orders Cetirizine HCl 10 mg PO DAILY PRN 08/01/20 Apixaban [Eliquis] 5 mg PO BID 03/03/23 Calcium Carbonate [Calcium] 1,200 mg PO DAILY 03/03/23 Dicyclomine [Bentyl] 20 mg PO ACHS 03/03/23 Diphenoxylate HCl/Atropine [Lomotil 2.5-0.025 mg Tablet] 2 tab PO QID PRN 03/03/23 Multivit-Min/Iron/Folic/Lutein [Centrum Silver Women Tablet] 1 tab PO DAILY 03/03/23 hydrOXYzine HCL [Atarax] 25 mg PO QID PRN 03/03/23 Lidocaine 4% Patch 1 patch TOPICAL DAILY PRN #0 03/08/23 Ondansetron Odt [Zofran ODT] 8 mg PO Q8H PRN 03/08/23 Tretinoin [Tretinoin 0.025%] 1 applic TOPICAL HS 03/08/23 Acetaminophen Tab [Tylenol] 1,000 mg PO Q6HR PRN #30 tablet 03/11/23 ARIPiprazole [Abilify] 10 mg PO HS 06/23/23 Levothyroxine Sodium [Synthroid] 37.5 mcg PO DAILY 06/23/23 OXcarbazepine 300 mg PO BID 06/23/23 diazePAM [Valium] 2 mg PO BID PRN 06/23/23 traZODone HCL [Desyrel] 300 mg PO HS 06/23/23 Divalproex [Depakote] 250 mg PO BID 03/28/24 tiZANidine [Zanaflex] 2 mg PO Q6HR PRN 90 Days #360 tab 12/24/24 Controlled Substance Measures - Controlled Substance Measures Is patient prescribed a controlled substance at discharge?: No
== END ==
LOC: PNWHC3 13:45
PROVIDERS: ATTEND Specialist
DX: M54.81 Occipital neuralgia (principal); G44.86 Cervicogenic headache; G89.29 Other chronic pain; Z88.1 Allergy status to other antibiotic agents; Z88.8 Allergy status to other drugs, medicaments and biological substances
CPT/HCPCS: 99211